=== PATIENT | female | born 1935 | race Caucasian/White ===

== ENCOUNTER → 2019-12-14 14:41 | Outpatient (BNVA) | payer MEDICARE, SELFPAY | PROVIDERS: PCP Internal Medicine; Visit Provider Internal Medicine | DX: I26.99 Other pulmonary embolism without acute cor pulmonale (principal); Z51.81 Encounter for therapeutic drug level monitoring; Z79.01 Long term (current) use of anticoagulants | CPT/HCPCS: 85610; 99211 ==

== ENCOUNTER → 2020-01-11 14:40 | Outpatient (BNVA) | payer MEDICARE, SELFPAY | PROVIDERS: PCP Internal Medicine; Visit Provider Internal Medicine | DX: I26.99 Other pulmonary embolism without acute cor pulmonale (principal); Z51.81 Encounter for therapeutic drug level monitoring; Z79.01 Long term (current) use of anticoagulants | CPT/HCPCS: 85610; 99211 ==

== ENCOUNTER → 2020-01-25 11:49 | Outpatient (BNVA) | payer MEDICARE, SELFPAY | PROVIDERS: PCP Internal Medicine; Visit Provider Internal Medicine | DX: I26.99 Other pulmonary embolism without acute cor pulmonale (principal); Z51.81 Encounter for therapeutic drug level monitoring; Z79.01 Long term (current) use of anticoagulants | CPT/HCPCS: 85610; 99211 ==

== ENCOUNTER → 2020-02-19 11:38 | Outpatient (BNVA) | payer MEDICARE, SELFPAY | PROVIDERS: PCP Internal Medicine; Visit Provider Internal Medicine | DX: I26.99 Other pulmonary embolism without acute cor pulmonale (principal); Z51.81 Encounter for therapeutic drug level monitoring; Z79.01 Long term (current) use of anticoagulants | CPT/HCPCS: 85610; 99211 ==

== ENCOUNTER → 2020-03-04 14:01 | Outpatient (BNVA) | payer MEDICARE, SELFPAY | PROVIDERS: PCP Internal Medicine; Visit Provider Internal Medicine | DX: I26.99 Other pulmonary embolism without acute cor pulmonale (principal); Z51.81 Encounter for therapeutic drug level monitoring; Z79.01 Long term (current) use of anticoagulants | CPT/HCPCS: 85610; 99211 ==

== ENCOUNTER 2020-03-18 12:56 | Outpatient (REF) | payer MEDICARE, SELFPAY ==
[2020-03-18 13:58] LABS: MANUAL DIFF FLAG NO
[2020-03-18 14:02] LABS: Basophils Percent Auto 0.6 % (0-2); Eosinophils Absolute Auto 0.2 X10*3/uL (0.0-0.4); Eosinophils Percent Auto 3.6 % (0-4); Hematocrit 45.1 % (37-47); Hemoglobin 14.3 g/dl (12.0-16.0); Imm Gran Abs Auto 0.02 X10*3/uL (0.00-0.03); Imm Gran Pct Auto 0.3 % (0.0-0.4); Lymphocytes Absolute Auto 2.1 X10*3/uL (1.2-4.9); Lymphocytes Percent Auto 30.9 % (20-40); Mean Corpuscular HGB Conc 31.7 g/dl (31.0-35.0); Mean Corpuscular Hemoglobin 30.4 pg (27.0-33.0); Mean Corpuscular Volume 95.8 fL (80-98); Mean Platelet Volume 11.3 fL (9.4-12.3); Monocytes Absolute Auto 0.7 X10*3/uL (0.1-1.2); Monocytes Percent Auto 9.6 % (2-11); Neutrophils Absolute Auto 3.7 X10*3/uL (2.0-8.3); Platelet Count 232 X10*3/uL (160-400); Red Blood Count 4.71 X10*6/uL (4.20-5.50); Red Cell Distribution Width 12.6 % (11.0-16.0); White Blood Count 6.8 X10*3/uL (4.8-10.8)
[2020-03-18 14:12] LABS: INTERNATIONAL NORM RATIO 3.6 (0.9-1.1); Prothrombin Time 43.4 SEC (10.8-13.0)
[2020-03-18 14:49] LABS: Anion Gap 17 (12-20); Blood Urea Nitrogen 20 mg/dL (9-16); Calcium 9.4 mg/dL (8.4-10.2); Carbon Dioxide 26 mmol/L (22-29); Chloride 104 mmol/L (96-108); Cholesterol 171 mg/dL; Estimated Glomerular Filt Rate 58; Glucose Random 103 mg/dL (60-115); HDL Cholesterol 59 mg/dL; LDL Cholesterol Calculated 89 mg/dl; Sodium 142 mmol/L (135-145); Triglycerides 115 mg/dL
== END 2020-03-18 12:57 | disposition home or self-care (01) ==
LOC: HO.HMGCLDS 12:56
PROVIDERS: PCP Internal Medicine; Visit Provider Internal Medicine
DX: I10 Essential (primary) hypertension (principal); E78.9 Disorder of lipoprotein metabolism, unspecified; Z79.01 Long term (current) use of anticoagulants
CPT/HCPCS: 36415; 80048; 80061; 85025; 85610

== ENCOUNTER → 2020-03-19 12:30 | Outpatient (BNVA) | payer MEDICARE, SELFPAY | PROVIDERS: PCP Internal Medicine; Visit Provider Internal Medicine | DX: I26.99 Other pulmonary embolism without acute cor pulmonale (principal); Z51.81 Encounter for therapeutic drug level monitoring; Z79.01 Long term (current) use of anticoagulants | CPT/HCPCS: Q3014 ==

== ENCOUNTER → 2020-03-27 11:06 | Outpatient (BNVA) | payer MEDICARE, SELFPAY | PROVIDERS: PCP Internal Medicine; Visit Provider Internal Medicine | DX: I26.99 Other pulmonary embolism without acute cor pulmonale (principal); Z51.81 Encounter for therapeutic drug level monitoring; Z79.01 Long term (current) use of anticoagulants | CPT/HCPCS: 85610; 99211 ==

== ENCOUNTER → 2020-04-10 11:22 | Outpatient (BNVA) | payer MEDICARE, SELFPAY | PROVIDERS: PCP Internal Medicine; Visit Provider Internal Medicine | DX: I26.99 Other pulmonary embolism without acute cor pulmonale (principal); Z51.81 Encounter for therapeutic drug level monitoring; Z79.01 Long term (current) use of anticoagulants | CPT/HCPCS: 85610; 99211 ==

== ENCOUNTER → 2020-05-01 11:28 | Outpatient (BNVA) | payer MEDICARE, SELFPAY | PROVIDERS: PCP Internal Medicine; Visit Provider Internal Medicine | DX: I26.99 Other pulmonary embolism without acute cor pulmonale (principal); Z51.81 Encounter for therapeutic drug level monitoring; Z79.01 Long term (current) use of anticoagulants | CPT/HCPCS: 85610; 99211 ==

== ENCOUNTER → 2020-05-29 11:40 | Outpatient (BNVA) | payer MEDICARE, SELFPAY | PROVIDERS: PCP Internal Medicine; Visit Provider Internal Medicine | DX: I26.99 Other pulmonary embolism without acute cor pulmonale (principal); Z51.81 Encounter for therapeutic drug level monitoring; Z79.01 Long term (current) use of anticoagulants | CPT/HCPCS: 85610; 99211 ==

== ENCOUNTER → 2020-07-01 11:42 | Outpatient (BNVA) | payer MEDICARE, SELFPAY | PROVIDERS: PCP Internal Medicine; Visit Provider Internal Medicine | DX: I26.99 Other pulmonary embolism without acute cor pulmonale (principal); Z51.81 Encounter for therapeutic drug level monitoring; Z79.01 Long term (current) use of anticoagulants | CPT/HCPCS: 85610; 99211 ==

== ENCOUNTER → 2020-07-15 11:04 | Outpatient (BNVA) | payer MEDICARE, SELFPAY | PROVIDERS: PCP Internal Medicine; Visit Provider Internal Medicine | DX: I26.99 Other pulmonary embolism without acute cor pulmonale (principal); Z51.81 Encounter for therapeutic drug level monitoring; Z79.01 Long term (current) use of anticoagulants | CPT/HCPCS: 85610; 99211 ==

== ENCOUNTER → 2020-07-31 11:30 | Outpatient (BNVA) | payer MEDICARE, SELFPAY | PROVIDERS: PCP Internal Medicine; Visit Provider Internal Medicine | DX: I26.99 Other pulmonary embolism without acute cor pulmonale (principal); Z51.81 Encounter for therapeutic drug level monitoring; Z79.01 Long term (current) use of anticoagulants | CPT/HCPCS: 85610; 99211 ==

== ENCOUNTER → 2020-08-28 11:43 | Outpatient (BNVA) | payer MEDICARE, SELFPAY | PROVIDERS: PCP Internal Medicine; Visit Provider Internal Medicine | DX: I26.99 Other pulmonary embolism without acute cor pulmonale (principal); Z51.81 Encounter for therapeutic drug level monitoring; Z79.01 Long term (current) use of anticoagulants | CPT/HCPCS: 85610; 99211 ==

== ENCOUNTER 2020-09-03 10:49 | Outpatient (REF) | payer MEDICARE, SELFPAY ==
[2020-09-03 14:18] LABS: Anion Gap 16 (12-20); Blood Urea Nitrogen 14 mg/dL (9-16); Calcium 9.6 mg/dL (8.4-10.2); Carbon Dioxide 28 mmol/L (22-29); Chloride 105 mmol/L (96-108); Cholesterol 157 mg/dL; Estimated Glomerular Filt Rate 52; Glucose Fasting 100 mg/dL (60-99); HDL Cholesterol 67 mg/dL; LDL Cholesterol Calculated 71 mg/dl; Potassium 4.8 mmol/L (3.3-5.1); Sodium 144 mmol/L (135-145); Triglycerides 95 mg/dL
== END 2020-09-03 10:50 | disposition home or self-care (01) ==
LOC: HO.HMGCLDS 10:49
PROVIDERS: PCP Internal Medicine; Visit Provider Internal Medicine
DX: R03.0 Elevated blood-pressure reading, without diagnosis of hypertension (principal); E78.9 Disorder of lipoprotein metabolism, unspecified; I10 Essential (primary) hypertension; K21.9 Gastro-esophageal reflux disease without esophagitis; Z91.09 Other allergy status, other than to drugs and biological substances
CPT/HCPCS: 36415; 80048; 80061

== ENCOUNTER → 2020-09-11 11:34 | Outpatient (BNVA) | payer MEDICARE, SELFPAY | PROVIDERS: PCP Internal Medicine; Visit Provider Internal Medicine | DX: I26.99 Other pulmonary embolism without acute cor pulmonale (principal); Z51.81 Encounter for therapeutic drug level monitoring; Z79.01 Long term (current) use of anticoagulants | CPT/HCPCS: 85610; 99211 ==

== ENCOUNTER → 2020-09-25 11:19 | Outpatient (BNVA) | payer MEDICARE, SELFPAY | PROVIDERS: PCP Internal Medicine; Visit Provider Internal Medicine | DX: I26.99 Other pulmonary embolism without acute cor pulmonale (principal); Z51.81 Encounter for therapeutic drug level monitoring; Z79.01 Long term (current) use of anticoagulants | CPT/HCPCS: 85610; 99211 ==

== ENCOUNTER → 2020-10-23 11:42 | Outpatient (BNV) | payer MEDICARE, SELFPAY | PROVIDERS: PCP Internal Medicine; Visit Provider Internal Medicine | DX: Z86.711 Personal history of pulmonary embolism (principal); D50.9 Iron deficiency anemia, unspecified | CPT/HCPCS: 99212; 99213; 99214 ==

== ENCOUNTER → 2020-10-23 12:39 | Outpatient (BNVA) | payer MEDICARE, SELFPAY | PROVIDERS: PCP Internal Medicine; Visit Provider Internal Medicine | DX: I26.99 Other pulmonary embolism without acute cor pulmonale (principal); Z51.81 Encounter for therapeutic drug level monitoring; Z79.01 Long term (current) use of anticoagulants | CPT/HCPCS: 85610; 99211 ==

== ENCOUNTER → 2020-11-27 11:24 | Outpatient (BNVA) | payer MEDICARE, SELFPAY | PROVIDERS: PCP Internal Medicine; Visit Provider Internal Medicine | DX: I26.99 Other pulmonary embolism without acute cor pulmonale (principal); Z51.81 Encounter for therapeutic drug level monitoring; Z79.01 Long term (current) use of anticoagulants | CPT/HCPCS: 85610; 99211 ==

== ENCOUNTER 2020-12-05 14:56 | Outpatient (REF) | payer MEDICARE, SELFPAY ==
[2020-12-05 16:51] LABS: Alanine Aminotransferase 20 U/L (0-31); Albumin Level 4.2 g/dL (3.5-5.0); Alkaline Phosphatase 92 U/L (39-117); Anion Gap 16 (12-20); Aspartate Amino Transferase 21 U/L (5-31); Bilirubin Total 0.6 mg/dL (0.0-1.0); Blood Urea Nitrogen 18 mg/dL (9-16); Calcium 9.8 mg/dL (8.4-10.2); Carbon Dioxide 26 mmol/L (22-29); Chloride 102 mmol/L (96-108); Estimated Glomerular Filt Rate 56; Glucose Random 104 mg/dL (60-115); Magnesium 2.1 mg/dL (1.6-2.6); Potassium 4.8 mmol/L (3.3-5.1); Sodium 139 mmol/L (135-145); Total Protein 7.4 g/dL (6.5-8.0)
[2020-12-05 17:17] LABS: Vitamin B12 > 2000 pg/mL (200-900)
== END 2020-12-05 14:57 | disposition home or self-care (01) ==
LOC: HO.HMGCLDS 14:56
PROVIDERS: PCP Internal Medicine; Visit Provider Internal Medicine
DX: I73.9 Peripheral vascular disease, unspecified (principal); R03.0 Elevated blood-pressure reading, without diagnosis of hypertension; E78.9 Disorder of lipoprotein metabolism, unspecified; L98.9 Disorder of the skin and subcutaneous tissue, unspecified; I49.9 Cardiac arrhythmia, unspecified; E66.09 Other obesity due to excess calories
CPT/HCPCS: 36415; 80053; 82607; 83735

== ENCOUNTER → 2020-12-11 11:52 | Outpatient (BNVA) | payer MEDICARE, SELFPAY | PROVIDERS: PCP Internal Medicine; Visit Provider Internal Medicine | DX: I26.99 Other pulmonary embolism without acute cor pulmonale (principal); Z51.81 Encounter for therapeutic drug level monitoring; Z79.01 Long term (current) use of anticoagulants | CPT/HCPCS: 85610; 99211 ==

== ENCOUNTER → 2021-01-14 11:22 | Outpatient (BNVA) | payer MEDICARE, SELFPAY | PROVIDERS: PCP Internal Medicine; Visit Provider Internal Medicine | DX: I83.12 Varicose veins of left lower extremity with inflammation (principal); I73.9 Peripheral vascular disease, unspecified; I26.99 Other pulmonary embolism without acute cor pulmonale; Z86.718 Personal history of other venous thrombosis and embolism; Z51.81 Encounter for therapeutic drug level monitoring; Z79.01 Long term (current) use of anticoagulants | CPT/HCPCS: 85610; 99202; 99211 ==

== ENCOUNTER → 2021-02-11 11:17 | Outpatient (BNVA) | payer MEDICARE, SELFPAY | PROVIDERS: PCP Internal Medicine; Visit Provider Internal Medicine | DX: I26.99 Other pulmonary embolism without acute cor pulmonale (principal); Z51.81 Encounter for therapeutic drug level monitoring; Z79.01 Long term (current) use of anticoagulants | CPT/HCPCS: 85610; 99211 ==

== ENCOUNTER → 2021-03-12 11:17 | Outpatient (BNVA) | payer MEDICARE, SELFPAY | PROVIDERS: PCP Internal Medicine; Visit Provider Internal Medicine | DX: I26.99 Other pulmonary embolism without acute cor pulmonale (principal); Z51.81 Encounter for therapeutic drug level monitoring; Z79.01 Long term (current) use of anticoagulants | CPT/HCPCS: 85610; 99211 ==

== ENCOUNTER 2021-03-17 13:01 | Outpatient (REF) | payer MEDICARE, SELFPAY ==
--- NOTE | ~2021-03-17 | US_ITS ---
EXAMINATION: US LOWER EXTREMITY VENOUS (REFLUX EXAM), BILATERAL CLINICAL INDICATION: This is an 85-year-old female with venous insufficiency and varicose veins. COMPARISON: None. TECHNIQUE: Color flow triplex imaging and compression Doppler was performed to evaluate both the deep and the superficial systems bilaterally. To evaluate the superficial system, the examination was performed in the upright position. Color-flow Doppler ultrasound and compression ultrasound were utilized. In addition, maneuvers were utilized to demonstrate reflux. FINDINGS: 1. DEEP VENOUS ULTRASOUND OF THE RIGHT LOWER EXTREMITY: Common Femoral Vein: Compressible, normal respiratory variation and augmented flow. Femoral vein: Compressible, but with reflux measuring 3316 ms. Popliteal Vein: Compressible, but with reflux measuring 2588 ms. Deep Reflux: There is evidence of reflux in the deep system below the level of the common femoral vein. There is no evidence of a James's cyst. 2. SUPERFICIAL ULTRASOUND WITH DOPPLER OF RIGHT LOWER EXTREMITY: GREAT SAPHENOUS VEIN: Saphenofemoral Junction: 0.6 cm. There is no reflux at the saphenofemoral junction. Mid Thigh: 0.3 cm. The reflux time is 1688 ms. Above Knee: 0.4 cm. There is no reflux. Below Knee: 0.3 cm. The reflux time is 1007 are 44 ms. Mid Calf: 0.3 cm. The reflux time is 992 ms. GSV REFLUX: There is no reflux at the saphenofemoral junction. The reflux begins in the proximal thigh. DUPLICATED GREAT SAPHENOUS VEIN: None SMALL SAPHENOUS VEIN: Proximal: 0.6 cm. The reflux time is 1396 ms. Distal: 0.4 cm. The reflux time is 1104 ms. SSV REFLUX: There is reflux at the saphenopopliteal junction and throughout the small saphenous vein. VEIN OF GIACOMINI: None Imaged. PERFORATORS: There is a 0.3 cm calf heater operator helper without reflux. VARICOSITIES: There is a 0.3 cm proximal thigh varicose vein without reflux. 3. DEEP VENOUS ULTRASOUND OF THE LEFT LOWER EXTREMITY: Common Femoral Vein: Compressible, normal respiratory variation and augmented flow. Femoral Vein: Compressible, but with reflux measuring 1824 ms. Popliteal Vein: Compressible, but with reflux measuring 1380 ms. Deep Reflux: There is evidence of reflux in the deep system below the level of the common femoral vein. There is no evidence of a James's cyst. 4. SUPERFICIAL ULTRASOUND WITH DOPPLER OF LEFT LOWER EXTREMITY: GREAT SAPHENOUS VEIN: Saphenofemoral Junction: 0.8 cm. There is no reflux. Mid Thigh: 0.6 cm. There is no reflux. Above Knee: 0.5 cm. The reflux time is 820 ms. Below Knee: 0.3 cm. The reflux time is 816 ms. Mid Calf: 0.3 cm. There is no reflux. Ankle: 0.3 cm. The reflux time is 936 ms. GSV REFLUX: There is no reflux the saphenofemoral junction. There is isolated reflux above the knee. DUPLICATED GREAT SAPHENOUS VEIN: None SMALL SAPHENOUS VEIN: Proximal: 0.5 cm. The reflux time is 1092 ms. Distal: 0.2 cm. There is no reflux SSV REFLUX: There is reflux at the sapheno popliteal junction. VEIN OF GIACOMINI: None Imaged. PERFORATORS: There is a 0.5 cm proximal calf heater operator helper without reflux. VARICOSITIES: There is a 0.4 cm varicosity at the knee without reflux. US/US venous duplex LE BI IMPRESSION: 1. There is a patent right great saphenous vein without reflux at the saphenofemoral junction. However, reflux is seen below that area. 2. There is a patent right small saphenous vein with reflux throughout including the sapheno popliteal junction. 3. There is a patent left great saphenous vein without reflux at the saphenofemoral junction. Distal isolated reflux is seen. 4. There is a patent left small saphenous vein with reflux at the sapheno popliteal junction. 5. Varicose veins are seen bilaterally without reflux. 6. Bilateral deep vein reflux is seen below the level of the common femoral veins respectively.
== END 2021-03-17 13:02 | disposition home or self-care (01) ==
LOC: HO.US 13:01
PROVIDERS: Visit Provider Surgery Vascular Surgery
DX: I83.12 Varicose veins of left lower extremity with inflammation (principal)
CPT/HCPCS: 93970

== ENCOUNTER → 2021-03-27 14:43 | Outpatient (BNVA) | payer MEDICARE, SELFPAY | PROVIDERS: PCP Internal Medicine; Visit Provider Surgery Vascular Surgery | DX: I83.12 Varicose veins of left lower extremity with inflammation (principal) | CPT/HCPCS: 99212 ==

== ENCOUNTER → 2021-04-09 11:07 | Outpatient (BNVA) | payer MEDICARE, SELFPAY | PROVIDERS: PCP Internal Medicine; Visit Provider Internal Medicine | DX: I26.99 Other pulmonary embolism without acute cor pulmonale (principal); Z51.81 Encounter for therapeutic drug level monitoring; Z79.01 Long term (current) use of anticoagulants | CPT/HCPCS: 85610; 99211 ==

== ENCOUNTER 2021-04-17 12:12 | Outpatient (REF) | payer MEDICARE, SELFPAY ==
[2021-04-17 14:06] LABS: Alanine Aminotransferase 19 U/L (0-31); Albumin Level 3.9 g/dL (3.5-5.0); Alkaline Phosphatase 70 U/L (39-117); Anion Gap 16 (12-20); Aspartate Amino Transferase 23 U/L (5-31); Bilirubin Total 0.6 mg/dL (0.0-1.0); Blood Urea Nitrogen 22 mg/dL (9-16); Calcium 9.7 mg/dL (8.4-10.2); Carbon Dioxide 28 mmol/L (22-29); Chloride 103 mmol/L (96-108); Estimated Glomerular Filt Rate 50; Glucose Random 109 mg/dL (60-115); Potassium 5.5 mmol/L (3.3-5.1); Sodium 141 mmol/L (135-145); Total Protein 7.4 g/dL (6.5-8.0)
== END 2021-04-17 12:13 | disposition home or self-care (01) ==
LOC: HO.HMGCLDS 12:12
PROVIDERS: PCP Internal Medicine; Visit Provider Internal Medicine
DX: E78.9 Disorder of lipoprotein metabolism, unspecified (principal); I10 Essential (primary) hypertension
CPT/HCPCS: 36415; 80053

== ENCOUNTER 2021-04-21 10:11 | Outpatient (REF) | payer MEDICARE, SELFPAY ==
[2021-04-21 12:27] LABS: Anion Gap 13 (12-20); Carbon Dioxide 30 mmol/L (22-29); Chloride 102 mmol/L (96-108); Sodium 140 mmol/L (135-145)
== END 2021-04-21 10:12 | disposition home or self-care (01) ==
LOC: HO.HMGCLDS 10:11
PROVIDERS: Visit Provider Internal Medicine
DX: E87.5 Hyperkalemia (principal)
CPT/HCPCS: 36415; 80051

== ENCOUNTER → 2021-04-25 08:27 | Outpatient (BNVA) | payer MEDICARE, SELFPAY | PROVIDERS: PCP Internal Medicine; Visit Provider Surgery Vascular Surgery | DX: I83.12 Varicose veins of left lower extremity with inflammation (principal) | CPT/HCPCS: 36482 ==

== ENCOUNTER 2021-04-28 14:48 | Outpatient (REF) | payer MEDICARE, SELFPAY ==
--- NOTE | ~2021-04-28 | US_ITS ---
EXAMINATION: US VENOUS ULTRASOUND WITH DOPPLER LOWER EXTREMITY, LEFT CLINICAL INFORMATION: This is an 85-year-old female who status post closure of the left great saphenous vein. COMPARISON: None TECHNIQUE: Ultrasound of the deep and superficial veins is performed from the hip to the calf with compression sonography and color and pulse Doppler assessment. Spectral analysis with color-flow imaging is performed. FINDINGS: There is normal venous compression and respiratory variation and augmented flow. The visualized common femoral vein, superficial femoral vein, profunda femoral vein, popliteal vein, and the trifurcation region shows no evidence of deep venous thrombosis. There is no significant popliteal fossa cyst. The peroneal veins are not well identified. There is occlusion of the great saphenous vein beginning 1.2 cm from the junction. No extension of thrombus is seen into the common femoral vein. US/US venous duplex LE LT IMPRESSION: 1. No DVT demonstrated in the left lower extremity. 2. The proximal great saphenous vein is occluded. There is no extension of thrombus into the deep venous system.
== END 2021-04-28 14:49 | disposition home or self-care (01) ==
LOC: HO.US 14:48
PROVIDERS: Visit Provider Surgery Vascular Surgery
DX: M79.605 Pain in left leg (principal); Z98.890 Other specified postprocedural states
CPT/HCPCS: 93971

== ENCOUNTER → 2021-05-07 11:29 | Outpatient (BNVA) | payer MEDICARE, SELFPAY | PROVIDERS: PCP Internal Medicine; Visit Provider Internal Medicine | DX: I26.99 Other pulmonary embolism without acute cor pulmonale (principal); Z51.81 Encounter for therapeutic drug level monitoring; Z79.01 Long term (current) use of anticoagulants | CPT/HCPCS: 85610; 99211 ==

== ENCOUNTER 2021-05-20 14:15 | Outpatient (REF) | payer MEDICARE, SELFPAY ==
--- NOTE | ~2021-05-20 | MM_ITS ---
EXAMINATION: MM SCREENING DIGITAL BREAST TOMOSYNTHESIS, BILATERAL CLINICAL INFORMATION: Screening. Asymptomatic. Family history breast cancer, mother. COMPARISON: Mammography: 10/07/2017, 08/21/2016, 08/08/2015 TECHNIQUE: Digital breast tomosynthesis is performed in both the craniocaudal and mediolateral oblique views along with computer-aided detection (CAD). Synthesized 2D images are generated from the tomosynthesis. FINDINGS: There are scattered areas of fibroglandular density (ACR BI-RADS breast composition Category b). There are no significant masses, abnormal calcifications, or other abnormalities. MM/MM tomosynthesis screening BI IMPRESSION: No mammographic evidence of malignancy. ASSESSMENT: BI-RADS 1: Negative RECOMMENDATION: Routine annual mammography screening. This patient's information was entered into a reminder system with a target due date for their next mammogram.
== END 2021-05-20 14:16 | disposition home or self-care (01) ==
LOC: HO.MAMMO 14:15
PROVIDERS: Visit Provider Internal Medicine
DX: Z12.31 Encounter for screening mammogram for malignant neoplasm of breast (principal); I83.11 Varicose veins of right lower extremity with inflammation
CPT/HCPCS: 77063; 77067; 99212

== ENCOUNTER → 2021-06-04 11:33 | Outpatient (BNVA) | payer MEDICARE, SELFPAY | PROVIDERS: PCP Internal Medicine; Visit Provider Internal Medicine | DX: I26.99 Other pulmonary embolism without acute cor pulmonale (principal); Z79.01 Long term (current) use of anticoagulants; Z51.81 Encounter for therapeutic drug level monitoring | CPT/HCPCS: 85610; 99211 ==

== ENCOUNTER → 2021-06-06 12:26 | Outpatient (BNVA) | payer MEDICARE, SELFPAY | PROVIDERS: PCP Internal Medicine; Visit Provider Surgery Vascular Surgery | DX: I83.11 Varicose veins of right lower extremity with inflammation (principal) | CPT/HCPCS: 36482 ==

== ENCOUNTER 2021-06-10 13:29 | Outpatient (REF) | payer MEDICARE, SELFPAY ==
--- NOTE | ~2021-06-10 | US_ITS ---
EXAMINATION: US VENOUS ULTRASOUND WITH DOPPLER LOWER EXTREMITY, RIGHT CLINICAL INFORMATION: Pain. Post right leg venous seal procedure 06/06/2021 COMPARISON: Previous exam February 2021 TECHNIQUE: Ultrasound of the deep veins is performed from the hip to the calf with compression sonography and color and pulse Doppler assessment. Spectral analysis with color-flow imaging is performed. FINDINGS: There is normal venous compression and respiratory variation and augmented flow. The visualized common femoral vein, superficial femoral vein, profunda femoral vein, popliteal vein, and the trifurcation region shows no evidence of deep venous thrombosis. The right greater saphenous vein is closed. There is echogenic material seen in the right greater saphenous vein that extends to 3.6 cm from the saphenofemoral junction. There is no significant popliteal fossa cyst. The contralateral left common femoral vein is patent. US/US venous duplex LE RT IMPRESSION: No DVT demonstrated in the right lower extremity.
== END 2021-06-10 13:30 | disposition home or self-care (01) ==
LOC: HO.HMGCX 13:29
PROVIDERS: PCP Internal Medicine; Visit Provider Surgery Vascular Surgery
DX: M79.604 Pain in right leg (principal)
CPT/HCPCS: 93971

== ENCOUNTER → 2021-06-19 11:08 | Outpatient (BNVA) | payer MEDICARE, SELFPAY | PROVIDERS: PCP Internal Medicine; Visit Provider Surgery Vascular Surgery | DX: I83.12 Varicose veins of left lower extremity with inflammation (principal) | CPT/HCPCS: 99212 ==

== ENCOUNTER → 2021-06-27 09:32 | Outpatient (BNVA) | payer MEDICARE, SELFPAY | PROVIDERS: PCP Internal Medicine; Visit Provider Surgery Vascular Surgery | DX: I83.12 Varicose veins of left lower extremity with inflammation (principal) | CPT/HCPCS: 36475 ==

== ENCOUNTER 2021-06-30 14:58 | Outpatient (REF) | payer MEDICARE, SELFPAY ==
--- NOTE | ~2021-06-30 | US_ITS ---
EXAMINATION: US VENOUS ULTRASOUND WITH DOPPLER LOWER EXTREMITY, LEFT CLINICAL INFORMATION: Post left RFA ablation 06/27/2021 COMPARISON: Previous exams most recent April 2021 TECHNIQUE: Ultrasound of the deep veins is performed from the hip to the calf with compression sonography and color and pulse Doppler assessment. Spectral analysis with color-flow imaging is performed. FINDINGS: There is echogenic material seen against the wall of the left superficial femoral vein in the proximal thigh suggestive of thrombus. This is new in the interval from April 2021 exam but does not appear acute. The left common femoral, superficial femoral vein in the mid and distal thigh, profunda, popliteal and posterior tibial veins are patent. There is limited visualization of the peroneal veins in the calf vein due to swelling. The left greater saphenous vein is difficult to visualize. There appears to be narrowing and echogenic material 4.5 cm from the saphenofemoral junction. The contralateral right common femoral vein is patent. There is no James's cyst. US/US venous duplex LE IMPRESSION: Echogenic material in the left superficial femoral vein in the upper thigh. This is new in the interval from April 2021 exam however is more suggestive of chronic than acute DVT. Short-term follow-up exam in several days may be helpful. Nonvisualization of the peroneal veins. Findings will be communicated by the [facility] work flow hatch supervisor Peng Chrisitan.
== END 2021-06-30 14:59 | disposition home or self-care (01) ==
LOC: HO.US 14:58
PROVIDERS: Visit Provider Surgery Vascular Surgery
DX: M79.605 Pain in left leg (principal)
CPT/HCPCS: 93971

== ENCOUNTER → 2021-07-03 11:41 | Outpatient (BNVA) | payer MEDICARE, SELFPAY | PROVIDERS: PCP Internal Medicine; Visit Provider Internal Medicine | DX: I26.99 Other pulmonary embolism without acute cor pulmonale (principal); Z79.01 Long term (current) use of anticoagulants; Z51.81 Encounter for therapeutic drug level monitoring | CPT/HCPCS: 85610; 99211 ==

== ENCOUNTER → 2021-07-10 11:08 | Outpatient (BNVA) | payer MEDICARE, SELFPAY | PROVIDERS: PCP Internal Medicine; Visit Provider Surgery Vascular Surgery | DX: I83.11 Varicose veins of right lower extremity with inflammation (principal) | CPT/HCPCS: 99212 ==

== ENCOUNTER → 2021-07-17 11:46 | Outpatient (BNVA) | payer MEDICARE, SELFPAY | PROVIDERS: PCP Internal Medicine; Visit Provider Internal Medicine | DX: I26.99 Other pulmonary embolism without acute cor pulmonale (principal); Z79.01 Long term (current) use of anticoagulants; Z51.81 Encounter for therapeutic drug level monitoring | CPT/HCPCS: 85610; 99211 ==

== ENCOUNTER → 2021-07-18 09:36 | Outpatient (BNVA) | payer MEDICARE, SELFPAY | PROVIDERS: PCP Internal Medicine; Visit Provider Surgery Vascular Surgery | DX: I83.11 Varicose veins of right lower extremity with inflammation (principal) | CPT/HCPCS: 36475 ==

== ENCOUNTER 2021-07-22 15:30 | Outpatient (REF) | payer MEDICARE, SELFPAY ==
--- NOTE | ~2021-07-22 | US_ITS ---
EXAMINATION: US VENOUS ULTRASOUND WITH DOPPLER LOWER EXTREMITY, RIGHT CLINICAL INFORMATION: Pain right leg. COMPARISON: Ultrasound right lower venous study 06/10/2021. Status post venous ablation. TECHNIQUE: Ultrasound of the deep veins is performed from the hip to the calf with compression sonography and color and pulse Doppler assessment. Spectral analysis with color-flow imaging is performed. FINDINGS: There is normal venous compression and respiratory variation and augmented flow. The visualized common femoral vein, superficial femoral vein, profunda femoral vein, popliteal vein, and the trifurcation region shows no evidence of deep venous thrombosis. There is no significant popliteal fossa cyst. There is thrombus visualized in superficial saphenous vein approximately 2.6 cm from the confluence. No flow visualized in this segment. If the patient's symptoms persist, followup ultrasound in 5 days 7 days might be of value to exclude proximal propagation from a nonvisualized calf vein. US/US venous duplex LE RT IMPRESSION: No DVT demonstrated in the right lower extremity. Thrombus visualized in the superficial saphenous vein status post venous ablation.
== END 2021-07-22 15:31 | disposition home or self-care (01) ==
LOC: HO.US 15:30
PROVIDERS: Visit Provider Surgery Vascular Surgery
DX: M79.604 Pain in right leg (principal)
CPT/HCPCS: 93971

== ENCOUNTER → 2021-07-24 11:37 | Outpatient (BNVA) | payer MEDICARE, SELFPAY | PROVIDERS: PCP Internal Medicine; Visit Provider Internal Medicine | DX: I26.99 Other pulmonary embolism without acute cor pulmonale (principal); Z79.01 Long term (current) use of anticoagulants; Z51.81 Encounter for therapeutic drug level monitoring | CPT/HCPCS: 85610; 99211 ==

== ENCOUNTER 2021-07-30 13:19 | Outpatient (REF) | payer MEDICARE, SELFPAY ==
[2021-07-30 16:54] LABS: Anion Gap 15 (12-20); Carbon Dioxide 27 mmol/L (22-29); Chloride 102 mmol/L (96-108); Potassium 5.1 mmol/L (3.3-5.1); Sodium 139 mmol/L (135-145)
== END 2021-07-30 13:20 | disposition home or self-care (01) ==
LOC: HO.HMGCLDS 13:19
PROVIDERS: PCP Internal Medicine; Visit Provider Internal Medicine
DX: E87.5 Hyperkalemia (principal)
CPT/HCPCS: 36415; 80051

== ENCOUNTER → 2021-07-31 13:57 | Outpatient (BNVA) | payer MEDICARE, SELFPAY | PROVIDERS: PCP Internal Medicine; Visit Provider Surgery Vascular Surgery | DX: I83.11 Varicose veins of right lower extremity with inflammation (principal) | CPT/HCPCS: 99212 ==

== ENCOUNTER 2021-08-04 10:01 | Outpatient (RCR) | payer MEDICARE, SELFPAY | END 2021-10-17 08:45 | disposition home or self-care (01) | LOC: HO.WCC 10:01 | PROVIDERS: Visit Provider Physician Assistant | DX: I87.033 Postthrombotic syndrome with ulcer and inflammation of bilateral lower extremity (principal); L97.822 Non-pressure chronic ulcer of other part of left lower leg with fat layer exposed; L97.812 Non-pressure chronic ulcer of other part of right lower leg with fat layer exposed; Z86.718 Personal history of other venous thrombosis and embolism; Z79.01 Long term (current) use of anticoagulants; Z79.899 Other long term (current) drug therapy | CPT/HCPCS: 11042; 29581; 97597; 99212 ==

== ENCOUNTER → 2021-08-07 11:35 | Outpatient (BNVA) | payer MEDICARE, SELFPAY | PROVIDERS: PCP Internal Medicine; Visit Provider Internal Medicine | DX: I26.99 Other pulmonary embolism without acute cor pulmonale (principal); Z79.01 Long term (current) use of anticoagulants; Z51.81 Encounter for therapeutic drug level monitoring | CPT/HCPCS: 85610; 99211 ==

== ENCOUNTER → 2021-08-21 11:34 | Outpatient (BNVA) | payer MEDICARE, SELFPAY | PROVIDERS: PCP Internal Medicine; Visit Provider Internal Medicine | DX: I26.99 Other pulmonary embolism without acute cor pulmonale (principal); Z51.81 Encounter for therapeutic drug level monitoring; Z79.01 Long term (current) use of anticoagulants | CPT/HCPCS: 85610; 99211 ==

== ENCOUNTER → 2021-08-28 13:35 | Outpatient (BNVA) | payer MEDICARE, SELFPAY | PROVIDERS: PCP Internal Medicine; Visit Provider Surgery Vascular Surgery | DX: I83.12 Varicose veins of left lower extremity with inflammation (principal); S81.802A Unspecified open wound, left lower leg, initial encounter | CPT/HCPCS: 99212 ==

== ENCOUNTER → 2021-09-15 10:59 | Outpatient (BNVA) | payer MEDICARE, SELFPAY | PROVIDERS: PCP Internal Medicine; Visit Provider Internal Medicine | DX: I26.99 Other pulmonary embolism without acute cor pulmonale (principal); Z51.81 Encounter for therapeutic drug level monitoring; Z79.01 Long term (current) use of anticoagulants | CPT/HCPCS: 85610; 99211 ==

== ENCOUNTER → 2021-09-22 13:35 | Outpatient (BNVA) | payer MEDICARE, SELFPAY | PROVIDERS: PCP Internal Medicine; Visit Provider Internal Medicine | DX: I26.99 Other pulmonary embolism without acute cor pulmonale (principal); Z79.01 Long term (current) use of anticoagulants; Z51.81 Encounter for therapeutic drug level monitoring | CPT/HCPCS: 85610; 99211 ==

== ENCOUNTER → 2021-09-29 11:45 | Outpatient (BNVA) | payer MEDICARE, SELFPAY | PROVIDERS: PCP Internal Medicine; Visit Provider Internal Medicine | DX: I26.99 Other pulmonary embolism without acute cor pulmonale (principal); Z79.01 Long term (current) use of anticoagulants; Z51.81 Encounter for therapeutic drug level monitoring | CPT/HCPCS: 85610; 99211 ==

== ENCOUNTER → 2021-10-08 11:45 | Outpatient (BNVA) | payer MEDICARE, SELFPAY | PROVIDERS: PCP Internal Medicine; Visit Provider Internal Medicine | DX: I26.99 Other pulmonary embolism without acute cor pulmonale (principal); Z79.01 Long term (current) use of anticoagulants; Z51.81 Encounter for therapeutic drug level monitoring | CPT/HCPCS: 85610; 99211 ==

== ENCOUNTER 2021-10-20 06:50 | Day surgery (SDC) | payer MEDICARE, SELFPAY ==
[2021-10-15 09:01] VITALS: BMI 33.0
--- NOTE | 2021-10-16 12:37 | MHC.SHP ---
Pre-Procedural Eval Section A Date of Service: 10/16/21 The patient is an INPATIENT: No Changes since office visit: No Cold of Flu in the past 2 weeks, No New Medical Problems, No Changes in Medication and No Patient answered all questions The History & Physical has been completed within 30 days and I have reviewed it.: Yes Section B Chief Complaint: cataract Allergies: Allergies Allergy/AdvReac Type Severity Reaction Status Date / Time enviromental Allergy Mild RHINITIS Uncoded 10/08/21 11:52 SEASONAL ALLERGIES Allergy Mild RUNNY NOSE Uncoded 10/08/21 11:52 Plan Diagnosis/Plan: Unchanged I have reviewed the history and physical and performed a pertinent physical examination on my patient. No changes have occurred unless specified.
[2021-10-20 07:15] VITALS: BP 139/77; PULSE 81; RESP 18; TEMP 36.6; O2SAT 96
[2021-10-20] MEDS: Tetracaine HCl/PF 0.5% Oph Sol 4 ML DROPS 1 DROP EYE-LEFT (07:22)
[2021-10-20] MEDS: Cyclopentolate 1 % Ophth Sol 2 ML DRPBTL 1 DROP EYE-LEFT ×3 (07:24→07:33)
[2021-10-20] MEDS: Tropicamide 1 % Ophth Sol 3 ML BTL 1 DROP EYE-LEFT ×3 (07:24→07:33)
[2021-10-20] MEDS: Phenylephrine HCL 2.5% Oph SoL 2 ML BOTTLE 1 DROP EYE-LEFT ×3 (07:24→07:34)
[2021-10-20 07:26] LABS: Prothrombin Time 24.1 SEC (10.0-13.1)
--- NOTE | 2021-10-20 07:39 | HO.ANESPROP2 ---
HPI - Anesthesia Eval Consult details Narrative: left cataract IOL PMFSH Active Problems Active Problems: All Active Problems (Updated 10/14/21 @ 13:42 by Marvin Alexis MD) Current use of anticoagulant therapy (Acute) Personal history of pulmonary embolism (Chronic) Chronic GERD (Acute) Elevated blood pressure reading (Acute) Skin sore (Acute) Irregular heart rate (Acute) Obesity due to excess calories (Acute) Varicose veins of left lower extremity with inflammation (Acute) Encounter for general adult medical examination with abnormal findings (Acute) Serum potassium elevated (Acute) Varicose veins of right lower extremity with inflammation (Acute) Pre-op evaluation (Acute) Cataract (Acute) Nephropathy (Acute) History of deep venous thrombosis (DVT) of distal vein of left lower extremity (Acute) Environmental allergies (Acute) COPD mixed type (Acute) Warfarin anticoagulation (Acute) Peripheral vascular disease (Acute) Lipid disorder (Acute) Hypertension, essential (Acute) Past Medical History Medical History COPD mixed type Environmental allergies History of deep venous thrombosis (DVT) of distal vein of left lower extremity Hypertension, essential Lipid disorder Osteoporosis Peripheral vascular disease Warfarin anticoagulation Family History Family History Father HTN (hypertension) History of heart attack Mother HTN (hypertension) Breast cancer Maternal Grandfather No problems noted. Maternal Grandmother No problems noted. Paternal Grandfather No problems noted. Paternal Grandmother No problems noted. Sister No problems noted. Son No problems noted. Son No problems noted. Daughter No problems noted. Daughter No problems noted. Daughter No problems noted. Family history of problems with anesthesia: No Surgical History Surgical History History of breast biopsy History of colonoscopy Hx of vascular surgery History of Problems with Anesthesia: No Social History Social History Housing: House Are you a primary women's health care nurse practitioner to a significant other at home: No Do you presently have visiting nurse or other home services: No Alcohol intake: current Alcohol intake frequency: holidays/special occasions only Patient Tobacco Use Status: Never used Tobacco e-Cigarette/Vaping Use: Never Used Second Hand Smoke Exposure: No Use of substances other than those prescribed or required for medical reasons: No Have you been hit, kicked, punched, or otherwise hurt by someone within the past year? If so, by whom?: No Are you DNR?: No Advance Directives: No (will bring dos) Advance Directives Information Provided: Yes Advance Directives on File: No Recently lost weight without trying: No Nutrition Risks: Surgical patient >75years Current occupational status: retired Cognitive needs: No Hearing needs: No Vision needs: Yes Meds Allergies Allergy/AdvReac Type Severity Reaction Status Date / Time enviromental Allergy Mild RHINITIS Uncoded 10/08/21 11:52 SEASONAL ALLERGIES Allergy Mild RUNNY NOSE Uncoded 10/08/21 11:52 Active Medications: Current Medications Lactated Ringer's (Lr) 500 mls @ 50 mls/hr IVCONT .Q10H ROMAINE Povidone Iodine (Povidone Iodine 5 % Ophth Soln 30 Ml Bottle) 1 appl EYE-LEFT PREOP PRN PRN Reason: Pre-Op Surgical Implant Prophy Home Medications Medication Instructions Recorded Confirmed Last Taken Type fexofenadine 180 mg tablet 180 mg PO DAILY 10/15/21 10/15/21 Unknown History (Rosemary Allergy) Exam Exam Date and Time: October 20, 2021 0739 Height,Weight and Vital Signs: Height 5 ft 6 in Weight 92.986 kg Last Vital Signs Temp 97.8 F 10/20/21 07:15 Pulse 81 10/20/21 07:15 Resp 18 10/20/21 07:15 BP 139/77 10/20/21 07:15 Pulse Ox 96 10/20/21 07:15 O2 Del Method 10/20/21 07:15 Pertinent Lab Results Pertinent Lab Results: Laboratory Tests 10/20/21 07:09 PT 24.1 H INR 2.0 H Airway Mallampati Class: II TM Dist: >3cm Neck ROM: Full Partial: Upper (upper partial, lower no teeth) Loose/Missing/Broken Teeth: Yes (see above) Heart: rrr+s1s2, some skipped beats. being seen by Dr. Ennis and optimized Lungs: cta b/l Assessment and Plan Assessment Anesthesia Assessment: Anesthesia Plan Discussed and Chart Reviewed Final Anesthetic Review Family History of Problems with Anesthesia: No History of Problems with Anesthesia: No NPO: Yes ASA Class: III Final Preanesthetic Review: No Changes in Pt Med Stat, Meds/Allgs Chart Reviewed, Consent Obtained/Reviewed and Anes Risks/Benef Reviewed Patient Risk: Intermediate Procedure Risk: Low Assessment/Block/Sedation in SS: Assess/Block/Sedation-SS Anesthetic Plan Anesthetic Plan: MAC: and Agree w/ Assess. and Plan Disposition: Standard PACU
--- NOTE | 2021-10-20 08:11 | HO.PNOPHT ---
Ophthalmology Procedure Procedure Date of Service: 10/20/21 Ophthalmology Viscoelastic: Healana Davet Dual Pack Pro Ophthalmology Lenses: TECNIS [id number] (14.5) Procedure Notes: PREOPERATIVE DIAGNOSIS: Decreased visual acuity left eye secondary to cataract POSTOPERATIVE DIAGNOSIS: Same PROCEDURE: Left cataract extraction with intraocular lens insertion SURGEON: Trung Puckett M.D. ANESTHESIA: Topical/MAC ESTIMATED BLOOD LOSS: None COMPLICATIONS: None After obtaining informed consent, the patient was brought to the operation room suite and placed in the supine position. After adequate sedation per anesthesia, topical drops of Tetracaine were given to the left eye. The eye was then prepped and draped in the usual sterile fashion. The operating room microscope was then positioned over the operative eye and a lid speculum placed. A paracentesis was created. Viscoelastic was then instilled into the anterior chamber. A three plane incision was then created temporally, utilizing a 2.85 mm keratome. Capsulotomy forceps were then utilized to create a circular tear capsulotomy. Hydrodissection and hydrodelineation were carried out until adequate mobilization of the nucleus occurred. Phacoemulsification was then utilized to remove the dense central nucleus followed by removal of the cortical material utilizing the automated aspiration irrigation unit. Viscoat elastic was instilled into the posterior capsular bag followed by placement of a posterior chamber intraocular lens without difficulty. The residual Viscoat elastic was then removed utilizing the automated IA machine. The wound was check and found to be watertight. The patient tolerated the procedure well and the lid speculum was removed. Intracameral injection of Vigamox 0.1 mL followed by a subtenon injection of Kenalog-40 0.2 mL were administered. The patient will be seen in the a.m.
[2021-10-20 08:12] VITALS: BP 132/57; PULSE 63; RESP 17; TEMP 36.1; O2SAT 98
[2021-10-20 08:18] VITALS: BP 154/86; PULSE 74; RESP 16; TEMP 36.2; O2SAT 97
== END 2021-10-20 08:40 | disposition home or self-care (01) ==
PROVIDERS: Anesthesiology; PCP Internal Medicine; Visit Provider Ophthalmology
PROC: (CPT 66985; principal; 2021-10-20 09:10)
DX: H25.12 Age-related nuclear cataract, left eye (principal); H52.4 Presbyopia; H35.033 Hypertensive retinopathy, bilateral; I10 Essential (primary) hypertension; J44.9 Chronic obstructive pulmonary disease, unspecified; J30.9 Allergic rhinitis, unspecified; Z86.718 Personal history of other venous thrombosis and embolism; Z79.01 Long term (current) use of anticoagulants; Z79.899 Other long term (current) drug therapy
CPT/HCPCS: 66984; 36415; 85610; J2250; J3300; V2632

== ENCOUNTER 2021-11-03 07:07 | Day surgery (SDC) | payer MEDICARE, SELFPAY ==
[2021-10-15 09:05] VITALS: BMI 33.0
--- NOTE | 2021-10-31 12:54 | MHC.SHP ---
Pre-Procedural Eval Section A Date of Service: 10/31/21 The patient is an INPATIENT: No Changes since office visit: No Cold of Flu in the past 2 weeks, No New Medical Problems, No Changes in Medication and No Patient answered all questions The History & Physical has been completed within 30 days and I have reviewed it.: Yes Section B Chief Complaint: cataract Allergies: Allergies Allergy/AdvReac Type Severity Reaction Status Date / Time enviromental Allergy Mild RHINITIS Uncoded 10/08/21 11:52 SEASONAL ALLERGIES Allergy Mild RUNNY NOSE Uncoded 10/08/21 11:52 Plan Diagnosis/Plan: Unchanged I have reviewed the history and physical and performed a pertinent physical examination on my patient. No changes have occurred unless specified.
--- NOTE | 2021-11-03 07:50 | HO.ANESPROP2 ---
HPI - Anesthesia Eval Consult details Narrative: Right eye cataract PMFSH Active Problems Active Problems: All Active Problems (Updated 10/14/21 @ 13:42 by Marvin Alexis MD) Current use of anticoagulant therapy (Acute) Personal history of pulmonary embolism (Chronic) Chronic GERD (Acute) Elevated blood pressure reading (Acute) Skin sore (Acute) Irregular heart rate (Acute) Obesity due to excess calories (Acute) Varicose veins of left lower extremity with inflammation (Acute) Encounter for general adult medical examination with abnormal findings (Acute) Serum potassium elevated (Acute) Varicose veins of right lower extremity with inflammation (Acute) Pre-op evaluation (Acute) Cataract (Acute) Nephropathy (Acute) History of deep venous thrombosis (DVT) of distal vein of left lower extremity (Acute) Environmental allergies (Acute) COPD mixed type (Acute) Warfarin anticoagulation (Acute) Peripheral vascular disease (Acute) Lipid disorder (Acute) Hypertension, essential (Acute) Past Medical History Medical History COPD mixed type Environmental allergies History of deep venous thrombosis (DVT) of distal vein of left lower extremity Hypertension, essential Lipid disorder Osteoporosis Peripheral vascular disease Warfarin anticoagulation Family History Family History Father HTN (hypertension) History of heart attack Mother HTN (hypertension) Breast cancer Maternal Grandfather No problems noted. Maternal Grandmother No problems noted. Paternal Grandfather No problems noted. Paternal Grandmother No problems noted. Sister No problems noted. Son No problems noted. Son No problems noted. Daughter No problems noted. Daughter No problems noted. Daughter No problems noted. Family history of problems with anesthesia: No Surgical History Surgical History History of breast biopsy History of colonoscopy Hx of vascular surgery History of Problems with Anesthesia: No Social History Social History Housing: House Are you a primary care director rn to a significant other at home: No Do you presently have visiting nurse or other home services: No Alcohol intake: current Alcohol intake frequency: holidays/special occasions only Patient Tobacco Use Status: Never used Tobacco e-Cigarette/Vaping Use: Never Used Second Hand Smoke Exposure: No Have you been hit, kicked, punched, or otherwise hurt by someone within the past year? If so, by whom?: No Are you DNR?: No Advance Directives: No (will bring dos) Advance Directives Information Provided: Yes Advance Directives on File: No Recently lost weight without trying: No Nutrition Risks: Surgical patient >75years Current occupational status: retired Cognitive needs: No Hearing needs: No Vision needs: Yes Meds Allergies Allergy/AdvReac Type Severity Reaction Status Date / Time enviromental Allergy Mild RHINITIS Uncoded 10/08/21 11:52 SEASONAL ALLERGIES Allergy Mild RUNNY NOSE Uncoded 10/08/21 11:52 Active Medications: Current Medications Lactated Ringer's (Lr) 500 mls @ 50 mls/hr IVCONT .Q10H ROMAINE Povidone Iodine (Povidone Iodine 5 % Ophth Soln 30 Ml Bottle) 1 appl EYE-RIGHT PREOP PRN PRN Reason: Pre-Op Surgical Implant Prophy Home Medications Medication Instructions Recorded Confirmed Last Taken Type fexofenadine 180 mg tablet 180 mg PO DAILY 10/15/21 10/15/21 Unknown History (Rosemary Allergy) Exam Exam Date and Time: November 03, 2021 0750 Height,Weight and Vital Signs: Height 5 ft 6 in Weight 92.986 kg Airway Mallampati Class: II TM Dist: >3cm Neck ROM: Full Partial: Upper ((upper partial, lower no teeth)) Loose/Missing/Broken Teeth: Yes Heart: rrr+s1s2 Lungs: cta b/l Assessment and Plan Assessment Anesthesia Assessment: Anesthesia Plan Discussed and Chart Reviewed Final Anesthetic Review Family History of Problems with Anesthesia: No History of Problems with Anesthesia: No NPO: Yes ASA Class: III Final Preanesthetic Review: No Changes in Pt Med Stat, Meds/Allgs Chart Reviewed, Consent Obtained/Reviewed and Anes Risks/Benef Reviewed Patient Risk: Intermediate Procedure Risk: Low Assessment/Block/Sedation in SS: Assess/Block/Sedation-SS Anesthetic Plan Anesthetic Plan: MAC: and Agree w/ Assess. and Plan Disposition: Standard PACU
[2021-11-03] MEDS: Cyclopentolate 1 % Ophth Sol 2 ML DRPBTL 1 DROP EYE-RIGHT ×3 (08:00→08:09)
[2021-11-03] MEDS: Tropicamide 1 % Ophth Sol 3 ML BTL 1 DROP EYE-RIGHT ×3 (08:00→08:09)
[2021-11-03] MEDS: Tetracaine HCl/PF 0.5% Oph Sol 4 ML DROPS 1 DROP EYE-RIGHT (08:00)
[2021-11-03] MEDS: Lactated Ringers 500 ML 50 ML IVCONT (08:00)
[2021-11-03] MEDS: Phenylephrine HCL 2.5% Oph SoL 2 ML BOTTLE 1 DROP EYE-RIGHT ×3 (08:01→08:09)
[2021-11-03 08:02] VITALS: BP 167/77; PULSE 69; RESP 18; TEMP 36.2; O2SAT 96
--- NOTE | 2021-11-03 09:55 | HO.PNOPHT ---
Ophthalmology Procedure Procedure Date of Service: 11/03/21 Ophthalmology Viscoelastic: Jes Davet Dual Pack Pro Ophthalmology Lenses: TECCHRISTINE [id number] (15) Procedure Notes: PREOPERATIVE DIAGNOSIS: Decreased visual acuity right eye secondary to cataract POSTOPERATIVE DIAGNOSIS: Same PROCEDURE: Right cataract extraction with intraocular lens insertion SURGEON: Trung Puckett M.D. ANESTHESIA: Topical/MAC ESTIMATED BLOOD LOSS: None COMPLICATIONS: None After obtaining informed consent, the patient was brought to the operating room suite and placed in the supine position. After adequate sedation per anesthesia, topical drops of Tetracaine were given to the right eye. The eye was then prepped and draped in the usual sterile fashion. The operating room microscope was then positioned over the operative eye and a lid speculum placed. A paracentesis was created. Viscoelastic was then instilled into the anterior chamber. A three plane incision was then created temporally, utilizing a 2.85 mm keratome. Capsulotomy forceps were then utilized to create a circular tear capsulotomy. Hydrodissection and hydrodelineation were carried out until adequate mobilization of the nucleus occurred. Phacoemulsification was then utilized to remove the dense central nucleus followed by removal of the cortical material utilizing the automated aspiration irrigation unit. Viscoelastic was instilled into the posterior capsular bag followed by placement of a posterior chamber intraocular lens without difficulty. The residual Viscoelastic was then removed utilizing the automated IA machine. The wound was checked and found to be watertight. The patient tolerated the procedure well and the lid speculum was removed. Intracameral injection of Vigamox 0.1 mL followed by a subtenon injection of Kenalog-40 0.2 mL were administered. The patient will be seen in the a.m.
[2021-11-03 10:12] VITALS: BP 167/88; PULSE 60; RESP 16; TEMP 36.4; O2SAT 96
== END 2021-11-03 10:26 | disposition home or self-care (01) ==
PROVIDERS: PCP Internal Medicine; Visit Provider Ophthalmology
PROC: (CPT 66985; principal; 2021-11-03 09:10)
DX: H25.11 Age-related nuclear cataract, right eye (principal); H35.033 Hypertensive retinopathy, bilateral; I10 Essential (primary) hypertension; Z86.718 Personal history of other venous thrombosis and embolism; Z79.01 Long term (current) use of anticoagulants; Z79.899 Other long term (current) drug therapy
CPT/HCPCS: 66984; J3010; J3300; V2632

== ENCOUNTER → 2021-11-06 11:37 | Outpatient (BNVA) | payer MEDICARE, SELFPAY | PROVIDERS: PCP Internal Medicine; Visit Provider Internal Medicine | DX: I26.99 Other pulmonary embolism without acute cor pulmonale (principal); Z51.81 Encounter for therapeutic drug level monitoring; Z79.01 Long term (current) use of anticoagulants | CPT/HCPCS: 85610; 99211 ==

== ENCOUNTER 2021-12-02 11:00 | Outpatient (REF) | payer MEDICARE, SELFPAY ==
[2021-12-02 14:20] LABS: Alanine Aminotransferase 23 U/L (0-31); Albumin Level 4.1 g/dL (3.5-5.0); Alkaline Phosphatase 73 U/L (39-117); Anion Gap 16 (12-20); Aspartate Amino Transferase 25 U/L (5-31); Bilirubin Total 0.5 mg/dL (0.0-1.0); Blood Urea Nitrogen 25 mg/dL (9-16); Calcium 9.6 mg/dL (8.4-10.2); Carbon Dioxide 29 mmol/L (22-29); Chloride 103 mmol/L (96-108); Estimated Glomerular Filt Rate 51; Glucose Random 92 mg/dL (60-115); Potassium 5.1 mmol/L (3.3-5.1); Sodium 143 mmol/L (135-145); Total Protein 7.3 g/dL (6.5-8.0)
== END 2021-12-02 11:01 | disposition home or self-care (01) ==
LOC: HO.HMGCLDS 11:00
PROVIDERS: PCP Internal Medicine; Visit Provider Internal Medicine
DX: I10 Essential (primary) hypertension (principal); I49.9 Cardiac arrhythmia, unspecified
CPT/HCPCS: 36415; 80053

== ENCOUNTER → 2021-12-03 14:03 | Outpatient (BNVA) | payer MEDICARE, SELFPAY | PROVIDERS: PCP Internal Medicine; Visit Provider Internal Medicine | DX: I26.99 Other pulmonary embolism without acute cor pulmonale (principal); Z79.01 Long term (current) use of anticoagulants; Z51.81 Encounter for therapeutic drug level monitoring | CPT/HCPCS: 85610; 99211 ==

== ENCOUNTER → 2021-12-17 11:09 | Outpatient (BNVA) | payer MEDICARE, SELFPAY | PROVIDERS: PCP Internal Medicine; Visit Provider Internal Medicine | DX: I26.99 Other pulmonary embolism without acute cor pulmonale (principal); Z79.01 Long term (current) use of anticoagulants; Z51.81 Encounter for therapeutic drug level monitoring | CPT/HCPCS: 85610; 99211 ==

== ENCOUNTER → 2021-12-31 13:32 | Outpatient (BNVA) | payer MEDICARE, SELFPAY | PROVIDERS: PCP Internal Medicine; Visit Provider Internal Medicine | DX: I26.99 Other pulmonary embolism without acute cor pulmonale (principal); Z79.01 Long term (current) use of anticoagulants; Z51.81 Encounter for therapeutic drug level monitoring | CPT/HCPCS: 85610; 99211 ==

== ENCOUNTER → 2022-01-14 11:27 | Outpatient (BNVA) | payer MEDICARE, SELFPAY | PROVIDERS: PCP Internal Medicine; Visit Provider Internal Medicine | DX: I26.99 Other pulmonary embolism without acute cor pulmonale (principal); Z79.01 Long term (current) use of anticoagulants; Z51.81 Encounter for therapeutic drug level monitoring | CPT/HCPCS: 85610; 99211 ==

== ENCOUNTER → 2022-02-04 11:50 | Outpatient (BNVA) | payer MEDICARE, SELFPAY | PROVIDERS: PCP Internal Medicine; Visit Provider Internal Medicine | DX: I26.99 Other pulmonary embolism without acute cor pulmonale (principal); Z79.01 Long term (current) use of anticoagulants; Z51.81 Encounter for therapeutic drug level monitoring | CPT/HCPCS: 85610; 99211 ==

== ENCOUNTER → 2022-02-18 11:25 | Outpatient (BNVA) | payer MEDICARE, SELFPAY | PROVIDERS: PCP Internal Medicine; Visit Provider Internal Medicine | DX: I26.99 Other pulmonary embolism without acute cor pulmonale (principal); Z79.01 Long term (current) use of anticoagulants; Z51.81 Encounter for therapeutic drug level monitoring | CPT/HCPCS: 85610; 99211 ==

== ENCOUNTER → 2022-02-26 13:31 | Outpatient (BNVA) | payer MEDICARE, SELFPAY | PROVIDERS: PCP Internal Medicine; Visit Provider Surgery Vascular Surgery | DX: I83.11 Varicose veins of right lower extremity with inflammation (principal); I83.12 Varicose veins of left lower extremity with inflammation; Z98.890 Other specified postprocedural states | CPT/HCPCS: 99212 ==

== ENCOUNTER → 2022-03-04 11:26 | Outpatient (BNVA) | payer MEDICARE, SELFPAY | PROVIDERS: PCP Internal Medicine; Visit Provider Internal Medicine | DX: I26.99 Other pulmonary embolism without acute cor pulmonale (principal); Z79.01 Long term (current) use of anticoagulants; Z51.81 Encounter for therapeutic drug level monitoring | CPT/HCPCS: 85610; 99211 ==

== ENCOUNTER → 2022-03-18 11:31 | Outpatient (BNVA) | payer MEDICARE, SELFPAY | PROVIDERS: PCP Internal Medicine; Visit Provider Internal Medicine | DX: I26.99 Other pulmonary embolism without acute cor pulmonale (principal); Z79.01 Long term (current) use of anticoagulants; Z51.81 Encounter for therapeutic drug level monitoring | CPT/HCPCS: 85610; 99211 ==

== ENCOUNTER 2022-04-01 10:18 | Outpatient (REF) | payer MEDICARE, SELFPAY ==
[2022-04-01 11:32] LABS: INTERNATIONAL NORM RATIO 2.6 (0.9-1.1); Prothrombin Time 31.1 SEC (10.0-13.1)
[2022-04-01 12:00] LABS: Alanine Aminotransferase 18 U/L (0-31); Albumin Level 3.9 g/dL (3.5-5.0); Alkaline Phosphatase 67 U/L (39-117); Anion Gap 19 (12-20); Aspartate Amino Transferase 22 U/L (5-31); Bilirubin Total 0.7 mg/dL (0.0-1.0); Blood Urea Nitrogen 24 mg/dL (9-16); Calcium 9.3 mg/dL (8.4-10.2); Carbon Dioxide 24 mmol/L (22-29); Chloride 104 mmol/L (96-108); Cholesterol 152 mg/dL; Estimated Glomerular Filt Rate 50; Glucose Fasting 99 mg/dL (60-99); HDL Cholesterol 64 mg/dL; LDL Cholesterol Calculated 74 mg/dl; Potassium 4.9 mmol/L (3.3-5.1); Sodium 142 mmol/L (135-145); Total Protein 6.9 g/dL (6.5-8.0); Triglycerides 73 mg/dL
== END 2022-04-01 10:19 | disposition home or self-care (01) ==
LOC: HO.HMGCLDS 10:18
PROVIDERS: Visit Provider Internal Medicine
DX: I10 Essential (primary) hypertension (principal); E78.9 Disorder of lipoprotein metabolism, unspecified; I73.9 Peripheral vascular disease, unspecified; J44.9 Chronic obstructive pulmonary disease, unspecified; N28.9 Disorder of kidney and ureter, unspecified; Z79.01 Long term (current) use of anticoagulants; Z91.09 Other allergy status, other than to drugs and biological substances
CPT/HCPCS: 36415; 80053; 80061; 85610

== ENCOUNTER → 2022-04-08 11:06 | Outpatient (BNVA) | payer MEDICARE, SELFPAY | PROVIDERS: PCP Internal Medicine; Visit Provider Internal Medicine | DX: I26.99 Other pulmonary embolism without acute cor pulmonale (principal); Z51.81 Encounter for therapeutic drug level monitoring; Z79.01 Long term (current) use of anticoagulants | CPT/HCPCS: 85610; 99211 ==

== ENCOUNTER → 2022-05-12 11:20 | Outpatient (BNVA) | payer MEDICARE, SELFPAY | PROVIDERS: PCP Internal Medicine; Visit Provider Internal Medicine | DX: I26.99 Other pulmonary embolism without acute cor pulmonale (principal); Z79.01 Long term (current) use of anticoagulants; Z51.81 Encounter for therapeutic drug level monitoring | CPT/HCPCS: 85610; 99211 ==

== ENCOUNTER → 2022-06-01 14:03 | Outpatient (BNVA) | payer MEDICARE, SELFPAY | PROVIDERS: PCP Internal Medicine; Referring Provider Internal Medicine; Visit Provider Internal Medicine Cardiovascular Disease | DX: I49.9 Cardiac arrhythmia, unspecified (principal) | CPT/HCPCS: 99202 ==

== ENCOUNTER → 2022-06-09 11:22 | Outpatient (BNVA) | payer MEDICARE, SELFPAY | PROVIDERS: PCP Internal Medicine; Visit Provider Internal Medicine | DX: I26.99 Other pulmonary embolism without acute cor pulmonale (principal); Z79.01 Long term (current) use of anticoagulants; Z51.81 Encounter for therapeutic drug level monitoring | CPT/HCPCS: 85610; 99211 ==

== ENCOUNTER → 2022-06-15 12:45 | Outpatient (REF) | payer MEDICARE, SELFPAY ==
--- NOTE | 2022-06-15 12:48 | CA_ITS ---
Transthoracic Echocardiogram Patient (Last, First, Middle): Diane Lind M Gender: Female Date of : 1935 Age: 87 Procedure Date: 06/15/2022 Procedure Type: Transthoracic Echocardiogram Location: OP Height: 165.1 cm Weight: 93.9 kg BSA: 2.01 m2 Heart Rate: bpm BP: 148 / 88 mmHg Cheesemaker Helper: JULIANNA Referring MD: Jacky Ennis MD Symptoms: I49.9 - Cardiac arrhythmia, unspecified Study Quality: Fair ECG Rhythm: Sinus Conclusions: - The left ventricular systolic function is normal. The calculated ejection fraction is 64% by biplane method. - Evidence suggests grade II (moderate) diastolic dysfunction. - The left atrium is severely dilated. - There is moderate mitral annular calcification. - Mild pulmonary hypertension is present. Findings Left Ventricle Normal left ventricular cavity size. There is mildly increased left ventricular wall thickness. The left ventricular systolic function is normal. The calculated ejection fraction is 64% by biplane method. There is no evidence of regional wall motion abnormalities. E/E prime ratio is >15, consistent with elevated filling pressures. Evidence suggests grade II (moderate) diastolic dysfunction. LV peak GLS -16.7%. Right Ventricle Normal right ventricular cavity size and systolic function. Atria The left atrium is severely dilated. The right atrium is mildly dilated. Aortic Valve There is a normal trileaflet aortic valve. There is no aortic valve stenosis. There is mild aortic valve regurgitation. Mitral Valve There is moderate mitral annular calcification. There is mild mitral valve regurgitation. There is no mitral valve stenosis. Pulmonic Valve The pulmonic valve is likely normal. Tricuspid Valve Normal tricuspid valve structure. There is mild tricuspid valve regurgitation. Mild pulmonary hypertension is present. Great Vessels The asc aorta is normal in size. Venous The inferior vena cava is mildly dilated and collapses greater than 50% with inspiration. Pericardium/Pleural There is no evidence of pericardial effusion. Prior Study Comparison Changes noted compared to prior study dated: 11/08/2012. Progression of diastolic dysfunction. Pulmonary hypertension noted. Measurements 2D Linear Measurements IVSd: 1.11 0.6-0.9/0.6-1.0 cm LVIDd: 4.56 3.9-5.3/4.2-5.9 cm LVIDd Index: 2.27 2.4-3.2/2.2-3.1 cm/m2 LVIDs: 2.37 2.0-3.6 cm LVPWd: 1.05 0.7-1.1 cm LA Diam: 3.80 2.7-3.8/3.0-4.0 cm LAIDs Index: 1.89 1.5-2.3 cm/m2 LV Mass: 216.99 67-162/88-224 g LV Mass Index: 107.96 43-95/49-115 g/m2 LVOT Diam: 1.90 3.0+(-)1.3 cm 2D Systolic Function EF 4C: 67.80 >55% EF 2C: 61.10 >55% EF BiP: 64.30 >55% Mitral Valve MV Pk E: 1.44 MV PK A: 0.75 MV Decel Time: 177.00 E/A: 1.90 E'Lateral: 7.18 E'Medial: 4.68 E/E' Med: 30.80 E/E' Lat: 20.10 PHT: 52.00 MVA PHT: 4.23 Decel Traill: 8.14 Aortic Valve AoV Pk Ciro: 1.23 AoV Mn Ciro: 0.76 AoV VTI: 0.27 AoV Pk Grad: 6.00 Aov Mn Grad: 3.00 JOVITA Cont.VTI: 2.53 AI Pk Ciro: 3.11 AI Traill: 1.68 LVOT LVOT Pk Ciro: 1.07 LVOT Mn Ciro: 0.64 LVOT VTI: 0.24 LVOT Pk Grad: 5.00 LVOT Mn Grad: 2.00 LVOT Diam: 1.90 LVOT Area: 2.84 Diastolic Function MV Pk E: 1.44 MV Pk A: 0.75 E/A: 1.90 E'Medial: 4.68 E/E' Med: 30.80 E' Laterial: 7.18 E/E' Lat: 20.10 Right Ventricle TAPSE (mm): 20.90 TVS' Ciro: 14.60 Tricuspid Valve TR Pk Ciro: 3.11 TR Pk Grad: 39.00 RA Press: 8.00 RVSP: 47.00 Great Vessels Aorta Sinus of Valsalva: 3.16 2.0-3.[address] Ridge: 2.76 1.7-3.4 cm Ao Asc: 3.30 2.1-3.4 cm Updated in Other Vendor System with Status of Final Dionte Colin MD electronically signed on 06/16/2022 3:23:57 PM with status of Final
== END ==
LOC: HO.CARD 12:45
PROVIDERS: PCP Internal Medicine; Visit Provider Internal Medicine Cardiovascular Disease
DX: I49.9 Cardiac arrhythmia, unspecified (principal)
CPT/HCPCS: 93306; 93356

== ENCOUNTER → 2022-07-07 10:26 | Outpatient (REF) | payer MEDICARE, SELFPAY ==
--- NOTE | 2022-07-07 10:29 | HM_ITS ---
Conclusion: 1. Patient was monitored for total period of 3 days and 2 hours 2. Baseline was normal sinus with average heart of 70 beats per minute 3. No significant pauses noted 4. Total of 6370 PACs accounting for 2% total beats account for frequent PACs 5. Frequent episodes of SVT with longest lasting 11 beats and the fastest at 185 beats per minute 6. No patient reported events MTDD
== END ==
LOC: HO.CARD 10:26
PROVIDERS: PCP Internal Medicine; Visit Provider Internal Medicine Cardiovascular Disease
DX: I49.9 Cardiac arrhythmia, unspecified (principal); I26.99 Other pulmonary embolism without acute cor pulmonale; Z51.81 Encounter for therapeutic drug level monitoring; Z79.01 Long term (current) use of anticoagulants; I47.1 Supraventricular tachycardia
CPT/HCPCS: 85610; 93242; 99211

== ENCOUNTER → 2022-07-21 11:26 | Outpatient (BNVA) | payer MEDICARE, SELFPAY | PROVIDERS: PCP Internal Medicine; Visit Provider Internal Medicine | DX: I26.99 Other pulmonary embolism without acute cor pulmonale (principal); Z79.01 Long term (current) use of anticoagulants; Z51.81 Encounter for therapeutic drug level monitoring | CPT/HCPCS: 85610; 99211 ==

== ENCOUNTER → 2022-07-24 13:50 | Outpatient (BNVA) | payer MEDICARE, SELFPAY | PROVIDERS: PCP Internal Medicine; Referring Provider Internal Medicine; Visit Provider Nurse Practitioner Family | DX: I49.1 Atrial premature depolarization (principal); I49.9 Cardiac arrhythmia, unspecified; I10 Essential (primary) hypertension; Z86.718 Personal history of other venous thrombosis and embolism | CPT/HCPCS: 99212 ==

== ENCOUNTER → 2022-08-18 11:20 | Outpatient (BNVA) | payer MEDICARE, SELFPAY | PROVIDERS: PCP Internal Medicine; Visit Provider Internal Medicine | DX: I26.99 Other pulmonary embolism without acute cor pulmonale (principal); Z51.81 Encounter for therapeutic drug level monitoring; Z79.01 Long term (current) use of anticoagulants | CPT/HCPCS: 85610; 99211 ==

== ENCOUNTER 2022-09-15 11:23 | Outpatient (AMB) | payer MEDICARE, SELFPAY ==
[2022-09-15 11:28] LABS: Prothrombin Time Whole Bld POC 36.4 sec (11.1-13.5)
--- NOTE | 2022-09-15 11:32 | MHC.OFFVISCO ---
Intake Intake Visit Reasons: Anticoagulation Allergies enviromental Allergy (Mild, Uncoded 09/15/22 11:24) RHINITIS SEASONAL ALLERGIES Allergy (Mild, Uncoded 09/15/22 11:24) RUNNY NOSE Medication List - Last Reconciled 09/15/22 by Florence Moran RN fexofenadine (Rosemary Allergy) 60 mg PO BID hydrochlorothiazide 25 mg PO DAILY 90 days lisinopril 40 mg PO DAILY metoprolol succinate ER 100 mg PO DAILY simvastatin 20 mg PO BEDTIME 90 days warfarin 7.5 mg See Protocol PO DAILY 90 days Nursing Note Amb to ACS using cane feeling well, just a bit tired Medications and supplements reviewed No changes in health, diet, medications, or supplements Denies any unusual signs and symptoms of bruising, bleeding Denies any new Chest pain, SOB, or clotting INR: 3.0 top of therapeutic range, sts less tylenol than previous Nutritional guidance given:add extra greens, likes iceberg lettuce salads encouraged to add raw spinach leaves to salads, then balance greens and reds in diet Dose: continue usual dosing; 5mg x 1 day and 7.5mg x 6 days F/U INR: 4 weeks Patient verbalizes understanding of instructions given with accurate read back/ teach back of dosing Anti-Coag Initial Assessment Social Hx Patient Tobacco Use Status: Never used Tobacco alcohol intake: current Alcohol intake frequency: holidays/special occasions only Coding Level of Care Code Est Patient Level 1 Diagnoses Current use of anticoagulant therapy Z79.01 Time Spent (min) 15 Assessment & Plan Assessment & Plan (1) Current use of anticoagulant therapy: Code(s): 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
== END 2022-09-15 12:04 | disposition home or self-care (01) ==
LOC: HO.ACS 11:23
PROVIDERS: PCP Internal Medicine; Visit Provider Internal Medicine
DX: Z79.01 Long term (current) use of anticoagulants (principal)

== ENCOUNTER → 2022-09-15 11:23 | Outpatient (BNVA) | payer MEDICARE, SELFPAY | PROVIDERS: PCP Internal Medicine; Visit Provider Internal Medicine | DX: I26.99 Other pulmonary embolism without acute cor pulmonale (principal); Z51.81 Encounter for therapeutic drug level monitoring; Z79.01 Long term (current) use of anticoagulants | CPT/HCPCS: 85610; 99211 ==

== ENCOUNTER 2022-10-13 11:20 | Outpatient (AMB) | payer MEDICARE, SELFPAY ==
[2022-10-13 11:35] LABS: Prothrombin Time Whole Bld POC 36.5 sec (11.1-13.5)
--- NOTE | 2022-10-13 11:39 | MHC.OFFVISCO ---
Intake Intake Visit Reasons: Anticoagulation Allergies enviromental Allergy (Mild, Uncoded 10/13/22 11:28) RHINITIS SEASONAL ALLERGIES Allergy (Mild, Uncoded 10/13/22 11:28) RUNNY NOSE Medication List - Last Reconciled 10/13/22 by Josefa Hogan RN fexofenadine (Rosemary Allergy) 60 mg PO BID hydrochlorothiazide 25 mg PO DAILY 90 days lisinopril 40 mg PO DAILY metoprolol succinate ER 100 mg PO DAILY simvastatin 20 mg PO BEDTIME 90 days warfarin 7.5 mg See Protocol PO DAILY 90 days Nursing Note NO CP,SOB,DIET/MED CHANGES,FALLS OR SX OF BLEEDING. CONTINUE PRESENT DOSE AND FOLLOW-UP IN 4 WEEKS. GOOD UNDERSTANDING OF DOSING INSTR. Anti-Coag Initial Assessment Social Hx Patient Tobacco Use Status: Never used Tobacco alcohol intake: current Alcohol intake frequency: holidays/special occasions only Coding Level of Care Code Est Patient Level 1 Diagnoses Current use of anticoagulant therapy Z79.01 Assessment & Plan Assessment & Plan (1) Current use of anticoagulant therapy: Code(s): Z79.01 - [facility] (current) use of anticoagulants Category: Medical
== END 2022-10-13 11:41 | disposition home or self-care (01) ==
LOC: HO.ACS 11:20
PROVIDERS: PCP Internal Medicine; Visit Provider Internal Medicine
DX: Z79.01 Long term (current) use of anticoagulants (principal)

== ENCOUNTER → 2022-10-13 11:20 | Outpatient (BNVA) | payer MEDICARE, SELFPAY | PROVIDERS: PCP Internal Medicine; Visit Provider Internal Medicine | DX: I26.99 Other pulmonary embolism without acute cor pulmonale (principal); Z79.01 Long term (current) use of anticoagulants; Z51.81 Encounter for therapeutic drug level monitoring | CPT/HCPCS: 85610; 99211 ==

== ENCOUNTER 2022-10-21 10:19 | Outpatient (AMB) | payer MEDICARE, SELFPAY ==
--- NOTE | 2022-10-21 10:20 | MHC.PC.OV ---
Vital Signs 10/21/22 10:23 Height 5 ft 6 in Weight 211 lb BMI 34.1 BP 118/70 Blood Pressure Location Rt brachial Position Sitting Pulse 80 Pulse Source Pulse Oximeter Pulse Oximetry (%) 97 Oxygen Delivery Method Room Air Intake Visit Reasons: 3 month follow up Allergies enviromental Allergy (Mild, Uncoded 10/21/22 10:23) RHINITIS SEASONAL ALLERGIES Allergy (Mild, Uncoded 10/21/22 10:23) RUNNY NOSE Medication List - Last Reconciled 10/21/22 by Marvin Alexis MD fexofenadine (Rosemary Allergy) 60 mg PO BID hydrochlorothiazide 25 mg PO DAILY 90 days lisinopril 40 mg PO DAILY metoprolol succinate ER 100 mg PO DAILY simvastatin 20 mg PO BEDTIME 90 days warfarin 7.5 mg See Protocol PO DAILY 90 days Tobacco use date assessed: 04/01/22 Fall risk assessment: No Falls in past year Last assessed Fall Risk: 10/21/22 Dental Screening Dental Screen Date: 10/21/22 Did you have a dental visit in the last 12 months?: No Did you have a dental problem in the last 6 months where you did not have access to dental care?: No Was dental information given to patient?: Patient has dentist HPI 3 month follow up HPI Details Patient is 87-year-old female came in today for her regular follow-up visit.? I see that she is due for labs last set of lab was March of this year Patient have supraventricular cardiac arrhythmia which is stable with the help of metoprolol She sees Dr. Ennis once a year Peripheral vascular disease treatment through Dr. Lambert [facility] she has developed a sore left leg, which seems to be healing , no sign of infection, but there is erythema lower left leg which is chronic for the patient She is on a chronic warfarin treatment for recurrent DVTs.? Coumadin clinic is monitoring her INR.? Patient is on simvastatin 20 mg for lipid control.? 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 Follow-up 3 months [facility] Medical History COPD mixed type Environmental allergies History of deep venous thrombosis (DVT) of distal vein of left lower extremity Hypertension, essential Lipid disorder Osteoporosis Peripheral vascular disease Warfarin anticoagulation Surgical History History of breast biopsy History of cataract surgery History of colonoscopy Hx of vascular surgery Family History Father HTN (hypertension) History of heart attack Mother HTN (hypertension) Breast cancer Maternal Grandfather No problems noted. Maternal Grandmother No problems noted. Paternal Grandfather No problems noted. Paternal Grandmother No problems noted. Sister No problems noted. Son No problems noted. Son No problems noted. Daughter No problems noted. Daughter No problems noted. Daughter No problems noted. Social History Household Members: Children Housing: House Are you a primary caregiver assisted living to a significant other at home: No Do you presently have visiting nurse or other home services: No Alcohol intake: current Alcohol intake frequency: holidays/special occasions only Patient Tobacco Use Status: Never used Tobacco e-Cigarette/Vaping Use: Never Used Second Hand Smoke Exposure: No service: No Current occupational status: retired Cognitive needs: No Hearing needs: No Vision needs: Yes Questionnaire PHQ-9 Over the last 2 weeks, how often have you been bothered by any of the following problems? 1. Little interest or pleasure in doing things: not at all 2. Feeling down, depressed, or hopeless: not at all 3. Trouble falling or staying asleep, or sleeping too much: not at all 4. Feeling tired or having little energy: not at all 5. Poor appetite or overeating: not at all 6. Feeling bad about yourself - or that you are a failure or have let yourself or your family down: not at all 7. Trouble concentrating on things, such as reading the newspaper or watching television: not at all 8. Moving or speaking so slowly that other people could have noticed. Or the opposite - being so fidgety or restless that you have been moving around a lot more than usual: not at all 9. Thoughts that you would be better off or of hurting yourself in some way: not at all Total score: 0 Depression Screening Interpretation: Negative [id number] - PHQ-9 Billing: Yes Source: Developed by Drs. Kameron Gilliam, Justin Harrell and colleagues, with an educational rambo from [employer]. Thrive Questionnaire Date Thrive assessed: 03/25/21 AUDIT C Alcohol Use Questionnaire (AUDIT-C) 1. How often do you have a drink containing alcohol?: Monthly or less 2. How many drinks containing alcohol do you have on a typical day when you are drinking?: 1 or 2 Total Score: 1 Score Reviewed/Action Taken: Yes MAREN-7 AMB Questionnaire MAREN-7 Date MAREN - 7 assessed: 03/25/21 Feeling nervous, anxious, or on edge: 0 = Not at all Not being able to stop or control worryin = Not at all Worrying too much about different things: 0 = Not at all Trouble relaxin = Not at all Being so restless that it is hard to sit still: 0 = Not at all Becoming easily annoyed or irritable: 0 = Not at all Feeling afraid as if something awful might happen: 0 = Not at all Total MAREN-7 score (0-4 normal; 5-9 mild; 10-14 moderate; 15-21 severe): 0 Source: Developed by Drs. Kameron Gilliam, Marcelina Nash, Justin Dallas and colleagues, with an educational rambo from [employer]. MAREN-7 Assessment Billing MAREN-7 Assessment Tool: MAREN-7 Assessment [id number] Review of Systems Const Denies chills and Denies fever(s) ENT Denies epistaxis and Denies nasal discharge Card Denies chest pain Resp Denies chest congestion, Denies cough and Denies hemoptysis GI Denies diarrhea and Denies nausea Skin/Breast Denies rash Neuro Reports no additional complaints Psych Reports no additional complaints Endo Reports no additional complaints Physical exam (Primary Care) Vital Signs: Last Vital Signs Pulse 80 10/21/22 10:23 BP 118/70 10/21/22 10:23 Pulse Ox 97 10/21/22 10:23 Oxygen Delivery Method Room Air 10/21/22 10:23 BMI result Body Mass Index 34.1 Tobacco/Smoking Status: Tobacco use Status Tobacco use date assessed 04/01/22 10/21/22 10:21 Patient Tobacco Use Status Never used Tobacco 10/21/22 10:21 e-Cigarette/Vaping Use Never Used 10/21/22 10:21 PHQ-9: PHQ-9 Score PHQ-9: Total score 0 10/21/22 10:38 Depression Screening Interpretation: Negative Thrive Assessment: Date of Thrive Assessment Date Thrive assessed 03/25/21 10/21/22 10:21 Const General: cooperative, comfortable and no acute distress Orientation/consciousness: patient oriented x3 HENMT Head: Yes normocephalic Eyes General: appearance normal, both eyes and all related structures Neck Neck: Yes supple Resp Effort & Inspection: normal respiratory effort, no cough and no stridor Cardio Heart sounds: S1 normal heart sound present and S2 normal heart sound present Skin General skin exam: turgor normal Neuro General: patient oriented x3, tone normal and moves all extremities Extrem Right lower extremity: no edema Left lower extremity: no edema Upper/lower leg/hip images: 1. 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 (5) COPD mixed type: Code(s): J44.9 - Chronic obstructive pulmonary disease, unspecified (6) Environmental allergies: Code(s): Z91.09 - Other allergy status, other than to drugs and biological substances (7) Nephropathy: Code(s): N28.9 - Disorder of kidney and ureter, unspecified (8) Obesity due to excess calories: Code(s): E66.09 - Other obesity due to excess calories Qualifiers: Body mass index: BMI 34.0-34.9 Obesity classification: adult class 1 (BMI 30 - 34.9) Serious obesity comorbidity presence: without serious comorbidity Qualified Code(s): E66.09 - Other obesity due to excess calories; Z68.34 - Body mass index [BMI] 34.0-34.9, adult (9) Cardiac arrhythmia: Code(s): I49.9 - Cardiac arrhythmia, unspecified Qualifiers: Arrhythmia type: premature depolarization Premature depolarization type: atrial Qualified Code(s): I49.1 - Atrial premature depolarization (10) PAC (premature atrial contraction): Code(s): I49.1 - Atrial premature depolarization (11) Sore on leg: Code(s): L98.9 - Disorder of the skin and subcutaneous tissue, unspecified Plan Patient is 87-year-old female came in today for her regular follow-up visit.? I see that she is due for labs last set of lab was March of this year Patient have supraventricular cardiac arrhythmia which is stable with the help of metoprolol She sees Dr. Ennis once a year Peripheral vascular disease treatment through Dr. Lambert [facility] she has developed a sore left leg, which seems to be healing , no sign of infection, but there is erythema lower left leg which is chronic for the patient She is on a chronic warfarin treatment for recurrent DVTs.? Coumadin clinic is monitoring her INR.? Patient is on simvastatin 20 mg for lipid control.? 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 Follow-up 3 months Orders: Orders Comprehensive Met. Panel Today E66.09 - Other obesity due to excess calories, E78.9 - Disorder of lipoprotein metabolism, unspecified, I10 - Essential (primary) hypertension, I49.1 - Atrial premature depolarization, I49.9 - Cardiac arrhythmia, unspecified, I73.9 - Peripheral vascular disease, unspecified, J44.9 - Chronic obstructive pulmonary disease, unspecified, N28.9 - Disorder of kidney and ureter, unspecified, Z79.01 - senior living (current) use of anticoagulants, Z91.09 - Other allergy status, other than to drugs and biological substances LDL Cholesterol Direct Today E66.09 - Other obesity due to excess calories, E78.9 - Disorder of lipoprotein metabolism, unspecified, I10 - Essential (primary) hypertension, I49.1 - Atrial premature depolarization, I49.9 - Cardiac arrhythmia, unspecified, I73.9 - Peripheral vascular disease, unspecified, J44.9 - Chronic obstructive pulmonary disease, unspecified, N28.9 - Disorder of kidney and ureter, unspecified, Z79.01 - senior living (current) use of anticoagulants, Z91.09 - Other allergy status, other than to drugs and biological substances Complete Blood Count Auto Diff Today E66.09 - Other obesity due to excess calories, E78.9 - Disorder of lipoprotein metabolism, unspecified, I10 - Essential (primary) hypertension, I49.1 - Atrial premature depolarization, I49.9 - Cardiac arrhythmia, unspecified, I73.9 - Peripheral vascular disease, unspecified, J44.9 - Chronic obstructive pulmonary disease, unspecified, N28.9 - Disorder of kidney and ureter, unspecified, Z79.01 - senior living (current) use of anticoagulants, Z91.09 - Other allergy status, other than to drugs and biological substances Coding Level of Care Code Est Pt Level 4 (39318) Diagnoses Hypertension, essential I10 Lipid disorder E78.9 Peripheral vascular disease I73.9 Warfarin anticoagulation Z79.01 COPD mixed type J44.9 Environmental allergies Z91.09 Nephropathy N28.9 Obesity due to excess calories E66.09; Z68.34 Body mass index: BMI 34.0-34.9 Obesity classification: adult class 1 (BMI 30 - 34.9) Serious obesity comorbidity presence: without serious comorbidity Cardiac arrhythmia I49.1 Arrhythmia type: premature depolarization Premature depolarization type: atrial PAC (premature atrial contraction) I49.1 Sore on leg L98.9 Additional Codes MAREN-7 Assessment Billing - MAREN-7 Assessment Tool: MAREN-7 Assessment [id number] ([id number])
[2022-10-21 10:23] VITALS: BP 118/70; PULSE 80; O2SAT 97; BMI 34.1
== END 2022-10-21 10:42 | disposition home or self-care (01) ==
PROVIDERS: Visit Provider Internal Medicine
DX: I10 Essential (primary) hypertension (principal); Z79.01 Long term (current) use of anticoagulants; Z68.34 Body mass index [BMI] 34.0-34.9, adult; E66.09 Other obesity due to excess calories; I73.9 Peripheral vascular disease, unspecified; J44.9 Chronic obstructive pulmonary disease, unspecified; Z91.09 Other allergy status, other than to drugs and biological substances; E78.9 Disorder of lipoprotein metabolism, unspecified; N28.9 Disorder of kidney and ureter, unspecified; I49.1 Atrial premature depolarization; L98.9 Disorder of the skin and subcutaneous tissue, unspecified
CPT/HCPCS: 99214

== ENCOUNTER 2022-10-21 10:46 | Outpatient (REF) | payer MEDICARE, SELFPAY ==
[2022-10-21 13:22] LABS: MANUAL DIFF FLAG NO
[2022-10-21 13:47] LABS: Basophils Percent Auto 0.6 % (0-2); Eosinophils Absolute Auto 0.3 X10*3/uL (0.0-0.4); Eosinophils Percent Auto 5.5 % (0-4); Hematocrit 42.6 % (37.0-47.0); Hemoglobin 13.6 g/dl (12.0-16.0); Imm Gran Abs Auto 0.01 X10*3/uL (0.00-0.03); Imm Gran Pct Auto 0.2 % (0.0-0.4); Lymphocytes Absolute Auto 1.3 X10*3/uL (1.2-4.9); Lymphocytes Percent Auto 25.3 % (20-40); Mean Corpuscular HGB Conc 31.9 g/dl (31.0-35.0); Mean Corpuscular Hemoglobin 30.3 pg (27.0-33.0); Mean Corpuscular Volume 94.9 fL (80.0-98.0); Mean Platelet Volume 11.1 fL (9.4-12.3); Monocytes Absolute Auto 0.5 X10*3/uL (0.1-1.2); Monocytes Percent Auto 10.6 % (2-11); Neutrophils Absolute Auto 2.9 x10*3/uL (2.0-8.3); Neutrophils Percent Auto 57.8 % (45-73); Platelet Count 250 X10*3/uL (160-400); Red Blood Count 4.49 X10*6/uL (4.20-5.50); Red Cell Distribution Width 12.9 % (11.0-16.0); White Blood Count 5.1 X10*3/uL (4.8-10.8)
[2022-10-21 14:26] LABS: Alanine Aminotransferase 18 U/L (0-31); Albumin Level 3.9 g/dL (3.5-5.0); Alkaline Phosphatase 71 U/L (39-117); Anion Gap 14 (12-20); Aspartate Amino Transferase 22 U/L (5-31); Bilirubin Total 0.4 mg/dL (0.0-1.0); Blood Urea Nitrogen 18 mg/dL (9-16); Carbon Dioxide 26 mmol/L (22-29); Chloride 107 mmol/L (96-108); Estimated Glomerular Filt Rate 52; Glucose Random 103 mg/dL (60-115); Potassium 4.5 mmol/L (3.3-5.1); Sodium 142 mmol/L (135-145); Total Protein 7.4 g/dL (6.5-8.0)
[2022-10-22 15:47] LABS: LDL Cholesterol Direct 67 mg/dL (<100)
== END 2022-10-21 10:47 | disposition home or self-care (01) ==
LOC: HO.HMGCLDS 10:46
PROVIDERS: PCP Internal Medicine; Visit Provider Internal Medicine
DX: E66.09 Other obesity due to excess calories (principal); E78.9 Disorder of lipoprotein metabolism, unspecified; I10 Essential (primary) hypertension; I49.1 Atrial premature depolarization; I49.9 Cardiac arrhythmia, unspecified; J44.9 Chronic obstructive pulmonary disease, unspecified; I73.9 Peripheral vascular disease, unspecified; N28.9 Disorder of kidney and ureter, unspecified; Z91.09 Other allergy status, other than to drugs and biological substances; Z79.01 Long term (current) use of anticoagulants
CPT/HCPCS: 36415; 80053; 83721; 85025

== ENCOUNTER 2022-11-10 11:03 | Outpatient (AMB) | payer MEDICARE, SELFPAY ==
[2022-11-10 11:10] LABS: Prothrombin Time Whole Bld POC 42.6 sec (11.1-13.5); ~PT, ~INR - Anti Coag Clinic 3.5 (0.9-1.1)
--- NOTE | 2022-11-10 11:14 | MHC.OFFVISCO ---
Intake Intake Visit Reasons: Anticoagulation Allergies enviromental Allergy (Mild, Uncoded 11/10/22 11:05) RHINITIS SEASONAL ALLERGIES Allergy (Mild, Uncoded 11/10/22 11:05) RUNNY NOSE Medication List - Last Reconciled 11/10/22 by Florence Moran RN fexofenadine (Rosemary Allergy) 60 mg PO BID hydrochlorothiazide 25 mg PO DAILY 90 days lisinopril 40 mg PO DAILY metoprolol succinate ER 100 mg PO DAILY simvastatin 20 mg PO BEDTIME 90 days warfarin 7.5 mg See Protocol PO DAILY 90 days Nursing Note Amb to ACS using cane, feeling well Medications and supplements reviewed No changes in health, diet, medications, or supplements Denies any unusual signs and symptoms of bruising, bleeding Denies any new Chest pain, SOB, or clotting INR: 3.5 above therapeutic range, sts hasn't had usual greens due to the heat, more [place] tomatoes Nutritional guidance given: greens today and ok to add raw baby spinach to iceberg lettuce salads, decrease amount of [place] tomatoes then balance greens and reds in diet Dose: decrease warfarin today to 5mg then resume usual dosing, 5mg x 1 day and 7.5 mg x 6 days F/U INR: 4 weeks Patient verbalizes understanding of instructions given with accurate read back/ teach back of dosing Anti-Coag Initial Assessment Social Hx Patient Tobacco Use Status: Never used Tobacco alcohol intake: current Alcohol intake frequency: holidays/special occasions only Coding Level of Care Code Est Patient Level 1 Diagnoses Current use of anticoagulant therapy Z79.01 Time Spent (min) 15 Assessment & Plan Assessment & Plan (1) Current use of anticoagulant therapy: 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
== END 2022-11-10 11:25 | disposition home or self-care (01) ==
LOC: HO.ACS 11:03
PROVIDERS: PCP Internal Medicine; Visit Provider Internal Medicine
DX: Z79.01 Long term (current) use of anticoagulants (principal)

== ENCOUNTER → 2022-11-10 11:03 | Outpatient (BNVA) | payer MEDICARE, SELFPAY | PROVIDERS: PCP Internal Medicine; Visit Provider Internal Medicine | DX: I26.99 Other pulmonary embolism without acute cor pulmonale (principal); Z79.01 Long term (current) use of anticoagulants; Z51.81 Encounter for therapeutic drug level monitoring | CPT/HCPCS: 85610; 99211 ==

== ENCOUNTER 2022-12-08 11:23 | Outpatient (AMB) | payer MEDICARE, SELFPAY ==
--- NOTE | 2022-12-08 11:28 | MHC.OFFVISCO ---
Intake Intake Visit Reasons: Anticoagulation Allergies enviromental Allergy (Mild, Uncoded 12/08/22 11:24) RHINITIS SEASONAL ALLERGIES Allergy (Mild, Uncoded 12/08/22 11:24) RUNNY NOSE Medication List - Last Reconciled 12/08/22 by Kait Mina RN fexofenadine (Rosemary Allergy) 60 mg PO BID hydrochlorothiazide 25 mg PO DAILY 90 days lisinopril 40 mg PO DAILY metoprolol succinate ER 100 mg PO DAILY simvastatin 20 mg PO BEDTIME 90 days warfarin 7.5 mg See Protocol PO DAILY 90 days Nursing Note INR 3.6-? out of therapeutic range Medications and supplements reviewed Patient status: no c.o Medications or supplements: no changes, has not had vaccines Diet: same Denies any signs and symptoms of bleeding or clotting or unusual bruising Bleeding, bruising, clotting discussed Nutritional guidance given: eat greens to lower inr, no reds for 2 days Dose: 5 mg today then decrease weekly dosing to 5mg x 2, 7.5mg x 5 F/U INR Date : 2 weeks? Patient verbalizing understanding of instructions given. 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
[2022-12-08 11:29] LABS: ~PT, ~INR - Anti Coag Clinic 3.6 (0.9-1.1)
== END 2022-12-08 11:37 | disposition home or self-care (01) ==
LOC: HO.ACS 11:23
PROVIDERS: PCP Internal Medicine; Visit Provider Internal Medicine
DX: Z79.01 Long term (current) use of anticoagulants (principal)

== ENCOUNTER → 2022-12-08 11:23 | Outpatient (BNVA) | payer MEDICARE, SELFPAY | PROVIDERS: PCP Internal Medicine; Visit Provider Internal Medicine | DX: I26.99 Other pulmonary embolism without acute cor pulmonale (principal); Z79.01 Long term (current) use of anticoagulants; Z51.81 Encounter for therapeutic drug level monitoring | CPT/HCPCS: 85610; 99211 ==

== ENCOUNTER 2022-12-22 11:17 | Outpatient (AMB) | payer MEDICARE, SELFPAY ==
[2022-12-22 11:25] LABS: Prothrombin Time Whole Bld POC 40.6 sec (11.1-13.5); ~PT, ~INR - Anti Coag Clinic 3.4 (0.9-1.1)
--- NOTE | 2022-12-22 11:36 | MHC.OFFVISCO ---
Intake Intake Visit Reasons: Anticoagulation Allergies enviromental Allergy (Mild, Uncoded 12/22/22 11:19) RHINITIS SEASONAL ALLERGIES Allergy (Mild, Uncoded 12/22/22 11:19) RUNNY NOSE Medication List - Last Reconciled 12/22/22 by Florence Moran RN fexofenadine (Rosemary Allergy) 60 mg PO BID hydrochlorothiazide 25 mg PO DAILY 90 days lisinopril 40 mg PO DAILY metoprolol succinate ER 100 mg PO DAILY simvastatin 20 mg PO BEDTIME 90 days warfarin 7.5 mg See Protocol PO DAILY 90 days Nursing Note Amb to ACS using cane, feeling well Medications and supplements reviewed, decrease in weekly warfarin dosing last visit as INRs above range No other changes in health, diet, medications, or supplements Denies any unusual signs and symptoms of bruising, bleeding Denies any new Chest pain, SOB, or clotting INR: 3.4 above therapeutic range Nutritional guidance given: have a good dark leafy green today then balance greens and reds in diet Dose: take usual 5mg today, decrease tomorrow to 5mg (vs 7.5mg) then resume usual new dosing;5mg x 2 days and 7.5mg x 5 days, discussed may need further decrease if next INR at top or above range F/U INR: 2 weeks Patient verbalizes understanding of instructions given with accurate read back/ teach back of dosing Anti-Coag Initial Assessment Social Hx Patient Tobacco Use Status: Never used Tobacco alcohol intake: current Alcohol intake frequency: holidays/special occasions only Coding Level of Care Code Est Patient Level 1 Diagnoses Current use of anticoagulant therapy Z79.01 Time Spent (min) 15 Assessment & Plan Assessment & Plan (1) Current use of anticoagulant therapy: Code(s): 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
== END 2022-12-22 11:52 | disposition home or self-care (01) ==
LOC: HO.ACS 11:17
PROVIDERS: PCP Internal Medicine; Visit Provider Internal Medicine
DX: Z79.01 Long term (current) use of anticoagulants (principal)

== ENCOUNTER → 2022-12-22 11:17 | Outpatient (BNVA) | payer MEDICARE, SELFPAY | PROVIDERS: PCP Internal Medicine; Visit Provider Internal Medicine | DX: I26.99 Other pulmonary embolism without acute cor pulmonale (principal); Z79.01 Long term (current) use of anticoagulants; Z51.81 Encounter for therapeutic drug level monitoring | CPT/HCPCS: 85610; 99211 ==

== ENCOUNTER 2023-01-05 11:14 | Outpatient (AMB) | payer MEDICARE, SELFPAY ==
[2023-01-05 11:31] LABS: Prothrombin Time Whole Bld POC 28.9 sec (11.1-13.5); ~PT, ~INR - Anti Coag Clinic 2.4 (0.9-1.1)
--- NOTE | 2023-01-05 11:35 | MHC.OFFVISCO ---
Intake Intake Visit Reasons: Anticoagulation Allergies enviromental Allergy (Mild, Uncoded 01/05/23 11:25) RHINITIS SEASONAL ALLERGIES Allergy (Mild, Uncoded 01/05/23 11:25) RUNNY NOSE Medication List - Last Reconciled 01/05/23 by Florence Moran RN fexofenadine (Rosemary Allergy) 60 mg PO BID hydrochlorothiazide 25 mg PO DAILY 90 days lisinopril 40 mg PO DAILY metoprolol succinate ER 100 mg PO DAILY simvastatin 20 mg PO BEDTIME 90 days warfarin 7.5 mg See Protocol PO DAILY 90 days Nursing Note Amb to ACS using cane feeling well Medications and supplements reviewed No changes in health, diet, medications, or supplements Denies any unusual signs and symptoms of bruising, bleeding Denies any new Chest pain, SOB, or clotting INR: 2.4 now in therapeutic range Nutritional guidance given: balance greens and reds in diet, sts she has continued eating her iceberg lettuce salads but is adding some raw baby spinach to it as suggested last visit Dose: continue usual dosing; 5mg x 2 days and 7.5mg x 5 days F/U INR: 3 weeks Patient verbalizes understanding of instructions given with accurate read back/ teach back of dosing Anti-Coag Initial Assessment Social Hx Patient Tobacco Use Status: Never used Tobacco alcohol intake: current Alcohol intake frequency: holidays/special occasions only Questionnaires HAS-BLED Does the patient had uncontrolled Hypertension?: No Does the patient have renal disease?: No Does the patient have liver disease?: No Does the patient have a history of stroke?: No Has the patient had major bleeding or predisposition to bleeding?: No Does the patient have labile INRs?: No Is the patient over 65 years of age?: Yes Is the patient on medications that gives them a predisposition to bleeding?: Yes Does the patient use alcohol?: No HAS-BLED Score: 2 CHADSVASC Age: 75 or over Gender: Female Does the patient have a history of CHF?: No Does the patient have a history of Hypertension?: Yes Does the patient have a history of Stroke/TIA/Thromboembolism?: Yes Does the patient have a history of Vascular Disease (prior NV, PAD or aortic plaque)?: No Does the patient have a history of Diabetes?: No CHADS VACS Score: 6 Rubi Prediction Score Rsk VTE Active Cancer: No Previous VTE, excluding superficial vein thrombosis: Yes Reduced mobility: No Already known Thrombophilic Condition: Yes With-in last month Trauma and/or Surgery: No Elderly 70 year or older: Yes Heart and/or Respiratory Failure: No Acute Myocardial infarction and/or Ischemic Stroke: No Acute Infection and/or Rheumatologic Disorder: No Obesity (BMI 30 or greater): Yes Ongoing Hormonal Treatment: No Score: 8 Rubi Score less than 4; Low Risk of VTE Rubi Score 4 or greater; High Risk of VTE Coding Level of Care Code Est Patient Level 1 Diagnoses Current use of anticoagulant therapy Z79.01 Time Spent (min) 15 Assessment & Plan Assessment & Plan (1) Current use of anticoagulant therapy: Code(s): 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
== END 2023-01-05 11:42 | disposition home or self-care (01) ==
LOC: HO.ACS 11:14
PROVIDERS: PCP Internal Medicine; Visit Provider Internal Medicine
DX: Z79.01 Long term (current) use of anticoagulants (principal)

== ENCOUNTER → 2023-01-05 11:14 | Outpatient (BNVA) | payer MEDICARE, SELFPAY | PROVIDERS: PCP Internal Medicine; Visit Provider Internal Medicine | DX: I26.99 Other pulmonary embolism without acute cor pulmonale (principal); Z79.01 Long term (current) use of anticoagulants; Z51.81 Encounter for therapeutic drug level monitoring | CPT/HCPCS: 85610; 99211 ==

== ENCOUNTER 2023-01-19 10:20 | Outpatient (AMB) | payer MEDICARE, SELFPAY ==
--- NOTE | 2023-01-19 10:22 | MHC.PC.OV ---
Vital Signs 01/19/23 10:23 Height 5 ft 6 in Weight 209 lb 8 oz BMI 33.8 BP 140/78 H Blood Pressure Location Rt brachial Position Sitting Pulse 139 H Pulse Source Pulse Oximeter Pulse Oximetry (%) 98 Oxygen Delivery Method Room Air Intake Visit Reasons: 3 month follow up Allergies enviromental Allergy (Mild, Uncoded 01/05/23 11:25) RHINITIS SEASONAL ALLERGIES Allergy (Mild, Uncoded 01/05/23 11:25) RUNNY NOSE Medication List - Last Reconciled 01/19/23 by Marvin Alexis MD fexofenadine (Rosemary Allergy) 60 mg PO BID hydrochlorothiazide 25 mg PO DAILY 90 days lisinopril 40 mg PO DAILY metoprolol succinate ER 100 mg PO DAILY simvastatin 20 mg PO BEDTIME 90 days warfarin 7.5 mg See Protocol PO DAILY 90 days Tobacco use date assessed: 01/19/23 Fall risk assessment: No Falls in past year Last assessed Fall Risk: 01/19/23 Dental Screening Dental Screen Date: 01/19/23 Did you have a dental visit in the last 12 months?: No Did you have a dental problem in the last 6 months where you did not have access to dental care?: No Was dental information given to patient?: No HPI 3 month follow up HPI Details Patient is 87-year-old female came in today for her regular follow-up visit.? Patient have supraventricular cardiac arrhythmia which is stable with the help of metoprolol She sees Dr. Ennis once a year, today heart rate was 139. EKG done today showed sinus tachycardia with PVCs Patient is asymptomatic Peripheral vascular disease treatment through Dr. Lambret [facility] she has developed a sore left leg, which is not healing anymore. Patient need to see a wound clinic [facility] Referral placed She is on a chronic warfarin treatment for recurrent DVTs.? Coumadin clinic is monitoring her INR.? Patient is on simvastatin 20 mg for lipid control.? 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 Patient has chronic stress incontinence currently using pads, she is requesting script for diapers Which I have sent large diapers to be changed 3 times a day. Patient has been evaluated with urinalysis And have ability to pull her diapers up Follow-up 3 months PFS Medical History Stress bladder incontinence, female Environmental allergies COPD mixed type Warfarin anticoagulation History of deep venous thrombosis (DVT) of distal vein of left lower extremity Peripheral vascular disease Lipid disorder Osteoporosis Hypertension, essential Surgical History History of cataract surgery Hx of vascular surgery History of colonoscopy History of breast biopsy Family History Father HTN (hypertension) History of heart attack Mother HTN (hypertension) Breast cancer Maternal Grandfather No problems noted. Maternal Grandmother No problems noted. Paternal Grandfather No problems noted. Paternal Grandmother No problems noted. Sister No problems noted. Son No problems noted. Son No problems noted. Daughter No problems noted. Daughter No problems noted. Daughter No problems noted. Other Stress bladder incontinence, female Social History Household Members: Children Housing: House Are you a primary lawn care worker to a significant other at home: No Do you presently have visiting nurse or other home services: No Alcohol intake: current Alcohol intake frequency: holidays/special occasions only Patient Tobacco Use Status: Never used Tobacco e-Cigarette/Vaping Use: Never Used Second Hand Smoke Exposure: No service: No Current occupational status: retired Cognitive needs: No Hearing needs: No Vision needs: Yes Questionnaire Thrive Questionnaire Date Thrive assessed: 03/25/21 AUDIT C Alcohol Use Questionnaire (AUDIT-C) 1. How often do you have a drink containing alcohol?: Never 3. How often do you have six or more drinks on one occasion?: Never Total Score: 0 Score Reviewed/Action Taken: Yes MAREN-7 AMB Questionnaire MAREN-7 Date MAREN - 7 assessed: 03/25/21 Feeling nervous, anxious, or on edge: 1 = Several days Not being able to stop or control worryin = Several days Worrying too much about different things: 1 = Several days Being so restless that it is hard to sit still: 0 = Not at all Becoming easily annoyed or irritable: 0 = Not at all Feeling afraid as if something awful might happen: 0 = Not at all Source: Developed by Drs. Kameron Gilliam, Marcelina Nash, Justin Dallas and colleagues, with an educational rambo from [employer]. MAREN-7 Assessment Billing MAREN-7 Assessment Tool: MAREN-7 Assessment 74000 Review of Systems Const Denies chills and Denies fever(s) ENT Denies epistaxis and Denies nasal discharge Card Denies chest pain Resp Denies hemoptysis GI Denies diarrhea and Denies nausea Skin/Breast Denies rash Neuro Reports no additional complaints Psych Reports no additional complaints Endo Reports no additional complaints Physical exam (Primary Care) Vital Signs: Last Vital Signs Pulse 139 H 01/19/23 10:23 BP 140/78 H 01/19/23 10:23 Pulse Ox 98 01/19/23 10:23 Oxygen Delivery Method Room Air 01/19/23 10:23 BMI result Body Mass Index 33.8 Tobacco/Smoking Status: Tobacco use Status Tobacco use date assessed 01/19/23 01/19/23 10:25 Patient Tobacco Use Status Never used Tobacco 01/19/23 10:25 e-Cigarette/Vaping Use Never Used 01/19/23 10:25 Thrive Assessment: Date of Thrive Assessment Date Thrive assessed 03/25/21 01/19/23 10:25 Const General: cooperative, comfortable and no acute distress Orientation/consciousness: patient oriented x3 HENMT Head: Yes normocephalic Eyes General: appearance normal, both eyes and all related structures Neck Neck: Yes supple Resp Effort & Inspection: normal respiratory effort, no cough and no stridor Cardio Other: Regularly irregular Heart sounds: S1 normal heart sound present and S2 normal heart sound present Skin General skin exam: turgor normal Neuro General: patient oriented x3, tone normal and moves all extremities Extrem Right lower extremity: no edema Left lower extremity: no edema Ankle/foot/toe images: 1. Size of dime round open sore left lower leg with raised edges Office Procedures EKG [id number], Complete Assessment and Plan Assessment & Plan (1) Cardiac arrhythmia: Code(s): I49.9 - Cardiac arrhythmia, unspecified Qualifiers: Arrhythmia type: premature depolarization Premature depolarization type: atrial Qualified Code(s): I49.1 - Atrial premature depolarization (2) COPD mixed type: Code(s): J44.9 - Chronic obstructive pulmonary disease, unspecified (3) Peripheral vascular disease: Code(s): I73.9 - Peripheral vascular disease, unspecified (4) Wound of left lower extremity: Code(s): S81.802A - Unspecified open wound, left lower leg, initial encounter Qualifiers: Encounter type: subsequent encounter Qualified Code(s): S81.802D - Unspecified open wound, left lower leg, subsequent encounter (5) Supraventricular tachycardia: Code(s): I47.10 - Supraventricular tachycardia, unspecified (6) Hypertension, essential: Code(s): I10 - Essential (primary) hypertension (7) Lipid disorder: Code(s): E78.9 - Disorder of lipoprotein metabolism, unspecified (8) Warfarin anticoagulation: 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(s): 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 (9) Environmental allergies: Code(s): Z91.09 - Other allergy status, other than to drugs and biological substances (10) Nephropathy: Code(s): N28.9 - Disorder of kidney and ureter, unspecified (11) Varicose veins of right lower extremity with inflammation: Comment: 06/06/2021 - right great saphenous vein Cyanoacralate ablation 07/18/2021 right small saphenous vein radiofrequency ablation Code(s): I83.11 - Varicose veins of right lower extremity with inflammation (12) Obesity due to excess calories: Code(s): E66.09 - Other obesity due to excess calories Qualifiers: Body mass index: BMI 34.0-34.9 Obesity classification: adult class 1 (BMI 30 - 34.9) Serious obesity comorbidity presence: without serious comorbidity Qualified Code(s): E66.09 - Other obesity due to excess calories; Z68.34 - Body mass index [BMI] 34.0-34.9, adult (13) Chronic GERD: Code(s): K21.9 - Gastro-esophageal reflux disease without esophagitis (14) PAC (premature atrial contraction): Code(s): I49.1 - Atrial premature depolarization (15) PVCs (premature ventricular contractions): Code(s): I49.3 - Ventricular premature depolarization Plan Patient is 87-year-old female came in today for her regular follow-up visit.? Patient have supraventricular cardiac arrhythmia which is stable with the help of metoprolol She sees Dr. Ennis once a year, today heart rate was 139. EKG done today showed sinus tachycardia with PVCs Patient is asymptomatic Peripheral vascular disease treatment through Dr. Lambert [facility] she has developed a sore left leg, which is not healing anymore. Patient need to see a wound clinic [facility] Referral placed She is on a chronic warfarin treatment for recurrent DVTs.? Coumadin clinic is monitoring her INR.? Patient is on simvastatin 20 mg for lipid control.? 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 Patient has chronic stress incontinence currently using pads, she is requesting script for diapers Which I have sent large diapers to be changed 3 times a day. Patient has been evaluated with urinalysis And have ability to pull her diapers up Follow-up 3 months Orders: Orders Complete Blood Count Auto Diff Today E66.09 - Other obesity due to excess calories, E78.9 - Disorder of lipoprotein metabolism, unspecified, I10 - Essential (primary) hypertension, I47.10 - Supraventricular tachycardia, unspecified, I49.1 - Atrial premature depolarization, I49.3 - Ventricular premature depolarization, I73.9 - Peripheral vascular disease, unspecified, I83.11 - Varicose veins of right lower extremity with inflammation, J44.9 - Chronic obstructive pulmonary disease, unspecified, K21.9 - Gastro-esophageal reflux disease without esophagitis, N28.9 - Disorder of kidney and ureter, unspecified, Z79.01 - [facility] (current) use of anticoagulants, Z91.09 - Other allergy status, other than to drugs and biological substances Comprehensive [place]. 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, Z91.09 - Other allergy status, other than to drugs and biological substances Lipid Panel Today E66.09 - Other obesity due to excess calories, E78.9 - Disorder of lipoprotein metabolism, unspecified, I10 - Essential (primary) hypertension, I47.10 - Supraventricular tachycardia, unspecified, I49.1 - Atrial premature depolarization, I49.3 - Ventricular premature depolarization, I73.9 - Peripheral vascular disease, unspecified, I83.11 - Varicose veins of right lower extremity with inflammation, J44.9 - Chronic obstructive pulmonary disease, unspecified, K21.9 - Gastro-esophageal reflux disease without esophagitis, N28.9 - Disorder of kidney and ureter, unspecified, 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, Z91.09 - Other allergy status, other than to drugs and biological substances TSH reflex Free T4 Today E66.09 - Other obesity due to excess calories, E78.9 - Disorder of lipoprotein metabolism, unspecified, I10 - Essential (primary) hypertension, I47.10 - Supraventricular tachycardia, unspecified, I49.1 - Atrial premature depolarization, I49.3 - Ventricular premature depolarization, I73.9 - Peripheral vascular disease, unspecified, I83.11 - Varicose veins of right lower extremity with inflammation, J44.9 - Chronic obstructive pulmonary disease, unspecified, K21.9 - Gastro-esophageal reflux disease without esophagitis, N28.9 - Disorder of kidney and ureter, unspecified, Z79.01 - [facility] (current) use of anticoagulants, Z91.09 - Other allergy status, other than to drugs and biological substances AMB EKG-In Office Today I49.9 - Cardiac arrhythmia, unspecified Referrals Wound Care Referral S81.442A - Unspecified open wound, left lower leg, initial encounter Coding Level of Care Code Est Pt Level 4 (68675) Diagnoses Atrial premature depolarization I49.1 Arrhythmia type: premature depolarization Premature depolarization type: atrial COPD mixed type J44.9 Peripheral vascular disease I73.9 Wound of left lower extremity, subsequent encounter S81.802D Encounter type: subsequent encounter Supraventricular tachycardia I47.10 Hypertension, essential I10 Lipid disorder E78.9 Warfarin anticoagulation Z79.01 Environmental allergies Z91.09 Nephropathy N28.9 Varicose veins of right lower extremity with inflammation I83.11 Class 1 obesity due to excess calories without serious comorbidity with body mass index (BMI) of 34.0 to 34.9 in adult E66.09; Z68.34 Body mass index: BMI 34.0-34.9 Obesity classification: adult class 1 (BMI 30 - 34.9) Serious obesity comorbidity presence: without serious comorbidity Chronic GERD K21.9 PAC (premature atrial contraction) I49.1 PVCs (premature ventricular contractions) I49.3 CPT Codes EKG - CPT: 21541-[id number], Complete ([id number]) Additional Codes MAREN-7 Assessment Billing - MAREN-7 Assessment Tool: MAREN-7 Assessment [id number] ([id number]) Comment
[2023-01-19 10:23] VITALS: BP 140/78; PULSE 139; O2SAT 98; BMI 33.8
== END 2023-01-19 12:06 | disposition home or self-care (01) ==
PROVIDERS: PCP Internal Medicine; Visit Provider Internal Medicine
DX: I49.9 Cardiac arrhythmia, unspecified (principal)
CPT/HCPCS: 93000; 99214

== ENCOUNTER 2023-01-26 11:27 | Outpatient (AMB) | payer MEDICARE, SELFPAY ==
[2023-01-26 11:31] LABS: Prothrombin Time Whole Bld POC 25.3 sec (11.1-13.5); ~PT, ~INR - Anti Coag Clinic 2.1 (0.9-1.1)
--- NOTE | 2023-01-26 11:31 | MHC.OFFVISCO ---
Intake Intake Visit Reasons: Anticoagulation Allergies enviromental Allergy (Mild, Uncoded 01/26/23 11:27) RHINITIS SEASONAL ALLERGIES Allergy (Mild, Uncoded 01/26/23 11:27) RUNNY NOSE Medication List - Last Reconciled 01/26/23 by Kait Mina RN diaper,brief,infant-noe,disp As directed change 3 times a day Size Large fexofenadine (Rosemary Allergy) 60 mg PO BID hydrochlorothiazide 25 mg PO DAILY 90 days lisinopril 40 mg PO DAILY metoprolol succinate ER 100 mg PO DAILY simvastatin 20 mg PO BEDTIME 90 days warfarin 7.5 mg See Protocol PO DAILY 90 days Nursing Note INR: 2.1- in therapeutic range of 2-3 Medications and supplements reviewed No changes in health, diet, medications, or supplements, Denies any signs and symptoms of bleeding or bruising or clotting. 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
== END 2023-01-26 11:56 | disposition home or self-care (01) ==
LOC: HO.ACS 11:27
PROVIDERS: PCP Internal Medicine; Visit Provider Internal Medicine
DX: Z79.01 Long term (current) use of anticoagulants (principal)

== ENCOUNTER → 2023-01-26 11:27 | Outpatient (BNVA) | payer MEDICARE, SELFPAY | PROVIDERS: PCP Internal Medicine; Visit Provider Internal Medicine | DX: I26.99 Other pulmonary embolism without acute cor pulmonale (principal); Z79.01 Long term (current) use of anticoagulants; Z51.81 Encounter for therapeutic drug level monitoring | CPT/HCPCS: 85610; 99211 ==

== ENCOUNTER 2023-02-23 11:12 | Outpatient (AMB) | payer MEDICARE, SELFPAY ==
[2023-02-23 11:20] LABS: Prothrombin Time Whole Bld POC 31.6 sec (11.1-13.5); ~PT, ~INR - Anti Coag Clinic 2.6 (0.9-1.1)
--- NOTE | 2023-02-23 11:21 | MHC.OFFVISCO ---
Intake Intake Visit Reasons: Anticoagulation Allergies enviromental Allergy (Mild, Uncoded 02/23/23 11:15) RHINITIS SEASONAL ALLERGIES Allergy (Mild, Uncoded 02/23/23 11:15) RUNNY NOSE Medication List - Last Reconciled 02/23/23 by Florence Moran RN diaper,brief,-noe,disp As directed change 3 times a day Size Large fexofenadine (Rosemary Allergy) 60 mg PO BID hydrochlorothiazide 25 mg PO DAILY 90 days lisinopril 40 mg PO DAILY metoprolol succinate ER 100 mg PO DAILY simvastatin 20 mg PO BEDTIME 90 days warfarin 7.5 mg See Protocol PO DAILY 90 days Nursing Note Amb to ACS using cane, feeling well Medications and supplements reviewed No changes in health, diet, medications, or supplements Denies any unusual signs and symptoms of bruising, bleeding Denies any new Chest pain, SOB, or clotting INR: 2.6 in therapeutic range Nutritional guidance given: balance greens and reds in diet Dose: continue usual dosing;5mg x 2 days and 7.5mg x 5 days F/U INR: 4 weeks Patient verbalizes understanding of instructions given with accurate read back/ teach back of dosing Anti-Coag Initial Assessment Social Hx Patient Tobacco Use Status: Never used Tobacco alcohol intake: current Alcohol intake frequency: holidays/special occasions only Coding Level of Care Code Est Patient Level 1 Diagnoses Current use of anticoagulant therapy Z79.01 Time Spent (min) 15 Assessment & Plan Assessment & Plan (1) Current use of anticoagulant therapy: Code(s): Z79.01 - shelter (current) use of anticoagulants Category: Medical
== END 2023-02-23 11:25 | disposition home or self-care (01) ==
LOC: HO.ACS 11:12
PROVIDERS: PCP Internal Medicine; Visit Provider Internal Medicine
DX: Z79.01 Long term (current) use of anticoagulants (principal)

== ENCOUNTER → 2023-02-23 11:12 | Outpatient (BNVA) | payer MEDICARE, SELFPAY | PROVIDERS: PCP Internal Medicine; Visit Provider Internal Medicine | DX: I26.99 Other pulmonary embolism without acute cor pulmonale (principal); Z79.01 Long term (current) use of anticoagulants; Z51.81 Encounter for therapeutic drug level monitoring | CPT/HCPCS: 85610; 99211 ==

== ENCOUNTER 2023-03-23 11:16 | Outpatient (AMB) | payer MEDICARE, SELFPAY ==
[2023-03-23 11:24] LABS: Prothrombin Time Whole Bld POC 25.9 sec (11.1-13.5); ~PT, ~INR - Anti Coag Clinic 2.2 (0.9-1.1)
--- NOTE | 2023-03-23 11:33 | MHC.OFFVISCO ---
Intake Intake Visit Reasons: Anticoagulation Allergies enviromental Allergy (Mild, Uncoded 03/23/23 11:18) RHINITIS SEASONAL ALLERGIES Allergy (Mild, Uncoded 03/23/23 11:18) RUNNY NOSE Medication List - Last Reconciled 03/23/23 by Florence Rao RN diaper,brief,infant-noe,disp As directed change 3 times a day Size Large fexofenadine (Rosemary Allergy) 60 mg PO BID hydrochlorothiazide 25 mg PO DAILY 90 days lisinopril 40 mg PO DAILY metoprolol succinate ER 100 mg PO DAILY simvastatin 20 mg PO BEDTIME 90 days warfarin 7.5 mg See Protocol PO DAILY 90 days Nursing Note INR: 2.2 in therapeutic range Medications and supplements reviewed No changes in health, diet, medications, or supplements, Denies any signs and symptoms of bleeding or bruising or clotting. Bleeding, bruising, clotting discussed Nutritional guidance given. pt verbalizes good understanding of food list Dose: continue same dos, 5mg x 2d and 7.5mg all other days F/U INR: Patient verbalizes understanding of instructions given Anti-Coag Initial Assessment Social Hx Patient Tobacco Use Status: Never used Tobacco alcohol intake: current Alcohol intake frequency: holidays/special occasions only Coding Level of Care Code Est Patient Level 1 Diagnoses Current use of anticoagulant therapy Z79.01 Assessment & Plan Assessment & Plan (1) Current use of anticoagulant therapy: Code(s): Z79.01 - longterm (current) use of anticoagulants Category: Medical
== END 2023-03-23 11:44 | disposition home or self-care (01) ==
LOC: HO.ACS 11:16
PROVIDERS: PCP Internal Medicine; Visit Provider Internal Medicine
DX: Z79.01 Long term (current) use of anticoagulants (principal)

== ENCOUNTER → 2023-03-23 11:16 | Outpatient (BNVA) | payer MEDICARE, SELFPAY | PROVIDERS: PCP Internal Medicine; Visit Provider Internal Medicine | DX: I26.99 Other pulmonary embolism without acute cor pulmonale (principal); Z79.01 Long term (current) use of anticoagulants; Z51.81 Encounter for therapeutic drug level monitoring | CPT/HCPCS: 85610; 99211 ==

== ENCOUNTER 2023-04-16 11:41 | Outpatient (REF) | payer MEDICARE, SELFPAY ==
[2023-04-16 13:27] LABS: MANUAL DIFF FLAG NO
[2023-04-16 13:40] LABS: Basophils Absolute Auto 0.1 X10*3/uL (0.0-0.2); Basophils Percent Auto 0.9 % (0-2); Eosinophils Absolute Auto 0.4 X10*3/uL (0.0-0.4); Eosinophils Percent Auto 6.2 % (0-4); Hematocrit 40.6 % (37.0-47.0); Hemoglobin 12.9 g/dl (12.0-16.0); Imm Gran Abs Auto 0.01 X10*3/uL (0.00-0.03); Imm Gran Pct Auto 0.2 % (0.0-0.4); Lymphocytes Absolute Auto 1.7 X10*3/uL (1.2-4.9); Lymphocytes Percent Auto 29.5 % (20-40); Mean Corpuscular HGB Conc 31.8 g/dl (31.0-35.0); Mean Corpuscular Hemoglobin 30.4 pg (27.0-33.0); Mean Corpuscular Volume 95.5 fL (80.0-98.0); Mean Platelet Volume 10.5 fL (9.4-12.3); Monocytes Absolute Auto 0.6 X10*3/uL (0.1-1.2); Monocytes Percent Auto 10.7 % (2-11); Neutrophils Percent Auto 52.5 % (45-73); Platelet Count 249 X10*3/uL (160-400); Red Blood Count 4.25 X10*6/uL (4.20-5.50); Red Cell Distribution Width 13.4 % (11.0-16.0); White Blood Count 5.8 X10*3/uL (4.8-10.8)
[2023-04-16 14:07] LABS: Alanine Aminotransferase 17 U/L (0-31); Albumin Level 3.9 g/dL (3.5-5.0); Alkaline Phosphatase 83 U/L (39-117); Anion Gap 15 (12-20); Aspartate Amino Transferase 20 U/L (5-31); Bilirubin Total 0.6 mg/dL (0.0-1.0); Blood Urea Nitrogen 33 mg/dL (9-16); Calcium 9.4 mg/dL (8.4-10.2); Carbon Dioxide 27 mmol/L (22-29); Chloride 103 mmol/L (96-108); Cholesterol 149 mg/dL (<200); Estimated Glomerular Filt Rate 41; Glucose Fasting 95 mg/dL (60-99); HDL Cholesterol 65 mg/dL (>40); LDL Cholesterol Calculated 68 mg/dL (<100); Potassium 4.5 mmol/L (3.3-5.1); Sodium 140 mmol/L (135-145); Total Protein 7.3 g/dL (6.5-8.0); Triglycerides 80 mg/dL (<150)
[2023-04-16 14:11] LABS: TSH reflex Free T4 2.31 uIU/mL (0.32-4.0)
== END 2023-04-16 11:42 | disposition home or self-care (01) ==
LOC: HO.HMGCLDS 11:41
PROVIDERS: PCP Internal Medicine; Visit Provider Internal Medicine
DX: I10 Essential (primary) hypertension (principal); I73.9 Peripheral vascular disease, unspecified; E78.9 Disorder of lipoprotein metabolism, unspecified; Z79.01 Long term (current) use of anticoagulants; J44.9 Chronic obstructive pulmonary disease, unspecified; Z91.09 Other allergy status, other than to drugs and biological substances; N28.9 Disorder of kidney and ureter, unspecified; I83.11 Varicose veins of right lower extremity with inflammation; E66.09 Other obesity due to excess calories; K21.9 Gastro-esophageal reflux disease without esophagitis; I49.1 Atrial premature depolarization; I49.3 Ventricular premature depolarization; I47.10 Supraventricular tachycardia, unspecified
CPT/HCPCS: 36415; 80053; 80061; 84443; 85025

== ENCOUNTER 2023-04-20 11:18 | Outpatient (AMB) | payer MEDICARE, SELFPAY ==
--- NOTE | 2023-04-20 11:30 | MHC.OFFVISCO ---
Intake Intake Visit Reasons: Anticoagulation Allergies enviromental Allergy (Mild, Uncoded 04/20/23 11:23) RHINITIS SEASONAL ALLERGIES Allergy (Mild, Uncoded 04/20/23 11:23) RUNNY NOSE Medication List - Last Reconciled 04/20/23 by Kait Mina RN diaper,brief,infant-noe,disp As directed change 3 times a day Size Large fexofenadine (Rosemary Allergy) 60 mg PO BID hydrochlorothiazide 25 mg PO DAILY 90 days lisinopril 40 mg PO DAILY metoprolol succinate ER 100 mg PO DAILY simvastatin 20 mg PO BEDTIME 90 days warfarin 7.5 mg See Protocol PO DAILY 90 days Nursing Note INR: 2.0- in therapeutic range of 2-3 Medications and supplements reviewed- no changes No changes in health, diet, medications, or supplements, Denies any signs and symptoms of bleeding or bruising or clotting. Bleeding, bruising, clotting discussed Nutritional guidance given - no greens for 2 days Dose: 5mg x 2, 7.5mg x 5 F/U INR: pt req 4 weeks Patient verbalizes understanding of instructions given pt states hx rhinitis- taking rosemary. has upcoming pcp appt Anti-Coag Initial Assessment Social Hx Patient Tobacco Use Status: Never used Tobacco alcohol intake: current Alcohol intake frequency: holidays/special occasions only Coding Level of Care Code Est Patient Level 1 Diagnoses Current use of anticoagulant therapy Z79.01 Assessment & Plan Assessment & Plan (1) Current use of anticoagulant therapy: Code(s): Z79.01 - USP (current) use of anticoagulants Category: Medical
[2023-04-20 11:31] LABS: Prothrombin Time Whole Bld POC 24.5 sec (11.1-13.5)
== END 2023-04-20 11:37 | disposition home or self-care (01) ==
LOC: HO.ACS 11:18
PROVIDERS: PCP Internal Medicine; Visit Provider Internal Medicine
DX: Z79.01 Long term (current) use of anticoagulants (principal)

== ENCOUNTER → 2023-04-20 11:18 | Outpatient (BNVA) | payer MEDICARE, SELFPAY | PROVIDERS: PCP Internal Medicine; Visit Provider Internal Medicine | DX: I26.99 Other pulmonary embolism without acute cor pulmonale (principal); Z79.01 Long term (current) use of anticoagulants; Z51.81 Encounter for therapeutic drug level monitoring | CPT/HCPCS: 85610; 99211 ==

== ENCOUNTER 2023-04-21 12:49 | Outpatient (AMB) | payer MEDICARE, SELFPAY ==
[2023-04-21 12:50] VITALS: BP 152/76; PULSE 99; O2SAT 94; BMI 33.8
--- NOTE | 2023-04-21 12:50 | MHC.PC.OV ---
Vital Signs 04/21/23 12:50 04/21/23 13:24 Height 5 ft 6 in Weight 209 lb 8 oz BMI 33.8 BP 152/76 H 148/88 H Blood Pressure Location Rt brachial Position Sitting Pulse 99 Pulse Source Pulse Oximeter Pulse Oximetry (%) 94 Oxygen Delivery Method Room Air Intake Visit Reasons: 6 month follow up Allergies enviromental Allergy (Mild, Uncoded 04/20/23 11:23) RHINITIS SEASONAL ALLERGIES Allergy (Mild, Uncoded 04/20/23 11:23) RUNNY NOSE Medication List - Last Reconciled 04/21/23 by Marvin Alexis MD diaper,brief,infant-noe,disp As directed change 3 times a day Size Large fexofenadine (Rosemary Allergy) 60 mg PO BID hydrochlorothiazide 25 mg PO DAILY 90 days lisinopril 40 mg PO DAILY metoprolol succinate ER 100 mg PO DAILY simvastatin 20 mg PO BEDTIME 90 days warfarin 7.5 mg See Protocol PO DAILY 90 days Tobacco use date assessed: 04/21/23 Fall risk assessment: No Falls in past year Last assessed Fall Risk: 04/21/23 Dental Screening Dental Screen Date: 04/21/23 Did you have a dental visit in the last 12 months?: No Did you have a dental problem in the last 6 months where you did not have access to dental care?: No Was dental information given to patient?: Patient has dentist HPI 6 month follow up HPI Details Patient is 87-year-old female came in today for her regular follow-up visit.? Labs done recently reviewed with the patient Continued to have nasal dripping clear discharge, she has used Flonase which did not help I have sent ipratropium nasal spray Patient have supraventricular cardiac arrhythmia which is stable with the help of metoprolol She sees Dr. Ennis once a year Peripheral vascular disease treatment through Dr. Lambert [facility] she has developed a sore left leg, which is not healing anymore. Patient need to see a wound clinic [facility] was placed but patient never went Her wound is gradually healing lower leg medial aspect, now it is of nickel size round She is on a chronic warfarin treatment for recurrent DVTs.? Coumadin clinic is monitoring her INR.? Patient is on simvastatin 20 mg for lipid control.? I would recommend diet control as well Allergies : taking Rosemary OTC Hypertension: Blood pressure is elevated slightly, we rechecked after 15 minutes it has gone down to 148 systolic, patient is on lisinopril 40 mg and metoprolol 100 mg along with hydrochlorothiazide 25 mg, stable patient tolerating medications I have encouraged patient to start monitoring her blood pressure at home she does have a monitor COPD: Breathing is stable GERD: Stable Hypertensive nephropathy: GFR is in 50s BMI continued to be elevated patient is trying to lose weight. Patient has chronic stress incontinence currently using diapers changing 3 times a day She still has not gotten the script, her insurance company continue to decline Follow-up 3 months [facility] Medical History Stress bladder incontinence, female Environmental allergies COPD mixed type Warfarin anticoagulation History of deep venous thrombosis (DVT) of distal vein of left lower extremity Peripheral vascular disease Lipid disorder Osteoporosis Hypertension, essential Surgical History History of cataract surgery Hx of vascular surgery History of colonoscopy History of breast biopsy Family History Father HTN (hypertension) History of heart attack Mother HTN (hypertension) Breast cancer Maternal Grandfather No problems noted. Maternal Grandmother No problems noted. Paternal Grandfather No problems noted. Paternal Grandmother No problems noted. Sister No problems noted. Son No problems noted. Son No problems noted. Daughter No problems noted. Daughter No problems noted. Daughter No problems noted. Other Stress bladder incontinence, female Social History Household Members: Children Housing: House Are you a primary veterinarian laboratory animal care to a significant other at home: No Do you presently have visiting nurse or other home services: No Alcohol intake: current Alcohol intake frequency: holidays/special occasions only Patient Tobacco Use Status: Never used Tobacco e-Cigarette/Vaping Use: Never Used Second Hand Smoke Exposure: No service: No Current occupational status: retired Cognitive needs: No Hearing needs: No Vision needs: Yes Questionnaire PHQ-9 Over the last 2 weeks, how often have you been bothered by any of the following problems? 1. Little interest or pleasure in doing things: not at all 2. Feeling down, depressed, or hopeless: not at all 3. Trouble falling or staying asleep, or sleeping too much: not at all 4. Feeling tired or having little energy: not at all 5. Poor appetite or overeating: not at all 6. Feeling bad about yourself - or that you are a failure or have let yourself or your family down: not at all 7. Trouble concentrating on things, such as reading the newspaper or watching television: not at all 8. Moving or speaking so slowly that other people could have noticed. Or the opposite - being so fidgety or restless that you have been moving around a lot more than usual: not at all 9. Thoughts that you would be better off or of hurting yourself in some way: not at all Total score: 0 Depression Screening Interpretation: Negative Depression Screening Done: Yes 92935 - PHQ-9 Billing: Yes Source: Developed by Drs. Kameron Gilliam, Marcelina Nash, Justin Dallas and colleagues, with an educational rambo from [employer]. Thrive Questionnaire Date Thrive assessed: 04/21/23 I am a: Patient What is your living situation today?: I have a steady place to live Within the past 12 months, did the food you bought not last and you didn't have the money to get more?: Never true Within the past 12 months, did you worry whether your food would run out before you got money to buy more?: Never true Do you have trouble paying for medicines?: No Do you have trouble getting transportation to medical appointments?: No Do you have trouble paying your heating and electricity bill?: No Do you have trouble taking care of your child, family member or friend?: No Do you have trouble with day-to-day activities such as bathing, preparing meals, shopping, managing finances, etc.?: No Are you currently unemployed and looking for a job?: No Are you interested in more education?: No Please select the resources that you would like help with: None Currently or been in a relationship where the following occur: no concerns reported THRIVE Score: 0 AUDIT C Alcohol Use Questionnaire (AUDIT-C) 1. How often do you have a drink containing alcohol?: Never 3. How often do you have six or more drinks on one occasion?: Never Total Score: 0 Score Reviewed/Action Taken: Yes MAREN-7 AMB Questionnaire MAREN-7 Date MAREN - 7 assessed: 04/21/23 Feeling nervous, anxious, or on edge: 1 = Several days Not being able to stop or control worryin = Not at all Worrying too much about different things: 1 = Several days Trouble relaxin = Not at all Being so restless that it is hard to sit still: 0 = Not at all Becoming easily annoyed or irritable: 1 = Several days Feeling afraid as if something awful might happen: 0 = Not at all Total MAREN-7 score (0-4 normal; 5-9 mild; 10-14 moderate; 15-21 severe): 3 Source: Developed by Drs. Kameron Gilliam, Marcelina Nash, Justin Dallas and colleagues, with an educational rambo from [employer]. MAREN-7 Assessment Billing MAREN-7 Assessment Tool: MAREN-7 Assessment 67821 Review of Systems Const Denies chills and Denies fever(s) ENT Denies epistaxis and Denies nasal discharge Card Denies chest pain Resp Denies chest congestion, Denies cough and Denies hemoptysis GI Denies diarrhea and Denies nausea Skin/Breast Denies rash Neuro Reports no additional complaints Psych Reports no additional complaints Endo Reports no additional complaints Physical exam (Primary Care) Vital Signs: Last Vital Signs Pulse 99 04/21/23 12:50 BP 148/88 H 04/21/23 13:24 Pulse Ox 94 04/21/23 12:50 Oxygen Delivery Method Room Air 04/21/23 12:50 BMI result Body Mass Index 33.8 Tobacco/Smoking Status: Tobacco use Status Tobacco use date assessed 04/21/23 04/21/23 13:01 Patient Tobacco Use Status Never used Tobacco 04/21/23 13:01 e-Cigarette/Vaping Use Never Used 04/21/23 13:01 PHQ-9: PHQ-9 Score PHQ-9: Total score 0 04/21/23 13:25 Depression Screening Interpretation: Negative Thrive Assessment: Date of Thrive Assessment Date Thrive assessed 04/21/23 04/21/23 13:11 Currently or been in a relationship where the following occur: no concerns reported Const General: cooperative, comfortable and no acute distress Orientation/consciousness: patient oriented x3 HENMT Head: Yes normocephalic Eyes General: appearance normal, both eyes and all related structures Neck Neck: Yes supple Resp Effort & Inspection: normal respiratory effort, no cough and no stridor Cardio Rhythm: regular rhythm Heart sounds: S1 normal heart sound present and S2 normal heart sound present Skin General skin exam: turgor normal Neuro General: patient oriented x3, tone normal and moves all extremities Extrem Right lower extremity: no edema Left lower extremity: no edema Upper/lower leg/hip images: 1. Nickel size round open wound without any signs of infection healing from margins superficial Assessment and Plan Assessment & Plan (1) Cardiac arrhythmia: Code(s): I49.9 - Cardiac arrhythmia, unspecified Qualifiers: Arrhythmia type: premature depolarization Premature depolarization type: atrial Qualified Code(s): I49.1 - Atrial premature depolarization (2) COPD mixed type: Code(s): J44.9 - Chronic obstructive pulmonary disease, unspecified (3) Peripheral vascular disease: Code(s): I73.9 - Peripheral vascular disease, unspecified (4) Hypertension, essential: Code(s): I10 - Essential (primary) hypertension (5) Lipid disorder: Code(s): E78.9 - Disorder of lipoprotein metabolism, unspecified (6) Warfarin anticoagulation: Code(s): Z79.01 - [facility] (current) use of anticoagulants (7) Environmental allergies: Code(s): Z91.09 - Other allergy status, other than to drugs and biological substances (8) Nephropathy: Code(s): N28.9 - Disorder of kidney and ureter, unspecified (9) Obesity due to excess calories: Code(s): E66.09 - Other obesity due to excess calories Qualifiers: Body mass index: BMI 34.0-34.9 Obesity classification: adult class 1 (BMI 30 - 34.9) Serious obesity comorbidity presence: without serious comorbidity Qualified Code(s): E66.09 - Other obesity due to excess calories; Z68.34 - Body mass index [BMI] 34.0-34.9, adult (10) Chronic GERD: Code(s): K21.9 - Gastro-esophageal reflux disease without esophagitis Plan Patient is 87-year-old female came in today for her regular follow-up visit.? Labs done recently reviewed with the patient Continued to have nasal dripping clear discharge, she has used Flonase which did not help I have sent ipratropium nasal spray Patient have supraventricular cardiac arrhythmia which is stable with the help of metoprolol She sees Dr. Ennis once a year Peripheral vascular disease treatment through Dr. Lambert [facility] she has developed a sore left leg, which is not healing anymore. Patient need to see a wound clinic [facility] was placed but patient never went Her wound is gradually healing lower leg medial aspect, now it is of nickel size round She is on a chronic warfarin treatment for recurrent DVTs.? Coumadin clinic is monitoring her INR.? Patient is on simvastatin 20 mg for lipid control.? I would recommend diet control as well Allergies : taking Rosemary OTC Hypertension: Blood pressure is elevated slightly, we rechecked after 15 minutes it has gone down to 148 systolic, patient is on lisinopril 40 mg and metoprolol 100 mg along with hydrochlorothiazide 25 mg, stable patient tolerating medications I have encouraged patient to start monitoring her blood pressure at home she does have a monitor COPD: Breathing is stable GERD: Stable Hypertensive nephropathy: GFR is in 50s BMI continued to be elevated patient is trying to lose weight. Patient has chronic stress incontinence currently using diapers changing 3 times a day She still has not gotten the script, her insurance company continue to decline Follow-up 3 months Medications: New ipratropium bromide administer into each nostril 2 sprays intranasal ONCE 30 mL 0RF 30 days Coding Level of Care Code Est Pt Level 4 (91184) Diagnoses Atrial premature depolarization I49.1 Arrhythmia type: premature depolarization Premature depolarization type: atrial COPD mixed type J44.9 Peripheral vascular disease I73.9 Hypertension, essential I10 Lipid disorder E78.9 Warfarin anticoagulation Z79.01 Environmental allergies Z91.09 Nephropathy N28.9 Class 1 obesity due to excess calories without serious comorbidity with body mass index (BMI) of 34.0 to 34.9 in adult E66.09; Z68.34 Body mass index: BMI 34.0-34.9 Obesity classification: adult class 1 (BMI 30 - 34.9) Serious obesity comorbidity presence: without serious comorbidity Chronic GERD K21.9 Additional Codes MAREN-7 Assessment Billing - MAREN-7 Assessment Tool: MAREN-7 Assessment [id number] ([id number])
[2023-04-21 13:24] VITALS: BP 148/88
== END 2023-04-21 13:22 | disposition home or self-care (01) ==
PROVIDERS: PCP Internal Medicine; Visit Provider Internal Medicine
DX: I49.1 Atrial premature depolarization (principal); J44.9 Chronic obstructive pulmonary disease, unspecified; I73.9 Peripheral vascular disease, unspecified; I10 Essential (primary) hypertension; E78.9 Disorder of lipoprotein metabolism, unspecified; Z79.01 Long term (current) use of anticoagulants; Z91.09 Other allergy status, other than to drugs and biological substances; N28.9 Disorder of kidney and ureter, unspecified; E66.09 Other obesity due to excess calories; Z68.34 Body mass index [BMI] 34.0-34.9, adult; K21.9 Gastro-esophageal reflux disease without esophagitis
CPT/HCPCS: 99214

== ENCOUNTER 2023-05-26 11:10 | Outpatient (AMB) | payer MEDICARE, SELFPAY ==
[2023-05-26 11:15] LABS: Prothrombin Time Whole Bld POC 21.8 sec (11.1-13.5); ~PT, ~INR - Anti Coag Clinic 1.8 (0.9-1.1)
--- NOTE | 2023-05-26 11:23 | MHC.OFFVISCO ---
Intake Intake Visit Reasons: Anticoagulation Allergies enviromental Allergy (Mild, Uncoded 04/20/23 11:23) RHINITIS SEASONAL ALLERGIES Allergy (Mild, Uncoded 04/20/23 11:23) RUNNY NOSE Medication List - Last Reconciled 05/26/23 by Josefa Hogan RN diaper,brief,-noe,disp As directed change 3 times a day Size Large fexofenadine (Rosemary Allergy) 60 mg PO BID hydrochlorothiazide 25 mg PO DAILY 90 days ipratropium bromide 2 sprays intranasal ONCE 30 days lisinopril 40 mg PO DAILY metoprolol succinate ER 100 mg PO DAILY simvastatin 20 mg PO BEDTIME 90 days warfarin 7.5 mg See Protocol PO DAILY 90 days Nursing Note PT.STATES THAT SHE HAS MISSED A DOSE RECENTLY. NO CP,SOB,DIET/MED CHANGES,FALLS OR SX OF BLEEDING. BOOST TO 10MGM TODAY THEN RESUME USUAL DOSE AND FOLLOW-UP IN 4 WEEKS. NO GREENS 2 DAYS GOOD UNDERSTANDING OF DOSING INSTR. Anti-Coag Initial Assessment Social Hx Patient Tobacco Use Status: Never used Tobacco alcohol intake: current Alcohol intake frequency: holidays/special occasions only Coding Level of Care Code Est Patient Level 1 Diagnoses Current use of anticoagulant therapy Z79.01 Assessment & Plan Assessment & Plan (1) Current use of anticoagulant therapy: Code(s): Z79.01 - halfway (current) use of anticoagulants Category: Medical
== END 2023-05-26 11:24 | disposition home or self-care (01) ==
LOC: HO.ACS 11:10
PROVIDERS: PCP Internal Medicine; Visit Provider Internal Medicine
DX: Z79.01 Long term (current) use of anticoagulants (principal)

== ENCOUNTER → 2023-05-26 11:10 | Outpatient (BNVA) | payer MEDICARE, SELFPAY | PROVIDERS: PCP Internal Medicine; Visit Provider Internal Medicine | DX: I26.99 Other pulmonary embolism without acute cor pulmonale (principal); Z51.81 Encounter for therapeutic drug level monitoring; Z79.01 Long term (current) use of anticoagulants | CPT/HCPCS: 85610; 99211 ==

== ENCOUNTER 2023-06-29 11:05 | Outpatient (AMB) | payer MEDICARE, SELFPAY ==
[2023-06-29 11:14] LABS: ~PT, ~INR - Anti Coag Clinic 2.5 (0.9-1.1)
--- NOTE | 2023-06-29 11:32 | MHC.OFFVISCO ---
Intake Intake Visit Reasons: Anticoagulation Allergies enviromental Allergy (Mild, Uncoded 06/29/23 11:08) RHINITIS SEASONAL ALLERGIES Allergy (Mild, Uncoded 06/29/23 11:08) RUNNY NOSE Medication List - Last Reconciled 06/29/23 by Florence Rao, RN diaper,brief,infant-noe,disp As directed change 3 times a day Size Large fexofenadine (Rosemary Allergy) 60 mg PO BID hydrochlorothiazide 25 mg PO DAILY 90 days ipratropium bromide 2 sprays intranasal ONCE 30 days lisinopril 40 mg PO DAILY metoprolol succinate ER 100 mg PO DAILY simvastatin 20 mg PO BEDTIME 90 days warfarin 7.5 mg See Protocol PO DAILY 90 days Nursing Note INR: 2.5 in therapeutic range of 2-3 Medications and supplements reviewed: no new meds Pt states she feels off and c/o being lightheaded BP 142/84, HR 140's. Further assessment shows left lower extremity red, hot and edematous with an open wound pt has covered with a bandage. Denies any signs and symptoms of bleeding or bruising or clotting. Bleeding, bruising, clotting discussed Dose: cont usual dose of 5mg X 2 days and 7.5mg X 5 days F/U INR: 1 month Patient verbalizes understanding of instructions given Pt to ER at this time for furhther assessment of wound and question of sepsis. She agreed to be seen. Offered to call her sonanna Trujillo and she said will wait until seen in ER with disposition plan and treatment. Anti-Coag Initial Assessment Social Hx Patient Tobacco Use Status: Never used Tobacco alcohol intake: current Alcohol intake frequency: holidays/special occasions only Coding Level of Care Code Est Patient Level 2 Diagnoses Current use of anticoagulant therapy Z79.01 Assessment & Plan Assessment & Plan (1) Current use of anticoagulant therapy: Code(s): Z79.01 - residential (current) use of anticoagulants Category: Medical
== END 2023-06-29 12:11 | disposition home or self-care (01) ==
LOC: HO.ACS 11:05
PROVIDERS: PCP Internal Medicine; Visit Provider Internal Medicine
DX: Z79.01 Long term (current) use of anticoagulants (principal)

== ENCOUNTER → 2023-06-29 11:05 | Outpatient (BNVA) | payer MEDICARE, SELFPAY | PROVIDERS: PCP Internal Medicine; Visit Provider Internal Medicine ==

== ENCOUNTER 2023-06-29 11:37 | Inpatient (IN) | payer MEDICARE, SELFPAY ==
[2023-06-29] VITALS (13 sets, daily range): BP systolic 139–159; BP diastolic 93–102; PULSE 113–138; RESP 15–23; TEMP 36.4–36.7; O2SAT 96–99; BMI 33.9
--- NOTE | ~2023-06-29 | US_ITS ---
EXAMINATION: US VENOUS ULTRASOUND WITH DOPPLER LOWER EXTREMITY, LEFT CLINICAL INFORMATION: Cellulitis and edema with history of DVT in 2015. COMPARISON: Left leg DVT study 06/30/2021. TECHNIQUE: Ultrasound of the deep veins is performed from the hip to the calf with compression sonography and color and pulse Doppler assessment. Spectral analysis with color-flow imaging is performed. FINDINGS: There is chronic mural thrombus in the proximal femoral vein which is not fully compressible consistent with chronic thrombus. Similar findings were noted on the 06/30/2021 study. Otherwise, the exam is unremarkable with normal venous compression and respiratory variation and augmented flow throughout the remainder of the extremities. The visualized common femoral vein, remainder of the femoral vein, profunda femoral vein, popliteal vein, and the trifurcation region shows no evidence of deep venous thrombosis. There is no significant popliteal fossa cyst. US/US venous duplex LE IMPRESSION: Chronic mural thickening in the left femoral vein proximally similarly to 2021 consistent with chronic DVT. No acute DVT demonstrated in the left lower extremity.
--- NOTE | ~2023-06-29 | XR_ITS ---
EXAMINATION: XR CHEST CLINICAL INFORMATION: Tachycardia. COMPARISON: Chest radiographs dated 09/07/2016. TECHNIQUE: A frontal view of the chest was obtained. FINDINGS: The heart, great vessels, pulmonary vasculature and mediastinum are stable. There is mild pulmonary vascular congestion, without overt pulmonary edema. No infiltrate, effusion or pneumothorax is seen. There is no acute osseous abnormality. XR/XR chest 1V IMPRESSION: 1. There is pulmonary vascular congestion, without overt pulmonary edema. 2. No focal infiltrate is seen.
--- NOTE | ~2023-06-29 | XR_ITS ---
EXAMINATION: XR TIBIA AND FIBULA, LEFT CLINICAL INFORMATION: Left lower leg cellulitis; question osteomyelitis. COMPARISON: None available. TECHNIQUE: AP and lateral views of the left tibia and fibula were obtained. FINDINGS: Bony alignment and mineralization are normal. There is narrowing of the patellofemoral compartment, with peripheral osteophyte formation. The lateral and medial joint space compartments of the knee are well-maintained, with mild peripheral osteophyte formation. The ankle mortise is intact. There are degenerative changes of the dorsal midfoot. No fracture or dislocation is seen. There is no bone erosion or periosteal thickening. There are soft tissue calcifications, which may relate to venous insufficiency. XR/XR tibia fibula LT 2V IMPRESSION: 1. No fracture or dislocation is seen. 2. There is no bone erosion, soft tissue gas or periosteal thickening to suggest acute osteomyelitis. 3. There is degenerative change of the right knee, most pronounced of the patellofemoral compartment. 4. Diffuse calf soft tissue calcifications are seen, possibly related to venous insufficiency.
--- NOTE | 2023-06-29 11:44 | ECG_ITS ---
Test Reason : ABN LABS Blood Pressure : / mmHG Vent. Rate : 137 BPM Atrial Rate : 137 BPM P-R Int : 096 ms QRS Dur : 062 ms QT Int : 300 ms P-R-T Axes : 000 089 035 degrees QTc Int : 453 ms Supraventricular tachycardia Low voltage QRS Septal infarct , age undetermined Abnormal ECG When compared with ECG of 20-SEP-2013 17:20, Vent. rate has increased BY 53 BPM Septal infarct is now Present SVT present Referred By: Generic ED Physician Electronically Signed By:Jean Anthony
--- NOTE | 2023-06-29 15:28 | ECG_ITS ---
Test Reason : TAACHY Blood Pressure : / mmHG Vent. Rate : 135 BPM Atrial Rate : 000 BPM P-R Int : 000 ms QRS Dur : 072 ms QT Int : 310 ms P-R-T Axes : 000 087 -20 degrees QTc Int : 465 ms Supraventricular tachycardia with Premature ventricular complexes or Fusion complexes Low voltage QRS Septal infarct (cited on or before 29-JUN-2023) Abnormal ECG When compared with ECG of 29-JUN-2023 11:48, Fusion complexes are now Present Premature ventricular complexes are now Present Referred By: Edu Jain Electronically Signed By:Jean Anthony
[2023-06-29] MEDS: 0.9 % Sodium Chloride 1,000 ML 999 ML IV ×2 (16:03→17:45)
[2023-06-29 16:08] LABS: MANUAL DIFF FLAG NO
--- NOTE | 2023-06-29 16:11 | ED_ITS ---
HPI - General Adult General Chief complaint: General Medical Stated complaint: Lightheaded, tachycardia, sepsis? Time Seen by Provider: 06/29/23 15:27 Source: patient Mode of arrival: ambulatory Limitations: no limitations History of Present Illness HPI narrative: 88-year-old female came in for evaluation of lightheadedness and possible left lower extremity cellulitis. Patient with history of DVT and pulmonary embolism on Coumadin patient was sent from the Coumadin clinic for symptoms of feeling lightheadedness, generalized weakness, chills. Patient notice wound started on the left lower extremity 4-5 days ago started as an itchy small blister on the inner aspect of the lower leg, declined any trauma or insect bite. Patient started to notice that redness and hotness and tenderness started to spread on her left lower extremity. Patient presented to the ED with vital sign suggest sepsis. Related Data Home Medications ?Medication ?Instructions ?Recorded ?Confirmed fexofenadine 60 mg tablet (Rosemary 60 mg PO BID 08/18/22 06/29/23 Allergy) Previous Rx's ?Medication ?Instructions ?Recorded diaper,brief,-noe,disp #100 ea 01/19/23 metoprolol succinate 100 mg 100 mg PO DAILY #90 tabs 04/01/23 tablet,extended release 24 hr ipratropium bromide 21 mcg (0.03 2 spray intranasal ONCE 30 days 04/21/23 %) nasal spray #30 mL hydrochlorothiazide 25 mg tablet 25 mg PO DAILY 90 days #90 tabs 05/25/23 lisinopril 40 mg tablet 40 mg PO DAILY #90 tabs 05/25/23 simvastatin 20 mg tablet 20 mg PO BEDTIME 90 days #90 tabs 06/29/23 warfarin 5 mg tablet 7.5 mg PO DAILY 90 days #135 tabs 06/29/23 Allergies Allergy/AdvReac Type Severity Reaction Status Date / Time enviromental Allergy Mild RHINITIS Uncoded 06/29/23 12:24 SEASONAL ALLERGIES Allergy Mild RUNNY NOSE Uncoded 06/29/23 12:24 Review of Systems 2 Review of Systems: All other systems are reviewed and are negative Constitutional: Reports as per HPI and Reports no additional constitutional complaints Eyes: Reports as per HPI and Reports no additional eye complaints Reports system reviewed and no additional complaints, except as documented Cardiovascular: Reports as per HPI and Reports no additional cardiovascular complaints Respiratory: Reports as per HPI and Reports no additional respiratory complaints Gastrointestinal: Reports as per HPI and Reports no additional gastrointestinal complaints Genitourinary: Reports no additional female genitourinary complaints Musculoskeletal: Reports no additional musculoskeletal complaints Skin/Breast: Reports system reviewed and no additional complaints, except as docu Psychiatric: Reports no additional psychiatric complaints Endocrine: Reports no additional endocrine complaints Hematologic/Lymphatic: Reports no additional hematologic/lymphatic complaints Allergic/Immunologic: Reports no additional allergic/immunologic complaints Reports system reviewed and no additional complaints, except as documented and Reports Abnormal speech present [facility] Past Medical History Medical History Stress bladder incontinence, female Environmental allergies COPD mixed type Warfarin anticoagulation History of deep venous thrombosis (DVT) of distal vein of left lower extremity Peripheral vascular disease Lipid disorder Osteoporosis Hypertension, essential Surgical History History of cataract surgery Hx of vascular surgery History of colonoscopy History of breast biopsy Family History Family History Father HTN (hypertension) History of heart attack Mother HTN (hypertension) Breast cancer Maternal Grandfather No problems noted. Maternal Grandmother No problems noted. Paternal Grandfather No problems noted. Paternal Grandmother No problems noted. Sister No problems noted. Son No problems noted. Son No problems noted. Daughter No problems noted. Daughter No problems noted. Daughter No problems noted. Other Stress bladder incontinence, female Social History Social History Household Members: Children Housing: House Are you a primary dog daycare provider to a significant other at home: No Do you presently have visiting nurse or other home services: No Alcohol intake: current Alcohol intake frequency: holidays/special occasions only Patient Tobacco Use Status: Never used Tobacco Smoked in Last 30 Days: No e-Cigarette/Vaping Use: Never Used Second Hand Smoke Exposure: No Use of substances other than those prescribed or required for medical reasons: No Advance Directives: No Advance Directives Information Provided: No service: No Current occupational status: retired Cognitive needs: No Hearing needs: No Vision needs: Yes Physical Exam ED Vital Signs: Vital Signs - 24 hr 06/29/23 12:20 06/29/23 14:34 06/29/23 17:15 Temperature 97.7 F 97.5 F 97.7 F Pulse Rate 137 H 134 H 135 H Respiratory Rate 18 23 H 17 Blood Pressure 159/97 H 150/99 H 153/102 H Pulse Oximetry 97 96 97 Oxygen Delivery Method Room Air Room Air Room Air 06/29/23 17:35 06/29/23 18:15 06/29/23 19:20 Temperature Pulse Rate 138 H 136 H 136 H Respiratory Rate 15 Blood Pressure 156/102 H 155/99 H 143/98 H Pulse Oximetry 99 Oxygen Delivery Method Room Air 06/29/23 19:22 06/29/23 20:15 06/29/23 20:18 Temperature Pulse Rate 136 H 130 H 134 H Respiratory Rate 18 Blood Pressure 143/98 H 147/96 H 146/100 H Pulse Oximetry 97 Oxygen Delivery Method Room Air BMI result Body Mass Index 33.9 Vital signs have been reviewed and appear to be correct. Blood pressure elevated. Heart rate normal. Respiratory rate normal. Temperature normal. Oxygen saturation normal. Appearance: Alert. Oriented X3. No acute distress. Head: Normal external exam. Normocephalic. Atraumatic. No Patel signs noted. No raccoon eyes noted Eyes: PERRLA. EOMI. Conjunctiva and sclera normal. Eyelids normal. ENT: TM's Normal. Pharynx normal. Uvula midline. Moist mucous membranes. No trismus noted. No drooling noted. No muffled voice noted. Neck: Normal inspection. Neck supple. FROM. No adenopathy. Thyroid Normal. No meningeal signs. No neck mass noted. CVS: Normal heart rate and rhythm. Heart sound normal. No murmurs noted. Pulses normal throughout. Respiratory: No respiratory distress. Painless inspiration. Breath sounds normal. No wheezes/rales/rhonchi noted. Chest nontender. No accessory muscle usage noted or decreased air movement noted. Abdomen: Soft and nontender. Bowel sounds normal in all 4 quadrants. No distention noted. No organomegaly noted. No visible injury noted. Back: No CVA tenderness. Full range of motion noted. Skin: Skin warm and dry. Normal skin color. Normal skin turgor. No rashes/lesions/lacerations noted. Extremities: Small 1 x 1 area of ulcerative lesion on the inner aspect of the lower leg surrounded by area of redness, hotness, and tenderness. Neuro: Oriented X 3. Cranial nerve exam: II-XII are grossly intact No motor deficit. No sensory deficit. Reflexes normal. Course Reevaluation(s) Reevaluation #1: 88-year-old female came in left lower extremity cellulitis, UTI without symptoms and meet criteria for sepsis, no severe sepsis or septic shock, patient received Zosyn in the ED. narrow QRS complex tachycardia No chest pain, no shortness of breath, no ischemic change on EKG, normal high sensitivity troponin initially thought to be SVT did not response to Valsalva maneuver or 2 doses of adenosine, patient also received metoprolol 5 mg IV with slight improvement, EKG is showing sinus tachycardia which is likely secondary to infection continue with hydration, antibiotic, close monitoring the tachycardia, and admission. Time: 20:37 Medications Administered Discontinued Medications Generic Name Dose Route Start Last Admin Trade Name Freq PRN Reason Stop Dose Admin Adenosine 6 mg 06/29/23 17:26 06/29/23 17:38 Adenosine 6 Mg/2 Ml Vial IVPUSH 06/29/23 17:27 6 mg ONCE ONE Administration Adenosine 12 mg 06/29/23 17:50 06/29/23 18:12 Adenosine 6 Mg/2 Ml Vial IVPUSH 06/29/23 17:51 12 mg ONCE ONE Administration Sodium Chloride 1,000 mls @ 999 mls/hr 06/29/23 15:27 06/29/23 17:29 Ns IV 06/29/23 16:27 Infused .Q1H1M ONE Infusion Piperacillin Sod/Tazobactam 50 mls @ 100 mls/hr 06/29/23 15:38 06/29/23 17:29 Sod 3.375 gm/ Sodium Chloride IV 06/29/23 16:07 Infused ONCE ONE Infusion Sodium Chloride 1,000 mls @ 999 mls/hr 06/29/23 17:25 06/29/23 19:20 Ns IV 06/29/23 18:25 Infused .Q1H1M ONE Infusion Metoprolol Tartrate 25 mg 06/29/23 18:24 06/29/23 19:20 Metoprolol Tartrate 25 Mg Tablet PO 06/29/23 18:25 25 mg ONCE ONE Administration Protocol Metoprolol Tartrate 5 mg 06/29/23 19:56 06/29/23 20:16 Metoprolol Tartrate 5 Mg/5 Ml Vial IVPUSH 06/29/23 19:57 5 mg ONCE ONE Administration Protocol Medical Decision Making Differential Diagnosis Differential Diagnoses: The differential diagnosis associated with the presentation includes ( left lower extremity cellulitis, DVT, therapeutic INR, severe anemia, ACS, electrolyte derangement, pneumonia, AFib, SVT , ventricular dysrhythmia.) Admission/Observation Consideration of admission/observation: Escalation of care including admission/observation considered Consult Healthcare Provider Management of the patient was discussed with: Hospitalist (Dr. Kenyon) Lab Data [facility] Lab Attestation statement: I reviewed the patient's lab results. 06/29/23 16:00 06/29/23 16:00 Labs: Lab Results 06/29/23 Range/Units 16:00 WBC 6.3 (4.8-10.8) X10*3/uL RBC 4.38 (4.20-5.50) X10*6/uL Hgb 13.1 (12.0-16.0) g/dl Hct 40.9 (37.0-47.0) % MCV 93.4 (80.0-98.0) fL MCH 29.9 (27.0-33.0) pg MCHC 32.0 (31.0-35.0) g/dl RDW 13.4 (11.0-16.0) % Plt Count 253 (160-400) X10*3/uL MPV 9.9 (9.4-12.3) fL Immature Gran % (Auto) 0.3 (0.0-0.4) % Neut % (Auto) 63.1 (45-73) % Lymph % (Auto) 26.4 (20-40) % [place] % (Auto) 7.8 (2-11) % Eos % (Auto) 1.9 (0-4) % Baso % (Auto) 0.5 (0-2) % Lymph # (Auto) 1.7 (1.2-4.9) X10*3/uL [place] # (Auto) 0.5 (0.1-1.2) X10*3/uL Eos # (Auto) 0.1 (0.0-0.4) X10*3/uL Baso # (Auto) 0.0 (0.0-0.2) X10*3/uL Abs Immat Gran (auto) 0.02 (0.00-0.03) X10*3/uL Absolute Neuts (auto) 4.0 (2.0-8.3) x10*3/uL Absolute Nucleated RBC 0.000 (0.0-0.012) X10*3/uL Nucleated RBC % (auto) 0.0 (0.0-0.2) /100WBC PT 29.1 H (11.1-13.3) SEC INR 2.4 H (0.9-1.1) APTT 38.7 H (26.0-36.8) SEC Sodium 142 (135-145) mmol/L Potassium 4.2 (3.3-5.1) mmol/L Chloride 104 (96-108) mmol/L Carbon Dioxide 27 (22-29) mmol/L Anion Gap 15 (12-20) BUN 23 H (9-16) mg/dL Creatinine 1.00 (0.5-1.4) mg/dL Estim Creat Clear Calc 44.5 Estimated GFR 52 Random Glucose 95 (60-115) mg/dL Lactic Acid 1.0 (0.5-2.0) mmol/L Calcium 9.8 (8.4-10.2) mg/dL Total Bilirubin 0.5 (0.0-1.0) mg/dL Direct Bilirubin 0.3 (0.0-0.5) mg/dL AST 23 (5-31) U/L ALT 19 (0-31) U/L Alkaline Phosphatase 79 (39-117) U/L Troponin I High Sens 11.9 (<3.5-17.0) ng/L B-Natriuretic Peptide 219 H (<100) pg/mL Total Protein 7.5 (6.5-8.0) g/dL Albumin 3.9 (3.5-5.0) g/dL Lipase 15 (8-78) U/L Urine Color Yellow Urine Appearance Clear Urine pH 7.0 (5.0-9.0) Ur Specific [place] 1.010 (1.005-1.025) Urine Protein Negative (Neg-Trace) mg/dL Urine Glucose (UA) Negative (Negative) mg/dL Urine Ketones Negative (Negative) mg/dL Urine Blood Negative (Negative) Urine Nitrite Positive H (Negative) Ur Leukocyte Esterase Moderate (2+) H (Negative) Urine RBC 0-2 (0-2) /HPF Urine WBC 11-20 H (0-5) /HPF Ur Squamous Epith Cells 0-2 (0-2) /HPF Urine Bacteria 4+ (None Seen) Hyaline Casts 0-2 (0-2) /LPF Influenza Type A (PCR) NEGATIVE (Negative) Influenza Type B (PCR) NEGATIVE (Negative) RSV RNA Qual (PCR) NEGATIVE (Negative) SARS-CoV-2 RNA (RT-PCR) NEGATIVE (Negative) Independent Interpretation I performed an independent interpretation of an: Plain X-Ray ( left lower extremity x-ray:1. No fracture or dislocation is seen. 2. There is no bone erosion, soft tissue gas or periosteal thickening to suggest acute osteomyelitis. 3. There is degenerative change of the right knee, most pronounced of the patellofemoral compartment. 4. Diffuse calf soft ti) and Ultrasound (ft lower extremity:Chronic mural thickening in the left femoral vein proximally similarly to 2021 consistent with chronic DVT. No acute DVT demonstrated in the left lower extremity.) Radiology Impression Discussion of test interpretation with radiology: I have reviewed the radiologist's reading. Critical Care Time Critical Care Time Critical Care Time: Yes Total Critical Care Time: 40 Attestation: The patient was critically ill with a high probability of imminent or life- threatening deterioration. I spent greater than 30 minutes of discontinuous time evaluating the patient, delivering critical care at the bedside, discussing evaluating data with consultants. Critical care time does not include time spent performing separately billable procedures or teaching. Time spent performing critical care was 40 minutes. Discharge Plan Discharge Clinical Impression: Cellulitis of left leg, Sepsis, Sinus tachycardia, Acute UTI Patient Disposition: Admitted As Inpatient Print Language: Bengali
[2023-06-29 16:14] LABS: Appearance Urine Clear; Color Urine Yellow; Glucose Urine UA Negative (Negative); Leukocyte Esterase Urine Moderate (2+) (Negative); Nitrite Urine Positive (Negative); UMIC TRIGGER UACC YES; Urine Blood Negative (Negative); Urine Ketones Negative (Negative); Urine Protein Negative (Neg-Trace)
[2023-06-29 16:19] LABS: Basophils Percent Auto 0.5 % (0-2); Eosinophils Absolute Auto 0.1 X10*3/uL (0.0-0.4); Eosinophils Percent Auto 1.9 % (0-4); Hematocrit 40.9 % (37.0-47.0); Hemoglobin 13.1 g/dl (12.0-16.0); Imm Gran Abs Auto 0.02 X10*3/uL (0.00-0.03); Imm Gran Pct Auto 0.3 % (0.0-0.4); Lymphocytes Absolute Auto 1.7 X10*3/uL (1.2-4.9); Lymphocytes Percent Auto 26.4 % (20-40); Mean Corpuscular Hemoglobin 29.9 pg (27.0-33.0); Mean Corpuscular Volume 93.4 fL (80.0-98.0); Mean Platelet Volume 9.9 fL (9.4-12.3); Monocytes Absolute Auto 0.5 X10*3/uL (0.1-1.2); Monocytes Percent Auto 7.8 % (2-11); Neutrophils Percent Auto 63.1 % (45-73); Platelet Count 253 X10*3/uL (160-400); Red Blood Count 4.38 X10*6/uL (4.20-5.50); Red Cell Distribution Width 13.4 % (11.0-16.0); White Blood Count 6.3 X10*3/uL (4.8-10.8)
--- NOTE | 2023-06-29 16:22 | PC.NURSE ---
pt a&o x4, pleasant, calm, and cooperative. 20G IV placed to LAC, labs drawn and fluids hung. awaiting 2nd set of cultures before abx administration. pt resting quietly on stretcher in no apparent distress. rr even/unlabored. call [facility] within reach. plan of care ongoing.
[2023-06-29 16:34] LABS: Alanine Aminotransferase 19 U/L (0-31); Albumin Level 3.9 g/dL (3.5-5.0); Alkaline Phosphatase 79 U/L (39-117); Anion Gap 15 (12-20); Aspartate Amino Transferase 23 U/L (5-31); Bilirubin Direct 0.3 mg/dL (0.0-0.5); Bilirubin Total 0.5 mg/dL (0.0-1.0); Blood Urea Nitrogen 23 mg/dL (9-16); Calcium 9.8 mg/dL (8.4-10.2); Carbon Dioxide 27 mmol/L (22-29); Chloride 104 mmol/L (96-108); Creatinine Clr Calc Pharmacy 44.5; Estimated Glomerular Filt Rate 52; Glucose Random 95 mg/dL (60-115); Lipase 15 U/L (8-78); Potassium 4.2 mmol/L (3.3-5.1); Sodium 142 mmol/L (135-145); Total Protein 7.5 g/dL (6.5-8.0)
[2023-06-29 16:35] LABS: INTERNATIONAL NORM RATIO 2.4 (0.9-1.1); Prothrombin Time 29.1 SEC (11.1-13.3)
[2023-06-29 16:38] LABS: Partial Thromboplastin Time 38.7 SEC (26.0-36.8)
[2023-06-29 16:42] LABS: Troponin-I High Sensitivity 11.9 ng/L (<3.5-17.0)
[2023-06-29] MEDS: Piperacillin Sodium/Tazobactam 3.375 GM in 0.9 % Sodium Chloride 50 ML IV (16:42)
[2023-06-29 16:45] LABS: Bacteria Urine 4+ (None Seen); Hyaline Casts Urine 0-2 /LPF (0-2); RBC Urine 0-2 /HPF (0-2); Squamous Epithelial Cell Urine 0-2 /HPF (0-2); UACC Culture Trigger YES
[2023-06-29 16:51] LABS: Influenza A PCR NEGATIVE (Negative); Influenza B PCR NEGATIVE (Negative); Resp Syncy Virus RNA Qual PCR NEGATIVE (Negative); SARS COV2 PCR INHOUSE NEGATIVE (Negative)
[2023-06-29 17:07] LABS: B Type Natriuretic Peptide 219 pg/mL (<100)
[2023-06-29] MEDS: Adenosine 6 MG/2 ML VIAL IVPUSH (17:38)
[2023-06-29] MEDS: Adenosine 6 MG/2 ML VIAL 12 MG IVPUSH (18:12)
[2023-06-29] MEDS: Metoprolol Tartrate 25 MG TABLET PO (19:20)
--- NOTE | 2023-06-29 19:21 | PC.NURSE ---
PT HEART RATE REMAINS 136 BPM. PT DENIES CP/SOB/N/V; RESTING COMFORTABLY WATCHING TV. PT MEDICATED PER APR. DR. SNEED AWARE.
[2023-06-29] MEDS: Metoprolol Tartrate 5 MG/5 ML VIAL IVPUSH (20:16)
--- NOTE | 2023-06-29 20:30 | PC.NURSE ---
Dr. Jain and admitting CHARITY Glass aware of pt heart rate; d/t max dose of metoprolol given to monitor heart rate, no further interventions at this time. pt denies cp/sob.
--- NOTE | 2023-06-29 20:39 | PM.IMHP ---
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 She states she has had a chronic ulceration in the medial aspect of the left lower leg for about 6 months. She was advised to see wound clinic but she decided against this. For the last few days, there has been increasing erythema, warmth and discomfort. No purulent drainage. Denies any fevers, chills. She also states that she felt ?off? this morning but is unable to elaborate on symptoms. She is also reporting increased urinary frequency over the last few days but denies any dysuria, hematuria, urgency, abdominal pain, nausea, vomiting, flank pain, dyspnea, lightheadedness, palpitations, or chest pain. Since arrival, has been persistently tachycardic with intermittent tachypnea. Heart rate has been elevated in the 130s with EKG showing SVT initially and given adenosine x2 and IV Lopressor. On exam, patient is in sinus tachycardia but heart rate remains in the 130s. Vitals otherwise stable. No hypotension or fevers. There is no leukocytosis. Hematology studies unremarkable. Renal function baseline, electrolyte levels normal. Troponin 11.9, BNP 219. INR 2.4. Urinalysis significant for 2+ leukocytes, positive nitrites, positive urinary sediment, 4+ bacteria. Negative for COVID-19, RSV, influenza. CXR shows pulmonary vascular congestion without edema but no focal infiltrates. X-ray of the left tibia/fibula negative for fracture dislocation or any bony erosion, soft tissue gas, or periosteal thickening suggestive of osteomyelitis. Venous duplex of the left lower extremity shows chronic mural thickening in the left femoral vein proximally similar to prior studies no acute DVT demonstrated. In the ED, given 12 mg adenosine x2, 5 mg Lopressor followed by 25 mg p.o. metoprolol. Given 2 L IV NS and IV Zosyn. Patient will be admitted for further management of acute cellulitis of the left lower extremity and UTI with sepsis. [facility] Medical History Stress bladder incontinence, female Environmental allergies COPD mixed type Warfarin anticoagulation History of deep venous thrombosis (DVT) of distal vein of left lower extremity Peripheral vascular disease Lipid disorder Osteoporosis Hypertension, essential Family History Father HTN (hypertension) History of heart attack Mother HTN (hypertension) Breast cancer Maternal Grandfather No problems noted. Maternal Grandmother No problems noted. Paternal Grandfather No problems noted. Paternal Grandmother No problems noted. Sister No problems noted. Son No problems noted. Son No problems noted. Daughter No problems noted. Daughter No problems noted. Daughter No problems noted. Other Stress bladder incontinence, female Surgical History History of cataract surgery Hx of vascular surgery History of colonoscopy History of breast biopsy Social History Household Members: Children Housing: House Are you a primary care management associate to a significant other at home: No Do you presently have visiting nurse or other home services: No Alcohol intake: current Alcohol intake frequency: holidays/special occasions only Patient Tobacco Use Status: Never used Tobacco Smoked in Last 30 Days: No e-Cigarette/Vaping Use: Never Used Second Hand Smoke Exposure: No Use of substances other than those prescribed or required for medical reasons: No Advance Directives: No Advance Directives Information Provided: No Nutrition Risks: No Nutritional Risk service: No Current occupational status: retired Cognitive needs: No Hearing needs: No Vision needs: Yes Meds Allergies Allergy/AdvReac Type Severity Reaction Status Date / Time enviromental Allergy Mild RHINITIS Uncoded 06/29/23 12:24 SEASONAL ALLERGIES Allergy Mild RUNNY NOSE Uncoded 06/29/23 12:24 Home Medications ?Medication ?Instructions ?Recorded ?Confirmed ?Last Taken ?Type fexofenadine 60 mg tablet (Rosemary 60 mg PO DAILY 08/18/22 06/29/23 06/29/23 History Allergy) ipratropium bromide 21 mcg (0.03 2 spray intranasal DAILY 06/29/23 06/29/23 06/29/23 History %) nasal spray warfarin 5 mg tablet 5 mg PO TUFR 06/29/23 06/29/23 06/29/23 History warfarin 5 mg tablet 7.5 mg PO SUMOWETHSA 06/29/23 06/29/23 06/28/23 History Physical Exam Vital Signs and Narrative: Vital Signs: Last Vital Signs Temp 97.7 F 06/29/23 17:15 Pulse 134 H 06/29/23 20:18 Resp 18 06/29/23 19:22 BP 146/100 H 06/29/23 20:18 Pulse Ox 97 06/29/23 19:22 O2 Del Method Room Air 06/29/23 19:22 BMI result Body Mass Index 33.9 Constitutional - Awake and Alert, No apparent distress Eyes - PERRLA, EOMI Cardiovascular - S1S2, regular rhythm, tachycardic, 1+ left lower extremity edema Respiratory - Normal lung expansion, Normal respiratory effort, No respiratory distress, CTA bilaterally Gastrointestinal - NT / ND; +BS; No rebound or guarding Extremities - no calf tenderness bilaterally, no swelling Skin - Warm/Dry. There is a 1.5x1cm shallow ulceration medial with surrounding erythema and warmth Neurological - Alert & oriented x3, CN II-XII in tact, 5/5 strength BUE and BLE Psychological - Appropriate affect Results Labs 06/29/23 16:00 06/29/23 16:00 Labs: Laboratory Results - last 24 hr 06/29/23 16:00 MCV 93.4 MCH 29.9 MCHC 32.0 RDW 13.4 Plt Count 253 MPV 9.9 Immature Gran % (Auto) 0.3 Neut % (Auto) 63.1 Lymph % (Auto) 26.4 [place] % (Auto) 7.8 Eos % (Auto) 1.9 Baso % (Auto) 0.5 Lymph # (Auto) 1.7 [place] # (Auto) 0.5 Eos # (Auto) 0.1 Baso # (Auto) 0.0 Abs Immat Gran (auto) 0.02 Absolute Neuts (auto) 4.0 Absolute Nucleated RBC 0.000 Nucleated RBC % (auto) 0.0 PT 29.1 H INR 2.4 H APTT 38.7 H Anion Gap 15 Estim Creat Clear Calc 44.5 Estimated GFR 52 Random Glucose 95 Lactic Acid 1.0 Calcium 9.8 Total Bilirubin 0.5 Direct Bilirubin 0.3 AST 23 ALT 19 Alkaline Phosphatase 79 Troponin I High Sens 11.9 B-Natriuretic Peptide 219 H Total Protein 7.5 Albumin 3.9 Lipase 15 Urine Color Yellow Urine Appearance Clear Urine pH 7.0 Ur Specific [place] 1.010 Urine Protein Negative Urine Glucose (UA) Negative Urine Ketones Negative Urine Blood Negative Urine Nitrite Positive H Ur Leukocyte Esterase Moderate (2+) H Urine RBC 0-2 Urine WBC 11-20 H Ur Squamous Epith Cells 0-2 Urine Bacteria 4+ Hyaline Casts 0-2 Influenza Type A (PCR) NEGATIVE Influenza Type B (PCR) NEGATIVE RSV RNA Qual (PCR) NEGATIVE SARS-CoV-2 RNA (RT-PCR) NEGATIVE Imaging Radiologist's Impressions: Impressions Chest X-Ray 06/29/23 16:15 IMPRESSION: 1. There is pulmonary vascular congestion, without overt pulmonary edema. 2. No focal infiltrate is seen. Tibia/Fibula X-Ray 06/29/23 16:15 IMPRESSION: 1. No fracture or dislocation is seen. 2. There is no bone erosion, soft tissue gas or periosteal thickening to suggest acute osteomyelitis. 3. There is degenerative change of the right knee, most pronounced of the patellofemoral compartment. 4. Diffuse calf soft tissue calcifications are seen, possibly related to venous insufficiency. Venous Duplex 06/29/23 17:55 IMPRESSION: Chronic mural thickening in the left femoral vein proximally similarly to 2021 consistent with chronic DVT. No acute DVT demonstrated in the left lower extremity. 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, CKD stage 3, hyperlipidemia, PACs admitted for further management of acute cellulitis of the left lower extremity and UTI with sepsis # acute cellulitis of the left lower extremity with chronic stage II non pressure ulcer of the medial left lower leg -no leukocytosis or purulent drainage -imaging negative for acute osseous abnormality -IV vancomycin and ceftriaxone -follow CBC, cultures -wound are on consult # acute UTI -UA with 2+ leukocytes, positive nitrites, positive urinary sediment, 4+ bacteria -IV ceftriaxone (initiated 06/28) -follow CBC, cultures # sepsis -due to above -no leukocytosis but patient tachycardic and tachypneic. No lactic acidosis, end-organ damage. No severe sepsis/shock # SVT -converted to sinus tach following adenosine 12mg x 2 and IV lopressor -continue p.o. metoprolol -monitor on telemetry. If recurs, consider Cardiology consult # PACs -continue metoprolol # chronic DVT left lower extremity -continue Coumadin, INR therapeutic at 2.4 -follow INR daily # CKD stage 3 -renal function baseline # COPD -no exacerbation, albuterol p.r.n. # hypertension -continue HCTZ, metoprolol, lisinopril DVT prophylaxis-Coumadin Full code Patient requires inpatient stay at least 2 midnights for management of acute cellulitis and UTI with sepsis requiring IV antibiotics Quality Stroke Does the patient have a stroke diagnosis?: No VTE Prior VTE?: No VTE Risk Level:: Medical - moderate - high VTE Device Contraindication: Treatment Not Indicated VTE Drug Contraindication: N/A - Med Ordered
--- NOTE | 2023-06-29 21:01 | PHA.MEDREC ---
Pharmacy Consult ? Medication Reconciliation Pharmacy has completed the medication reconciliation. Patient reported all medicaitons. diane GuillermoD
[2023-06-29] MEDS: vancomycin/NS 2,000 MG/500 ML PLAST..BAG 250 MG IV (21:24)
--- NOTE | 2023-06-29 21:52 | PHA.PROG ---
Admission Date/Time: June 29, 2023 20:38 Indication: Cellulitis (Sepsis) Weight in k.5 kg Adjusted body weight in K.2 kg Karnack body weight in K kg Obesity Dosing Indication % IBW: 162% Serum Creatinine - Last 168 Hours 06/29/23 16:00 Creatinine 1.00 Estimated CrCl and GFR - Last 168 Hours 06/29/23 16:00 Estim Creat Clear Calc 44.5 Estimated GFR 52 Vancomycin Loading Dose: 1999 mh Current Vancomycin Dosing Regimen: 1500 mg Q24H Date and Time for next Vancomycin Level to be drawn: 07/01 @ 1999 Pharmacist Comments on Vancomycin Plan: Patient received an adeqaute load in the ER on 06/28 @ 2123 Maintenance dose vancomycin 1500 mg Q24H is scheduled to start 06/29 @ 0. Predicted AUC 583 with a trough of 18.1 Patient is obese with %IBW > 130% therefore careful monitoring is required due to vancomycin high volume of distribution Level will be drawn prior to 4th dose, if any change in renal function level will be drawn sooner Pharmacy will monitor renal function daily. Jocelyne Rader PharmD Vancomycin dosing will take advantage of [employer] as a clinical decision support tool that uses Bayesian modeling to calculate individual patient's pharmacokinetic parameters and forecast the patient's drug concentration time course with the target goal AUC 24 range of 400 - 600 mg/L/hr.
[2023-06-30] VITALS (7 sets, daily range): BP systolic 125–151; BP diastolic 67–98; PULSE 64–137; RESP 15–18; TEMP 36–36.8; O2SAT 94–98
[2023-06-30] MEDS: cefTRIAXone sodium 1 GM in 0.9 % Sodium Chloride 50 ML IV ×2 (02:23→21:24)
--- NOTE | 2023-06-30 04:19 | PC.NURSE ---
Dr. Kenyon aware of heart rate.
[2023-06-30 06:32] LABS: MANUAL DIFF FLAG NO
[2023-06-30 06:39] LABS: INTERNATIONAL NORM RATIO 2.8 (0.9-1.1); Prothrombin Time 33.7 SEC (11.1-13.3)
[2023-06-30 06:41] LABS: Basophils Percent Auto 0.4 % (0-2); Eosinophils Absolute Auto 0.3 X10*3/uL (0.0-0.4); Eosinophils Percent Auto 4.4 % (0-4); Hematocrit 40.2 % (37.0-47.0); Hemoglobin 12.5 g/dl (12.0-16.0); Imm Gran Abs Auto 0.02 X10*3/uL (0.00-0.03); Imm Gran Pct Auto 0.3 % (0.0-0.4); Lymphocytes Absolute Auto 1.6 X10*3/uL (1.2-4.9); Lymphocytes Percent Auto 23.2 % (20-40); Mean Corpuscular HGB Conc 31.1 g/dl (31.0-35.0); Mean Corpuscular Hemoglobin 29.8 pg (27.0-33.0); Mean Corpuscular Volume 95.9 fL (80.0-98.0); Mean Platelet Volume 10.1 fL (9.4-12.3); Monocytes Absolute Auto 0.7 X10*3/uL (0.1-1.2); Monocytes Percent Auto 10.4 % (2-11); Neutrophils Absolute Auto 4.2 x10*3/uL (2.0-8.3); Neutrophils Percent Auto 61.3 % (45-73); Platelet Count 227 X10*3/uL (160-400); Red Blood Count 4.19 X10*6/uL (4.20-5.50); Red Cell Distribution Width 13.6 % (11.0-16.0); White Blood Count 6.8 X10*3/uL (4.8-10.8)
[2023-06-30 06:48] LABS: Anion Gap 15 (12-20); Blood Urea Nitrogen 17 mg/dL (9-16); Carbon Dioxide 23 mmol/L (22-29); Chloride 110 mmol/L (96-108); Estimated Glomerular Filt Rate > 60; Glucose Random 86 mg/dL (60-115); Potassium 4.3 mmol/L (3.3-5.1); Sodium 144 mmol/L (135-145)
--- NOTE | 2023-06-30 07:26 | HO.PM.IMPN ---
Subjective Subjective Date of Service: 06/30/23 Interval History: Seen in follow up for sepsis, uti, cellulitis Interval history: Reports stinging sensation in left lower leg with serous drainage from wound. No other complaints. Remains tachcyardic, but sinus and has improved. Vitals otherwise wnl Review of Systems Review of Systems: Yes all other systems are reviewed and are negative Physical Exam Vital Signs: Vital Signs: Last Vital Signs Temp 98.1 F 06/29/23 21:24 Pulse 125 H 06/30/23 05:01 Resp 18 06/30/23 05:01 BP 145/93 H 06/30/23 05:01 Pulse Ox 98 06/30/23 05:01 O2 Del Method Room Air 06/30/23 05:01 BMI result Body Mass Index 33.9 Constitutional - Awake and Alert, No apparent distress Eyes - PERRLA, EOMI Cardiovascular - S1S2, RRR, No edema Respiratory - Normal lung expansion, Normal respiratory effort, No respiratory distress, CTA bilaterally Extremities - no calf tenderness bilaterally, no swelling Musculoskeletal - Normal inspection, normal ROM Skin - Warm/Dry. Shallow stage 2 non pressure ulcer medial left lower leg with surrounding warmth and erythema Neurological - Alert & oriented x3, CN II-XII in tact, 5/5 strength BUE and BLE Psychological - Appropriate affect Objective Data Active Medications Acetaminophen (Acetaminophen 325 Mg Tablet) 650 mg PO Q6H PRN PRN Reason: Pain, Mild (Pain Scale 1-3) Atorvastatin Calcium (Atorvastatin Calcium 10 Mg Tablet) 10 mg PO BEDTIME [facility] Hydrochlorothiazide (Hydrochlorothiazide 25 Mg Tablet) 25 mg PO DAILY [facility]; Protocol Ceftriaxone Sodium 1 gm/ (Sodium Chloride) 50 mls @ 100 mls/hr IV Q24H [facility] Last Infusion: 06/30/23 02:53 Dose: Infused Documented By: EDWIN Vancomycin HCl 1,500 mg/ (Sodium Chloride) 500 mls @ 333.333 mls/hr IV Q24H [facility] Ipratropium Cyril (Ipratropium Cyril Torrey 0.03 % 30 Ml [place]) 2 spray NOSTRIL-B DAILY [facility] Lisinopril (Lisinopril 40 Mg Tablet) 40 mg PO DAILY [facility]; Protocol Loratadine (Loratadine 10 Mg Tablet) 10 mg PO DAILY [facility] Metoprolol Succinate (Metoprolol Succinate Er 100 Mg Tab.Er.24h) 100 mg PO DAILY [facility]; Protocol Ondansetron HCl (Ondansetron Hcl 4 Mg/2 Ml Vial) 4 mg IVPUSH Q8H PRN PRN Reason: Nausea and Vomiting Pharmacy Consult (Consult Rx Vancomycin Dosing) 1 each MISCELLANE DAILY PRN PRN Reason: Consult order Senna (Sennosides 8.6 Mg Tablet) 17.2 mg PO BEDTIME PRN PRN Reason: Constipation Sodium Chloride (0.9 % Sodium Chloride Flush 3 Ml Syringe) 3 ml IVFLUSH QSHIFT [facility] Last Admin: 06/29/23 23:53 Dose: Not Given Documented By: EDWIN Non-Admin Reason: IV Running Warfarin Sodium (Warfarin Sodium 5 Mg Tablet) 5 mg PO TuFr@1800 [facility] Warfarin Sodium (Warfarin Sodium 7.5 Mg Tablet) 7.5 mg PO SuMoWeThSa@1800 [facility] Labs 06/30/23 05:52 06/30/23 05:52 Labs: Laboratory Results - last 24 hr 06/29/23 06/30/23 16:00 05:52 MCV 93.4 95.9 MCH 29.9 29.8 MCHC 32.0 31.1 RDW 13.4 13.6 Plt Count 253 227 MPV 9.9 10.1 Immature Gran % (Auto) 0.3 0.3 Neut % (Auto) 63.1 61.3 Lymph % (Auto) 26.4 23.2 [place] % (Auto) 7.8 10.4 Eos % (Auto) 1.9 4.4 H Baso % (Auto) 0.5 0.4 Lymph # (Auto) 1.7 1.6 [place] # (Auto) 0.5 0.7 Eos # (Auto) 0.1 0.3 Baso # (Auto) 0.0 0.0 Abs Immat Gran (auto) 0.02 0.02 Absolute Neuts (auto) 4.0 4.2 Absolute Nucleated RBC 0.000 0.000 Nucleated RBC % (auto) 0.0 0.0 PT 29.1 H 33.7 H INR 2.4 H 2.8 H APTT 38.7 H Anion Gap 15 15 Estim Creat Clear Calc 44.5 53.0 Estimated GFR 52 > 60 Random Glucose 95 86 Lactic Acid 1.0 Calcium 9.8 9.0 D Total Bilirubin 0.5 Direct Bilirubin 0.3 AST 23 ALT 19 Alkaline Phosphatase 79 Troponin I High Sens 11.9 B-Natriuretic Peptide 219 H Total Protein 7.5 Albumin 3.9 Lipase 15 Urine Color Yellow Urine Appearance Clear Urine pH 7.0 Ur Specific [place] 1.010 Urine Protein Negative Urine Glucose (UA) Negative Urine Ketones Negative Urine Blood Negative Urine Nitrite Positive H Ur Leukocyte Esterase Moderate (2+) H Urine RBC 0-2 Urine WBC 11-20 H Ur Squamous Epith Cells 0-2 Urine Bacteria 4+ Hyaline Casts 0-2 Influenza Type A (PCR) NEGATIVE Influenza Type B (PCR) NEGATIVE RSV RNA Qual (PCR) NEGATIVE SARS-CoV-2 RNA (RT-PCR) NEGATIVE Assessment and Plan (1) Acute UTI: Status: Acute (2) Sepsis: Status: Acute (3) Cellulitis of left leg: Status: Acute (4) Supraventricular tachycardia: Status: Acute Plan 88-year-old female with history of COPD, hypertension, peripheral vascular disease, 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, CKD stage 3, hyperlipidemia, PACs admitted for further management of acute cellulitis of the left lower extremity and UTI with sepsis # acute cellulitis of the left lower extremity with chronic stage II non pressure ulcer of the medial left lower leg -no leukocytosis or purulent drainage -imaging negative for acute osseous abnormality -IV vancomycin and ceftriaxone -follow CBC, cultures -wound rn consult # acute UTI -UA with 2+ leukocytes, positive nitrites, positive urinary sediment, 4+ bacteria -IV ceftriaxone (initiated 06/28) -urine culture with GNR # sepsis -due to above -On admission- no leukocytosis but patient tachycardic and tachypneic. No lactic acidosis, end-organ damage. No severe sepsis/shock -tachycardia improving, no logner tachypneic, sepsis resolved # SVT- resolved -converted to sinus tach following adenosine 12mg x 2 and IV lopressor -continue p.o. metoprolol -monitor on telemetry. If recurs, consider Cardiology consult # PACs -continue metoprolol # chronic DVT left lower extremity -continue Coumadin, INR therapeutic at 2.8 -follow INR daily # CKD stage 3 -renal function baseline # COPD -no exacerbation, albuterol p.r.n. # hypertension -continue HCTZ, metoprolol, lisinopril DVT prophylaxis-Coumadin Full code Patient requires ongoing inpt stay for management of acute uti and cellulitis lle with sepsis requiring iv abx and close monitoring of vs Quality Stroke Does the patient have a stroke diagnosis?: No VTE Prior VTE?: No VTE Risk Level:: Medical - moderate - high VTE Device Contraindication: Treatment Not Indicated VTE Drug Contraindication: N/A - Med Ordered
[2023-06-30] MEDS: 0.9 % Sodium Chloride Flush 3 ML SYRINGE IVFLUSH ×3 (08:26→22:00)
[2023-06-30] MEDS: Metoprolol Succinate ER 100 MG TAB.ER.24H PO (08:26)
[2023-06-30] MEDS: lisinopriL 40 MG TABLET PO (08:26)
[2023-06-30] MEDS: Loratadine 10 MG TABLET PO (08:26)
[2023-06-30] MEDS: hydroCHLOROthiazide 25 MG TABLET PO (08:26)
--- NOTE | 2023-06-30 09:37 | HE.PHANOTE ---
Re: Vanco Renal function improving. Continue current regimen of 1,500mg Q24H,with predicted AUC 514, predicted trough 15.3. Next trough 06/30 at 20:00
--- NOTE | 2023-06-30 11:12 | MHC.CM.PN ---
IMM 06/29. Pt self-care, lives at home with her daughter, uses a cane. Pt will transport self home (car in lot) vs her son to pick her up. New HCP completed with pt, now on file. PCP: Dr. Marvin Alexis
--- NOTE | 2023-06-30 12:01 | ECG_ITS ---
Test Reason : rhythm check Blood Pressure : / mmHG Vent. Rate : 138 BPM Atrial Rate : 000 BPM P-R Int : 000 ms QRS Dur : 064 ms QT Int : 358 ms P-R-T Axes : 000 098 100 degrees QTc Int : 542 ms Supraventricular tachycardia with occasional Premature ventricular complexes Rightward axis Low voltage QRS Septal infarct (cited on or before 29-JUN-2023) Abnormal ECG When compared with ECG of 29-JUN-2023 18:23, Fusion complexes are no longer Present Nonspecific T wave abnormality no longer evident in Anterior leads Inverted T waves have replaced nonspecific T wave abnormality in Lateral leads Referred By: Maria Luisa Gardner Electronically Signed By:Jean Anthony
--- NOTE | 2023-06-30 14:22 | PM.EVENT ---
Event Note Date of Service: 06/30/23 Event Note: Pt with new onset atrial fibrillation with rvr, confirmed on ekg. bp stable. given 5 mg lopressor iv. continue po metoprolol. Cardiology consult, echo ordered. continue tele. Check bmp,mag, tsh w/ free t4 Time Spent With Patient Time: Total time managing care of this patient today ____ minutes.
[2023-06-30] MEDS: Metoprolol Tartrate 5 MG/5 ML VIAL IVPUSH ×2 (14:26→16:19)
[2023-06-30 15:07] LABS: Anion Gap 13 (12-20); Blood Urea Nitrogen 20 mg/dL (9-16); Carbon Dioxide 24 mmol/L (22-29); Chloride 108 mmol/L (96-108); Creatinine Clr Calc Pharmacy 42.8; Estimated Glomerular Filt Rate 50; Glucose Random 147 mg/dL (60-115); Magnesium 1.8 mg/dL (1.6-2.6); Potassium 4.4 mmol/L (3.3-5.1); Sodium 141 mmol/L (135-145)
[2023-06-30 15:26] LABS: TSH reflex Free T4 1.79 uIU/mL (0.32-4.0)
--- NOTE | 2023-06-30 17:00 | CA_ITS ---
Transthoracic Echocardiogram Patient (Last, First, Middle): Diane Lind M Gender: Female Date of : 1935 Age: 88 Procedure Date: 06/30/2023 Procedure Type: Transthoracic Echocardiogram Location[place] [facility] [place] Height: 165.1 cm Weight: 92.08 kg BSA: 1.99 m2 Heart Rate: bpm BP: 133 / 78 mmHg Research Professional: Referring MD: Maria Luisa NASH Symptoms: afib rvr Study Quality: Adequate ECG Rhythm: Atrial Fibrillation Conclusions: - Normal left ventricular size and systolic function. There is moderately increased left ventricular wall thickness. The visually estimated ejection fraction is between 60-65%. - Normal right ventricular cavity size and systolic function. - The left atrium is severely dilated. - There is mild mitral valve regurgitation. - Moderately elevated right atrial pressure. Mild to moderate pulmonary hypertension is present. Findings Left Ventricle Normal left ventricular size and systolic function. There is moderately increased left ventricular wall thickness. The visually estimated ejection fraction is between 60-65%. There is no evidence of regional wall motion abnormalities. Diastolic function is indeterminate on the basis of available data. Right Ventricle Normal right ventricular cavity size and systolic function. Atria The left atrium is severely dilated. Aortic Valve There is a normal trileaflet aortic valve. There is no aortic valve stenosis. There is trace (trivial) aortic valve regurgitation. Mitral Valve There is moderate mitral annular calcification. There is mild mitral valve regurgitation. There is no mitral valve stenosis. Pulmonic Valve The pulmonic valve is likely normal. Tricuspid Valve Normal tricuspid valve structure. There is moderate tricuspid valve regurgitation. The right ventricular systolic pressure is 47 mmHg. Moderately elevated right atrial pressure. Mild to moderate pulmonary hypertension is present. Great Vessels All visible segments of the aorta are normal in size. Venous The inferior vena cava is normal in size and does not collapse with inspiration. Pericardium/Pleural There is no evidence of pericardial effusion. Prior Study Comparison Changes noted compared to prior study dated: 06/15/2022. Mild MR, mod elevated RA pressures, mild to mod pulm HTN. Measurements 2D Linear Measurements IVSd: 1.25 0.6-0.9/0.6-1.0 cm LVIDd: 3.90 3.9-5.3/4.2-5.9 cm LVIDd Index: 1.96 2.4-3.2/2.2-3.1 cm/m2 LVIDs: 2.82 2.0-3.6 cm LVPWd: 1.23 0.7-1.1 cm Ao Root: 3.20 2.1-3.5 cm LA Diam: 3.40 2.7-3.8/3.0-4.0 cm LAIDs Index: 1.71 1.5-2.3 cm/m2 LV Mass: 208.39 67-162/88-224 g LV Mass Index: 104.72 43-95/49-115 g/m2 LVOT Diam: 2.10 3.0+(-)1.3 cm 2D Systolic Function EF 4C: 62.70 >55% EF 2C: 68.00 >55% EF BiP: 65.90 >55% Mitral Valve MV Pk E: 1.38 MV Decel Time: 130.00 E'Lateral: 9.79 E'Medial: 7.40 E/E' Med: 18.60 E/E' Lat: 14.10 PHT: 38.00 MVA PHT: 5.79 Decel Castro: 10.63 Aortic Valve AoV Pk Ciro: 1.15 AoV Mn Ciro: 0.83 AoV VTI: 0.20 AoV Pk Grad: 5.00 Aov Mn Grad: 3.00 JOVITA Cont.VTI: 2.92 LVOT LVOT Pk Ciro: 0.90 LVOT Mn Ciro: 0.61 LVOT VTI: 0.17 LVOT Pk Grad: 3.00 LVOT Mn Grad: 2.00 LVOT Diam: 2.10 LVOT Area: 3.46 Diastolic Function MV Pk E: 1.38 E'Medial: 7.40 E/E' Med: 18.60 E' Laterial: 9.79 E/E' Lat: 14.10 Right Ventricle TAPSE (mm): 19.00 TVS' Ciro: 10.00 Tricuspid Valve TR Pk Ciro: 3.11 TR Pk Grad: 39.00 RA Press: 8.00 RVSP: 47.00 Great Vessels Aorta Ao Root-2D: 3.20 2.0-3.7 cm Ao Asc: 3.00 2.1-3.4 cm Pulmonary Valve PV Pk Ciro: 0.76 Peak PV Grad: 2.00 Updated in Other Vendor System with Status of Final Jean Anthony MD electronically signed on 06/30/2023 7:07:31 PM with status of Final
--- NOTE | 2023-06-30 17:05 | HO.WOUND ---
Wound Consult: Initial 88yr old female? admitted to [facility] on 06/29/23 - See progress notes and H&P for detailed history.? Wound consult placed for Left Medial Leg Wound POA.? Patient agreeable to assessment and photo documentation.? Patient reports she has had wound for sometime and has treated with her PCP but not the wound clinic - recommend she follow with the outpt wound clinic at time of Discharge. Recommend consult to dr. Lambert for vascular evaluation as well. Leg Left Medial Lower Leg Chronic Wound Etiology: ??Suspect Venous wound Present on Admission Wound Bed: crusted yellow drainage throughout - deep central area of light brown necrotic tissue noted. Drainage / Odor: crusted and moist yellow Edges: ? irregular [place] wound: red pink - marked erythema with marking skin pen - ? No Induration, Fluctuance noted Pain: Patient reports pain Goals of Treatment: ?Xeroform to allow crusting to soften and moist wound healing - foam dressing for moisture management Of note +PP however toes were blue and blanchable in the dependent position - when elevated in bed she quickly had improved coloring - recommend Dr. Lambert be consulted for vascular assessment. Recommendations: 1. Turn and Reposition every 2 hours and as needed for patient comfort.? Use pillows or wedges to support off loading positions. 2. Off Load all bony prominences with use of pillows and heel boots if needed.? Apply Preventative foams where needed. ? 3. Monitor for incontinence and moisture control, use barrier creams when needed for prevention and treatment. 4. Provide adequate and supplemental nutrition.? 5. Order or Continue low air loss mattress. 6. When applicable maintain blood glucose levels per Providers order. 7. Left Lower Medial Leg - Elevate lower legs - cleanse with NS, pat dry. Apply xeroform cover with foam dressing change daily. Recommend follow up out patient Wound Clinic at [address] [place] [address] and to call for an appointment at time of discharge. [phone].? Recommend Dr. Lambert Vascular Surgeon for outpatient follow up.? His office is located at [address] [place] [address] [id number], [place] [phone], call for an appointment at time of discharge [phone] Re-consult wound care Nurse for wound deterioration or wound changes.
[2023-06-30] MEDS: dilTIAZem HCL 50 MG/10 ML VIAL 15 MG IVPUSH (17:29)
[2023-06-30] MEDS: Warfarin Sodium 7.5 MG TABLET PO (17:29)
[2023-06-30] MEDS: Atorvastatin Calcium 10 MG TABLET PO (20:28)
[2023-06-30] MEDS: Metoprolol Succinate ER 50 MG TAB.ER.24H PO (20:28)
[2023-06-30] MEDS: vancomycin HCL 1,500 MG in 0.9 % Sodium Chloride 500 ML 333.33 MG IV (21:59)
[2023-07-01] VITALS (8 sets, daily range): BP systolic 120–156; BP diastolic 70–110; PULSE 80–125; RESP 17–18; TEMP 36.3–36.9; O2SAT 94–99
[2023-07-01 07:34] LABS: INTERNATIONAL NORM RATIO 2.4 (0.9-1.1); Prothrombin Time 28.7 SEC (11.1-13.3)
[2023-07-01 07:43] LABS: Anion Gap 16 (12-20); Blood Urea Nitrogen 17 mg/dL (9-16); Calcium 9.2 mg/dL (8.4-10.2); Carbon Dioxide 22 mmol/L (22-29); Chloride 107 mmol/L (96-108); Creatinine Clr Calc Pharmacy 58.6; Estimated Glomerular Filt Rate > 60; Glucose Random 90 mg/dL (60-115); Potassium 4.3 mmol/L (3.3-5.1); Sodium 141 mmol/L (135-145)
[2023-07-01] MEDS: lisinopriL 40 MG TABLET PO (08:15)
[2023-07-01] MEDS: Metoprolol Succinate ER 50 MG TAB.ER.24H 150 MG PO (08:16)
[2023-07-01] MEDS: hydroCHLOROthiazide 25 MG TABLET PO (08:16)
[2023-07-01] MEDS: Loratadine 10 MG TABLET PO (08:16)
[2023-07-01] MEDS: dilTIAZem HCL 50 MG/10 ML VIAL 20 MG IVPUSH (08:16)
[2023-07-01] MEDS: 0.9 % Sodium Chloride Flush 3 ML SYRINGE IVFLUSH ×3 (08:19→20:00)
--- NOTE | 2023-07-01 13:40 | P.PNIM_ITS ---
Subjective Subjective Date of Service: 07/01/23 Interval History: Seen in follow up for sepsis, uti, cellulitis Interval history: Reports feeling flushed with PND. New onset atrial flutter last night with rvr requiring iv rate control. Rate 130 this morning. No sob, lightheadedness, cp. Denies pain. Review of Systems Review of Systems: Yes all other systems are reviewed and are negative Physical Exam 2 Vital Signs: Vital Signs: Last Vital Signs Temp 97.8 F 07/01/23 11:50 Pulse 80 07/01/23 11:50 Resp 17 07/01/23 11:50 BP 120/70 07/01/23 11:50 Pulse Ox 95 07/01/23 11:50 O2 Del Method Room Air 07/01/23 11:50 BMI result Body Mass Index 33.9 Constitutional - Awake and Alert, No apparent distress Eyes - PERRLA, EOMI Cardiovascular - S1S2, RRR, No edema Respiratory - Normal lung expansion, Normal respiratory effort, No respiratory distress, CTA bilaterally Gastrointestinal - NT / ND; +BS; No rebound or guarding Extremities - no calf tenderness bilaterally, no swelling Skin - Warm/Dry. Left lower leg chronic medial wound crusted and yellow without induration but surrounding erythema within the skin marker border Neurological - Alert & oriented x3, CN II-XII in tact, 5/5 strength BUE and BLE Psychological - Appropriate affect Objective Data Active Medications Acetaminophen (Acetaminophen 325 Mg Tablet) 650 mg PO Q6H PRN PRN Reason: Pain, Mild (Pain Scale 1-3) Atorvastatin Calcium (Atorvastatin Calcium 10 Mg Tablet) 10 mg PO BEDTIME [facility] Last Admin: 06/30/23 20:28 Dose: 10 mg Documented By: LOVE Hydrochlorothiazide (Hydrochlorothiazide 25 Mg Tablet) 25 mg PO DAILY [facility]; Protocol Last Admin: 07/01/23 08:16 Dose: 25 mg Documented By: ROB Ceftriaxone Sodium 1 gm/ (Sodium Chloride) 50 mls @ 100 mls/hr IV Q24H [facility] Last Infusion: 06/30/23 22:47 Dose: Infused Documented By: LOVE Vancomycin HCl 1,500 mg/ (Sodium Chloride) 500 mls @ 333.333 mls/hr IV Q24H [facility] Last Infusion: 06/30/23 23:35 Dose: Infused Documented By: LOVE Ipratropium [place] (Ipratropium [place] Torrey 0.03 % 30 Ml [place]) 2 spray NOSTRIL-B DAILY [facility] Last Admin: 06/30/23 11:22 Dose: Not Given Documented By: ELBA Non-Admin Reason: Med Not Available Lisinopril (Lisinopril 40 Mg Tablet) 40 mg PO DAILY [facility]; Protocol Last Admin: 07/01/23 08:15 Dose: 40 mg Documented By: ROB Loratadine (Loratadine 10 Mg Tablet) 10 mg PO DAILY [facility] Last Admin: 07/01/23 08:16 Dose: 10 mg Documented By: ROB Metoprolol Succinate (Metoprolol Succinate Er 50 Mg Tab.Er.24h) 150 mg PO DAILY [facility]; Protocol Last Admin: 07/01/23 08:16 Dose: 150 mg Documented By: ROB Ondansetron HCl (Ondansetron Hcl 4 Mg/2 Ml Vial) 4 mg IVPUSH Q8H PRN PRN Reason: Nausea and Vomiting Pharmacy Consult (Consult Rx Vancomycin Dosing) 1 each MISCELLANE DAILY PRN PRN Reason: Consult order Senna (Sennosides 8.6 Mg Tablet) 17.2 mg PO BEDTIME PRN PRN Reason: Constipation Sodium Chloride (0.9 % Sodium Chloride Flush 3 Ml Syringe) 3 ml IVFLUSH QSHIFT [facility] Last Admin: 07/01/23 08:19 Dose: 3 ml Documented By: ROB Warfarin Sodium (Warfarin Sodium 5 Mg Tablet) 5 mg PO TuFr@1800 [facility] Warfarin Sodium (Warfarin Sodium 7.5 Mg Tablet) 7.5 mg PO SuMoWeThSa@1800 [facility] Last Admin: 06/30/23 17:29 Dose: 7.5 mg Documented By: ELBA Labs 06/30/23 05:52 07/01/23 07:00 Labs: Laboratory Results - last 24 hr 06/30/23 07/01/23 14:31 07:00 Hold Purple Top SEE NOTE PT 28.7 H INR 2.4 H Anion Gap 13 16 Estim Creat Clear Calc 42.8 58.6 Estimated GFR 50 > 60 Random Glucose 147 H 90 Calcium 9.0 9.2 Magnesium 1.8 TSH 1.79 Microbiology Microbiology Results: Microbiology 05/07/24 Unknown Urine Culture - Final Urine clean catch - Urine landaverde top Escherichia coli 06/29/23 16:22 Blood Culture - Preliminary Blood - Venous No growth after 24 hours. 06/29/23 16:00 Blood Culture - Preliminary Blood - Venous No growth after 24 hours. 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 Normal right ventricular cavity size and systolic function. Severely dilated left atrium, mild mitral valve regurgitation. Moderately elevated right atrial pressures with [id number] pulmonary hypertension -on Cardiology exam, possibly mild JVD and expiratory wheezing. Gently diurese with 20 mg Lasix daily -to monitor I&O -cardiology input appreciated -cardiac diet # acute cellulitis of the left lower extremity with chronic stage II non pressure ulcer of the medial left lower leg -no leukocytosis or purulent drainage -imaging negative for acute osseous abnormality -IV vancomycin and ceftriaxone -dressing recommendations per wound RN. Recommending outpt follow up with wound clinic and Dr. Lambert in vascular surgery -follow CBC, cultures -wound rn consult # acute UTI -UA with 2+ leukocytes, positive nitrites, positive urinary sediment, 4+ bacteria -IV ceftriaxone (initiated 06/28) -urine culture with E coli sensitive to ceftriaxone # sepsis -due to above -On admission- no leukocytosis but patient tachycardic and tachypneic. No lactic acidosis, end-organ damage. No severe sepsis/shock -tachycardia improving, no longer tachypneic, sepsis resolved # SVT- resolved -converted to sinus tach following adenosine 12mg x 2 and IV lopressor, now in aflutter as above -continue p.o. metoprolol -monitor on telemetry # PACs -continue metoprolol # chronic DVT left lower extremity -continue Coumadin, INR therapeutic at 2.8 -follow INR daily # CKD stage 3 -renal function baseline # COPD -no exacerbation, albuterol p.r.n. # hypertension -continue HCTZ, metoprolol, lisinopril DVT prophylaxis-Coumadin Full code Patient requires ongoing inpt stay for management of acute uti and cellulitis lle with sepsis requiring iv abx and close monitoring of vs, now with atrial flutter with rvr requiring IV rate and rhythm control as well as expert consultation and cardiac monitoring Quality Stroke Does the patient have a stroke diagnosis?: No VTE Prior VTE?: No VTE Risk Level:: Medical - moderate - high VTE Device Contraindication: Treatment Not Indicated VTE Drug Contraindication: N/A - Med Ordered
[2023-07-01] MEDS: Furosemide 20 MG/2 ML VIAL IVPUSH (14:26)
[2023-07-01] MEDS: Digoxin 0.5 MG/2 ML AMPUL 0.25 MG IVPUSH ×2 (14:26→20:00)
--- NOTE | 2023-07-01 15:05 | P.CONCA_ITS ---
History of Present Illness History of Present Illness Date of Service: 07/01/23 Chief complaint: uti, cellutitis, sepsis, atrial flutter Narrative: 88-year-old female who presented with cellulitis of the leg as well as urinary tract infection. She was improving and started having some palpitations and was noticed to have narrow complex tachycardia which was initially thought to be supraventricular tachycardia but with rate control we have noticed that she has atrial flutter. 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 She is relatively rate controlled right now with metoprolol and did not have any significant issues at the time of interview. No chest discomfort. She did have some shortness of breath and mild wheezing on examination which was new for her. Denying any orthopnea or PND. FOR[facility]LY [facility], LAT[facility] Past Medical History Medical History Stress bladder incontinence, female Environmental allergies COPD mixed type Warfarin anticoagulation History of deep venous thrombosis (DVT) of distal vein of left lower extremity Peripheral vascular disease Lipid disorder Osteoporosis Hypertension, essential Family History Family History Father HTN (hypertension) History of heart attack Mother HTN (hypertension) Breast cancer Maternal Grandfather No problems noted. Maternal Grandmother No problems noted. Paternal Grandfather No problems noted. Paternal Grandmother No problems noted. Sister No problems noted. Son No problems noted. Son No problems noted. Daughter No problems noted. Daughter No problems noted. Daughter No problems noted. Other Stress bladder incontinence, female Surgical History Surgical History History of cataract surgery Hx of vascular surgery History of colonoscopy History of breast biopsy Social History Social History Household Members: Family and Children Housing: House Are you a primary director of patient care to a significant other at home: No Do you presently have visiting nurse or other home services: No Alcohol intake: current Alcohol intake frequency: holidays/special occasions only Patient Tobacco Use Status: Never used Tobacco e-Cigarette/Vaping Use: Never Used Second Hand Smoke Exposure: No service: No Current occupational status: retired Cognitive needs: No Hearing needs: No Vision needs: Yes Meds Allergies Allergy/AdvReac Type Severity Reaction Status Date / Time enviromental Allergy Mild RHINITIS Uncoded 06/29/23 12:24 SEASONAL ALLERGIES Allergy Mild RUNNY NOSE Uncoded 06/29/23 12:24 Active Medications: Current Medications Acetaminophen (Acetaminophen 325 Mg Tablet) 650 mg PO Q6H PRN PRN Reason: Pain, Mild (Pain Scale 1-3) Atorvastatin Calcium (Atorvastatin Calcium 10 Mg Tablet) 10 mg PO BEDTIME [facility] Last Admin: 06/30/23 20:28 Dose: 10 mg Digoxin (Digoxin 0.5 Mg/2 Ml [place]) 0.25 mg IVPUSH Q6H [facility] Stop: 07/02/23 02:16 Last Admin: 07/01/23 14:26 Dose: 0.25 mg Furosemide (Furosemide 20 Mg/2 Ml Vial) 20 mg IVPUSH DAILY [facility]; Protocol Last Admin: 07/01/23 14:26 Dose: 20 mg Hydrochlorothiazide (Hydrochlorothiazide 25 Mg Tablet) 25 mg PO DAILY [facility]; Protocol Last Admin: 07/01/23 08:16 Dose: 25 mg Ceftriaxone Sodium 1 gm/ (Sodium Chloride) 50 mls @ 100 mls/hr IV Q24H [facility] Last Infusion: 06/30/23 22:47 Dose: Infused Vancomycin HCl 1,500 mg/ (Sodium Chloride) 500 mls @ 333.333 mls/hr IV Q24H [facility] Last Infusion: 06/30/23 23:35 Dose: Infused Ipratropium [place] (Ipratropium [place] 0.03 % 30 Ml [place]) 2 spray NOSTRIL-B DAILY [facility] Last Admin: 07/01/23 14:26 Dose: Not Given Lisinopril (Lisinopril 40 Mg Tablet) 40 mg PO DAILY [facility]; Protocol Last Admin: 07/01/23 08:15 Dose: 40 mg Loratadine (Loratadine 10 Mg Tablet) 10 mg PO DAILY [facility] Last Admin: 07/01/23 08:16 Dose: 10 mg Metoprolol Succinate (Metoprolol Succinate Er 50 Mg Tab.Er.24h) 150 mg PO DAILY [facility]; Protocol Last Admin: 07/01/23 08:16 Dose: 150 mg Ondansetron HCl (Ondansetron Hcl 4 Mg/2 Ml Vial) 4 mg IVPUSH Q8H PRN PRN Reason: Nausea and Vomiting Pharmacy Consult (Consult Rx Vancomycin Dosing) 1 each MISCELLANE DAILY PRN PRN Reason: Consult order Senna (Sennosides 8.6 Mg Tablet) 17.2 mg PO BEDTIME PRN PRN Reason: Constipation Sodium Chloride (0.9 % Sodium Chloride Flush 3 Ml Syringe) 3 ml IVFLUSH QSHIFT [facility] Last Admin: 07/01/23 08:19 Dose: 3 ml Warfarin Sodium (Warfarin Sodium 5 Mg Tablet) 5 mg PO TuFr@1800 [facility] Warfarin Sodium (Warfarin Sodium 7.5 Mg Tablet) 7.5 mg PO SuMoWeThSa@1800 [facility] Last Admin: 06/30/23 17:29 Dose: 7.5 mg Home Medications ?Medication ?Instructions ?Recorded ?Confirmed ?Last Taken ?Type fexofenadine 60 mg tablet (Rosemary 60 mg PO DAILY 08/18/22 06/29/23 06/29/23 History Allergy) ipratropium bromide 21 mcg (0.03 2 spray intranasal DAILY 06/29/23 06/29/23 06/29/23 History %) nasal spray warfarin 5 mg tablet 5 mg PO TUFR 06/29/23 06/29/23 06/29/23 History warfarin 5 mg tablet 7.5 mg PO SUMOWETHSA 06/29/23 06/29/23 06/28/23 History Physical Exam 2 Vital Signs: Vital Signs: Last Vital Signs Temp 97.8 F 07/01/23 11:50 Pulse 80 07/01/23 11:50 Resp 17 07/01/23 11:50 BP 121/77 07/01/23 14:26 Pulse Ox 95 07/01/23 11:50 O2 Del Method Room Air 07/01/23 11:50 BMI result Body Mass Index 33.9 GENERAL APPEARANCE: in no acute distress, pleasant. NECK: no carotid bruit, + jugular venous distention. SKIN: no suspicious lesions, warm and dry. HEART: no murmurs, regular rate and rhythm. LUNGS: Mild expiratory wheezes. ABDOMEN: soft, nontender. EXTREMITIES: no edema. PERIPHERAL PULSES: equal. NEUROLOGIC: No gross deficits, AAO X 3 Objective Labs and Meds 06/30/23 05:52 07/01/23 07:00 Lab results: Laboratory Results - last 24 hr 06/30/23 07/01/23 14:31 07:00 Hold Purple Top SEE NOTE PT 28.7 H INR 2.4 H Sodium 141 141 Potassium 4.4 4.3 Chloride 108 107 Carbon Dioxide 24 22 Anion Gap 13 16 BUN 20 H 17 H Creatinine 1.04 0.76 Estim Creat Clear Calc 42.8 58.6 Estimated GFR 50 > 60 Random Glucose 147 H 90 Calcium 9.0 9.2 Magnesium 1.8 TSH 1.79 Assessment and Plan (1) Acute UTI: Status: Acute (2) Atrial flutter: Status: Acute Plan Pleasant 88 year female presenting for urinary tract infection, cellulitis and developed atrial flutter. She has reasonable rate control with metoprolol. If rate control is difficult then would consider adding digoxin load of 250 mcg x 3 6 hours apart. Given the fact that she has mild JVD as well as wheezing would avoid Cardizem currently. Start 20 mg IV Lasix. Echocardiography has shown preserved LV function. She is on hydrochlorothiazide and I would avoid mixing hydrochlorothiazide and Lasix together due to electrolyte imbalance risk. Stop the hydrochlorothiazide. On Coumadin for anticoagulation. Strategy will be rate control for now unless she has difficult to control heart rate. Thank you for allowing me to participate in the care of your patient. Please feel free to contact me if you have any questions. Procedures Date of Service Date of Service: 07/01/23
[2023-07-01] MEDS: Warfarin Sodium 7.5 MG TABLET PO (18:21)
[2023-07-01] MEDS: Atorvastatin Calcium 10 MG TABLET PO (20:00)
[2023-07-01] MEDS: cefTRIAXone sodium 1 GM in 0.9 % Sodium Chloride 50 ML IV (21:53)
[2023-07-01] MEDS: vancomycin HCL 1,500 MG in 0.9 % Sodium Chloride 500 ML 333.33 MG IV (22:26)
[2023-07-02] VITALS (7 sets, daily range): BP systolic 122–156; BP diastolic 71–87; PULSE 75–113; RESP 17–20; TEMP 36.1–36.7; O2SAT 93–96
[2023-07-02] MEDS: Digoxin 0.5 MG/2 ML AMPUL 0.25 MG IVPUSH (02:24)
[2023-07-02 06:49] LABS: Anion Gap 13 (12-20); Blood Urea Nitrogen 20 mg/dL (9-16); Calcium 9.1 mg/dL (8.4-10.2); Carbon Dioxide 27 mmol/L (22-29); Chloride 105 mmol/L (96-108); Creatinine Clr Calc Pharmacy 51.2; Estimated Glomerular Filt Rate > 60; Glucose Random 95 mg/dL (60-115); Potassium 4.2 mmol/L (3.3-5.1); Sodium 141 mmol/L (135-145)
[2023-07-02 06:53] LABS: INTERNATIONAL NORM RATIO 2.3 (0.9-1.1); Prothrombin Time 28.5 SEC (11.1-13.3)
[2023-07-02] MEDS: lisinopriL 40 MG TABLET PO (09:31)
[2023-07-02] MEDS: Loratadine 10 MG TABLET PO (09:31)
[2023-07-02] MEDS: Spironolactone 25 MG TABLET PO (09:31)
[2023-07-02] MEDS: Metoprolol Succinate ER 50 MG TAB.ER.24H 150 MG PO (09:31)
[2023-07-02] MEDS: Furosemide 20 MG/2 ML VIAL IVPUSH (09:31)
[2023-07-02] MEDS: Ipratropium Bromide Nas 0.03 % 30 ML SPRAY 2 SPRAY NOSTRIL-B (09:32)
[2023-07-02] MEDS: 0.9 % Sodium Chloride Flush 3 ML SYRINGE IVFLUSH ×3 (09:32→22:33)
--- NOTE | 2023-07-02 11:24 | PM.PNCARD ---
Subjective Subjective Date of Service: 07/02/23 Interval history: Seen examined at bedside. She had tachycardia is moaning when she walked. Otherwise heart rates are better controlled. On IV diuretics currently. Not in congestive heart failure. Physical Exam Vital Signs: Last Vital Signs Temp 98.0 F 07/02/23 11:09 Pulse 92 07/02/23 11:09 Resp 20 07/02/23 11:09 BP 122/82 07/02/23 11:09 Pulse Ox 94 07/02/23 11:09 O2 Del Method Room Air 07/02/23 11:09 BMI result Body Mass Index 33.9 GENERAL APPEARANCE: in no acute distress, pleasant. NECK: no carotid bruit, no jugular venous distention. SKIN: no suspicious lesions, warm and dry. HEART: no murmurs, regular rate and rhythm. LUNGS: Clear to auscultation. ABDOMEN: soft, nontender. EXTREMITIES: no edema. PERIPHERAL PULSES: equal. NEUROLOGIC: No gross deficits, AAO X 3 Objective Labs and Meds 06/30/23 05:52 07/02/23 06:12 Lab results: Laboratory Results - last 24 hr 07/02/23 06:12 Hold Purple Top SEE NOTE PT 28.5 H INR 2.3 H Sodium 141 Potassium 4.2 Chloride 105 Carbon Dioxide 27 Anion Gap 13 BUN 20 H Creatinine 0.87 Estim Creat Clear Calc 51.2 Estimated GFR > 60 Random Glucose 95 Calcium 9.1 Progress Note: A&P Assessment and plan (1) Atrial flutter: Status: Acute Plan Pleasant 88 year female with atrial flutter in the setting of cellulitis and urinary tract infection. She is improving from infection point of view. Toprol dose was increased and she was loaded with digoxin. A combination of beta-bethany and digoxin usually works well with atrial flutter. Adding digoxin every other day. Thank you for allowing me to participate in the care of your patient. Please feel free to contact me if you have any questions. Time Spent With Patient Time: Total time managing care of this patient today ____ minutes. Progress Note: Quality Stroke Does the patient have a stroke diagnosis?: No Procedures Date of Service Date of Service: 07/02/23
--- NOTE | 2023-07-02 11:56 | P.PNIM_ITS ---
Subjective Subjective Date of Service: 07/02/23 Interval History: overall improved, tachy on ambulation Physical Exam 2 Vital Signs: Vital Signs: Last Vital Signs Temp 98.0 F 07/02/23 11:09 Pulse 92 07/02/23 11:09 Resp 20 07/02/23 11:09 BP 122/82 07/02/23 11:09 Pulse Ox 94 07/02/23 11:09 O2 Del Method Room Air 07/02/23 11:09 BMI result Body Mass Index 33.9 GENERAL APPEARANCE: in no acute distress, pleasant. NECK: no carotid bruit, no jugular venous distention. SKIN: no suspicious lesions, warm and dry. HEART: no murmurs, regular rate and rhythm. LUNGS: Clear to auscultation. ABDOMEN: soft, nontender. EXTREMITIES: no edema. PERIPHERAL PULSES: equal. NEUROLOGIC: No gross deficits, AAO X 3 Objective Data Active Medications Acetaminophen (Acetaminophen 325 Mg Tablet) 650 mg PO Q6H PRN PRN Reason: Pain, Mild (Pain Scale 1-3) Atorvastatin Calcium (Atorvastatin Calcium 10 Mg Tablet) 10 mg PO BEDTIME [facility] Last Admin: 07/01/23 20:00 Dose: 10 mg Documented By: LOVE Digoxin (Digoxin 0.125 Mg Tablet) 0.125 mg PO Q2D [facility] Furosemide (Furosemide 20 Mg/2 Ml Vial) 20 mg IVPUSH DAILY [facility]; Protocol Last Admin: 07/02/23 09:31 Dose: 20 mg Documented By: CARIN Ceftriaxone Sodium 1 gm/ (Sodium Chloride) 50 mls @ 100 mls/hr IV Q24H [facility] Last Infusion: 07/01/23 23:41 Dose: Infused Documented By: LOVE Vancomycin HCl 1,500 mg/ (Sodium Chloride) 500 mls @ 333.333 mls/hr IV Q24H [facility] Last Infusion: 07/01/23 23:59 Dose: Infused Documented By: LOVE Ipratropium [place] (Ipratropium [place] 0.03 % 30 Ml [place]) 2 spray NOSTRIL-B DAILY [facility] Last Admin: 07/02/23 09:32 Dose: 2 spray Documented By: CARIN Lisinopril (Lisinopril 40 Mg Tablet) 40 mg PO DAILY [facility]; Protocol Last Admin: 07/02/23 09:31 Dose: 40 mg Documented By: CARIN Loratadine (Loratadine 10 Mg Tablet) 10 mg PO DAILY [facility] Last Admin: 07/02/23 09:31 Dose: 10 mg Documented By: CARIN Metoprolol Succinate (Metoprolol Succinate Er 50 Mg Tab.Er.24h) 150 mg PO DAILY [facility]; Protocol Last Admin: 07/02/23 09:31 Dose: 150 mg Documented By: CARIN Ondansetron HCl (Ondansetron Hcl 4 Mg/2 Ml Vial) 4 mg IVPUSH Q8H PRN PRN Reason: Nausea and Vomiting Pharmacy Consult (Consult Rx Vancomycin Dosing) 1 each MISCELLANE DAILY PRN PRN Reason: Consult order Senna (Sennosides 8.6 Mg Tablet) 17.2 mg PO BEDTIME PRN PRN Reason: Constipation Sodium Chloride (0.9 % Sodium Chloride Flush 3 Ml Syringe) 3 ml IVFLUSH QSHIFT [facility] Last Admin: 07/02/23 09:32 Dose: 3 ml Documented By: CARIN Spironolactone (Spironolactone 25 Mg Tablet) 25 mg PO DAILY [facility]; Protocol Last Admin: 07/02/23 09:31 Dose: 25 mg Documented By: CARIN Warfarin Sodium (Warfarin Sodium 5 Mg Tablet) 5 mg PO TuFr@1800 [facility] Warfarin Sodium (Warfarin Sodium 7.5 Mg Tablet) 7.5 mg PO SuMoWeThSa@1800 [facility] Last Admin: 07/01/23 18:21 Dose: 7.5 mg Documented By: ROB Labs 06/30/23 05:52 07/02/23 06:12 Labs: Laboratory Results - last 24 hr 07/02/23 06:12 Hold Purple Top SEE NOTE PT 28.5 H INR 2.3 H Anion Gap 13 Estim Creat Clear Calc 51.2 Estimated GFR > 60 Random Glucose 95 Calcium 9.1 Microbiology Microbiology Results: Microbiology 06/29/23 16:22 Blood Culture - Preliminary Blood - Venous No growth after 48 hours. 06/29/23 16:00 Blood Culture - Preliminary Blood - Venous No growth after 48 hours. 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 Normal right ventricular cavity size and systolic function. Severely dilated left atrium, mild mitral valve regurgitation. Moderately elevated right atrial pressures with [id number] pulmonary hypertension Gently diurese with 20 mg Lasix daily -to monitor I&O -cardiology input appreciated -cardiac diet acute cellulitis of the left lower extremity with chronic stage II non pressure ulcer of the medial left lower leg -no leukocytosis or purulent drainage -imaging negative for acute osseous abnormality -IV vancomycin and ceftriaxone -dressing recommendations per wound RN. Recommending outpt follow up with wound clinic and Dr. Lambert in vascular surgery -follow CBC, cultures -wound rn following acute UTI -UA with 2+ leukocytes, positive nitrites, positive urinary sediment, 4+ bacteria -IV ceftriaxone (initiated 06/28) -urine culture with E coli sensitive to ceftriaxone sepsis -due to above -On admission- no leukocytosis but patient tachycardic and tachypneic. No lactic acidosis, end-organ damage. No severe sepsis/shock -tachycardia improving, no longer tachypneic, sepsis resolved # chronic DVT left lower extremity -continue Coumadin, INR therapeutic at 2.8 -follow INR daily # CKD stage 3 -renal function baseline # COPD -no exacerbation, albuterol p.r.n. # hypertension -continue HCTZ, metoprolol, lisinopril DVT prophylaxis-Coumadin Full code reason for continued hospitalization:monitor heart rate Quality Stroke Does the patient have a stroke diagnosis?: No VTE Prior VTE?: No VTE Risk Level:: Medical - moderate - high VTE Device Contraindication: Treatment Not Indicated VTE Drug Contraindication: N/A - Med Ordered
[2023-07-02] MEDS: Digoxin 0.125 MG TABLET PO (12:44)
--- NOTE | 2023-07-02 16:25 | MHC.CM.PN ---
EMR reviewed and per MD rounds, pt is not medically cleared for discharge due to ongoing monitoring of heart rate.
[2023-07-02] MEDS: Warfarin Sodium 5 MG TABLET PO (17:32)
[2023-07-02 20:53] LABS: Vancomycin Trough 15.6 mcg/mL (10.0-20.0)
[2023-07-02] MEDS: cefTRIAXone sodium 1 GM in 0.9 % Sodium Chloride 50 ML IV (22:33)
[2023-07-02] MEDS: Atorvastatin Calcium 10 MG TABLET PO (22:33)
[2023-07-02] MEDS: vancomycin HCL 1,500 MG in 0.9 % Sodium Chloride 500 ML 100 MG IV (23:39)
[2023-07-03 03:08] VITALS: BP 152/74; PULSE 89; RESP 20; TEMP 37.1; O2SAT 93
[2023-07-03 06:59] LABS: INTERNATIONAL NORM RATIO 2.2 (0.9-1.1); Prothrombin Time 26.7 SEC (11.1-13.3)
[2023-07-03 07:10] LABS: Creatinine Clr Calc Pharmacy 53.6; Estimated Glomerular Filt Rate > 60
[2023-07-03 07:11] VITALS: BP 185/89; PULSE 108; RESP 20; TEMP 36.6; O2SAT 96
[2023-07-03 08:00] VITALS: BP 150/80
[2023-07-03] MEDS: 0.9 % Sodium Chloride Flush 3 ML SYRINGE IVFLUSH (08:29)
[2023-07-03] MEDS: lisinopriL 40 MG TABLET PO (08:30)
[2023-07-03] MEDS: Metoprolol Succinate ER 50 MG TAB.ER.24H 150 MG PO (08:30)
[2023-07-03] MEDS: Loratadine 10 MG TABLET PO (08:30)
[2023-07-03] MEDS: Spironolactone 25 MG TABLET PO (08:30)
[2023-07-03] MEDS: Furosemide 20 MG/2 ML VIAL IVPUSH (08:31)
[2023-07-03] MEDS: Ipratropium Bromide Nas 0.03 % 30 ML SPRAY 2 SPRAY NOSTRIL-B (10:13)
[2023-07-03 10:32] VITALS: BP 123/68; PULSE 98; RESP 20; TEMP 36.1; O2SAT 94
--- NOTE | 2023-07-03 10:56 | PM.DS ---
DS: Providers Provider Date of Service: 07/03/23 Date of admission: 06/29/23 20:38 Primary care physician: Marvin Alexis MD Consults: 06/30/23 14:20 Consult to Cardiology Routine Consulting Provider: [facility] Reason for consultation: afib rvr DS: Diagnosis Discharge Diagnosis (1) Acute UTI: Status: Acute (2) Sepsis: Status: Acute (3) Cellulitis of left leg: Status: Acute (4) Supraventricular tachycardia: Status: Acute DS: Summary Hospital Course Hospital Course: from initial hpi: 88-year-old female with history of COPD, hypertension, peripheral vascular disease, 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 She states she has had a chronic ulceration in the medial aspect of the left lower leg for about 6 months. She was advised to see wound clinic but she decided against this. For the last few days, there has been increasing erythema, warmth and discomfort. No purulent drainage. Denies any fevers, chills. She also states that she felt ?off? this morning but is unable to elaborate on symptoms. She is also reporting increased urinary frequency over the last few days but denies any dysuria, hematuria, urgency, abdominal pain, nausea, vomiting, flank pain, dyspnea, lightheadedness, palpitations, or chest pain. Since arrival, has been persistently tachycardic with intermittent tachypnea. Heart rate has been elevated in the 130s with EKG showing SVT initially and given adenosine x2 and IV Lopressor. On exam, patient is in sinus tachycardia but heart rate remains in the 130s. Vitals otherwise stable. No hypotension or fevers. There is no leukocytosis. Hematology studies unremarkable. Renal function baseline, electrolyte levels normal. Troponin 11.9, BNP 219. INR 2.4. Urinalysis significant for 2+ leukocytes, positive nitrites, positive urinary sediment, 4+ bacteria. Negative for COVID-19, RSV, influenza. CXR shows pulmonary vascular congestion without edema but no focal infiltrates. X-ray of the left tibia/fibula negative for fracture dislocation or any bony erosion, soft tissue gas, or periosteal thickening suggestive of osteomyelitis. Venous duplex of the left lower extremity shows chronic mural thickening in the left femoral vein proximally similar to prior studies no acute DVT demonstrated. In the ED, given 12 mg adenosine x2, 5 mg Lopressor followed by 25 mg p.o. metoprolol. Given 2 L IV NS and IV Zosyn. Patient will be admitted for further management of acute cellulitis of the left lower extremity and UTI with sepsis. 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 She was treated with IV vancomycin ceftriaxone. Was seen by wound care recommended outpatient follow-up and local dressings. Cellulitis significantly improved and will be discharged on 5 more days of doxycycline. For acute UTI urine culture grew E coli sensitive to ceftriaxone, she completed treatment. Course complicated by new onset atrial flutter with rapid ventricular response. She was treated with multiple doses of IV diltiazem and rate became better controlled, her metoprolol was increased from 100 mg daily to 150 mg daily. She was loaded with digoxin and started on maintenance 0.125 mg Q 2 days. Echo showed normal EF with moderately increased LV wall thickness and severely dilated left atrium as well as pulmonary hypertension. For acute on chronic diastolic CHF she was diuresed with IV Lasix and is now euvolemic. For chronic DVT she was continued on Coumadin. For CKD 3 she remained stable. For COPD she remained stable. For hypertension she was continued on metoprolol, lisinopril. Patient is feeling better will be discharged home. Time Attestation Discharge Coordination Time (in mins): 35 Quality: Safe Use of Opioids Does Pt have an Active Cancer Diagnosis on the Problem List?: No Quality: Stroke Does the patient have a stroke diagnosis?: No Physical Exam Vital Signs: Vital Signs: Last Vital Signs Temp 96.9 F 07/03/23 10:32 Pulse 98 07/03/23 10:32 Resp 20 07/03/23 10:32 BP 123/68 07/03/23 10:32 Pulse Ox 94 07/03/23 10:32 O2 Del Method Room Air 07/03/23 10:32 BMI result Body Mass Index 33.9 GENERAL APPEARANCE: in no acute distress, pleasant. NECK: no carotid bruit, no jugular venous distention. SKIN: no suspicious lesions, warm and dry. HEART: no murmurs, regular rate and rhythm. LUNGS: Clear to auscultation. ABDOMEN: soft, nontender. EXTREMITIES: no edema. PERIPHERAL PULSES: equal. NEUROLOGIC: No gross deficits, AAO X 3 DS: Data Data Completed and Pending Labs on day of discharge: Laboratory Results - last 24 hr 07/02/23 07/03/23 20:26 06:34 Hold Purple Top SEE NOTE PT 26.7 H INR 2.2 H Creatinine 0.83 Estim Creat Clear Calc 53.6 Estimated GFR > 60 Vancomycin Trough 15.6 Preliminary micro results at discharge 06/29/23 16:22 Blood Culture - Preliminary Blood - Venous No growth after 48 hours. 06/29/23 16:00 Blood Culture - Preliminary Blood - Venous No growth after 48 hours. Discharge Plan Discharge Anticipated Discharge Date/Time: 07/03/23 10:52 Patient Disposition: Home, Self-Care Discharge Diagnosis: afib, uti, cellulitis Referrals: Marvin Alexis MD [Primary Care Provider] - 1 Week Discharge Medications: New metoprolol succinate 50 mg Tablet Extended Release 24 Hr 150 mg PO DAILY Qty: 90 0RF Protocol: Hold for SBP/HR < HOLD for SBP < : 90 HOLD for HR < : 60 spironolactone 25 mg Tablet 25 mg PO DAILY Qty: 90 0RF Protocol: Hold for SBP< HOLD for SBP < : 90 digoxin 125 mcg (0.125 mg) Tablet 0.125 mg PO Q2D Qty: 90 0RF doxycycline hyclate 100 mg tablet 100 mg PO BID Qty: 10 0RF Continued (DME) diaper,brief,-noe,disp Misc See Rx Instructions .Route Qty: 100 0RF Rx Instructions: As directed change 3 times a day Size Large lisinopril 40 mg tablet 40 mg PO DAILY Qty: 90 0RF hydrochlorothiazide 25 mg tablet 25 mg PO DAILY 90 Days Qty: 90 0RF simvastatin 20 mg tablet 20 mg PO BEDTIME 90 Days Qty: 90 0RF warfarin 5 mg tablet 5 mg PO warfarin 5 mg tablet 7.5 mg PO SUMOWE Protocol: Dose Management Condition: Wednesday (Week One) Dose/Route: 7.5 mg Instruction: 1.5 x 5 mg tablets Condition: Wednesday Dose/Route: 7.5 mg Instruction: 1.5 x 5 mg tablets Condition: Wednesday Dose/Route: 5 mg Instruction: 1 x 5 mg tablet Condition: Wednesday Dose/Route: 7.5 mg Instruction: 1.5 x 5 mg tablets Condition: Dose/Route: 7.5 mg Instruction: 1.5 x 5 mg tablets Condition: Wednesday Dose/Route: 5 mg Instruction: 1 x 5 mg tablet Condition: Wednesday Dose/Route: 7.5 mg Instruction: 1.5 x 5 mg tablets Condition: Wednesday (Week Two) Dose/Route: 7.5 mg Instruction: 1.5 x 5 mg tablets Condition: Wednesday Dose/Route: 7.5 mg Instruction: 1.5 x 5 mg tablets Condition: Wednesday Dose/Route: 5 mg Instruction: 1 x 5 mg tablet Condition: Wednesday Dose/Route: 7.5 mg Instruction: 1.5 x 5 mg tablets Condition: Dose/Route: 7.5 mg Instruction: 1.5 x 5 mg tablets Condition: Wednesday Dose/Route: 5 mg Instruction: 1 x 5 mg tablet Condition: Wednesday Dose/Route: 7.5 mg Instruction: 1.5 x 5 mg tablets Protocol Text: Adjustment Start Date: Wednesday06/29/23 INR Value: 2.5 INR Date: 06/29/23 Recheck Date: 07/29/23 ipratropium bromide 21 mcg (0.03 %) spray,non-aerosol 2 spray intranasal DAILY Rx Instructions: administer into each nostril fexofenadine [Rosemary Allergy] 60 mg tablet 60 mg PO DAILY Discontinued metoprolol succinate 100 mg tablet extended release 24 hr 100 mg PO DAILY Qty: 90 2RF Discharge Orders: Discharge Order (Routine); Ordered 07/03/23 Ordered By: Shane Huston Diet: Advance to usual diet Activity on Discharge: As tolerated Stand Alone Forms: Patient Portal Discharge page Print Language: Telugu Care Plan Goals: recovery Health Concerns: afib, uti, cellulitis Plan of Treatment: med changes as noted 5 more days doxy follow up with wound care and cardio Assessment: see above
--- NOTE | 2023-07-03 11:01 | PM.PNCARD ---
Subjective Subjective Date of Service: 07/03/23 Interval history: Seen and examined at bedside. Rates well controlled at rest but with ambulation she gets transient tachycardia which improves. Physical Exam Vital Signs: Last Vital Signs Temp 96.9 F 07/03/23 10:32 Pulse 98 07/03/23 10:32 Resp 20 07/03/23 10:32 BP 123/68 07/03/23 10:32 Pulse Ox 94 07/03/23 10:32 O2 Del Method Room Air 07/03/23 10:32 BMI result Body Mass Index 33.9 GENERAL APPEARANCE: in no acute distress, pleasant. NECK: no carotid bruit, no jugular venous distention. SKIN: no suspicious lesions, warm and dry. HEART: no murmurs, regular rate and rhythm. LUNGS: Clear to auscultation. ABDOMEN: soft, nontender. EXTREMITIES: no edema. PERIPHERAL PULSES: equal. NEUROLOGIC: No gross deficits, AAO X 3 Objective Labs and Meds 06/30/23 05:52 07/03/23 06:34 Lab results: Laboratory Results - last 24 hr 07/02/23 07/03/23 20:26 06:34 Hold Purple Top SEE NOTE PT 26.7 H INR 2.2 H Creatinine 0.83 Estim Creat Clear Calc 53.6 Estimated GFR > 60 Vancomycin Trough 15.6 Progress Note: A&P Assessment and plan (1) Atrial flutter: Status: Acute Plan Pleasant 88 year female with atrial flutter in the setting of cellulitis and urinary tract infection. She is improving from infection point of view. Toprol dose was increased and she was loaded with digoxin. A combination of beta-bethany and digoxin usually works well with atrial flutter. Adding digoxin every other day. Overall, better rate control. Can DC and will arrange Holter x 7 days and f/u in office with Dr Ennis. Thank you for allowing me to participate in the care of your patient. Please feel free to contact me if you have any questions. Time Spent With Patient Time: Total time managing care of this patient today ____ minutes. Progress Note: Quality Stroke Does the patient have a stroke diagnosis?: No Procedures Date of Service Date of Service: 07/03/23
--- NOTE | 2023-07-03 12:36 | MHC.CM.PN ---
PT WILL DC HOME TODAY WITH NO SERVICES VIA PRIVATE TRANSPORT
== END 2023-07-03 15:26 | disposition home or self-care (01) | DRG 602 ==
LOC: HO.ED 20:36 → HO.EDOVER 21:11 → HO.IMC 06-30 07:25
PROVIDERS: Admitting Provider Physician Assistant; Emergency Provider Emergency Medicine; PCP Internal Medicine; Visit Provider Internal Medicine
DX: L03.116 Cellulitis of left lower limb (principal); I50.33 Acute on chronic diastolic (congestive) heart failure; I13.0 Hypertensive heart and chronic kidney disease with heart failure and stage 1 through stage 4 chronic kidney disease, or unspecified chronic kidney disease; N39.0 Urinary tract infection, site not specified; L97.829 Non-pressure chronic ulcer of other part of left lower leg with unspecified severity; I47.10 Supraventricular tachycardia, unspecified; I48.92 Unspecified atrial flutter; I82.512 Chronic embolism and thrombosis of left femoral vein; I49.1 Atrial premature depolarization; E78.5 Hyperlipidemia, unspecified; N18.30 Chronic kidney disease, stage 3 unspecified; J44.9 Chronic obstructive pulmonary disease, unspecified; B96.20 Unspecified Escherichia coli [E. coli] as the cause of diseases classified elsewhere; Z86.711 Personal history of pulmonary embolism; Z20.822 Contact with and (suspected) exposure to COVID-19; Z79.01 Long term (current) use of anticoagulants; Z79.899 Other long term (current) drug therapy
CPT/HCPCS: 0241U; 36415; 71045; 73590; 80048; 80076; 80202; 81001; 82565; 83605; 83690; 83735; 83880; 84443; 84484; 85025; 85610; 85730; 87040; 87086; 87088; 87186; 93005; 93306; 93971; 99212; 99285; J0153; J0696; J1160; J1940; J2543; J3370; J3371

== ENCOUNTER → 2023-06-29 11:44 | Outpatient (BNV) | payer MEDICARE, SELFPAY | PROVIDERS: PCP Internal Medicine; Visit Provider Internal Medicine Cardiovascular Disease | DX: I47.10 Supraventricular tachycardia, unspecified (principal) | CPT/HCPCS: 93010 ==

== ENCOUNTER 2023-06-29 20:38 | Outpatient (BNV) | payer MEDICARE, SELFPAY | END 2023-06-30 12:01 | PROVIDERS: Admitting Provider Physician Assistant; Emergency Provider Emergency Medicine; PCP Internal Medicine; Visit Provider Internal Medicine Cardiovascular Disease | DX: I47.10 Supraventricular tachycardia, unspecified (principal); I49.3 Ventricular premature depolarization; I48.91 Unspecified atrial fibrillation; I34.0 Nonrheumatic mitral (valve) insufficiency; I34.81 Nonrheumatic mitral (valve) annulus calcification | CPT/HCPCS: 93010; 93306 ==

== ENCOUNTER → 2023-06-29 20:38 | Outpatient (BNV) | payer MEDICARE, SELFPAY | PROVIDERS: Admitting Provider Physician Assistant; Emergency Provider Emergency Medicine; PCP Internal Medicine; Visit Provider Physician Assistant | DX: N39.0 Urinary tract infection, site not specified (principal); A41.9 Sepsis, unspecified organism; L03.116 Cellulitis of left lower limb; I47.10 Supraventricular tachycardia, unspecified | CPT/HCPCS: 99223; 99232; 99239; 99499 ==

== ENCOUNTER → 2023-06-29 20:38 | Outpatient (BNV) | payer MEDICARE, SELFPAY | PROVIDERS: Admitting Provider Physician Assistant; Emergency Provider Emergency Medicine; PCP Internal Medicine; Visit Provider Internal Medicine Cardiovascular Disease | DX: I48.92 Unspecified atrial flutter (principal) | CPT/HCPCS: 99223; 99232 ==

== ENCOUNTER → 2023-07-09 12:17 | Outpatient (BNVA) | payer MEDICARE, SELFPAY | PROVIDERS: PCP Internal Medicine; Visit Provider Internal Medicine ==

== ENCOUNTER 2023-07-21 12:47 | Outpatient (AMB) | payer MEDICARE, SELFPAY ==
--- NOTE | 2023-07-21 12:48 | A.OFFPC_ITS ---
Vital Signs 07/21/23 12:55 Height 5 ft 5 in Weight 203 lb BMI 33.8 BP 128/80 Blood Pressure Location Rt brachial Position Sitting Pulse 112 H Pulse Source Pulse Oximeter Pulse Oximetry (%) 98 Oxygen Delivery Method Room Air Intake Visit Reasons: 9 month follow up Allergies enviromental Allergy (Mild, Uncoded 07/21/23 12:56) RHINITIS SEASONAL ALLERGIES Allergy (Mild, Uncoded 07/21/23 12:56) RUNNY NOSE Medication List - Last Reconciled 07/21/23 by Marvin Alexis MD diaper,brief,infant-noe,disp As directed change 3 times a day Size Large digoxin 0.125 mg PO Q2D fexofenadine (Rosemary Allergy) 60 mg PO DAILY hydrochlorothiazide 25 mg PO DAILY 90 days ipratropium bromide 2 sprays intranasal DAILY lisinopril 40 mg PO DAILY metoprolol succinate ER 150 mg See Protocol PO DAILY simvastatin 20 mg PO BEDTIME 90 days spironolactone 25 mg See Protocol PO DAILY warfarin 5 mg See Protocol PO TUFR warfarin 7.5 mg See Protocol PO SUMOWETHSA Tobacco use date assessed: 07/21/23 Fall risk assessment: No Falls in past year Last assessed Fall Risk: 07/21/23 Dental Screening Dental Screen Date: 04/21/23 HPI 9 month follow up HPI Details Patient is 88-year-old female came in today for her regular follow-up visit.? left leg wound still not healed, patient is going to wound clinic for management Patient have peripheral vascular disease She has chronic urine incontinence, we were able to get her diapers t.i.d. Patient is saying that she is also due until December but in December she would rather have pull-ups. We will address that at her next visit in November She is going in for Holter monitor and then cardiology visit next month Dr. Ennis patient has supraventricular cardiac arrhythmia Labs done recently reviewed with the patient Ipratropium nasal spray has helped patient her nasal dripping is better She is on a chronic warfarin treatment for recurrent DVTs.? Coumadin clinic is monitoring her INR.? She is taking simvastatin 20 mg for lipid control.? I would recommend diet control as well Allergies : taking Rosemary OTC Hypertension: Blood pressure is stable today, patient is on lisinopril 40 mg and metoprolol 100 mg along with hydrochlorothiazide 25 mg, COPD: Breathing is stable GERD: Stable Hypertensive nephropathy: GFR is in 50s BMI continued to be elevated patient is trying to lose weight. Follow-up November Medical History Stress bladder incontinence, female Environmental allergies COPD mixed type Warfarin anticoagulation History of deep venous thrombosis (DVT) of distal vein of left lower extremity Peripheral vascular disease Lipid disorder Osteoporosis Hypertension, essential Surgical History History of cataract surgery Hx of vascular surgery History of colonoscopy History of breast biopsy Family History Father HTN (hypertension) History of heart attack Mother HTN (hypertension) Breast cancer Maternal Grandfather No problems noted. Maternal Grandmother No problems noted. Paternal Grandfather No problems noted. Paternal Grandmother No problems noted. Sister No problems noted. Son No problems noted. Son No problems noted. Daughter No problems noted. Daughter No problems noted. Daughter No problems noted. Other Stress bladder incontinence, female Social History Household Members: Family and Children Housing: House Are you a primary nurse behavioral health care to a significant other at home: No Do you presently have visiting nurse or other home services: No Alcohol intake: current Alcohol intake frequency: holidays/special occasions only Patient Tobacco Use Status: Never used Tobacco e-Cigarette/Vaping Use: Never Used Second Hand Smoke Exposure: No service: No Current occupational status: retired Cognitive needs: No Hearing needs: No Vision needs: Yes Questionnaire Thrive Questionnaire Date Thrive assessed: 06/30/23 AUDIT C Alcohol Use Questionnaire (AUDIT-C) 1. How often do you have a drink containing alcohol?: Monthly or less 2. How many drinks containing alcohol do you have on a typical day when you are drinking?: 1 or 2 3. How often do you have six or more drinks on one occasion?: Never Total Score: 1 MAREN-7 AMB Questionnaire MAREN-7 Date MAREN - 7 assessed: 04/21/23 Feeling nervous, anxious, or on edge: 1 = Several days Not being able to stop or control worryin = Not at all Worrying too much about different things: 1 = Several days Trouble relaxin = Not at all Being so restless that it is hard to sit still: 0 = Not at all Becoming easily annoyed or irritable: 1 = Several days Feeling afraid as if something awful might happen: 0 = Not at all Total MAREN-7 score (0-4 normal; 5-9 mild; 10-14 moderate; 15-21 severe): 3 Source: Developed by Drs. Kameron Gilliam, Marcelina Nash, Justin Dallas and colleagues, with an educational rambo from [employer]. Review of Systems Const Denies chills and Denies fever(s) ENT Denies epistaxis and Denies nasal discharge Card Denies chest pain Resp Denies chest congestion, Denies cough and Denies hemoptysis GI Denies diarrhea and Denies nausea Skin/Breast Denies rash Neuro Reports no additional complaints Psych Reports no additional complaints Endo Reports no additional complaints Physical exam (Primary Care) Vital Signs: Last Vital Signs Pulse 112 H 07/21/23 12:55 BP 128/80 07/21/23 12:55 Pulse Ox 98 07/21/23 12:55 Oxygen Delivery Method Room Air 07/21/23 12:55 BMI result Body Mass Index 33.8 Tobacco/Smoking Status: Tobacco use Status Tobacco use date assessed 07/21/23 07/21/23 13:00 Patient Tobacco Use Status Never used Tobacco 07/21/23 12:48 e-Cigarette/Vaping Use Never Used 07/21/23 12:48 Thrive Assessment: Date of Thrive Assessment Date Thrive assessed 06/30/23 07/21/23 12:48 Const General: cooperative, comfortable and no acute distress Orientation/consciousness: patient oriented x3 HENMT Head: Yes normocephalic Eyes General: appearance normal, both eyes and all related structures Neck Neck: Yes supple Resp Effort & Inspection: normal respiratory effort, no cough and no stridor Cardio Other: Irregular rhythm Heart sounds: S1 normal heart sound present and S2 normal heart sound present Skin General skin exam: turgor normal Neuro General: patient oriented x3, tone normal and moves all extremities Extrem Other: Chronic stasis dermatitis left leg, wound is covered with a Band-Aid lower part of leg just above the ankle anterior aspect Right lower extremity: no edema Left lower extremity: no edema Assessment and Plan Assessment & Plan (1) Hypertension, essential: Code(s): I10 - Essential (primary) hypertension (2) Cardiac arrhythmia: Code(s): I49.9 - Cardiac arrhythmia, unspecified Qualifiers: Arrhythmia type: premature depolarization Premature depolarization type: atrial Qualified Code(s): I49.1 - Atrial premature depolarization (3) COPD mixed type: Code(s): J44.9 - Chronic obstructive pulmonary disease, unspecified (4) Peripheral vascular disease: Code(s): I73.9 - Peripheral vascular disease, unspecified (5) Lipid disorder: Code(s): E78.9 - Disorder of lipoprotein metabolism, unspecified (6) Warfarin anticoagulation: Code(s): Z79.01 - nursing home (current) use of anticoagulants (7) Environmental allergies: Code(s): Z91.09 - Other allergy status, other than to drugs and biological substances (8) Nephropathy: Code(s): N28.9 - Disorder of kidney and ureter, unspecified (9) Obesity due to excess calories: Code(s): E66.09 - Other obesity due to excess calories Qualifiers: Obesity classification: adult class 1 (BMI 30 - 34.9) Serious obesity comorbidity presence: without serious comorbidity Body mass index: BMI 34.0- 34.9 Qualified Code(s): E66.09 - Other obesity due to excess calories; Z68.34 - Body mass index [BMI] 34.0-34.9, adult (10) Chronic GERD: Code(s): K21.9 - Gastro-esophageal reflux disease without esophagitis Plan Patient is 88-year-old female came in today for her regular follow-up visit.? left leg wound still not healed, patient is going to wound clinic for management Patient have peripheral vascular disease She has chronic urine incontinence, we were able to get her diapers t.i.d. Patient is saying that she is also due until December but in December she would rather have pull-ups. We will address that at her next visit in November She is going in for Holter monitor and then cardiology visit next month Dr. Ennis patient has supraventricular cardiac arrhythmia Labs done recently reviewed with the patient Ipratropium nasal spray has helped patient her nasal dripping is better She is on a chronic warfarin treatment for recurrent DVTs.? Coumadin clinic is monitoring her INR.? She is taking simvastatin 20 mg for lipid control.? I would recommend diet control as well Allergies : taking Rosemary OTC Hypertension: Blood pressure is stable today, patient is on lisinopril 40 mg and metoprolol 100 mg along with hydrochlorothiazide 25 mg, COPD: Breathing is stable GERD: Stable Hypertensive nephropathy: GFR is in 50s BMI continued to be elevated patient is trying to lose weight. Follow-up November Coding Level of Care Code Est Pt Level 4 (68807) Complex EM visit Add On G2211 Diagnoses Hypertension, essential I10 Atrial premature depolarization I49.1 Arrhythmia type: premature depolarization Premature depolarization type: atrial COPD mixed type J44.9 Peripheral vascular disease I73.9 Lipid disorder E78.9 Warfarin anticoagulation Z79.01 Environmental allergies Z91.09 Nephropathy N28.9 Class 1 obesity due to excess calories without serious comorbidity with body mass index (BMI) of 34.0 to 34.9 in adult E66.09; Z68.34 Obesity classification: adult class 1 (BMI 30 - 34.9) Serious obesity comorbidity presence: without serious comorbidity Body mass index: BMI 34.0-34.9 Chronic GERD K21.9
[2023-07-21 12:55] VITALS: BP 128/80; PULSE 112; O2SAT 98; BMI 33.8
== END 2023-07-21 14:10 | disposition home or self-care (01) ==
PROVIDERS: PCP Internal Medicine; Visit Provider Internal Medicine
DX: I10 Essential (primary) hypertension (principal); I49.1 Atrial premature depolarization; J44.9 Chronic obstructive pulmonary disease, unspecified; I73.9 Peripheral vascular disease, unspecified; E78.9 Disorder of lipoprotein metabolism, unspecified; Z79.01 Long term (current) use of anticoagulants; Z91.09 Other allergy status, other than to drugs and biological substances; N28.9 Disorder of kidney and ureter, unspecified; E66.09 Other obesity due to excess calories; Z68.34 Body mass index [BMI] 34.0-34.9, adult; K21.9 Gastro-esophageal reflux disease without esophagitis
CPT/HCPCS: 99214; G2211

== ENCOUNTER → 2023-07-26 12:56 | Outpatient (REF) | payer MEDICARE, SELFPAY ==
--- NOTE | 2023-07-26 12:59 | HM_ITS ---
Conclusion: 1. Patient was monitored for total period of 7 days 2. Baseline was atrial fibrillation with average heart of 87 beats per minute with adequate rate control without significant pauses 3. Frequent wide complex is noted suggestive of either aberrant conduction or PVCs with total burden of 25.3% 4. Patient marked 12 events correlating with atrial fibrillation with PVCs MTDD
[2023-07-26 14:49] LABS: Prothrombin Time 64.5 SEC (11.1-13.3)
[2023-07-26 14:50] LABS: INTERNATIONAL NORM RATIO 5.3 (0.9-1.1)
== END ==
LOC: HO.CARD 12:56
PROVIDERS: Internal Medicine; PCP Internal Medicine; Visit Provider Internal Medicine Cardiovascular Disease
DX: I48.92 Unspecified atrial flutter (principal); I49.3 Ventricular premature depolarization; I47.10 Supraventricular tachycardia, unspecified; Z79.01 Long term (current) use of anticoagulants
CPT/HCPCS: 36415; 85610; 93242; 99212

== ENCOUNTER → 2023-07-26 12:59 | Outpatient (BNV) | payer MEDICARE, SELFPAY | PROVIDERS: PCP Internal Medicine; Visit Provider Internal Medicine Cardiovascular Disease | DX: I48.91 Unspecified atrial fibrillation (principal) | CPT/HCPCS: 93244 ==

== ENCOUNTER 2023-07-26 13:15 | Outpatient (AMB) | payer MEDICARE, SELFPAY ==
[2023-07-26 14:19] LABS: Prothrombin Time Whole Bld POC 69.7 sec (11.1-13.5); ~PT, ~INR - Anti Coag Clinic 5.8 (0.9-1.1)
--- NOTE | 2023-07-26 15:14 | MHC.OFFVISCO ---
Intake Intake Visit Reasons: Anticoagulation Allergies enviromental Allergy (Mild, Uncoded 07/21/23 12:56) RHINITIS SEASONAL ALLERGIES Allergy (Mild, Uncoded 07/21/23 12:56) RUNNY NOSE Medication List - Last Reconciled 07/26/23 by Florence Rao RN diaper,brief,-noe,disp As directed change 3 times a day Size Large digoxin 0.125 mg PO Q2D fexofenadine (Rosemary Allergy) 60 mg PO DAILY hydrochlorothiazide 25 mg PO DAILY 90 days ipratropium bromide 2 sprays intranasal DAILY lisinopril 40 mg PO DAILY metoprolol succinate ER 150 mg See Protocol PO DAILY simvastatin 20 mg PO BEDTIME 90 days spironolactone 25 mg See Protocol PO DAILY warfarin 5 mg See Protocol PO TUFR warfarin 7.5 mg See Protocol PO SUMOWETHSA Nursing Note Pt to [facility] with use of cane. [facility] INR 5.8. Stat lab draw 5.3?out of therapeutic range of 2-3 Medications and supplements reviewed: no changes Patient status: pt states she feels better after her hospitalization for cellulitis of left lower extremity, d/c'd from hospital on 07/03/23 and on that day, INR was 2.2. Pt called [facility] on 07/08 to say she had been on Doxycycline and completed course on 07/08/23. She was a no show for her appt on 07/16/23. Today is her first appt since being hospitalized. Diet: usual diet for pt Denies any signs and symptoms of bleeding or clotting or unusual bruising Bleeding, bruising, clotting discussed. Pt aware that her blood is thin and she is at risk for bleeding, to watch for dark colored stool or blood in her urine etc, or if she hits her head, she should come to ER for CT scan of head to R/O bleed. Nutritional guidance given: to have a serving of greens today and tomorrow and to avoid the foods that raise the INR. Food list discussed. Dose: Hold today's dose of 7.5mg, then take 5 mg 6/4 and 5 mg (7.5mg) on 6 F/U INR Date : 3 days?? Patient verbalizing understanding of instructions given. Dr Marvin Alexis's office called. Reported critical INR to [facility] DREW with dosing plan and date of retest. 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
== END 2023-07-26 15:33 | disposition home or self-care (01) ==
LOC: HO.ACS 13:15
PROVIDERS: PCP Internal Medicine; Visit Provider Internal Medicine
DX: Z79.01 Long term (current) use of anticoagulants (principal)

== ENCOUNTER 2023-07-26 14:10 | Outpatient (REF) | payer MEDICARE, SELFPAY | END 2023-07-26 14:11 | disposition home or self-care (01) | LOC: HO.LAB 14:10 | PROVIDERS: Visit Provider Internal Medicine | DX: Z13.89 Encounter for screening for other disorder (principal) ==

== ENCOUNTER 2023-07-29 12:34 | Outpatient (RCR) | payer MEDICARE, SELFPAY | END 2023-10-15 09:56 | disposition home or self-care (01) | LOC: HO.WCC 12:34 | PROVIDERS: PCP Internal Medicine; Visit Provider Surgery | DX: I70.248 Atherosclerosis of native arteries of left leg with ulceration of other part of lower leg (principal); L97.822 Non-pressure chronic ulcer of other part of left lower leg with fat layer exposed; I87.301 Chronic venous hypertension (idiopathic) without complications of right lower extremity; I82.519 Chronic embolism and thrombosis of unspecified femoral vein; I48.91 Unspecified atrial fibrillation; Z79.01 Long term (current) use of anticoagulants; Z79.899 Other long term (current) drug therapy | CPT/HCPCS: 11042; 29580; 85610; 97597; 99211; 99212 ==

== ENCOUNTER → 2023-08-12 13:54 | Outpatient (BNVA) | payer MEDICARE, SELFPAY | PROVIDERS: PCP Internal Medicine; Visit Provider Internal Medicine | DX: I26.99 Other pulmonary embolism without acute cor pulmonale (principal); Z79.01 Long term (current) use of anticoagulants; Z51.81 Encounter for therapeutic drug level monitoring | CPT/HCPCS: 85610; 99211 ==

== ENCOUNTER 2023-08-16 14:07 | Outpatient (AMB) | payer MEDICARE, SELFPAY ==
[2023-08-16 14:10] VITALS: BP 132/84; PULSE 72; BMI 33.4
--- NOTE | 2023-08-16 14:10 | A.OFFVIS_ITS ---
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: No Allergies enviromental Allergy (Mild, Uncoded 08/12/23 13:59) RHINITIS SEASONAL ALLERGIES Allergy (Mild, Uncoded 08/12/23 13:59) RUNNY NOSE Medication List - Last Reconciled 08/16/23 by Jacky Ennis MD diaper,brief,-noe,disp As directed change 3 times a day Size Large digoxin 0.125 mg PO Q2D fexofenadine (Rosemary Allergy) 60 mg PO DAILY hydrochlorothiazide 25 mg PO DAILY 90 days ipratropium bromide 2 sprays intranasal DAILY lisinopril 40 mg PO DAILY metoprolol succinate ER 150 mg See Protocol PO DAILY simvastatin 20 mg PO BEDTIME 90 days spironolactone 25 mg See Protocol PO DAILY warfarin 5 mg See Protocol PO TUFR warfarin 7.5 mg See Protocol PO SUMOWETHSA HPI Comments Details: Diane comes for follow-up after recent hospitalization for UTI at which time she developed tachycardia subsequently diagnose atrial flutter. She had a Holter monitor for rate control evaluation which showed persistent atrial fibrillation with adequate rate control. She has no cardiac symptoms at current time. Denies any worsening shortness of breath, orthopnea, PND, leg edema. Denies any lightheadedness, syncope. Currently on warfarin therapy for anticoagulation and tolerating well. This is for DVT. She has chronic ulcer on her left leg which is currently being treated. She denies any prolonged palpitation irregular heartbeat. COUNT INCLUDES THE [facility] Medical History Stress bladder incontinence, female Environmental allergies COPD mixed type Warfarin anticoagulation History of deep venous thrombosis (DVT) of distal vein of left lower extremity Peripheral vascular disease Lipid disorder Osteoporosis Hypertension, essential Surgical History History of cataract surgery Hx of vascular surgery History of colonoscopy History of breast biopsy Family History Father HTN (hypertension) History of heart attack Mother HTN (hypertension) Breast cancer Maternal Grandfather No problems noted. Maternal Grandmother No problems noted. Paternal Grandfather No problems noted. Paternal Grandmother No problems noted. Sister No problems noted. Son No problems noted. Son No problems noted. Daughter No problems noted. Daughter No problems noted. Daughter No problems noted. Other Stress bladder incontinence, female Social History Household Members: Family and Children Housing: House Are you a primary wound care nurse to a significant other at home: No Do you presently have visiting nurse or other home services: No Alcohol intake: current Alcohol intake frequency: holidays/special occasions only Patient Tobacco Use Status: Never used Tobacco e-Cigarette/Vaping Use: Never Used Second Hand Smoke Exposure: No service: No Current occupational status: retired Cognitive needs: No Hearing needs: No Vision needs: Yes Review of Systems Const Denies chills, Denies fatigue, Denies fever(s), Denies frequent falls, Denies weakness, Denies weight gain and Denies weight loss ENT Denies dizziness Card Denies chest pain, Denies leg edema, Denies lightheadedness, Denies palpitation s, Denies dyspnea, Denies dyspnea on exertion, Denies orthopnea and Denies other (loss of consciousness) Resp Denies cough, Denies dyspnea and Denies dyspnea on exertion GI Denies hematochezia and Denies change in stool character Musc Denies abnormal gait, Denies muscle weakness, Denies numbness, Denies radiating pain into limb and Denies tingling Neuro Denies Abnormal speech present, Denies abnormal gait, Denies dizziness, Denies frequent falls, Denies numbness, Denies tingling and Denies weakness Endo Denies fatigue and Denies palpitations Physical Exam Vital Signs: Last Vital Signs Pulse 72 08/16/23 14:10 BP 132/84 08/16/23 14:10 BMI result Body Mass Index 33.4 Const General: cooperative, comfortable, no acute distress, alert, awake and well groomed Nutritional Appearance: obese Orientation/consciousness: patient oriented x3 Limitations: no limitations HEENT Head: Yes normocephalic and Yes atraumatic Neck Neck: Yes trachea midline, Yes supple and Yes no JVD Resp Effort & Inspection: normal respiratory effort Auscultation: clear to auscultation bilaterally Cardio Jugular venous distension: no JVD Palpation: normal PMI Rhythm: abnormal rhythm irregularly irregular Heart sounds: S1 normal heart sound present, S2 normal heart sound present, no click, no gallops, no murmurs and no rubs GI Auscultation: normal bowel sounds Skin General skin exam: no rashes or lesions noted Neuro General: patient oriented x3 and no focal motor deficits Speech: No Abnormal speech present Extrem General: Yes no clubbing, cyanosis or edema Office Procedures EKG Details: EKG shows atrial flutter with controlled ventricular rate with variable conduction with PVCs/aberrantly conducted complex with low-voltage QRS [id number], Complete Assessment & Plan Assessment & Plan (1) Atrial flutter: Code(s): I48.92 - Unspecified atrial flutter Category: Medical Plan: Persistent atrial flutter, new onset since last June, without any new obvious symptoms. His chronic persistent atrial flutter. Currently on dual rate control with digoxin as well as metoprolol therapy. Tolerating therapy well. No symptoms related to it. Continue rate control approach. Digoxin assay every 6 months. She would full oral anticoagulation, currently on warfarin therapy. Maintain target INR between 2 and 3. Being followed by [facility]. We discussed about lack of symptoms and management of atrial flutter in general and given her age as well as lack of symptoms will pursue rate control approach at this point in time. Signs and symptoms of heart failure were discussed. (2) Hypertension, essential: Code(s): I10 - Essential (primary) hypertension Category: Medical Plan: Hypertension which is currently well optimized. Continue current therapy. Importance of good blood pressure control was discussed. Target goal blood pressure less than 130/84. Advised to monitor blood pressure at home maintain a log. Low-salt diet was discussed. Will follow up in the clinic in 6 months time, sooner p.r.n.. Orders: Orders Digoxin Today I48.20 - Chronic atrial fibrillation, unspecified Coding Level of Care Code Est Pt Level 4 (19076) Diagnoses Atrial flutter I48.92 Hypertension, essential I10 CPT Codes EKG - CPT: 21097-[id number], Complete ([id number])
== END 2023-08-16 14:37 | disposition home or self-care (01) ==
PROVIDERS: PCP Internal Medicine; Visit Provider Internal Medicine Cardiovascular Disease
DX: I48.92 Unspecified atrial flutter (principal); I10 Essential (primary) hypertension
CPT/HCPCS: 93010; 99214

== ENCOUNTER 2023-08-16 14:07 | Outpatient (REF) | payer MEDICARE, SELFPAY ==
[2023-08-16 16:13] LABS: Digoxin 0.5 ng/mL (0.8-2.0)
== END 2023-08-16 14:08 | disposition home or self-care (01) ==
LOC: HO.LAB 14:07
PROVIDERS: PCP Internal Medicine; Visit Provider Internal Medicine Cardiovascular Disease
DX: I48.92 Unspecified atrial flutter (principal); I48.20 Chronic atrial fibrillation, unspecified; I10 Essential (primary) hypertension; Z79.899 Other long term (current) drug therapy
CPT/HCPCS: 36415; 80162; 93005; 99212

== ENCOUNTER 2023-08-19 14:10 | Outpatient (AMB) | payer MEDICARE, SELFPAY ==
[2023-08-19 14:31] LABS: Prothrombin Time Whole Bld POC 40.3 sec (11.1-13.5); ~PT, ~INR - Anti Coag Clinic 3.4 (0.9-1.1)
--- NOTE | 2023-08-19 14:32 | MHC.OFFVISCO ---
Intake Intake Visit Reasons: Anticoagulation Allergies enviromental Allergy (Mild, Uncoded 08/12/23 13:59) RHINITIS SEASONAL ALLERGIES Allergy (Mild, Uncoded 08/12/23 13:59) RUNNY NOSE Nursing Note INR 3.4?out of therapeutic range of 2-3 Medications and supplements reviewed Patient status: feels well Medications or supplements: no changes Diet: usual diet for pt Denies any signs and symptoms of bleeding or clotting or unusual bruising Bleeding, bruising, clotting discussed Nutritional guidance given: to have a serving of greens today. Pt states she will have spinach today. Dose: decrease today's dose to 5mg (7.5mg), then resume usual dose of 7.5mg X 5 days and 5mg X 2 days F/U INR Date : 1 week?? Patient verbalizing understanding of instructions given. Anti-Coag Initial Assessment Social Hx Patient Tobacco Use Status: Never used Tobacco alcohol intake: current Alcohol intake frequency: holidays/special occasions only Coding Level of Care Code Est Patient Level 1 Diagnoses Current use of anticoagulant therapy Z79.01 Results AMB INR Fingerstick AMB INR Fingerstick 3.4 Last Edit by Florence Rao RN on 08/19/23 14:28 interface delay Assessment & Plan Assessment & Plan (1) Current use of anticoagulant therapy: Code(s): Z79.01 - FDC (current) use of anticoagulants Category: Medical
== END 2023-08-19 14:43 | disposition home or self-care (01) ==
LOC: HO.ACS 14:10
PROVIDERS: PCP Internal Medicine; Visit Provider Internal Medicine
DX: Z79.01 Long term (current) use of anticoagulants (principal)

== ENCOUNTER → 2023-08-19 14:10 | Outpatient (BNVA) | payer MEDICARE, SELFPAY | PROVIDERS: PCP Internal Medicine; Visit Provider Internal Medicine | DX: I26.99 Other pulmonary embolism without acute cor pulmonale (principal); Z79.01 Long term (current) use of anticoagulants; Z51.81 Encounter for therapeutic drug level monitoring | CPT/HCPCS: 85610; 99211 ==

== ENCOUNTER 2023-08-25 14:28 | Outpatient (AMB) | payer MEDICARE, SELFPAY ==
[2023-08-25 14:46] LABS: Prothrombin Time Whole Bld POC 43.7 sec (11.1-13.5); ~PT, ~INR - Anti Coag Clinic 3.6 (0.9-1.1)
--- NOTE | 2023-08-25 14:52 | MHC.OFFVISCO ---
Intake Intake Visit Reasons: Anticoagulation Allergies enviromental Allergy (Mild, Uncoded 08/12/23 13:59) RHINITIS SEASONAL ALLERGIES Allergy (Mild, Uncoded 08/12/23 13:59) RUNNY NOSE Medication List - Last Reconciled 08/25/23 by Josefa Hogan RN diaper,brief,-noe,disp As directed change 3 times a day Size Large digoxin 0.125 mg PO Q2D fexofenadine (Rosemary Allergy) 60 mg PO DAILY hydrochlorothiazide 25 mg PO DAILY 90 days ipratropium bromide 2 sprays intranasal DAILY lisinopril 40 mg PO DAILY metoprolol succinate ER 150 mg See Protocol PO DAILY simvastatin 20 mg PO BEDTIME 90 days spironolactone 25 mg See Protocol PO DAILY warfarin 5 mg See Protocol PO TUFR warfarin 7.5 mg See Protocol PO SUMOWETHSA Nursing Note NO CP,SOB,DIET/MED CHANGES,FALLS OR SX OF BLEEDING. HOLD WARFARIN TODAY THEN REDUCE WEEKLY DOSE AND FOLLOW-UP IN 0 DAYS. GOOD UNDERSTANDING OF DOSING INSTR. 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
== END 2023-08-25 14:54 | disposition home or self-care (01) ==
LOC: HO.ACS 14:28
PROVIDERS: PCP Internal Medicine; Visit Provider Internal Medicine
DX: Z79.01 Long term (current) use of anticoagulants (principal)

== ENCOUNTER → 2023-08-25 14:28 | Outpatient (BNVA) | payer MEDICARE, SELFPAY | PROVIDERS: PCP Internal Medicine; Visit Provider Internal Medicine | DX: I26.99 Other pulmonary embolism without acute cor pulmonale (principal); Z51.81 Encounter for therapeutic drug level monitoring; Z79.01 Long term (current) use of anticoagulants | CPT/HCPCS: 85610; 99211 ==

== ENCOUNTER 2023-09-06 11:44 | Outpatient (AMB) | payer MEDICARE, SELFPAY ==
[2023-09-06 11:51] LABS: ~PT, ~INR - Anti Coag Clinic 3.8 (0.9-1.1)
--- NOTE | 2023-09-06 12:01 | MHC.OFFVISCO ---
Intake Intake Visit Reasons: Anticoagulation Allergies enviromental Allergy (Mild, Uncoded 09/06/23 11:45) RHINITIS SEASONAL ALLERGIES Allergy (Mild, Uncoded 09/06/23 11:45) RUNNY NOSE Medication List - Last Reconciled 09/06/23 by Florence Rao RN diaper,brief,infant-noe,disp As directed change 3 times a day Size Large digoxin 0.125 mg PO Q2D fexofenadine (Rosemary Allergy) 60 mg PO DAILY hydrochlorothiazide 25 mg PO DAILY 90 days ipratropium bromide 2 sprays intranasal DAILY lisinopril 40 mg PO DAILY metoprolol succinate ER 150 mg See Protocol PO DAILY simvastatin 20 mg PO BEDTIME 90 days spironolactone 25 mg See Protocol PO DAILY warfarin 5 mg See Protocol PO TUFR Nursing Note INR 3.8?out of therapeutic range of 2-3 Medications and supplements reviewed Patient status: well Medications or supplements: no changes Diet: usual diet for pt but has had an increase in summer fruits like watermelon Denies any signs and symptoms of bleeding or clotting or unusual bruising Bleeding, bruising, clotting discussed Nutritional guidance given: to have a serving of greens today Dose: decrease today's dose to 2.5mg (5mg) and then 7.5mg X 4 days and 5mg X 3 days F/U INR Date : 2 weeks?? Patient verbalizing understanding of instructions given. Anti-Coag Initial Assessment Social Hx Patient Tobacco Use Status: Never used Tobacco alcohol intake: current Alcohol intake frequency: holidays/special occasions only Coding Level of Care Code Est Patient Level 1 Diagnoses Current use of anticoagulant therapy Z79.01 Assessment & Plan Assessment & Plan (1) Current use of anticoagulant therapy: Code(s): Z79.01 - snf (current) use of anticoagulants Category: Medical
== END 2023-09-06 12:06 | disposition home or self-care (01) ==
LOC: HO.ACS 11:44
PROVIDERS: PCP Internal Medicine; Visit Provider Internal Medicine
DX: Z79.01 Long term (current) use of anticoagulants (principal)

== ENCOUNTER → 2023-09-06 11:44 | Outpatient (BNVA) | payer MEDICARE, SELFPAY | PROVIDERS: PCP Internal Medicine; Visit Provider Internal Medicine | DX: I26.99 Other pulmonary embolism without acute cor pulmonale (principal); Z79.01 Long term (current) use of anticoagulants; Z51.81 Encounter for therapeutic drug level monitoring | CPT/HCPCS: 85610; 99211 ==

== ENCOUNTER 2023-09-20 11:27 | Outpatient (AMB) | payer MEDICARE, SELFPAY ==
[2023-09-20 11:57] LABS: Prothrombin Time Whole Bld POC 44.7 sec (11.1-13.5); ~PT, ~INR - Anti Coag Clinic 3.7 (0.9-1.1)
--- NOTE | 2023-09-20 12:28 | MHC.OFFVISCO ---
Intake Intake Visit Reasons: Anticoagulation Allergies enviromental Allergy (Mild, Uncoded 09/20/23 11:52) RHINITIS SEASONAL ALLERGIES Allergy (Mild, Uncoded 09/20/23 11:52) RUNNY NOSE Medication List - Last Reconciled 09/20/23 by Josefa Hogan RN diaper,brief,-noe,disp As directed change 3 times a day Size Large digoxin 0.125 mg PO Q2D fexofenadine (Rosemary Allergy) 60 mg PO DAILY hydrochlorothiazide 25 mg PO DAILY 90 days ipratropium bromide 2 sprays intranasal DAILY lisinopril 40 mg PO DAILY metoprolol succinate ER 150 mg See Protocol PO DAILY simvastatin 20 mg PO BEDTIME 90 days spironolactone 25 mg See Protocol PO DAILY warfarin 5 mg See Protocol PO TUFR Nursing Note NO CP,SOB,DIET/MED CHANGES,FALLS OR SX OF BLEEDING. HOLD WARFARIN TODAY THEN REDUCE WEEKLY DOSE SLIGHTLY AND FOLLOW-UP IN 2 WEEKS. GOOD UNDERSANDING OF DOSING INSTR. 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
== END 2023-09-20 12:30 | disposition home or self-care (01) ==
LOC: HO.ACS 11:27
PROVIDERS: PCP Internal Medicine; Visit Provider Internal Medicine
DX: Z79.01 Long term (current) use of anticoagulants (principal)

== ENCOUNTER → 2023-09-20 11:27 | Outpatient (BNVA) | payer MEDICARE, SELFPAY | PROVIDERS: PCP Internal Medicine; Visit Provider Internal Medicine | DX: I26.99 Other pulmonary embolism without acute cor pulmonale (principal); Z79.01 Long term (current) use of anticoagulants; Z51.81 Encounter for therapeutic drug level monitoring | CPT/HCPCS: 85610; 99211 ==

== ENCOUNTER 2023-10-08 10:48 | Outpatient (AMB) | payer MEDICARE, SELFPAY ==
[2023-10-08 10:55] LABS: Prothrombin Time Whole Bld POC 42.4 sec (11.1-13.5); ~PT, ~INR - Anti Coag Clinic 3.5 (0.9-1.1)
--- NOTE | 2023-10-08 11:09 | MHC.OFFVISCO ---
Intake Intake Visit Reasons: Anticoagulation Allergies enviromental Allergy (Mild, Uncoded 10/08/23 10:49) RHINITIS SEASONAL ALLERGIES Allergy (Mild, Uncoded 10/08/23 10:49) RUNNY NOSE Medication List - Last Reconciled 10/08/23 by Josefa Hogan RN diaper,brief,-noe,disp As directed change 3 times a day Size Large digoxin 0.125 mg PO Q2D fexofenadine (Rosemary Allergy) 60 mg PO DAILY hydrochlorothiazide 25 mg PO DAILY 90 days ipratropium bromide 2 sprays intranasal DAILY lisinopril 40 mg PO DAILY metoprolol succinate ER 150 mg See Protocol PO DAILY simvastatin 20 mg PO BEDTIME 90 days spironolactone 25 mg See Protocol PO DAILY warfarin 5 mg See Protocol PO TUFR Nursing Note NO CP,SOB,DIET/MED CHANGES,FALLS OR SX OF BLEEDING. REDUCE DOSE TO 2.5MGM TODAY THEN RESUME PRESENT DOSING, AND FOLLOW-UP ON 10/19 WILL ADD MORE GREENS TO DIET GOOD UNDERSTANDINH OF DOSING INSTR. 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
== END 2023-10-08 11:15 | disposition home or self-care (01) ==
LOC: HO.ACS 10:48
PROVIDERS: PCP Internal Medicine; Visit Provider Internal Medicine
DX: Z79.01 Long term (current) use of anticoagulants (principal)

== ENCOUNTER → 2023-10-08 10:48 | Outpatient (BNVA) | payer MEDICARE, SELFPAY | PROVIDERS: PCP Internal Medicine; Visit Provider Internal Medicine | DX: I26.99 Other pulmonary embolism without acute cor pulmonale (principal); Z79.01 Long term (current) use of anticoagulants; Z51.81 Encounter for therapeutic drug level monitoring | CPT/HCPCS: 85610; 99211 ==

== ENCOUNTER 2023-10-22 11:34 | Outpatient (AMB) | payer MEDICARE, SELFPAY ==
[2023-10-22 11:47] LABS: Prothrombin Time Whole Bld POC 27.2 sec (11.1-13.5); ~PT, ~INR - Anti Coag Clinic 2.3 (0.9-1.1)
--- NOTE | 2023-10-22 11:58 | MHC.OFFVISCO ---
Intake Intake Visit Reasons: Anticoagulation Allergies enviromental Allergy (Mild, Uncoded 10/22/23 11:42) RHINITIS SEASONAL ALLERGIES Allergy (Mild, Uncoded 10/22/23 11:42) RUNNY NOSE Medication List - Last Reconciled 10/22/23 by Florence Rao RN diaper,brief,-noe,disp As directed change 3 times a day Size Large digoxin 0.125 mg PO Q2D fexofenadine (Rosemary Allergy) 60 mg PO DAILY hydrochlorothiazide 25 mg PO DAILY 90 days ipratropium bromide 2 sprays intranasal DAILY lisinopril 40 mg PO DAILY metoprolol succinate ER 150 mg See Protocol PO DAILY simvastatin 20 mg PO BEDTIME 90 days spironolactone 25 mg See Protocol PO DAILY warfarin 5 mg See Protocol PO TUFR Nursing Note Pt to ACS with use of cane INR: 2.3 in therapeutic range of 2-3 Medications and supplements reviewed No changes in health, diet, medications, or supplements, Denies any signs and symptoms of bleeding or bruising or clotting. Bleeding, bruising, clotting discussed Nutritional guidance given Dose: 5mg X 4 days and 7.5mg X 3 days F/U INR: 2 weeks Patient verbalizes understanding of instructions given Anti-Coag Initial Assessment Social Hx Patient Tobacco Use Status: Never used Tobacco alcohol intake: current Alcohol intake frequency: holidays/special occasions only Coding Level of Care Code Est Patient Level 1 Diagnoses Current use of anticoagulant therapy Z79.01 Results AMB INR Fingerstick AMB INR Fingerstick 2.3 Last Edit by Florence Rao RN on 10/22/23 11:57 interface delay Assessment & Plan Assessment & Plan (1) Current use of anticoagulant therapy: Code(s): 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
== END 2023-10-22 12:00 | disposition home or self-care (01) ==
LOC: HO.ACS 11:34
PROVIDERS: PCP Internal Medicine; Visit Provider Internal Medicine
DX: Z79.01 Long term (current) use of anticoagulants (principal)

== ENCOUNTER → 2023-10-22 11:34 | Outpatient (BNVA) | payer MEDICARE, SELFPAY | PROVIDERS: PCP Internal Medicine; Visit Provider Internal Medicine | DX: I26.99 Other pulmonary embolism without acute cor pulmonale (principal); Z79.01 Long term (current) use of anticoagulants; Z51.81 Encounter for therapeutic drug level monitoring | CPT/HCPCS: 85610; 99211 ==

== ENCOUNTER 2023-11-05 11:12 | Outpatient (AMB) | payer MEDICARE, SELFPAY ==
[2023-11-05 11:35] LABS: Prothrombin Time Whole Bld POC 29.6 sec (11.1-13.5); ~PT, ~INR - Anti Coag Clinic 2.5 (0.9-1.1)
--- NOTE | 2023-11-05 11:39 | MHC.OFFVISCO ---
Intake Intake Visit Reasons: Anticoagulation Allergies enviromental Allergy (Mild, Uncoded 11/05/23 11:29) RHINITIS SEASONAL ALLERGIES Allergy (Mild, Uncoded 11/05/23 11:29) RUNNY NOSE Medication List - Last Reconciled 11/05/23 by Florence Rao, RN diaper,brief,-noe,disp As directed change 3 times a day Size Large digoxin 0.125 mg PO Q2D fexofenadine (Rosemary Allergy) 60 mg PO DAILY hydrochlorothiazide 25 mg PO DAILY 90 days ipratropium bromide 2 sprays intranasal DAILY lisinopril 40 mg PO DAILY metoprolol succinate ER 150 mg See Protocol PO DAILY simvastatin 20 mg PO BEDTIME 90 days spironolactone 25 mg See Protocol PO DAILY warfarin 5 mg See Protocol PO TUFR Nursing Note INR: 2.5 in therapeutic range Medications and supplements reviewed No changes in health, diet, medications, or supplements, Denies any signs and symptoms of bleeding or bruising or clotting. 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
== END 2023-11-05 11:41 | disposition home or self-care (01) ==
LOC: HO.ACS 11:12
PROVIDERS: PCP Internal Medicine; Visit Provider Internal Medicine
DX: Z79.01 Long term (current) use of anticoagulants (principal)

== ENCOUNTER → 2023-11-05 11:12 | Outpatient (BNVA) | payer MEDICARE, SELFPAY | PROVIDERS: PCP Internal Medicine; Visit Provider Internal Medicine | DX: I26.99 Other pulmonary embolism without acute cor pulmonale (principal); Z79.01 Long term (current) use of anticoagulants; Z51.81 Encounter for therapeutic drug level monitoring | CPT/HCPCS: 85610; 99211 ==

== ENCOUNTER → 2023-11-19 15:23 | Outpatient (BNVA) | payer MEDICARE, SELFPAY | PROVIDERS: PCP Internal Medicine; Visit Provider Internal Medicine ==

== ENCOUNTER 2023-12-16 11:29 | Outpatient (AMB) | payer MEDICARE, SELFPAY ==
[2023-12-16 11:41] LABS: Prothrombin Time Whole Bld POC 35.4 sec (11.1-13.5); ~PT, ~INR - Anti Coag Clinic 2.9 (0.9-1.1)
--- NOTE | 2023-12-16 11:50 | MHC.OFFVISCO ---
Intake Intake Visit Reasons: Anticoagulation Allergies enviromental Allergy (Mild, Uncoded 12/16/23 11:35) RHINITIS SEASONAL ALLERGIES Allergy (Mild, Uncoded 12/16/23 11:35) RUNNY NOSE Medication List - Last Reconciled 12/16/23 by Gricel Green RN diaper,brief,infant-noe,disp As directed change 3 times a day Size Large digoxin 0.125 mg PO Q2D fexofenadine (Rosemary Allergy) 60 mg PO DAILY hydrochlorothiazide 25 mg PO DAILY 90 days ipratropium bromide 2 sprays intranasal DAILY lisinopril 40 mg PO DAILY metoprolol succinate ER 150 mg See Protocol PO DAILY simvastatin 20 mg PO BEDTIME 90 days spironolactone 25 mg See Protocol PO DAILY warfarin 5 mg See Protocol PO TUFR Nursing Note INR: 2.9 in therapeutic range Medications and supplements reviewed Recovering from URI from the end of October -states it really made her tiered and not feel quite right - but much better now Denies any signs and symptoms of bleeding or bruising or clotting. Bleeding, bruising, clotting discussed Nutritional guidance given - greens today and weekly Dose: usual dose 7.5mg mwf/ 5mg x 4 days F/U INR: 1 month Patient verbalizes understanding of instructions given Anti-Coag Initial Assessment Social Hx Patient Tobacco Use Status: Never used Tobacco alcohol intake: current Alcohol intake frequency: holidays/special occasions only Coding Level of Care Code Est Patient Level 1 Diagnoses Current use of anticoagulant therapy Z79.01 Results AMB INR Fingerstick AMB INR Fingerstick 2.9 Last Edit by Gricel Green RN on 12/16/23 11:44 manual meter Assessment & Plan Assessment & Plan (1) Current use of anticoagulant therapy: Code(s): Z79.01 - 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
== END 2023-12-16 11:52 | disposition home or self-care (01) ==
LOC: HO.ACS 11:29
PROVIDERS: PCP Internal Medicine; Visit Provider Internal Medicine
DX: Z79.01 Long term (current) use of anticoagulants (principal)

== ENCOUNTER → 2023-12-16 11:29 | Outpatient (BNVA) | payer MEDICARE, SELFPAY | PROVIDERS: PCP Internal Medicine; Visit Provider Internal Medicine | DX: I26.99 Other pulmonary embolism without acute cor pulmonale (principal); Z79.01 Long term (current) use of anticoagulants; Z51.81 Encounter for therapeutic drug level monitoring | CPT/HCPCS: 85610; 99211 ==

== ENCOUNTER 2023-12-21 11:03 | Outpatient (REF) | payer MEDICARE, SELFPAY ==
[2023-12-21 13:23] LABS: MANUAL DIFF FLAG NO
[2023-12-21 13:43] LABS: Basophils Percent Auto 0.7 % (0-2); Eosinophils Absolute Auto 0.3 X10*3/uL (0.0-0.4); Eosinophils Percent Auto 4.7 % (0-4); Hematocrit 45.3 % (37.0-47.0); Hemoglobin 14.6 g/dl (12.0-16.0); Imm Gran Abs Auto 0.02 X10*3/uL (0.00-0.03); Imm Gran Pct Auto 0.3 % (0.0-0.4); Lymphocytes Absolute Auto 1.2 X10*3/uL (1.2-4.9); Lymphocytes Percent Auto 20.8 % (20-40); Mean Corpuscular HGB Conc 32.2 g/dl (31.0-35.0); Mean Corpuscular Hemoglobin 31.4 pg (27.0-33.0); Mean Corpuscular Volume 97.4 fL (80.0-98.0); Monocytes Absolute Auto 0.6 X10*3/uL (0.1-1.2); Monocytes Percent Auto 9.9 % (2-11); Neutrophils Absolute Auto 3.8 x10*3/uL (2.0-8.3); Neutrophils Percent Auto 63.6 % (45-73); Platelet Count 201 X10*3/uL (160-400); Red Blood Count 4.65 X10*6/uL (4.20-5.50); Red Cell Distribution Width 13.3 % (11.0-16.0)
[2023-12-21 14:04] LABS: Alanine Aminotransferase 28 U/L (0-31); Albumin Level 4.1 g/dL (3.5-5.0); Alkaline Phosphatase 73 U/L (39-117); Anion Gap 13 (12-20); Aspartate Amino Transferase 31 U/L (5-31); Bilirubin Total 0.6 mg/dL (0.0-1.0); Blood Urea Nitrogen 25 mg/dL (9-16); Calcium 9.7 mg/dL (8.4-10.2); Carbon Dioxide 25 mmol/L (22-29); Chloride 107 mmol/L (96-108); Estimated Glomerular Filt Rate 40; Glucose Random 102 mg/dL (60-115); Potassium 5.3 mmol/L (3.3-5.1); Sodium 140 mmol/L (135-145); Total Protein 7.4 g/dL (6.5-8.0)
[2023-12-24 01:03] LABS: LDL Cholesterol Direct 65 mg/dL (<100)
== END 2023-12-21 11:04 | disposition home or self-care (01) ==
LOC: HO.HMGCLDS 11:03
PROVIDERS: PCP Internal Medicine; Visit Provider Internal Medicine
DX: Z00.01 Encounter for general adult medical examination with abnormal findings (principal); I48.92 Unspecified atrial flutter; K21.9 Gastro-esophageal reflux disease without esophagitis; E66.09 Other obesity due to excess calories; Z68.34 Body mass index [BMI] 34.0-34.9, adult; N28.9 Disorder of kidney and ureter, unspecified; J44.9 Chronic obstructive pulmonary disease, unspecified; E78.9 Disorder of lipoprotein metabolism, unspecified; I10 Essential (primary) hypertension; Z79.01 Long term (current) use of anticoagulants; Z86.711 Personal history of pulmonary embolism
CPT/HCPCS: 36415; 80053; 83721; 85025; 96127; 99397

== ENCOUNTER 2023-12-21 11:03 | Outpatient (AMB) | payer MEDICARE, SELFPAY ==
[2023-12-21 11:09] VITALS: BP 132/80; PULSE 70; O2SAT 95; BMI 33.0
--- NOTE | 2023-12-21 11:09 | A.OFFPC_ITS ---
Vital Signs 3 12/21/23 11:09 Height 5 ft 5 in Weight 198 lb 6 oz BMI 33.0 BP 132/80 Blood Pressure Location Rt brachial Position Sitting Pulse 70 Pulse Source Pulse Oximeter Pulse Oximetry (%) 95 Oxygen Delivery Method Room Air Intake Visit Reasons: Annual PE Over due Allergies enviromental Allergy (Mild, Uncoded 12/16/23 11:35) RHINITIS SEASONAL ALLERGIES Allergy (Mild, Uncoded 12/16/23 11:35) RUNNY NOSE Medication List - Last Reconciled 12/21/23 by Marvin Alexis MD diaper,brief,infant-noe,disp As directed change 3 times a day Size Large digoxin 0.125 mg PO Q2D fexofenadine (Rosemary Allergy) 60 mg PO DAILY hydrochlorothiazide 25 mg PO DAILY 90 days ipratropium bromide 2 sprays intranasal DAILY lisinopril 40 mg PO DAILY metoprolol succinate ER 150 mg See Protocol PO DAILY simvastatin 20 mg PO BEDTIME 90 days spironolactone 25 mg See Protocol PO DAILY warfarin 5 mg See Protocol PO TUFR Tobacco use date assessed: 12/21/23 Fall risk assessment: No Falls in past year Last assessed Fall Risk: 12/21/23 Dental Screening Dental Screen Date: 12/21/23 Did you have a dental visit in the last 12 months?: No Did you have a dental problem in the last 6 months where you did not have access to dental care?: No Was dental information given to patient?: No HPI Annual PE Over due 2 HPI0 Details Patient is 88-year-old female came in today for her physical exam appointment On examination patient was found to have a large right lower quadrant abdominal hernia which has been there for a while And it is causing no pain Patient does not want to address that at this time She is no longer having mammograms Left leg wound has healed She has chronic urine incontinence, we were able to get her diapers t.i.d. She is wearing pull-ups Patient was seeing Dr. Ennis for supraventricular arrhythmia Which is stable and she is no longer seeing him Due for labs Ipratropium nasal spray has helped patient her nasal dripping is better She is on a chronic warfarin treatment for recurrent DVTs.? Coumadin clinic is monitoring her INR.? She is taking simvastatin 20 mg for lipid control.? I would recommend diet control as well Allergies : taking Rosemary OTC Hypertension: Blood pressure is stable today, patient is on lisinopril 40 mg and metoprolol 100 mg along with hydrochlorothiazide 25 mg, COPD: Breathing is stable , however for the past 6 weeks patient have irritated cough and sometimes spit out phlegm She does not want to use any inhalers, patient says that she does not feel sick or any shortness a breath GERD: Stable Hypertensive nephropathy: GFR is in 50s BMI continued to be elevated patient is trying to lose weight. Follow-up March Medical History Stress bladder incontinence, female Environmental allergies COPD mixed type Warfarin anticoagulation History of deep venous thrombosis (DVT) of distal vein of left lower extremity Peripheral vascular disease Lipid disorder Osteoporosis Hypertension, essential Surgical History History of cataract surgery Hx of vascular surgery History of colonoscopy History of breast biopsy Family History Father HTN (hypertension) History of heart attack Mother HTN (hypertension) Breast cancer Maternal Grandfather No problems noted. Maternal Grandmother No problems noted. Paternal Grandfather No problems noted. Paternal Grandmother No problems noted. Sister No problems noted. Son No problems noted. Son No problems noted. Daughter No problems noted. Daughter No problems noted. Daughter No problems noted. Other Stress bladder incontinence, female Social History Household Members: Family and Children Housing: House Are you a primary auto care center manager to a significant other at home: No Do you presently have visiting nurse or other home services: No Alcohol intake: current Alcohol intake frequency: holidays/special occasions only Patient Tobacco Use Status: Never used Tobacco e-Cigarette/Vaping Use: Never Used Second Hand Smoke Exposure: No service: No Current occupational status: retired Cognitive needs: No Hearing needs: No Vision needs: Yes Questionnaire PHQ-9 Over the last 2 weeks, how often have you been bothered by any of the following problems? 1. Little interest or pleasure in doing things: not at all 2. Feeling down, depressed, or hopeless: not at all 3. Trouble falling or staying asleep, or sleeping too much: not at all 4. Feeling tired or having little energy: not at all 5. Poor appetite or overeating: not at all 6. Feeling bad about yourself - or that you are a failure or have let yourself or your family down: not at all 7. Trouble concentrating on things, such as reading the newspaper or watching television: not at all 8. Moving or speaking so slowly that other people could have noticed. Or the opposite - being so fidgety or restless that you have been moving around a lot more than usual: not at all 9. Thoughts that you would be better off or of hurting yourself in some way: not at all Total score: 0 Depression Screening Interpretation: Negative Depression Screening Done: Yes 43216 - PHQ-9 Billing: Yes Source: Developed by Drs. Kameron Gilliam, Marcelina Nash, Justin Dallas and colleagues, with an educational rambo from [employer]. Thrive Questionnaire Date Thrive assessed: 12/21/23 I am a: Patient What is your living situation today?: I have a steady place to live Within the past 12 months, did the food you bought not last and you didn't have the money to get more?: Never true Within the past 12 months, did you worry whether your food would run out before you got money to buy more?: Never true Do you have trouble paying for medicines?: No Do you have trouble getting transportation to medical appointments?: No Do you have trouble paying your heating and electricity bill?: Yes Do you have trouble taking care of your child, family member or friend?: No Do you have trouble with day-to-day activities such as bathing, preparing meals, shopping, managing finances, etc.?: No Are you currently unemployed and looking for a job?: No Are you interested in more education?: No Please select the resources that you would like help with: Utilities Currently or been in a relationship where the following occur: No concerns reported THRIVE Score: 1 AUDIT C Alcohol Use Questionnaire (AUDIT-C) 1. How often do you have a drink containing alcohol?: Monthly or less 2. How many drinks containing alcohol do you have on a typical day when you are drinking?: 1 or 2 3. How often do you have six or more drinks on one occasion?: Never Total Score: 1 Score Reviewed/Action Taken: Yes MAREN-7 AMB Questionnaire MAREN-7 Date MAREN - 7 assessed: 12/21/23 Feeling nervous, anxious, or on edge: 0 = Not at all Not being able to stop or control worryin = Not at all Worrying too much about different things: 1 = Several days Trouble relaxin = Not at all Being so restless that it is hard to sit still: 0 = Not at all Becoming easily annoyed or irritable: 0 = Not at all Feeling afraid as if something awful might happen: 0 = Not at all Total MAREN-7 score (0-4 normal; 5-9 mild; 10-14 moderate; 15-21 severe): 1 Source: Developed by Drs. Kameron Gilliam, Marcelina Nash, Justin Dallas and colleagues, with an educational rambo from [employer]. MAREN-7 Assessment Billing MAREN-7 Assessment Tool: MAREN-7 Assessment 73339 Review of Systems Const Denies chills, Denies fever(s) and Denies headache(s) ENT Denies headache(s), Denies nasal discharge, Denies nasal obstruction, Denies odynophagia and Denies sinus pain Card Denies chest pain at rest and Denies chest pain with activity Resp Denies hemoptysis GI Denies diarrhea, Denies odynophagia, Denies vomiting and Denies hematemesis Reports as per HPI Skin/Breast Reports as per HPI Neuro Denies Neuro-related abnormal movements, Denies Abnormal speech present and Denies headache(s) Psych Denies mood swings and Denies paranoia Endo Reports as per HPI Catrachito/Lymph Reports as per HPI Aller/Immun Reports as per HPI Physical exam (Primary Care) Vital Signs: Last Vital Signs Pulse 70 12/21/23 11:09 BP 132/80 12/21/23 11:09 Pulse Ox 95 12/21/23 11:09 Oxygen Delivery Method Room Air 12/21/23 11:09 BMI result Body Mass Index 33.0 Tobacco/Smoking Status: Tobacco use Status Tobacco use date assessed 12/21/23 12/21/23 11:12 Patient Tobacco Use Status Never used Tobacco 12/21/23 11:12 e-Cigarette/Vaping Use Never Used 12/21/23 11:12 PHQ-9: PHQ-9 Score PHQ-9: Total score 0 12/21/23 11:12 Depression Screening Interpretation: Negative Thrive Assessment: Date of Thrive Assessment Date Thrive assessed 12/21/23 12/21/23 11:12 Currently or been in a relationship where the following occur: No concerns reported Const General: cooperative, comfortable and no acute distress Orientation/consciousness: patient oriented x3 HENMT Head: Yes normocephalic and Yes atraumatic Eyes General: appearance normal, both eyes and all related structures Pupils: Equal, round and reactive pupils present EOM: EOMs intact bilaterally Neck Neck: Yes supple and No lymphadenopathy Thyroid: Thyroid normal Lymphatic: no lymphadenopathy noted Chest Breast/axilla palpation: normal palpation of the breasts Resp Effort & Inspection: normal respiratory effort and able to speak in complete sentences Auscultation: clear to auscultation bilaterally Cardio Heart sounds: S1 normal heart sound present and S2 normal heart sound present GI Palpation (GI): Soft to palpation and nontender Auscultation: normal bowel sounds Abdomen image: 2 1. Large abdominal wall hernia, no pain, reducible General: Yes no CVA tenderness Back/Spine/Pelvis Back: no CVA tenderness Skin General skin exam: elasticity normal and turgor normal Neuro General: patient oriented x3 Cranial nerves: Yes Equal, round and reactive pupils present Speech: No Abnormal speech present Coordination: Romberg test negative Extrem General: Yes normal exam except as noted and No edema Coding Level of Care Code Est Pt Level 4 (41007) Est Pt Prev Care >65y(50770) Diagnoses Encounter for general adult medical examination with abnormal findings Z00.01 Abdominal wall hernia K43.9 Hypertension, essential I10 Typical atrial flutter I48.3 Atrial flutter type: typical COPD mixed type J44.9 Lipid disorder E78.9 Nephropathy N28.9 Chronic GERD K21.9 Personal history of pulmonary embolism Z86.711 Current use of anticoagulant therapy Z79.01 Class 1 obesity due to excess calories without serious comorbidity with body mass index (BMI) of 34.0 to 34.9 in adult E66.09; Z68.34 Body mass index: BMI 34.0-34.9 Obesity classification: adult class 1 (BMI 30 - 34.9) Serious obesity comorbidity presence: without serious comorbidity Use of cane as ambulatory aid Z99.89 Additional Codes MAREN-7 Assessment Billing - MAREN-7 Assessment Tool: MAREN-7 Assessment 46147 ([id number]) Assessment & Plan Assessment & Plan (1) Encounter for general adult medical examination with abnormal findings: Code(s): Z00.01 - Encounter for general adult medical examination with abnormal findings Category: Medical (2) Abdominal wall hernia: Code(s): K43.9 - Ventral hernia without obstruction or gangrene Category: Medical (3) Hypertension, essential: Code(s): I10 - Essential (primary) hypertension Category: Medical (4) Atrial flutter: Code(s): I48.92 - Unspecified atrial flutter Category: Medical Qualifiers: Atrial flutter type: typical Qualified Code(s): I48.3 - Typical atrial flutter (5) COPD mixed type: Code(s): J44.9 - Chronic obstructive pulmonary disease, unspecified Category: Medical (6) Lipid disorder: Code(s): E78.9 - Disorder of lipoprotein metabolism, unspecified Category: Medical (7) Nephropathy: Code(s): N28.9 - Disorder of kidney and ureter, unspecified Category: Medical (8) Chronic GERD: Code(s): K21.9 - Gastro-esophageal reflux disease without esophagitis Category: Medical (9) Personal history of pulmonary embolism: Code(s): Z86.711 - Personal history of pulmonary embolism Category: Medical (10) Current use of anticoagulant therapy: Code(s): Z79.01 - predatory animal exterminator (current) use of anticoagulants Category: Medical (11) Obesity due to excess calories: Code(s): E66.09 - Other obesity due to excess calories Category: Medical Qualifiers: Body mass index: BMI 34.0-34.9 Obesity classification: adult class 1 (BMI 30 - 34.9) Serious obesity comorbidity presence: without serious comorbidity Qualified Code(s): E66.09 - Other obesity due to excess calories; Z68.34 - Body mass index [BMI] 34.0-34.9, adult (12) Use of cane as ambulatory aid: Code(s): Z99.89 - Dependence on other enabling machines and devices Category: Medical Plan Patient is 88-year-old female came in today for her physical exam appointment On examination patient was found to have a large right lower quadrant abdominal hernia which has been there for a while And it is causing no pain Patient does not want to address that at this time She is no longer having mammograms Left leg wound has healed She has chronic urine incontinence, we were able to get her diapers t.i.d. She is wearing pull-ups Patient was seeing Dr. Ennis for supraventricular arrhythmia Which is stable and she is no longer seeing him Due for labs Ipratropium nasal spray has helped patient her nasal dripping is better She is on a chronic warfarin treatment for recurrent DVTs.? Coumadin clinic is monitoring her INR.? She is taking simvastatin 20 mg for lipid control.? I would recommend diet control as well Allergies : taking Rosemary OTC Hypertension: Blood pressure is stable today, patient is on lisinopril 40 mg and metoprolol 100 mg along with hydrochlorothiazide 25 mg, COPD: Breathing is stable , however for the past 6 weeks patient have irritated cough and sometimes spit out phlegm She does not want to use any inhalers, patient says that she does not feel sick or any shortness a breath GERD: Stable Hypertensive nephropathy: GFR is in 50s BMI continued to be elevated patient is trying to lose weight. Follow-up March Orders: Orders 2 Comprehensive Met. Panel Today E66.09 - Other obesity due to excess calories, E78.9 - Disorder of lipoprotein metabolism, unspecified, I10 - Essential (primary) hypertension, I48.92 - Unspecified atrial flutter, J44.9 - Chronic obstructive pulmonary disease, unspecified, K21.9 - Gastro-esophageal reflux disease without esophagitis, N28.9 - Disorder of kidney and ureter, unspecified, Z00.01 - Encounter for general adult medical examination with abnormal findings, Z68.34 - Body mass index [BMI] 34.0-34.9, adult, Z79.01 - predatory animal exterminator (current) use of anticoagulants, Z86.711 - Personal history of pulmonary embolism LDL Cholesterol Direct Today E66.09 - Other obesity due to excess calories, E78.9 - Disorder of lipoprotein metabolism, unspecified, I10 - Essential (primary) hypertension, I48.92 - Unspecified atrial flutter, J44.9 - Chronic obstructive pulmonary disease, unspecified, K21.9 - Gastro-esophageal reflux disease without esophagitis, N28.9 - Disorder of kidney and ureter, unspecified, Z00.01 - Encounter for general adult medical examination with abnormal findings, Z68.34 - Body mass index [BMI] 34.0-34.9, adult, Z79.01 - snf (current) use of anticoagulants, Z86.711 - Personal history of pulmonary embolism Complete Blood Count Auto Diff Today E66.09 - Other obesity due to excess calories, E78.9 - Disorder of lipoprotein metabolism, unspecified, I10 - Essential (primary) hypertension, I48.92 - Unspecified atrial flutter, J44.9 - Chronic obstructive pulmonary disease, unspecified, K21.9 - Gastro-esophageal reflux disease without esophagitis, N28.9 - Disorder of kidney and ureter, unspecified, Z00.01 - Encounter for general adult medical examination with abnormal findings, Z68.34 - Body mass index [BMI] 34.0-34.9, adult, Z79.01 - predatory animal exterminator (current) use of anticoagulants, Z86.711 - Personal history of pulmonary embolism
== END 2023-12-21 11:35 | disposition home or self-care (01) ==
LOC: HO.HMCC 11:04
PROVIDERS: PCP Internal Medicine; Visit Provider Internal Medicine
DX: Z00.01 Encounter for general adult medical examination with abnormal findings (principal); K43.9 Ventral hernia without obstruction or gangrene; I48.3 Typical atrial flutter; J44.9 Chronic obstructive pulmonary disease, unspecified; I10 Essential (primary) hypertension; E78.9 Disorder of lipoprotein metabolism, unspecified; N28.9 Disorder of kidney and ureter, unspecified; K21.9 Gastro-esophageal reflux disease without esophagitis; Z86.711 Personal history of pulmonary embolism; Z79.01 Long term (current) use of anticoagulants; E66.09 Other obesity due to excess calories; Z68.34 Body mass index [BMI] 34.0-34.9, adult

== ENCOUNTER 2024-01-13 11:27 | Outpatient (AMB) | payer MEDICARE, SELFPAY ==
[2024-01-13 11:41] LABS: Prothrombin Time Whole Bld POC 38.7 sec (11.1-13.5); ~PT, ~INR - Anti Coag Clinic 3.2 (0.9-1.1)
--- NOTE | 2024-01-13 11:42 | MHC.OFFVISCO ---
Intake Intake Visit Reasons: Anticoagulation Allergies enviromental Allergy (Mild, Uncoded 01/13/24 11:30) RHINITIS SEASONAL ALLERGIES Allergy (Mild, Uncoded 01/13/24 11:30) RUNNY NOSE Medication List - Last Reconciled 01/13/24 by Gricel Green RN diaper,brief,infant-noe,disp As directed change 3 times a day Size Large digoxin 0.125 mg PO Q2D fexofenadine (Rosemary Allergy) 60 mg PO DAILY hydrochlorothiazide 25 mg PO DAILY 90 days ipratropium bromide 2 sprays intranasal DAILY lisinopril 40 mg PO DAILY metoprolol succinate ER 150 mg See Protocol PO DAILY simvastatin 20 mg PO BEDTIME 90 days spironolactone 25 mg See Protocol PO DAILY warfarin 5 mg See Protocol PO TUFR Nursing Note INR: 3.2 ALMOST therapeutic range Medications and supplements reviewed May have had less greens over the past few weeks and more of the Fall Foods, food list given with review and she will have greens today Denies any signs and symptoms of bleeding or bruising or clotting. Bleeding, bruising, clotting discussed Nutritional guidance given Dose: 7.5MG X 3 DAYS/ 5MG X 4 DAYS F/U INR: 1 MONTH Patient verbalizes understanding of instructions given Anti-Coag Initial Assessment Social Hx Patient Tobacco Use Status: Never used Tobacco alcohol intake: current Alcohol intake frequency: holidays/special occasions only Questionnaires HAS-BLED Does the patient had uncontrolled Hypertension?: No Does the patient have renal disease?: No Does the patient have liver disease?: No Does the patient have a history of stroke?: No Has the patient had major bleeding or predisposition to bleeding?: No Does the patient have labile INRs?: No Is the patient over 65 years of age?: Yes Is the patient on medications that gives them a predisposition to bleeding?: Yes Does the patient use alcohol?: No HAS-BLED Score: 2 CHADSVASC Age: 75 or over Gender: Female Does the patient have a history of CHF?: No Does the patient have a history of Hypertension?: Yes Does the patient have a history of Stroke/TIA/Thromboembolism?: Yes Does the patient have a history of Vascular Disease (prior PR, PAD or aortic plaque)?: Yes (PVD AND CHOLESTEROL, VARICOSE VEINS ) Does the patient have a history of Diabetes?: No CHADS VACS Score: 7 Rubi Prediction Score Rsk VTE Active Cancer: No Previous VTE, excluding superficial vein thrombosis: Yes Reduced mobility: No 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 ) With-in last month Trauma and/or Surgery: No Elderly 70 year or older: Yes Heart and/or Respiratory Failure: No Acute Myocardial infarction and/or Ischemic Stroke: No Acute Infection and/or Rheumatologic Disorder: No Obesity (BMI 30 or greater): Yes Ongoing Hormonal Treatment: No Score: 8 Rubi Score less than 4; Low Risk of VTE Rubi Score 4 or greater; High Risk of VTE Coding Level of Care Code Est Patient Level 1 Diagnoses Current use of anticoagulant therapy Z79.01 Results AMB INR Fingerstick AMB INR Fingerstick 3.2 Last Edit by Gricel Green RN on 01/13/24 11:38 manual entry Assessment & Plan Assessment & Plan (1) Current use of anticoagulant therapy: Code(s): Z79.01 - salvage determiner (current) use of anticoagulants Category: Medical
== END 2024-01-13 11:49 | disposition home or self-care (01) ==
LOC: HO.ACS 11:27
PROVIDERS: PCP Internal Medicine; Visit Provider Internal Medicine
DX: Z79.01 Long term (current) use of anticoagulants (principal)

== ENCOUNTER → 2024-01-13 11:27 | Outpatient (BNVA) | payer MEDICARE, SELFPAY | PROVIDERS: PCP Internal Medicine; Visit Provider Internal Medicine | DX: I26.99 Other pulmonary embolism without acute cor pulmonale (principal); Z79.01 Long term (current) use of anticoagulants; Z51.81 Encounter for therapeutic drug level monitoring | CPT/HCPCS: 85610; 99211 ==

== ENCOUNTER 2024-02-18 11:08 | Outpatient (AMB) | payer MEDICARE, SELFPAY ==
--- NOTE | 2024-02-18 11:41 | MHC.OFFVISCO ---
Intake Intake Visit Reasons: Anticoagulation Allergies enviromental Allergy (Mild, Uncoded 02/18/24 11:38) RHINITIS SEASONAL ALLERGIES Allergy (Mild, Uncoded 02/18/24 11:38) RUNNY NOSE Medication List - Last Reconciled 02/18/24 by Florence Moran RN diaper,brief,-noe,disp As directed change 3 times a day Size Large digoxin 0.125 mg PO Q2D fexofenadine (Rosemary Allergy) 60 mg PO DAILY hydrochlorothiazide 25 mg PO DAILY 90 days ipratropium bromide 2 sprays intranasal DAILY lisinopril 40 mg PO DAILY metoprolol succinate ER 150 mg See Protocol PO DAILY simvastatin 20 mg PO BEDTIME 90 days spironolactone 25 mg See Protocol PO DAILY warfarin 5 mg See Protocol PO TUFR Nursing Note Amb to ACS using cane, feeling well Medications and supplements reviewed No changes in health, diet, medications, or supplements, Denies any signs and symptoms of bleeding, bruising, or clotting. Bleeding, bruising, clotting discussed INR: 2.4 in therapeutic range Dose: continue usual dosing 7.5mg x 3 days and 5mg x 4 days Nutritional guidance given:balance greens and reds in diet F/U INR: 1 month Patient verbalizes understanding of instructions given Anti-Coag Initial Assessment Social Hx Patient Tobacco Use Status: Never used Tobacco alcohol intake: current Alcohol intake frequency: holidays/special occasions only Coding Level of Care Code Est Patient Level 1 Diagnoses Current use of anticoagulant therapy Z79.01 Time Spent (min) 15 Assessment & Plan Assessment & Plan (1) Current use of anticoagulant therapy: Code(s): Z79.01 - buttermaker (current) use of anticoagulants Category: Medical
[2024-02-18 11:47] LABS: Prothrombin Time Whole Bld POC 28.6 sec (11.1-13.5); ~PT, ~INR - Anti Coag Clinic 2.4 (0.9-1.1)
== END 2024-02-18 11:52 | disposition home or self-care (01) ==
LOC: HO.ACS 11:09
PROVIDERS: PCP Internal Medicine; Visit Provider Internal Medicine
DX: Z79.01 Long term (current) use of anticoagulants (principal)

== ENCOUNTER → 2024-02-18 11:08 | Outpatient (BNVA) | payer MEDICARE, SELFPAY | PROVIDERS: PCP Internal Medicine; Visit Provider Internal Medicine | DX: I26.99 Other pulmonary embolism without acute cor pulmonale (principal); Z79.01 Long term (current) use of anticoagulants; Z51.81 Encounter for therapeutic drug level monitoring | CPT/HCPCS: 85610; 99211 ==

== ENCOUNTER 2024-03-21 11:29 | Outpatient (AMB) | payer MEDICARE, SELFPAY ==
[2024-03-21 11:55] LABS: Prothrombin Time Whole Bld POC 25.6 sec (11.1-13.5); ~PT, ~INR - Anti Coag Clinic 2.1 (0.9-1.1)
--- NOTE | 2024-03-21 11:57 | MHC.OFFVISCO ---
Intake Intake Visit Reasons: Anticoagulation Allergies enviromental Allergy (Mild, Uncoded 03/21/24 11:49) RHINITIS SEASONAL ALLERGIES Allergy (Mild, Uncoded 03/21/24 11:49) RUNNY NOSE Medication List - Last Reconciled 03/21/24 by Florence Moran RN diaper,brief,-noe,disp As directed change 3 times a day Size Large digoxin 0.125 mg PO Q2D fexofenadine (Rosemary Allergy) 60 mg PO DAILY hydrochlorothiazide 25 mg PO DAILY 90 days ipratropium bromide 2 sprays intranasal DAILY lisinopril 40 mg PO DAILY metoprolol succinate ER 150 mg See Protocol PO DAILY simvastatin 20 mg PO BEDTIME 90 days spironolactone 25 mg See Protocol PO DAILY warfarin 5 mg See Protocol PO TUFR Nursing Note Amb to ACS using walker feeling well Medications and supplements reviewed No changes in health, diet, medications, or supplements, Denies any signs and symptoms of bleeding,bruising, or clotting. Bleeding, bruising, clotting discussed INR: 2.1 in therapeutic range Dose: continue usual dosing 7.5mg x 3 days and 5mg x 4 days Nutritional guidance given- eat balanced diet and be consistent, sts she might of had more broccoli this week than usual F/U INR: 4 weeks Patient verbalizes understanding of instructions given Anti-Coag Initial Assessment Social Hx Patient Tobacco Use Status: Never used Tobacco alcohol intake: current Alcohol intake frequency: holidays/special occasions only Coding Level of Care Code Est Patient Level 1 Diagnoses Current use of anticoagulant therapy Z79.01 Time Spent (min) 15 Results AMB INR Fingerstick AMB INR Fingerstick 2.1 Last Edit by Florence Moran RN on 03/21/24 11:56 interface delay Assessment & Plan Assessment & Plan (1) Current use of anticoagulant therapy: Code(s): Z79.01 - computer terminal operator (current) use of anticoagulants Category: Medical
== END 2024-03-21 12:03 | disposition home or self-care (01) ==
LOC: HO.ACS 11:29
PROVIDERS: PCP Internal Medicine; Visit Provider Internal Medicine
DX: Z79.01 Long term (current) use of anticoagulants (principal)

== ENCOUNTER → 2024-03-21 11:29 | Outpatient (BNVA) | payer MEDICARE, SELFPAY | PROVIDERS: PCP Internal Medicine; Visit Provider Internal Medicine | DX: I26.99 Other pulmonary embolism without acute cor pulmonale (principal); Z79.01 Long term (current) use of anticoagulants; Z51.81 Encounter for therapeutic drug level monitoring | CPT/HCPCS: 85610; 99211 ==

== ENCOUNTER 2024-03-28 11:10 | Outpatient (REF) | payer MEDICARE, SELFPAY ==
[2024-03-28 13:54] LABS: Alanine Aminotransferase 32 U/L (0-31); Albumin Level 3.9 g/dL (3.5-5.0); Alkaline Phosphatase 85 U/L (39-117); Anion Gap 17 (12-20); Aspartate Amino Transferase 32 U/L (5-31); Bilirubin Total 0.8 mg/dL (0.0-1.0); Blood Urea Nitrogen 25 mg/dL (9-16); Calcium 8.9 mg/dL (8.4-10.2); Carbon Dioxide 25 mmol/L (22-29); Chloride 105 mmol/L (96-108); Estimated Glomerular Filt Rate 50; Glucose Random 109 mg/dL (60-115); Potassium 4.6 mmol/L (3.3-5.1); Sodium 142 mmol/L (135-145); Total Protein 7.4 g/dL (6.5-8.0)
[2024-03-28 14:14] LABS: Digoxin < 0.2 ng/mL (0.8-2.0)
== END 2024-03-28 11:11 | disposition home or self-care (01) ==
LOC: HO.HMGCLDS 11:10
PROVIDERS: PCP Internal Medicine; Visit Provider Internal Medicine
DX: I49.1 Atrial premature depolarization (principal); E87.5 Hyperkalemia; I10 Essential (primary) hypertension; E78.9 Disorder of lipoprotein metabolism, unspecified; I73.9 Peripheral vascular disease, unspecified; J44.9 Chronic obstructive pulmonary disease, unspecified; N28.9 Disorder of kidney and ureter, unspecified; E66.09 Other obesity due to excess calories; Z68.34 Body mass index [BMI] 34.0-34.9, adult; K21.9 Gastro-esophageal reflux disease without esophagitis; I48.91 Unspecified atrial fibrillation; K40.90 Unilateral inguinal hernia, without obstruction or gangrene, not specified as recurrent; R32 Unspecified urinary incontinence; Z86.718 Personal history of other venous thrombosis and embolism; Z79.01 Long term (current) use of anticoagulants; Z79.899 Other long term (current) drug therapy; Z91.09 Other allergy status, other than to drugs and biological substances
CPT/HCPCS: 36415; 80053; 80162; 96127; 99212

== ENCOUNTER 2024-03-28 11:10 | Outpatient (AMB) | payer MEDICARE, SELFPAY ==
[2024-03-28 11:15] VITALS: BP 150/82; PULSE 136; O2SAT 92; BMI 30.7
--- NOTE | 2024-03-28 11:15 | MHC.PC.OV ---
Vital Signs 03/28/24 11:15 Height 5 ft 5 in Weight 184 lb 6 oz BMI 30.7 BP 150/82 H Blood Pressure Location Rt brachial Position Sitting Pulse 136 H Pulse Source Pulse Oximeter Pulse Oximetry (%) 92 Oxygen Delivery Method Room Air Intake Visit Reasons: 4 months f/up Allergies enviromental Allergy (Mild, Uncoded 03/21/24 11:49) RHINITIS SEASONAL ALLERGIES Allergy (Mild, Uncoded 03/21/24 11:49) RUNNY NOSE Medication List - Last Reconciled 03/28/24 by Marvin Alexis MD diaper,brief,infant-noe,disp As directed change 3 times a day Size Large digoxin 0.125 mg PO Q2D fexofenadine (Rosemary Allergy) 60 mg PO DAILY hydrochlorothiazide 25 mg PO DAILY 90 days ipratropium bromide 2 sprays intranasal DAILY lisinopril 40 mg PO DAILY metoprolol succinate ER 150 mg See Protocol PO DAILY simvastatin 20 mg PO BEDTIME 90 days spironolactone 25 mg See Protocol PO DAILY warfarin 5 mg See Protocol PO TUFR Tobacco use date assessed: 03/28/24 Fall risk assessment: No Falls in past year Last assessed Fall Risk: 03/28/24 Dental Screening Dental Screen Date: 03/28/24 Did you have a dental visit in the last 12 months?: Yes Did you have a dental problem in the last 6 months where you did not have access to dental care?: No Was dental information given to patient?: Patient has dentist HPI 4 months f/up HPI Details Patient is 88-year-old female came in today for regular follow-up appointment - Atrial Fibrillation: Managed with metoprolol and digoxin. Noted increased heart rate today, typically manifests irregular rhythms. - Essential Hypertension: Current medication includes lisinopril and hydrochlorothiazide. Blood pressure reading today was at 150 mmHg, higher than previous normal readings. - Inguinal Hernia: Occasionally causes discomfort with physical activity, for which supportive measures have been recommended. Labs done in November reviewed, I see that her potassium was slightly elevated We need to repeat labs again today. Left leg wound has healed She has chronic urine incontinence, we were able to get her diapers t.i.d. She is wearing pull-ups Patient was seeing Dr. Ennis for cardiac arrhythmia and has appointment coming up of this month Ipratropium nasal spray has helped patient her nasal dripping is better She is on a chronic warfarin treatment for recurrent DVTs.? Coumadin clinic is monitoring her INR.? She is taking simvastatin 20 mg for lipid control.? I would recommend diet control as well Allergies : taking Rosemary OTC COPD: Breathing is stable GERD: Stable Hypertensive nephropathy: GFR is in 50s BMI continued to be elevated patient is trying to lose weight. Patient instructions - Continue taking your prescribed medications, including simvastatin, metoprolol, lisinopril, hydrochlorothiazide, and digoxin. - Attend your upcoming cardiology appointment on the of this month for further cardiovascular evaluation. - Perform follow-up lab work today to reassess potassium levels and digoxin levels. - Utilize a supportive belt for the hernia during physical activities to alleviate discomfort. - Monitor your symptoms and contact us if you experience worsening conditions, particularly concerning your heart rate or blood pressure. Follow-up 4 months Review of Systems - Cardiovascular: Reports irregular heartbeat. - Respiratory: Denies any current cough. - Ear, Nose, Throat: Reports nasal congestion and sneezing. - Gastrointestinal: Denies abdominal pain but acknowledges hernia-related pressure and discomfort. - General: No fever no chills - Neurological: No headaches no dizziness - Ear nose throat: No sore throat no hearing difficulty no ear pain - Endocrine: No polyuria polydipsia no heat intolerance - Genitourinary: No dysuria , no blood in urine Physical Exam General: No acute distress HEENT: Congestion noted, sneezing reported Neck: Supple Respiratory system: Able to talk in full sentences, no audible wheeze cardiovascular: Atrial fibrillation present, heart rate 100, S1-S2 Gastrointestinal: No pain, no chest pains, hernia with discomfort upon exertion Extremities: No new findings OBSTETRICS SPECIALIST: Alert awake oriented x3 motor sensory intact Skin: Normal turgor [facility] Medical History Stress bladder incontinence, female Environmental allergies COPD mixed type Warfarin anticoagulation History of deep venous thrombosis (DVT) of distal vein of left lower extremity Peripheral vascular disease Lipid disorder Osteoporosis Hypertension, essential Surgical History History of cataract surgery Hx of vascular surgery History of colonoscopy History of breast biopsy Family History Father HTN (hypertension) History of heart attack Mother HTN (hypertension) Breast cancer Maternal Grandfather No problems noted. Maternal Grandmother No problems noted. Paternal Grandfather No problems noted. Paternal Grandmother No problems noted. Sister No problems noted. Son No problems noted. Son No problems noted. Daughter No problems noted. Daughter No problems noted. Daughter No problems noted. Other Stress bladder incontinence, female Social History Household Members: Family and Children Housing: House Are you a primary point of care specialist to a significant other at home: No Do you presently have visiting nurse or other home services: No Alcohol intake: current Alcohol intake frequency: holidays/special occasions only Patient Tobacco Use Status: Never used Tobacco e-Cigarette/Vaping Use: Never Used Second Hand Smoke Exposure: No service: No Current occupational status: retired Cognitive needs: No Hearing needs: No Vision needs: Yes Questionnaire PHQ-9 Over the last 2 weeks, how often have you been bothered by any of the following problems? 1. Little interest or pleasure in doing things: not at all 2. Feeling down, depressed, or hopeless: not at all 3. Trouble falling or staying asleep, or sleeping too much: not at all 4. Feeling tired or having little energy: not at all 5. Poor appetite or overeating: not at all 6. Feeling bad about yourself - or that you are a failure or have let yourself or your family down: not at all 7. Trouble concentrating on things, such as reading the newspaper or watching television: not at all 8. Moving or speaking so slowly that other people could have noticed. Or the opposite - being so fidgety or restless that you have been moving around a lot more than usual: not at all 9. Thoughts that you would be better off or of hurting yourself in some way: not at all Total score: 0 Depression Screening Interpretation: Negative Depression Screening Done: Yes 02222 - PHQ-9 Billing: Yes Source: Developed by Drs. Kameron Gilliam, Marcelina Nash, Justin Dallas and colleagues, with an educational rambo from [employer]. Thrive Questionnaire Date Thrive assessed: 03/28/24 I am a: Patient What is your living situation today?: I have a steady place to live Within the past 12 months, did the food you bought not last and you didn't have the money to get more?: Never true Within the past 12 months, did you worry whether your food would run out before you got money to buy more?: Never true Do you have trouble paying for medicines?: No Do you have trouble getting transportation to medical appointments?: No Do you have trouble paying your heating and electricity bill?: Yes Do you have trouble taking care of your child, family member or friend?: No Do you have trouble with day-to-day activities such as bathing, preparing meals, shopping, managing finances, etc.?: No Are you currently unemployed and looking for a job?: No Are you interested in more education?: No Please select the resources that you would like help with: Utilities Currently or been in a relationship where the following occur: No concerns reported THRIVE Score: 1 AUDIT C Alcohol Use Questionnaire (AUDIT-C) 1. How often do you have a drink containing alcohol?: Monthly or less 2. How many drinks containing alcohol do you have on a typical day when you are drinking?: 1 or 2 3. How often do you have six or more drinks on one occasion?: Never Total Score: 1 Score Reviewed/Action Taken: Yes MAREN-7 AMB Questionnaire MAREN-7 Date MAREN - 7 assessed: 03/28/24 Feeling nervous, anxious, or on edge: 0 = Not at all Not being able to stop or control worryin = Not at all Worrying too much about different things: 1 = Several days Trouble relaxin = Not at all Being so restless that it is hard to sit still: 0 = Not at all Becoming easily annoyed or irritable: 0 = Not at all Feeling afraid as if something awful might happen: 0 = Not at all Total MAREN-7 score (0-4 normal; 5-9 mild; 10-14 moderate; 15-21 severe): 1 Source: Developed by Drs. Kameron Gilliam, Marcelina Nash, Justin Dallas and colleagues, with an educational rambo from [employer]. MAREN-7 Assessment Billing MAREN-7 Assessment Tool: MAREN-7 Assessment 61232 Physical exam (Primary Care) Vital Signs: Last Vital Signs Pulse 136 H 03/28/24 11:15 BP 150/82 H 03/28/24 11:15 Pulse Ox 92 03/28/24 11:15 Oxygen Delivery Method Room Air 03/28/24 11:15 BMI result Body Mass Index 30.7 Tobacco/Smoking Status: Tobacco use Status Tobacco use date assessed 03/28/24 03/28/24 11:17 Patient Tobacco Use Status Never used Tobacco 03/28/24 11:17 e-Cigarette/Vaping Use Never Used 03/28/24 11:17 PHQ-9: PHQ-9 Score PHQ-9: Total score 0 03/28/24 11:24 Depression Screening Interpretation: Negative Thrive Assessment: Date of Thrive Assessment Date Thrive assessed 03/28/24 03/28/24 11:24 Currently or been in a relationship where the following occur: No concerns reported Coding Level of Care Code Est Pt Level 4 (14351) Complex EM visit Add On G2211 Diagnoses Atrial premature depolarization I49.1 Arrhythmia type: premature depolarization Premature depolarization type: atrial Serum potassium elevated E87.5 Hypertension, essential I10 Lipid disorder E78.9 Peripheral vascular disease I73.9 Warfarin anticoagulation Z79.01 COPD mixed type J44.9 Environmental allergies Z91.09 Nephropathy N28.9 Class 1 obesity due to excess calories without serious comorbidity with body mass index (BMI) of 34.0 to 34.9 in adult E66.09; Z68.34 Body mass index: BMI 34.0-34.9 Obesity classification: adult class 1 (BMI 30 - 34.9) Serious obesity comorbidity presence: without serious comorbidity Chronic GERD K21.9 Additional Codes MAREN-7 Assessment Billing - MAREN-7 Assessment Tool: MAREN-7 Assessment [id number] ([id number]) PHQ-9 - 66887 - PHQ-9 Billing: Yes ([id number]) Assessment & Plan Assessment & Plan (1) Cardiac arrhythmia: Code(s): I49.9 - Cardiac arrhythmia, unspecified Category: Medical Qualifiers: Arrhythmia type: premature depolarization Premature depolarization type: atrial Qualified Code(s): I49.1 - Atrial premature depolarization (2) Serum potassium elevated: Code(s): E87.5 - Hyperkalemia Category: Medical (3) Hypertension, essential: Code(s): I10 - Essential (primary) hypertension Category: Medical (4) Lipid disorder: Code(s): E78.9 - Disorder of lipoprotein metabolism, unspecified Category: Medical (5) Peripheral vascular disease: Code(s): I73.9 - Peripheral vascular disease, unspecified Category: Medical (6) Warfarin anticoagulation: Code(s): Z79.01 - nursing home (current) use of anticoagulants Category: Medical (7) COPD mixed type: Code(s): J44.9 - Chronic obstructive pulmonary disease, unspecified Category: Medical (8) Environmental allergies: Code(s): Z91.09 - Other allergy status, other than to drugs and biological substances Category: Medical (9) Nephropathy: Code(s): N28.9 - Disorder of kidney and ureter, unspecified Category: Medical (10) Obesity due to excess calories: Code(s): E66.09 - Other obesity due to excess calories Category: Medical Qualifiers: Body mass index: BMI 34.0-34.9 Obesity classification: adult class 1 (BMI 30 - 34.9) Serious obesity comorbidity presence: without serious comorbidity Qualified Code(s): E66.09 - Other obesity due to excess calories; Z68.34 - Body mass index [BMI] 34.0-34.9, adult (11) Chronic GERD: Code(s): K21.9 - Gastro-esophageal reflux disease without esophagitis Category: Medical Plan Patient is 88-year-old female came in today for regular follow-up appointment - Atrial Fibrillation: Managed with metoprolol and digoxin. Noted increased heart rate today, typically manifests irregular rhythms. - Essential Hypertension: Current medication includes lisinopril and hydrochlorothiazide. Blood pressure reading today was at 150 mmHg, higher than previous normal readings. - Inguinal Hernia: Occasionally causes discomfort with physical activity, for which supportive measures have been recommended. Labs done in November reviewed, I see that her potassium was slightly elevated We need to repeat labs again today. Left leg wound has healed She has chronic urine incontinence, we were able to get her diapers t.i.d. She is wearing pull-ups Patient was seeing Dr. Ennis for cardiac arrhythmia and has appointment coming up of this month Ipratropium nasal spray has helped patient her nasal dripping is better She is on a chronic warfarin treatment for recurrent DVTs.? Coumadin clinic is monitoring her INR.? She is taking simvastatin 20 mg for lipid control.? I would recommend diet control as well Allergies : taking Rosemary OTC COPD: Breathing is stable GERD: Stable Hypertensive nephropathy: GFR is in 50s BMI continued to be elevated patient is trying to lose weight. Patient instructions - Continue taking your prescribed medications, including simvastatin, metoprolol, lisinopril, hydrochlorothiazide, and digoxin. - Attend your upcoming cardiology appointment on the of this month for further cardiovascular evaluation. - Perform follow-up lab work today to reassess potassium levels and digoxin levels. - Utilize a supportive belt for the hernia during physical activities to alleviate discomfort. - Monitor your symptoms and contact us if you experience worsening conditions, particularly concerning your heart rate or blood pressure. Follow-up 4 months Orders: Orders Comprehensive Met. Panel Today E66.09 - Other obesity due to excess calories, E78.9 - Disorder of lipoprotein metabolism, unspecified, E87.5 - Hyperkalemia, I10 - Essential (primary) hypertension, I49.1 - Atrial premature depolarization, I73.9 - Peripheral vascular disease, unspecified, J44.9 - Chronic obstructive pulmonary disease, unspecified, K21.9 - Gastro-esophageal reflux disease without esophagitis, N28.9 - Disorder of kidney and ureter, unspecified, Z68.34 - Body mass index [BMI] 34.0-34.9, adult, Z79.01 - nursing home (current) use of anticoagulants, Z91.09 - Other allergy status, other than to drugs and biological substances Digoxin Today I49.1 - Atrial premature depolarization
== END 2024-03-28 11:54 | disposition home or self-care (01) ==
PROVIDERS: PCP Internal Medicine; Visit Provider Internal Medicine
DX: I73.9 Peripheral vascular disease, unspecified (principal); J44.9 Chronic obstructive pulmonary disease, unspecified; E66.09 Other obesity due to excess calories; Z68.34 Body mass index [BMI] 34.0-34.9, adult; I49.1 Atrial premature depolarization; E87.5 Hyperkalemia; I10 Essential (primary) hypertension; E78.9 Disorder of lipoprotein metabolism, unspecified; Z79.01 Long term (current) use of anticoagulants; Z91.09 Other allergy status, other than to drugs and biological substances; N28.9 Disorder of kidney and ureter, unspecified; K21.9 Gastro-esophageal reflux disease without esophagitis

== ENCOUNTER 2024-04-24 11:21 | Outpatient (AMB) | payer MEDICARE, SELFPAY ==
[2024-04-24 11:37] LABS: ~PT, ~INR - Anti Coag Clinic 1.8 (0.9-1.1)
--- NOTE | 2024-04-24 11:46 | MHC.OFFVISCO ---
Intake Intake Visit Reasons: Anticoagulation Allergies enviromental Allergy (Mild, Uncoded 04/24/24 11:32) RHINITIS SEASONAL ALLERGIES Allergy (Mild, Uncoded 04/24/24 11:32) RUNNY NOSE Medication List - Last Reconciled 04/24/24 by Gricel Green RN diaper,brief,infant-noe,disp As directed change 3 times a day Size Large digoxin 0.125 mg PO Q2D fexofenadine (Rosemary Allergy) 60 mg PO DAILY hydrochlorothiazide 25 mg PO DAILY 90 days ipratropium bromide 2 sprays intranasal DAILY lisinopril 40 mg PO DAILY metoprolol succinate ER 150 mg See Protocol PO DAILY simvastatin 20 mg PO BEDTIME 90 days spironolactone 25 mg See Protocol PO DAILY warfarin 7.5 mg (1.5 x 5 mg) PO DAILY Nursing Note INR 1.8 out of therapeutic range Medications and supplements reviewed Patient status: missed a dose few days ago Medications or supplements: states no changes Diet: good Denies any signs and symptoms of bleeding or clotting or unusual bruising Bleeding, bruising, clotting discussed Nutritional guidance given: no greens today or tomorrow Dose: booster dose x 1 day 7.5mg x 4days this week then 7.5mg x 3 days/ 5mg x 4 days F/U INR Date : 2 weeks ?? Patient verbalizing understanding of instructions given. 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
== END 2024-04-24 11:48 | disposition home or self-care (01) ==
LOC: HO.ACS 11:21
PROVIDERS: PCP Internal Medicine; Visit Provider Internal Medicine
DX: Z79.01 Long term (current) use of anticoagulants (principal)

== ENCOUNTER → 2024-04-24 11:21 | Outpatient (BNVA) | payer MEDICARE, SELFPAY | PROVIDERS: PCP Internal Medicine; Visit Provider Internal Medicine | DX: I26.99 Other pulmonary embolism without acute cor pulmonale (principal); Z79.01 Long term (current) use of anticoagulants; Z51.81 Encounter for therapeutic drug level monitoring | CPT/HCPCS: 85610; 99211 ==

== ENCOUNTER 2024-05-09 11:25 | Outpatient (AMB) | payer MEDICARE, SELFPAY ==
--- NOTE | 2024-05-09 11:31 | MHC.OFFVISCO ---
Intake Intake Visit Reasons: Anticoagulation Allergies enviromental Allergy (Mild, Uncoded 05/09/24 11:27) RHINITIS SEASONAL ALLERGIES Allergy (Mild, Uncoded 05/09/24 11:27) RUNNY NOSE Medication List - Last Reconciled 05/09/24 by Kait Mina RN diaper,brief,-noe,disp As directed change 3 times a day Size Large digoxin 0.125 mg PO Q2D fexofenadine (Rosemary Allergy) 60 mg PO DAILY hydrochlorothiazide 25 mg PO DAILY 90 days ipratropium bromide 2 sprays intranasal DAILY lisinopril 40 mg PO DAILY metoprolol succinate ER 150 mg See Protocol PO DAILY simvastatin 20 mg PO BEDTIME 90 days spironolactone 25 mg See Protocol PO DAILY warfarin 7.5 mg See Protocol PO DAILY Nursing Note INR: 2.4- in therapeutic range of 2-3 Medications and supplements reviewed- no changes No changes in health, diet, medications, or supplements, Denies any signs and symptoms of bleeding or bruising or clotting. Bleeding, bruising, clotting discussed Nutritional guidance given Dose: 7.5mg x 3, 5mg x 4 F/U INR: pt req 4 weeks Patient verbalizes understanding of instructions given Anti-Coag Initial Assessment Social Hx Patient Tobacco Use Status: Never used Tobacco alcohol intake: current Alcohol intake frequency: holidays/special occasions only Coding Level of Care Code Est Patient Level 1 Diagnoses Current use of anticoagulant therapy Z79.01 Results AMB INR Fingerstick AMB INR Fingerstick 2.4 Last Edit by Kait Mina RN on 05/09/24 11:32 interface delay Assessment & Plan Assessment & Plan (1) Current use of anticoagulant therapy: Code(s): 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
[2024-05-09 11:32] LABS: Prothrombin Time Whole Bld POC 28.4 sec (11.1-13.5); ~PT, ~INR - Anti Coag Clinic 2.4 (0.9-1.1)
== END 2024-05-09 11:48 | disposition home or self-care (01) ==
LOC: HO.ACS 11:26
PROVIDERS: PCP Internal Medicine; Visit Provider Internal Medicine
DX: Z79.01 Long term (current) use of anticoagulants (principal)

== ENCOUNTER → 2024-05-09 11:25 | Outpatient (BNVA) | payer MEDICARE, SELFPAY | PROVIDERS: PCP Internal Medicine; Visit Provider Internal Medicine | DX: I26.99 Other pulmonary embolism without acute cor pulmonale (principal); Z79.01 Long term (current) use of anticoagulants; Z51.81 Encounter for therapeutic drug level monitoring | CPT/HCPCS: 85610; 99211 ==

== ENCOUNTER 2024-06-13 11:31 | Outpatient (AMB) | payer MEDICARE, SELFPAY ==
[2024-06-13 11:39] LABS: Prothrombin Time Whole Bld POC 24.9 sec (11.1-13.5); ~PT, ~INR - Anti Coag Clinic 2.1 (0.9-1.1)
--- NOTE | 2024-06-13 11:40 | MHC.OFFVISCO ---
Intake Intake Visit Reasons: Anticoagulation Allergies enviromental Allergy (Mild, Uncoded 06/13/24 11:34) RHINITIS SEASONAL ALLERGIES Allergy (Mild, Uncoded 06/13/24 11:34) RUNNY NOSE Medication List - Last Reconciled 06/13/24 by Florence Rao RN diaper,brief,-noe,disp As directed change 3 times a day Size Large digoxin 0.125 mg PO Q2D fexofenadine (Rosemary Allergy) 60 mg PO DAILY hydrochlorothiazide 25 mg PO DAILY 90 days ipratropium bromide 2 sprays intranasal DAILY lisinopril 40 mg PO DAILY metoprolol succinate ER 150 mg See Protocol PO DAILY simvastatin 20 mg PO BEDTIME 90 days spironolactone 25 mg See Protocol PO DAILY warfarin 7.5 mg See Protocol PO DAILY Nursing Note INR: 2.1 in therapeutic range of 2-3 Medications and supplements reviewed No changes in health, diet, medications, or supplements, Denies any signs and symptoms of bleeding or bruising or clotting. Bleeding, bruising, clotting discussed Nutritional guidance given to avoid greens today only Dose: 5mg X 4 days and 7.5mg X 3 days (M/W/F) F/U INR: 4 weeks Patient verbalizes understanding of instructions given Anti-Coag Initial Assessment Social Hx Patient Tobacco Use Status: Never used Tobacco alcohol intake: current Alcohol intake frequency: holidays/special occasions only Coding Level of Care Code Est Patient Level 1 Diagnoses Current use of anticoagulant therapy Z79.01 Results AMB INR Fingerstick AMB INR Fingerstick 2.1 Last Edit by Florence Rao RN on 06/13/24 11:38 interface delay Assessment & Plan Assessment & Plan (1) Current use of anticoagulant therapy: Code(s): 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
== END 2024-06-13 13:30 | disposition home or self-care (01) ==
LOC: HO.ACS 11:31
PROVIDERS: PCP Internal Medicine; Visit Provider Internal Medicine Medical Oncology
DX: Z79.01 Long term (current) use of anticoagulants (principal)

== ENCOUNTER → 2024-06-13 11:31 | Outpatient (BNVA) | payer MEDICARE, SELFPAY | PROVIDERS: PCP Internal Medicine; Visit Provider Internal Medicine Medical Oncology | DX: I26.99 Other pulmonary embolism without acute cor pulmonale (principal); Z79.01 Long term (current) use of anticoagulants; Z51.81 Encounter for therapeutic drug level monitoring | CPT/HCPCS: 85610; 99211 ==

== ENCOUNTER 2024-07-21 11:04 | Outpatient (AMB) | payer MEDICARE, SELFPAY ==
[2024-07-21 11:25] LABS: Prothrombin Time Whole Bld POC 25.8 sec (11.1-13.5); ~PT, ~INR - Anti Coag Clinic 2.2 (0.9-1.1)
--- NOTE | 2024-07-21 11:28 | MHC.OFFVISCO ---
Intake Intake Visit Reasons: Anticoagulation Allergies enviromental Allergy (Mild, Uncoded 07/21/24 11:19) RHINITIS SEASONAL ALLERGIES Allergy (Mild, Uncoded 07/21/24 11:19) RUNNY NOSE Medication List - Last Reconciled 07/21/24 by Gricel Green RN diaper,brief,infant-noe,disp As directed change 3 times a day Size Large digoxin 0.125 mg PO Q2D fexofenadine (Rosemary Allergy) 60 mg PO DAILY hydrochlorothiazide 25 mg PO DAILY 90 days ipratropium bromide 2 sprays intranasal DAILY lisinopril 40 mg PO DAILY metoprolol succinate ER 150 mg See Protocol PO DAILY simvastatin 20 mg PO BEDTIME 90 days spironolactone 25 mg See Protocol PO DAILY warfarin 7.5 mg See Protocol PO DAILY Nursing Note INR: 2.2 in therapeutic range Medications and supplements reviewed No changes in health, diet, medications, or supplements, Denies any signs and symptoms of bleeding or bruising or clotting. 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
== END 2024-07-21 11:30 | disposition home or self-care (01) ==
LOC: HO.ACS 11:04
PROVIDERS: PCP Internal Medicine; Visit Provider Internal Medicine Medical Oncology
DX: Z79.01 Long term (current) use of anticoagulants (principal)

== ENCOUNTER → 2024-07-21 11:04 | Outpatient (BNVA) | payer MEDICARE, SELFPAY | PROVIDERS: PCP Internal Medicine; Visit Provider Internal Medicine Medical Oncology | DX: I26.99 Other pulmonary embolism without acute cor pulmonale (principal); Z79.01 Long term (current) use of anticoagulants; Z51.81 Encounter for therapeutic drug level monitoring | CPT/HCPCS: 85610; 99211 ==

== ENCOUNTER 2024-07-25 11:13 | Outpatient (AMB) | payer MEDICARE, SELFPAY ==
[2024-07-25 11:15] VITALS: BP 138/88; PULSE 99; TEMP 36.6; O2SAT 97; BMI 32.5
--- NOTE | 2024-07-25 11:15 | MHC.PC.OV ---
Vital Signs 07/25/24 11:15 Height 5 ft 5 in Weight 195 lb 6 oz BMI 32.5 BP 138/88 Blood Pressure Location Rt brachial Position Sitting Pulse 99 Pulse Source Pulse Oximeter Temp 97.8 F Temp Source Oral Pulse Oximetry (%) 97 Oxygen Delivery Method Room Air Intake Visit Reasons: 4 months f/up Allergies enviromental Allergy (Mild, Uncoded 07/25/24 11:15) RHINITIS SEASONAL ALLERGIES Allergy (Mild, Uncoded 07/25/24 11:15) RUNNY NOSE Medication List - Last Reconciled 07/25/24 by Marvin Alexis MD diaper,brief,infant-noe,disp As directed change 3 times a day Size Large digoxin 0.125 mg PO Q2D fexofenadine (Rosemary Allergy) 60 mg PO DAILY hydrochlorothiazide 25 mg PO DAILY 90 days ipratropium bromide 2 sprays intranasal DAILY lisinopril 40 mg PO DAILY metoprolol succinate ER 150 mg See Protocol PO DAILY simvastatin 20 mg PO BEDTIME 90 days spironolactone 25 mg See Protocol PO DAILY warfarin 7.5 mg See Protocol PO DAILY Tobacco use date assessed: 07/25/24 Fall risk assessment: No Falls in past year Last assessed Fall Risk: 07/25/24 Dental Screening Dental Screen Date: 07/25/24 Did you have a dental visit in the last 12 months?: Yes Did you have a dental problem in the last 6 months where you did not have access to dental care?: No Was dental information given to patient?: Patient has dentist HPI 4 months f/up HPI Details History - The patient is an 89-year-old female presenting with abdominal symptoms related to a hernia. Right abdominal wall - The patient reports occasional episodes of bloating and a sensation of gas being trapped, which occur sporadically. - These abdominal symptoms are not described as severe and are currently tolerable by the patient. - The patient has not sought surgical consultation or treatment regarding the hernia but expresses some concern over the symptoms. - Previous laboratory tests in March indicated stable kidney function and the absence of anemia. - Blood pressure during this visit was 138 mm Hg systolic. Medical History: - Chronic Kidney Disease - Essential Hypertension - Arrhythmia - Hyperlipidemia - right abdominal wall hernia - obesity Medications: - Digoxin for arrhythmia - Rosemary for allergies - Hydrochlorothiazide for hypertension - Lisinopril for hypertension - Metoprolol for hypertension and arrhythmia - Simvastatin for hyperlipidemia - Spironolactone for hypertension - Warfarin for anticoagulation Diagnostic Results: - Labs (March): - Normal electrolyte levels - Stable kidney function, with noted fluctuations previously - Complete Blood Count (CBC) normal, with no signs of anemia Problem List - Abdominal Hernia - Essential Hypertension - Chronic Kidney Disease (CKD) - Arrhythmia - Hyperlipidemia - obesity - allergies - cardiac arrhythmia - chronic warfarin use Patient Instructions - Monitor abdominal symptoms and report increased frequency or severity. - Complete blood tests at the end of the month, ideally fasting and on the same day as the Warfarin Clinic visit. - Continue current medication regimen. - Consider a supportive band for managing hernia-related discomfort. Review of Systems - General: No fever no chills - Neurological: No headaches no dizziness - Ear nose throat: No sore throat no hearing difficulty no ear pain - Cardiovascular: No syncope, no chest pain, no palpitations - Gastrointestinal: No nausea vomiting or diarrhea - Endocrine: No polyuria polydipsia no heat intolerance - Genitourinary: No dysuria , no blood in urine Physical Exam General: No acute distress HEENT: No acute findings Neck: Supple Respiratory system: Able to talk in full sentences, no audible wheeze Cardiovascular: S1-S2 irregular Gastrointestinal: No pain, occasional bloating and gas reported Extremities: No new findings 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 Maternal Grandmother No problems noted. Paternal Grandfather No problems noted. Paternal Grandmother No problems noted. Sister No problems noted. Son No problems noted. Son No problems noted. Daughter No problems noted. Daughter No problems noted. Daughter No problems noted. Other Stress bladder incontinence, female Social History Household Members: Family and Children Housing: House Are you a primary family day carer to a significant other at home: No Do you presently have visiting nurse or other home services: No Alcohol intake: current Alcohol intake frequency: holidays/special occasions only Patient Tobacco Use Status: Never used Tobacco e-Cigarette/Vaping Use: Never Used Second Hand Smoke Exposure: No service: No Current occupational status: retired Cognitive needs: No Hearing needs: No Vision needs: Yes Questionnaire PHQ-9 Over the last 2 weeks, how often have you been bothered by any of the following problems? 1. Little interest or pleasure in doing things: not at all 2. Feeling down, depressed, or hopeless: not at all 3. Trouble falling or staying asleep, or sleeping too much: not at all 4. Feeling tired or having little energy: not at all 5. Poor appetite or overeating: not at all 6. Feeling bad about yourself - or that you are a failure or have let yourself or your family down: not at all 7. Trouble concentrating on things, such as reading the newspaper or watching television: not at all 8. Moving or speaking so slowly that other people could have noticed. Or the opposite - being so fidgety or restless that you have been moving around a lot more than usual: not at all 9. Thoughts that you would be better off or of hurting yourself in some way: not at all Total score: 0 Depression Screening Interpretation: Negative Depression Screening Done: Yes 44781 - PHQ-9 Billing: Yes Source: Developed by Drs. Kameron Gilliam, Marcelina Nash, Justin Dallas and colleagues, with an educational rambo from [employer]. Thrive Questionnaire Date Thrive assessed: 07/25/24 I am a: Patient What is your living situation today?: I have a steady place to live Within the past 12 months, did the food you bought not last and you didn't have the money to get more?: Never true Within the past 12 months, did you worry whether your food would run out before you got money to buy more?: Never true Do you have trouble paying for medicines?: No Do you have trouble getting transportation to medical appointments?: No Do you have trouble paying your heating and electricity bill?: Yes Do you have trouble taking care of your child, family member or friend?: No Do you have trouble with day-to-day activities such as bathing, preparing meals, shopping, managing finances, etc.?: No Are you currently unemployed and looking for a job?: No Are you interested in more education?: No Please select the resources that you would like help with: Utilities Currently or been in a relationship where the following occur: No concerns reported THRIVE Score: 1 AUDIT C Alcohol Use Questionnaire (AUDIT-C) 1. How often do you have a drink containing alcohol?: Monthly or less 2. How many drinks containing alcohol do you have on a typical day when you are drinking?: 1 or 2 3. How often do you have six or more drinks on one occasion?: Never Total Score: 1 Score Reviewed/Action Taken: Yes MAREN-7 AMB Questionnaire MAREN-7 Date MAREN - 7 assessed: 07/25/24 Feeling nervous, anxious, or on edge: 0 = Not at all Not being able to stop or control worryin = Not at all Worrying too much about different things: 1 = Several days Trouble relaxin = Not at all Being so restless that it is hard to sit still: 0 = Not at all Becoming easily annoyed or irritable: 0 = Not at all Feeling afraid as if something awful might happen: 0 = Not at all Total MAREN-7 score (0-4 normal; 5-9 mild; 10-14 moderate; 15-21 severe): 1 Source: Developed by Drs. Kameron Gilliam, Marcelina Nash, Justin Dallas and colleagues, with an educational rambo from [employer]. MAREN-7 Assessment Billing MAREN-7 Assessment Tool: MAREN-7 Assessment 89133 Physical exam (Primary Care) Vital Signs: Last Vital Signs Temp 97.8 F 07/25/24 11:15 Pulse 99 07/25/24 11:15 BP 138/88 07/25/24 11:15 Pulse Ox 97 07/25/24 11:15 Oxygen Delivery Method Room Air 07/25/24 11:15 BMI result Body Mass Index 32.5 Tobacco/Smoking Status: Tobacco use Status Tobacco use date assessed 07/25/24 07/25/24 11:20 Patient Tobacco Use Status Never used Tobacco 07/25/24 11:20 e-Cigarette/Vaping Use Never Used 07/25/24 11:20 PHQ-9: PHQ-9 Score PHQ-9: Total score 0 07/25/24 11:38 Depression Screening Interpretation: Negative Thrive Assessment: Date of Thrive Assessment Date Thrive assessed 07/25/24 07/25/24 11:20 Currently or been in a relationship where the following occur: No concerns reported Coding Level of Care Code Est Pt Level 5 (61910) Complex EM visit Add On G2211 Diagnoses Hypertension, essential I10 Abdominal wall hernia K43.9 Supraventricular tachycardia I47.10 Nephropathy N28.9 Lipid disorder E78.9 Environmental allergies Z91.09 COPD mixed type J44.9 Warfarin anticoagulation Z79.01 Use of cane as ambulatory aid Z99.89 Additional Codes MAREN-7 Assessment Billing - MAREN-7 Assessment Tool: MAREN-7 Assessment 25338 ([id number]) PHQ-9 - 55807 - PHQ-9 Billing: Yes ([id number]) Time Spent (min) 41 Assessment & Plan Assessment & Plan (1) Hypertension, essential: Code(s): I10 - Essential (primary) hypertension Category: Medical (2) Abdominal wall hernia: Code(s): K43.9 - Ventral hernia without obstruction or gangrene Category: Medical (3) Supraventricular tachycardia: Code(s): I47.10 - Supraventricular tachycardia, unspecified Category: Medical (4) Nephropathy: Code(s): N28.9 - Disorder of kidney and ureter, unspecified Category: Medical (5) Lipid disorder: Code(s): E78.9 - Disorder of lipoprotein metabolism, unspecified Category: Medical (6) Environmental allergies: Code(s): Z91.09 - Other allergy status, other than to drugs and biological substances Category: Medical (7) COPD mixed type: Code(s): J44.9 - Chronic obstructive pulmonary disease, unspecified Category: Medical (8) Warfarin anticoagulation: Code(s): Z79.01 - [facility] (current) use of anticoagulants Category: Medical (9) Use of cane as ambulatory aid: Code(s): Z99.89 - Dependence on other enabling machines and devices Category: Medical Plan History - The patient is an 89-year-old female presenting with abdominal symptoms related to a hernia. Right abdominal wall - The patient reports occasional episodes of bloating and a sensation of gas being trapped, which occur sporadically. - These abdominal symptoms are not described as severe and are currently tolerable by the patient. - The patient has not sought surgical consultation or treatment regarding the hernia but expresses some concern over the symptoms. - Previous laboratory tests in March indicated stable kidney function and the absence of anemia. - Blood pressure during this visit was 138 mm Hg systolic. Medical History: - Chronic Kidney Disease - Essential Hypertension - Arrhythmia - Hyperlipidemia - right abdominal wall hernia - obesity Medications: - Digoxin for arrhythmia - Rosemary for allergies - Hydrochlorothiazide for hypertension - Lisinopril for hypertension - Metoprolol for hypertension and arrhythmia - Simvastatin for hyperlipidemia - Spironolactone for hypertension - Warfarin for anticoagulation Diagnostic Results: - Labs (March): - Normal electrolyte levels - Stable kidney function, with noted fluctuations previously - Complete Blood Count (CBC) normal, with no signs of anemia Problem List - Abdominal Hernia - Essential Hypertension - Chronic Kidney Disease (CKD) - Arrhythmia - Hyperlipidemia - obesity - allergies - cardiac arrhythmia - chronic warfarin use - nephropathy Patient Instructions - Monitor abdominal symptoms and report increased frequency or severity. - Complete blood tests at the end of the month, ideally fasting and on the same day as the Warfarin Clinic visit. - Continue current medication regimen. - Consider a supportive band for managing hernia-related discomfort. 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, Z91.09 - Other allergy status, other than to drugs and biological substances, Z99.89 - Dependence on other enabling machines and devices Lipid Panel Today E78.9 - Disorder of lipoprotein metabolism, unspecified, I10 - Essential (primary) hypertension, I47.10 - Supraventricular tachycardia, unspecified, I49.1 - Atrial premature depolarization, J44.9 - Chronic obstructive pulmonary disease, unspecified, K43.9 - Ventral hernia without obstruction or gangrene, N28.9 - Disorder of kidney and ureter, unspecified, 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, Z91.09 - Other allergy status, other than to drugs and biological substances, Z99.89 - Dependence on other enabling machines and devices TSH reflex Free T4 Today E78.9 - Disorder of lipoprotein metabolism, unspecified, I10 - Essential (primary) hypertension, I47.10 - Supraventricular tachycardia, unspecified, I49.1 - Atrial premature depolarization, J44.9 - Chronic obstructive pulmonary disease, unspecified, K43.9 - Ventral hernia without obstruction or gangrene, N28.9 - Disorder of kidney and ureter, unspecified, 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
== END 2024-07-25 12:02 | disposition home or self-care (01) ==
LOC: HO.HMCC 11:14
PROVIDERS: PCP Internal Medicine; Visit Provider Internal Medicine
DX: I10 Essential (primary) hypertension (principal); J44.9 Chronic obstructive pulmonary disease, unspecified; K43.9 Ventral hernia without obstruction or gangrene; I47.10 Supraventricular tachycardia, unspecified; N28.9 Disorder of kidney and ureter, unspecified; E78.9 Disorder of lipoprotein metabolism, unspecified; Z91.09 Other allergy status, other than to drugs and biological substances; Z79.01 Long term (current) use of anticoagulants; Z99.89 Dependence on other enabling machines and devices

== ENCOUNTER → 2024-07-25 11:13 | Outpatient (BNVA) | payer MEDICARE, SELFPAY | PROVIDERS: PCP Internal Medicine; Visit Provider Internal Medicine | DX: I10 Essential (primary) hypertension (principal); K43.9 Ventral hernia without obstruction or gangrene; I47.10 Supraventricular tachycardia, unspecified; N28.9 Disorder of kidney and ureter, unspecified; E78.9 Disorder of lipoprotein metabolism, unspecified; J44.9 Chronic obstructive pulmonary disease, unspecified; Z91.09 Other allergy status, other than to drugs and biological substances; Z79.01 Long term (current) use of anticoagulants; Z99.89 Dependence on other enabling machines and devices | CPT/HCPCS: 96127; 99212 ==

== ENCOUNTER 2024-08-22 11:08 | Outpatient (REF) | payer MEDICARE, SELFPAY ==
[2024-08-22 11:47] LABS: MANUAL DIFF FLAG NO
[2024-08-22 12:02] LABS: Hematocrit 43.5 % (37.0-47.0); Hemoglobin 14.2 g/dl (12.0-16.0); Imm Gran Abs Auto 0.02 X10*3/uL (0.00-0.03); Imm Gran Pct Auto 0.4 % (0.0-0.4); Lymphocytes Absolute Auto 1.5 X10*3/uL (1.2-4.9); Mean Corpuscular HGB Conc 32.6 g/dl (31.0-35.0); Mean Corpuscular Hemoglobin 30.9 pg (27.0-33.0); Mean Corpuscular Volume 94.8 fL (80.0-98.0); NRBC Abs Auto 0.000 X10*3/uL (0.0-0.012); NRBC Pct Auto 0.0 /100WBC (0.0-0.2); Platelet Count 200 X10*3/uL (160-400); Red Blood Count 4.59 X10*6/uL (4.20-5.50); White Blood Count 5.6 X10*3/uL (4.8-10.8)
[2024-08-22 12:37] LABS: Alanine Aminotransferase 23 U/L (0-31); Albumin Level 4.2 g/dL (3.5-5.0); Alkaline Phosphatase 78 U/L (39-117); Anion Gap 13 (12-20); Aspartate Amino Transferase 28 U/L (5-31); Blood Urea Nitrogen 36 mg/dL (9-16); Calcium 9.8 mg/dL (8.4-10.2); Carbon Dioxide 29 mmol/L (22-29); Chloride 106 mmol/L (96-108); Cholesterol 159 mg/dL (<200); Estimated Glomerular Filt Rate 38; HDL Cholesterol 54 mg/dL (>40); Potassium 5.6 mmol/L (3.3-5.1); Sodium 142 mmol/L (135-145); Total Protein 7.2 g/dL (6.5-8.0); Triglycerides 80 mg/dL (<150)
== END 2024-08-22 11:09 | disposition home or self-care (01) ==
LOC: HO.LAB 11:08
PROVIDERS: Absent Provider Internal Medicine; PCP Internal Medicine; Visit Provider Internal Medicine Medical Oncology
DX: N28.9 Disorder of kidney and ureter, unspecified (principal); I47.10 Supraventricular tachycardia, unspecified; J44.9 Chronic obstructive pulmonary disease, unspecified; E78.9 Disorder of lipoprotein metabolism, unspecified; I10 Essential (primary) hypertension; I49.1 Atrial premature depolarization; K43.9 Ventral hernia without obstruction or gangrene; Z79.01 Long term (current) use of anticoagulants; Z99.89 Dependence on other enabling machines and devices; Z91.09 Other allergy status, other than to drugs and biological substances
CPT/HCPCS: 36415; 80053; 80061; 84443; 85025; 85610; 99211

== ENCOUNTER 2024-08-22 11:08 | Outpatient (AMB) | payer MEDICARE, SELFPAY ==
--- NOTE | 2024-08-22 11:18 | MHC.OFFVISCO ---
Intake Intake Visit Reasons: Anticoagulation Allergies enviromental Allergy (Mild, Uncoded 08/22/24 11:14) RHINITIS SEASONAL ALLERGIES Allergy (Mild, Uncoded 08/22/24 11:14) RUNNY NOSE Medication List - Last Reconciled 08/22/24 by Kait Mina RN diaper,brief,infant-noe,disp As directed change 3 times a day Size Large digoxin 0.125 mg PO Q2D fexofenadine (Rosemary Allergy) 60 mg PO DAILY hydrochlorothiazide 25 mg PO DAILY 90 days ipratropium bromide 2 sprays intranasal DAILY lisinopril 40 mg PO DAILY metoprolol succinate ER 150 mg (3 x 50 mg) PO DAILY simvastatin 20 mg PO BEDTIME 90 days spironolactone 25 mg See Protocol PO DAILY warfarin 7.5 mg See Protocol PO DAILY Nursing Note INR: 2.1- in therapeutic range of 2-3 Medications and supplements reviewed- no changes No changes in health, diet, medications, or supplements, Denies any signs and symptoms of bleeding or bruising or clotting. 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
[2024-08-22 11:19] LABS: Prothrombin Time Whole Bld POC 25.1 sec (11.1-13.5); ~PT, ~INR - Anti Coag Clinic 2.1 (0.9-1.1)
--- OUTSIDE RECORDS SUMMARY | 2024-08-22 12:23 | XMS_ITS | Patient Health Record ---
Author Organization [facility] Address [address] [place] [id number] Care Team Providers Care Family Day Care Worker Name Role Phone Reuben SOLORZANO, Asma Primary Care Provider Kameron Greenberg Unavailable [phone] PIPPA MURRIETA Unavailable Unavailable Reason For Referral No Information Medications Medication SIG (Take, Route, Frequency, Duration) Notes Start Date End Date Status coumadin 5 mg 1-2 tablets Oral onc e a day Active Omeprazole 20 MG 1 capsule Orally twi ce a day Active Fluticasone Propionate (Inhal) 50 MCG/BLIST 1 puff Inhalation Twice a day Active Lisinopril 40 MG 1 tablet Orally Once a day Active Simvastatin 20 MG 1 tablet in the even ing Orally Once a day Active Metoprolol Succinate ER 100 MG 1 tablet Orally Once a day Active Iron 325 (65 Fe) MG 1 tablet Orally Once a day Active Furosemide 20 MG 1 tablet Orally Once a day Active Problems Problem Type SNOMED Code ICD Code Onset Dates Problem Status W/U Status Risk Notes Problem [id number] Iron deficiency anemia, unspecified iron deficiency anemia type (D50.9) Active confirmed Plan Of Treatment No Information Insurance Providers Payer Name Payer Address Payer Phone Subscriber Number Group Number Insured Name Patient Relationship to Insured Coverage Start Date Coverage End Date [facility] [address] [place] Dean [phone] [id number] DOUGIE LUCIO Self - patient is the insured Medical (General) History Medical History History ICD Code Colonoscopy 08/12/[address] Klein --hyperplastic polyp osteopenia HTN Denies MT,DM,CVA,renal disease COPD Hospitalized in 08/2013 with anemia with a Hgb of 5.4--needed 3 units of blood--was on ASA--colonoscopy was normal--the EGD showed small gastric ulcers and gastritis-bx neg for H. pylori--Hgb 14.2 and Ferritin 46 in 12/2013 Hyperlipidemia Pulmonary embolus in 2010--was on Coumad in DVT in left leg--started Coumadin for th at approx. 2014 hx of sinus allergies Surgical History Surgery Date(Month/Year) Breast biopsy-benign
== END 2024-08-22 11:23 | disposition home or self-care (01) ==
LOC: HO.ACS 11:08
PROVIDERS: PCP Internal Medicine; Visit Provider Internal Medicine Medical Oncology
DX: Z79.01 Long term (current) use of anticoagulants (principal)

== ENCOUNTER 2024-08-23 13:08 | Outpatient (REF) | payer MEDICARE, SELFPAY ==
--- OUTSIDE RECORDS SUMMARY | 2024-08-23 13:45 | XMS_ITS | Patient Health Record ---
Author Organization [facility] Address [address] [place] [id number] Care Team Providers Care Clinical Data Associate Name Role Phone Reuben SOLORZANO, Asma Primary Care Provider Kameron Greenberg Unavailable [phone] PIPPA MURRIETA Unavailable Unavailable Reason For Referral [...] Problem Status W/U Status Risk Notes Problem [id number] Iron deficiency anemia, unspecified iron deficiency anemia type (D50.9) Active confirmed Plan Of Treatment No Information Insurance Providers Payer Name Payer Address Payer Phone Subscriber Number Group Number Insured Name Patient Relationship to Insured Coverage Start Date Coverage End Date [employer] [address] [place] Dean [phone] [id number] DOUGIE LUCIO Self - patient is the insured Medical (General) History Medical History History ICD Code Colonoscopy 08/12/[address] Klein --hyperplastic polyp osteopenia HTN Denies [place],DM,CVA,renal disease COPD Hospitalized in 08/2013 with anemia [...]
[2024-08-23 16:23] LABS: Anion Gap 14 (12-20); Carbon Dioxide 26 mmol/L (22-29); Chloride 106 mmol/L (96-108); Potassium 5.0 mmol/L (3.3-5.1); Sodium 141 mmol/L (135-145)
== END 2024-08-23 13:09 | disposition home or self-care (01) ==
LOC: HO.HMGCLDS 13:08
PROVIDERS: PCP Internal Medicine; Visit Provider Internal Medicine
DX: E87.5 Hyperkalemia (principal)
CPT/HCPCS: 36415; 80051

== ENCOUNTER 2024-12-26 12:40 | Outpatient (REF) | payer MEDICARE, SELFPAY ==
[2024-12-26 16:10] LABS: MANUAL DIFF FLAG NO
[2024-12-26 16:15] LABS: Hematocrit 46.9 % (37.0-47.0); Hemoglobin 14.9 g/dl (12.0-16.0); Imm Gran Abs Auto 0.02 X10*3/uL (0.00-0.03); Imm Gran Pct Auto 0.4 % (0.0-0.4); Lymphocytes Absolute Auto 1.5 X10*3/uL (1.2-4.9); Mean Corpuscular HGB Conc 31.8 g/dl (31.0-35.0); Mean Corpuscular Hemoglobin 30.6 pg (27.0-33.0); Mean Corpuscular Volume 96.3 fL (80.0-98.0); NRBC Abs Auto 0.000 X10*3/uL (0.0-0.012); NRBC Pct Auto 0.0 /100WBC (0.0-0.2); Platelet Count 211 X10*3/uL (160-400); Red Blood Count 4.87 X10*6/uL (4.20-5.50); White Blood Count 5.7 X10*3/uL (4.8-10.8)
[2024-12-26 16:21] LABS: INTERNATIONAL NORM RATIO 1.8 (0.9-1.1); Prothrombin Time 20.4 SEC (10.9-12.4)
[2024-12-26 16:37] LABS: Alanine Aminotransferase 29 U/L (0-31); Albumin Level 4.2 g/dL (3.5-5.0); Alkaline Phosphatase 86 U/L (39-117); Anion Gap 14 (12-20); Aspartate Amino Transferase 33 U/L (5-31); Blood Urea Nitrogen 32 mg/dL (9-16); Calcium 9.6 mg/dL (8.4-10.2); Carbon Dioxide 26 mmol/L (22-29); Chloride 104 mmol/L (96-108); Estimated Glomerular Filt Rate 44; Potassium 4.4 mmol/L (3.3-5.1); Sodium 140 mmol/L (135-145); Total Protein 7.3 g/dL (6.5-8.0)
[2024-12-26 16:43] LABS: Digoxin 0.4 ng/mL (0.8-2.0)
== END 2024-12-26 12:41 | disposition home or self-care (01) ==
LOC: HO.HMGCLDS 12:40
PROVIDERS: PCP Internal Medicine; Visit Provider Internal Medicine
DX: Z00.01 Encounter for general adult medical examination with abnormal findings (principal); I48.3 Typical atrial flutter; I49.9 Cardiac arrhythmia, unspecified; I10 Essential (primary) hypertension; R32 Unspecified urinary incontinence; I49.1 Atrial premature depolarization; R00.0 Tachycardia, unspecified; E78.9 Disorder of lipoprotein metabolism, unspecified; E66.09 Other obesity due to excess calories; K21.9 Gastro-esophageal reflux disease without esophagitis; N28.9 Disorder of kidney and ureter, unspecified; J44.9 Chronic obstructive pulmonary disease, unspecified; Z79.01 Long term (current) use of anticoagulants; Z68.33 Body mass index [BMI] 33.0-33.9, adult
CPT/HCPCS: 36415; 80053; 80162; 84443; 85025; 85610; 96127; 99397

== ENCOUNTER 2024-12-26 12:40 | Outpatient (AMB) | payer MEDICARE, SELFPAY ==
[2024-12-26 12:43] VITALS: BP 134/84; PULSE 145; TEMP 36.7; O2SAT 94; BMI 33.3
--- NOTE | 2024-12-26 12:43 | MHC.PC.OV ---
Vital Signs 12/26/24 12:43 Height 5 ft 5 in Weight 200 lb BMI 33.3 BP 134/84 Blood Pressure Location Lt brachial Position Sitting Pulse 145 H Pulse Source Pulse Oximeter Temp 98.0 F Temp Source Oral Pulse Oximetry (%) 94 Intake Visit Reasons: Annual PE Allergies enviromental Allergy (Mild, Uncoded 12/26/24 12:44) RHINITIS SEASONAL ALLERGIES Allergy (Mild, Uncoded 12/26/24 12:44) RUNNY NOSE Medication List - Last Reconciled 12/26/24 by Marvin Alexis MD diaper,brief,infant-noe,disp As directed change 3 times a day Size Large digoxin 0.125 mg PO Q2D fexofenadine (Rosemary Allergy) 60 mg PO DAILY hydrochlorothiazide 25 mg PO DAILY 90 days ipratropium bromide 2 sprays intranasal DAILY lisinopril 40 mg PO DAILY metoprolol succinate ER 150 mg (3 x 50 mg) PO DAILY simvastatin 20 mg PO BEDTIME 90 days warfarin 7.5 mg See Protocol PO DAILY Tobacco use date assessed: 07/25/24 Fall risk assessment: No Falls in past year Last assessed Fall Risk: 12/26/24 Dental Screening Dental Screen Date: 07/25/24 Did you have a dental visit in the last 12 months?: Yes Did you have a dental problem in the last 6 months where you did not have access to dental care?: No Was dental information given to patient?: Patient has dentist HPI Annual PE HPI Details History of Present Illness The patient is an 89-year-old female presenting for a physical examination. Cardiac Arrhythmia: - The patient has a history of PACs and PVCs, causing an irregular heart rhythm. - She takes digoxin every other day for this condition. - A digoxin level checked in March was low. Renal Function: - The patient's kidney function has been declining. - Labs in August showed a potassium level of 5.0, which is borderline normal. - The patient is not currently followed by a asphalt dauber. Hypertension: - The patient's reported medications for hypertension include hydrochlorothiazide, lisinopril 40 mg, and metoprolol 150 mg. - She has missed her lisinopril doses for the past two days due to a pharmacy issue. Urinary Incontinence: - The patient reports a long-standing history of urinary incontinence and wears a diaper. Medical History: - Cardiac arrhythmia with PACs and PVCs - Declining renal function - Hypertension - Urinary incontinence - Allergies Social History: - The patient reports being in the house all the time. Health Maintenance - The patient declines further mammograms, with her last one performed in 2021. - The patient declined a referral to a element winding machine tender for a skin cancer screening. - The patient declined an influenza vaccine but was advised to get a senior dose from a pharmacy if she changes her mind. [place] [facility] - The patient attends a Coumadin Clinic for INR monitoring. Medications - Digoxin, taken every other day - Rosemary, for allergies, not taken regularly - Hydrochlorothiazide - Lisinopril 40 mg - Metoprolol 150 mg - Simvastatin 20 mg - Warfarin 7.5 mg - Nasal spray - Discontinued: Spironolactone Patient Instructions - Go to the lab to have your blood drawn today. - Go to the emergency room immediately if you start to feel lightheaded or dizzy. your HR is high today, since you are asymptomatic we will continue to monitor it , how ever your Dignoxin level needed to be checked and dose adjusted once level is available - If you change your mind about the flu shot, be sure to get the senior dose, which is available at most pharmacies. f/u 3-4 M Review of Systems - General: No fever no chills - Neurological: No headaches no dizziness - Ear nose throat: No sore throat no hearing difficulty no ear pain - Cardiovascular: No syncope, no chest pain - Gastrointestinal: No nausea vomiting or diarrhea - Skin: No new complaints Physical Exam General: Cooperative, healthy appearing, comfortable, no acute distress Orientation: Patient oriented x3 Head: Normal to inspection Ears: Within normal limit visually Nose: Normal external nose present Face and sinus: Normal facial exam Eyes: Appearance normal, extraocular movement intact pupils reactive Neck: Normal visual inspection and supple Respiratory: Normal respiratory effort and able to speak in complete sentences. Clear to auscultation, no stridor Cardiovascular: Irregular rhythm GI: Normal to inspection. Soft to palpation and nontender Skin: Turgor normal, no acute findings Neuro: Patient oriented x3, motor intact, unstable with eyes closed Extremities: Normal to inspection, able to lift both arms above head with some soreness , Knees with full ROM . [facility] Medical History Stress bladder incontinence, female Environmental allergies COPD mixed type Warfarin anticoagulation History of deep venous thrombosis (DVT) of distal vein of left lower extremity Peripheral vascular disease Lipid disorder Osteoporosis Hypertension, essential Surgical History History of cataract surgery Hx of vascular surgery History of colonoscopy History of breast biopsy Family History Father HTN (hypertension) History of heart attack Mother HTN (hypertension) Breast cancer Maternal Grandfather No problems noted. Maternal Grandmother No problems noted. Paternal Grandfather No problems noted. Paternal Grandmother No problems noted. Sister No problems noted. Son No problems noted. Son No problems noted. Daughter No problems noted. Daughter No problems noted. Daughter No problems noted. Other Stress bladder incontinence, female Social History Household Members: Family and Children Housing: House Are you a primary health care legal assistant to a significant other at home: No Do you presently have visiting nurse or other home services: No Alcohol intake: current Alcohol intake frequency: holidays/special occasions only Patient Tobacco Use Status: Never used Tobacco e-Cigarette/Vaping Use: Never Used Second Hand Smoke Exposure: No service: No Current occupational status: retired Cognitive needs: No Hearing needs: No Vision needs: Yes Questionnaire PHQ-9 Over the last 2 weeks, how often have you been bothered by any of the following problems? 1. Little interest or pleasure in doing things: not at all 2. Feeling down, depressed, or hopeless: not at all 3. Trouble falling or staying asleep, or sleeping too much: not at all 4. Feeling tired or having little energy: not at all 5. Poor appetite or overeating: not at all 6. Feeling bad about yourself - or that you are a failure or have let yourself or your family down: not at all 7. Trouble concentrating on things, such as reading the newspaper or watching television: not at all 8. Moving or speaking so slowly that other people could have noticed. Or the opposite - being so fidgety or restless that you have been moving around a lot more than usual: not at all 9. Thoughts that you would be better off or of hurting yourself in some way: not at all Total score: 0 Depression Screening Interpretation: Negative Depression Screening Done: Yes 48129 - PHQ-9 Billing: Yes Source: Developed by Drs. Kameron Gilliam, Marcelina Nash, Justin Dallas and colleagues, with an educational rambo from [employer]. Thrive Questionnaire Date Thrive assessed: 07/25/24 I am a: Patient What is your living situation today?: I have a steady place to live Within the past 12 months, did the food you bought not last and you didn't have the money to get more?: Never true Within the past 12 months, did you worry whether your food would run out before you got money to buy more?: Never true Do you have trouble paying for medicines?: No Do you have trouble getting transportation to medical appointments?: No Do you have trouble paying your heating and electricity bill?: Yes Do you have trouble taking care of your child, family member or friend?: No Do you have trouble with day-to-day activities such as bathing, preparing meals, shopping, managing finances, etc.?: No Are you currently unemployed and looking for a job?: No Are you interested in more education?: No Please select the resources that you would like help with: Utilities Currently or been in a relationship where the following occur: No concerns reported THRIVE Score: 1 AUDIT C Alcohol Use Questionnaire (AUDIT-C) 1. How often do you have a drink containing alcohol?: Monthly or less 2. How many drinks containing alcohol do you have on a typical day when you are drinking?: 1 or 2 3. How often do you have six or more drinks on one occasion?: Never Total Score: 1 Score Reviewed/Action Taken: Yes MAREN-7 AMB Questionnaire MAREN-7 Date MAREN - 7 assessed: 07/25/24 Feeling nervous, anxious, or on edge: 0 = Not at all Not being able to stop or control worryin = Not at all Worrying too much about different things: 1 = Several days Trouble relaxin = Not at all Being so restless that it is hard to sit still: 0 = Not at all Becoming easily annoyed or irritable: 0 = Not at all Feeling afraid as if something awful might happen: 0 = Not at all Total MAREN-7 score (0-4 normal; 5-9 mild; 10-14 moderate; 15-21 severe): 1 Source: Developed by Drs. Kameron Gilliam, Marcelina Nash, Justin Dallas and colleagues, with an educational rambo from [employer]. MAREN-7 Assessment Billing MAREN-7 Assessment Tool: MAREN-7 Assessment 54493 Physical exam (Primary Care) Vital Signs: Last Vital Signs Temp 98.0 F 12/26/24 12:43 Pulse 145 H 12/26/24 12:43 BP 134/84 12/26/24 12:43 Pulse Ox 94 12/26/24 12:43 BMI result Body Mass Index 33.3 Tobacco/Smoking Status: Tobacco use Status Tobacco use date assessed 07/25/24 12/26/24 12:45 Patient Tobacco Use Status Never used Tobacco 12/26/24 12:45 e-Cigarette/Vaping Use Never Used 12/26/24 12:45 PHQ-9: PHQ-9 Score PHQ-9: Total score 0 12/26/24 15:00 Depression Screening Interpretation: Negative Thrive Assessment: Date of Thrive Assessment Date Thrive assessed 07/25/24 12/26/24 12:45 Currently or been in a relationship where the following occur: No concerns reported Coding Level of Care Code Est Pt Level 4 (07399) Est Pt Prev Care >65y(22470) Diagnoses Atrial premature depolarization I49.1 Arrhythmia type: premature depolarization Premature depolarization type: atrial Encounter for general adult medical examination with abnormal findings Z00.01 Hypertension, essential I10 Sinus tachycardia R00.0 Lipid disorder E78.9 Warfarin anticoagulation Z79.01 Class 1 obesity due to excess calories without serious comorbidity with body mass index (BMI) of 34.0 to 34.9 in adult E66.09; Z68.34 Body mass index: BMI 34.0-34.9 Obesity classification: adult class 1 (BMI 30 - 34.9) Serious obesity comorbidity presence: without serious comorbidity Chronic GERD K21.9 Nephropathy N28.9 COPD mixed type J44.9 Additional Codes MAREN-7 Assessment Billing - MAREN-7 Assessment Tool: MAREN-7 Assessment 59523 ([id number]) PHQ-9 - 95190 - PHQ-9 Billing: Yes ([id number]) Assessment & Plan Assessment & Plan (1) Cardiac arrhythmia: Code(s): I49.9 - Cardiac arrhythmia, unspecified Category: Medical Qualifiers: Arrhythmia type: premature depolarization Premature depolarization type: atrial Qualified Code(s): I49.1 - Atrial premature depolarization (2) Encounter for general adult medical examination with abnormal findings: Code(s): Z00.01 - Encounter for general adult medical examination with abnormal findings Category: Medical (3) Hypertension, essential: Code(s): I10 - Essential (primary) hypertension Category: Medical (4) Sinus tachycardia: Code(s): R00.0 - Tachycardia, unspecified Category: Medical (5) Lipid disorder: Code(s): E78.9 - Disorder of lipoprotein metabolism, unspecified Category: Medical (6) Warfarin anticoagulation: Code(s): Z79.01 - correction (current) use of anticoagulants Category: Medical (7) Obesity due to excess calories: Code(s): E66.09 - Other obesity due to excess calories Category: Medical Qualifiers: Body mass index: BMI 34.0-34.9 Obesity classification: adult class 1 (BMI 30 - 34.9) Serious obesity comorbidity presence: without serious comorbidity Qualified Code(s): E66.09 - Other obesity due to excess calories; Z68.34 - Body mass index [BMI] 34.0-34.9, adult (8) Chronic GERD: Code(s): K21.9 - Gastro-esophageal reflux disease without esophagitis Category: Medical (9) Nephropathy: Code(s): N28.9 - Disorder of kidney and ureter, unspecified Category: Medical (10) COPD mixed type: Code(s): J44.9 - Chronic obstructive pulmonary disease, unspecified Category: Medical Plan Cardiac Arrhythmia: - The patient has a history of PACs and PVCs, causing an irregular heart rhythm. - She takes digoxin every other day for this condition. - A digoxin level checked in March was low. Renal Function: - The patient's kidney function has been declining. - Labs in August showed a potassium level of 5.0, which is borderline normal. - The patient is not currently followed by a asphalt dauber. Hypertension: - The patient's reported medications for hypertension include hydrochlorothiazide, lisinopril 40 mg, and metoprolol 150 mg. - She has missed her lisinopril doses for the past two days due to a pharmacy issue. Urinary Incontinence: - The patient reports a long-standing history of urinary incontinence and wears a diaper. Medical History: - Cardiac arrhythmia with PACs and PVCs - Declining renal function - Hypertension - Urinary incontinence - Allergies Social History: - The patient reports being in the house all the time. Health Maintenance - The patient declines further mammograms, with her last one performed in 2021. - The patient declined a referral to a element winding machine tender for a skin cancer screening. - The patient declined an influenza vaccine but was advised to get a senior dose from a pharmacy if she changes her mind. [place] [facility] - The patient attends a Coumadin Clinic for INR monitoring. Medications - Digoxin, taken every other day - Rosemary, for allergies, not taken regularly - Hydrochlorothiazide - Lisinopril 40 mg - Metoprolol 150 mg - Simvastatin 20 mg - Warfarin 7.5 mg - Nasal spray - Discontinued: Spironolactone Patient Instructions - Go to the lab to have your blood drawn today. - Go to the emergency room immediately if you start to feel lightheaded or dizzy. your HR is high today, since you are asymptomatic we will continue to monitor it , how ever your Dignoxin level needed to be checked and dose adjusted once level is available - If you change your mind about the flu shot, be sure to get the senior dose, which is available at most pharmacies. f/u 3-4 M . Orders: Orders Comprehensive Met. Panel Today E66.09 - Other obesity due to excess calories, E78.9 - Disorder of lipoprotein metabolism, unspecified, I10 - Essential (primary) hypertension, I49.1 - Atrial premature depolarization, J44.9 - Chronic obstructive pulmonary disease, unspecified, K21.9 - Gastro-esophageal reflux disease without esophagitis, N28.9 - Disorder of kidney and ureter, unspecified, R00.0 - Tachycardia, unspecified, Z68.34 - Body mass index [BMI] 34.0-34.9, adult, Z79.01 - correction (current) use of anticoagulants Complete Blood Count Auto Diff Today E66.09 - Other obesity due to excess calories, E78.9 - Disorder of lipoprotein metabolism, unspecified, I10 - Essential (primary) hypertension, I49.1 - Atrial premature depolarization, J44.9 - Chronic obstructive pulmonary disease, unspecified, K21.9 - Gastro-esophageal reflux disease without esophagitis, N28.9 - Disorder of kidney and ureter, unspecified, R00.0 - Tachycardia, unspecified, Z68.34 - Body mass index [BMI] 34.0-34.9, adult, Z79.01 - buttermaker helper (current) use of anticoagulants Digoxin Today I48.3 - Typical atrial flutter TSH reflex Free T4 Today E66.09 - Other obesity due to excess calories, E78.9 - Disorder of lipoprotein metabolism, unspecified, I10 - Essential (primary) hypertension, I49.1 - Atrial premature depolarization, J44.9 - Chronic obstructive pulmonary disease, unspecified, K21.9 - Gastro-esophageal reflux disease without esophagitis, N28.9 - Disorder of kidney and ureter, unspecified, R00.0 - Tachycardia, unspecified, Z68.34 - Body mass index [BMI] 34.0-34.9, adult, Z79.01 - correction (current) use of anticoagulants Prothrombin Time INR Today Z79.01 - buttermaker helper (current) use of anticoagulants
--- OUTSIDE RECORDS SUMMARY | 2024-12-26 15:22 | XMS_ITS | Patient Health Record ---
Author Organization [facility] Address [address] [place] [id number] Care Team Providers Care Paymaster Of Purses Name Role Phone Reuben SOLORZANO, Asma Primary Care Provider Kameron Greenberg Unavailable [phone] PIPPA MURRIETA Unavailable Unavailable Reason For Referral [...] Problem Status W/U Status Risk Notes Problem Iron deficiency anemia ([id number]) Iron deficiency anemia, unspecified iron deficiency anemia type (D50.9) Active confirmed Plan Of Treatment No Information Insurance Providers Payer Name Payer Address Payer Phone Subscriber Number Group Number Insured Name Patient Relationship to Insured Coverage Start Date Coverage End Date [facility] [address] [place] [phone] [id number] DOUGIE LUCIO Self - patient is the [...]
== END 2024-12-26 13:10 | disposition home or self-care (01) ==
LOC: HO.HMCC 12:40
PROVIDERS: PCP Internal Medicine; Visit Provider Internal Medicine
DX: Z00.01 Encounter for general adult medical examination with abnormal findings (principal); I49.1 Atrial premature depolarization; I10 Essential (primary) hypertension; J44.9 Chronic obstructive pulmonary disease, unspecified; R00.0 Tachycardia, unspecified; E78.9 Disorder of lipoprotein metabolism, unspecified; Z79.01 Long term (current) use of anticoagulants; E66.09 Other obesity due to excess calories; Z68.34 Body mass index [BMI] 34.0-34.9, adult; K21.9 Gastro-esophageal reflux disease without esophagitis; N28.9 Disorder of kidney and ureter, unspecified

== ENCOUNTER 2025-01-09 13:27 | Outpatient (AMB) | payer MEDICARE, SELFPAY ==
[2025-01-09 13:35] LABS: Prothrombin Time Whole Bld POC 24.6 sec (11.1-13.5); ~PT, ~INR - Anti Coag Clinic 2.0 (0.9-1.1)
--- NOTE | 2025-01-09 13:43 | MHC.OFFVISCO ---
Intake Intake Visit Reasons: Anticoagulation Allergies enviromental Allergy (Mild, Uncoded 01/09/25 13:28) RHINITIS SEASONAL ALLERGIES Allergy (Mild, Uncoded 01/09/25 13:28) RUNNY NOSE Medication List - Last Reconciled 01/09/25 by Gricel Green RN diaper,brief,infant-noe,disp As directed change 3 times a day Size Large digoxin 0.125 mg PO DAILY fexofenadine (Rosemary Allergy) 60 mg PO DAILY hydrochlorothiazide 25 mg PO DAILY 90 days ipratropium bromide 2 sprays intranasal DAILY lisinopril 40 mg PO DAILY metoprolol succinate ER 150 mg (3 x 50 mg) PO DAILY simvastatin 20 mg PO BEDTIME 90 days warfarin 7.5 mg See Protocol PO DAILY Nursing Note INR: 2.0 in therapeutic range Medications and supplements reviewed No changes in health, diet, medications, or supplements, Denies any signs and symptoms of bleeding or bruising or clotting. Bleeding, bruising, clotting discussed Nutritional guidance given Dose: 7.5MG MWF/ 5MG X 4 DAYS F/U INR: 1 MONTH Patient verbalizes understanding of instructions given Anti-Coag Initial Assessment Social Hx Patient Tobacco Use Status: Never used Tobacco alcohol intake: current Alcohol intake frequency: holidays/special occasions only Coding Level of Care Code Est Patient Level 1 Diagnoses Current use of anticoagulant therapy Z79.01 Results AMB INR Fingerstick AMB INR Fingerstick 2.0 Last Edit by Gricel Green RN on 01/09/25 13:36 MANUAL ENTRY Assessment & Plan Assessment & Plan (1) Current use of anticoagulant therapy: Code(s): Z79.01 - terminal clerk (current) use of anticoagulants Category: Medical Medications: New [MULTIVITAMIN] PO DAILY
--- OUTSIDE RECORDS SUMMARY | 2025-01-10 06:26 | XMS_ITS | Patient Health Record ---
Author Organization [facility] Address [address] [place] [address] Care Team Providers Care University Demonstrator Name Role Phone Reuben SOLORZANO, Asma Primary Care Provider Kameron Greenberg Unavailable [phone] PIPPA MURRIETA Unavailable Unavailable Reason For Referral No Information Medications Medication SIG (Take, Route, Frequency, Duration) Notes Start Date End Date Status coumadin 5 mg tablet 1-2 tablets Oral on ce a day Active Omeprazole 20 MG Capsule Delayed Release 1 capsule Orally twice a day Active Fluticasone Propionate (Inhal) 50 MCG/BLIST Aerosol Powder Breath Activated 1 puff Inhalation Twice a day Active Lisinopril 40 MG Tablet 1 tablet Orally Once a day Active Simvastatin 20 MG Tablet 1 tablet in the evening Orally Once a day Active Metoprolol Succinate ER 100 MG Tablet Extended Release 24 Hour 1 tablet Orally Once a day Active Iron 325 (65 Fe) MG Tablet 1 tablet Oral ly Once a day Active Furosemide 20 MG Tablet 1 tablet Orally Once a day Active Social History Social History Additional Details Category Social Info Options Details Miscellaneous: Marital status: Occupation: retired Section Notes: Nonsmoker; no sig alcohol Nonsmoker; no sig alcohol Problems Problem Type SNOMED Code ICD Code Onset Dates Problem Status W/U Status Risk Notes Problem Iron deficiency anemia ([id number]) Iron deficiency anemia, unspecified iron deficiency anemia type (D50.9) Active confirmed Plan Of Treatment No Information Insurance Providers Payer Name Payer Address Payer Phone Subscriber Number Group Number Insured Name Patient Relationship to Insured Coverage Start Date Coverage End Date [facility] [address] [place] [phone] [id number] DOUGIE LUCIO Self - patient is the insured Medical (General) History Medical History History ICD Code Colonoscopy 08/12/[address] Klein --hyperplastic polyp osteopenia HTN Denies [place],DM,CVA,renal disease COPD Hospitalized in 08/2013 with anemia with a Hgb of 5.4--needed 3 units of blood--was on ASA--colonoscopy was normal--the EGD showed small gastric ulcers and gastritis-bx neg for H. pylori--Hgb 14.2 and Ferritin 46 in 12/2013 Hyperlipidemia Pulmonary embolus in 2010--was on Coumad in DVT in left leg--started Coumadin for th at approx. 2015 hx of sinus allergies Surgical History Surgery Date(Month/Year) Breast biopsy-benign
== END 2025-01-09 13:45 | disposition home or self-care (01) ==
LOC: HO.ACS 13:27
PROVIDERS: PCP Internal Medicine; Visit Provider Internal Medicine Medical Oncology
DX: Z79.01 Long term (current) use of anticoagulants (principal)

== ENCOUNTER → 2025-01-09 13:27 | Outpatient (BNVA) | payer MEDICARE, SELFPAY | PROVIDERS: PCP Internal Medicine; Visit Provider Internal Medicine Medical Oncology | DX: Z79.01 Long term (current) use of anticoagulants (principal) | CPT/HCPCS: 85610; 99211 ==

== ENCOUNTER 2025-01-12 09:01 | Outpatient (REF) | payer MEDICARE, SELFPAY ==
[2025-01-12 14:57] LABS: Digoxin 0.6 ng/mL (0.8-2.0)
== END 2025-01-12 09:02 | disposition home or self-care (01) ==
LOC: HO.HMGCLDS 09:01
PROVIDERS: PCP Internal Medicine; Visit Provider Internal Medicine
DX: I49.1 Atrial premature depolarization (principal); I48.91 Unspecified atrial fibrillation; E87.5 Hyperkalemia; N18.9 Chronic kidney disease, unspecified; Z79.01 Long term (current) use of anticoagulants
CPT/HCPCS: 36415; 80162; 99212

== ENCOUNTER 2025-01-12 09:01 | Outpatient (AMB) | payer MEDICARE, SELFPAY ==
[2025-01-12 09:08] VITALS: BP 138/84; PULSE 92; O2SAT 97; BMI 33.4
--- NOTE | 2025-01-12 09:08 | MHC.PC.OV ---
Vital Signs 01/12/25 09:08 Height 5 ft 5 in Weight 201 lb BMI 33.4 BP 138/84 Blood Pressure Location Lt brachial Position Sitting Pulse 92 Pulse Source Pulse Oximeter Pulse Oximetry (%) 97 Oxygen Delivery Method Room Air Intake Visit Reasons: 2 weeks lab reviews Allergies enviromental Allergy (Mild, Uncoded 01/12/25 09:12) RHINITIS SEASONAL ALLERGIES Allergy (Mild, Uncoded 01/12/25 09:12) RUNNY NOSE Medication List - Last Reconciled 01/12/25 by Marvin Alexis MD diaper,brief,-noe,disp As directed change 3 times a day Size Large digoxin 0.125 mg PO DAILY fexofenadine (Rosemary Allergy) 60 mg PO DAILY hydrochlorothiazide 25 mg PO DAILY 90 days ipratropium bromide 2 sprays intranasal DAILY lisinopril 40 mg PO DAILY metoprolol succinate ER 150 mg (3 x 50 mg) PO DAILY [MULTIVITAMIN PO DAILY] simvastatin 20 mg PO BEDTIME 90 days warfarin 7.5 mg See Protocol PO DAILY Tobacco use date assessed: 07/25/24 Fall risk assessment: No Falls in past year Last assessed Fall Risk: 01/12/25 Dental Screening Dental Screen Date: 07/25/24 HPI HPI Comments History of Present Illness Details History of Present Illness The patient is an 89 year old individual presenting for a follow-up to review blood test results. Atrial Fibrillation: - The patient has atrial fibrillation and had a high heart rate of 145 bpm at the last visit. - A previous digoxin level was subtherapeutic at 0.4, with the target being above 0.8. - The patient's digoxin dosing was changed from every other day to every day for the past couple of weeks. Hyperkalemia: - The patient's potassium level was previously slightly high. - A repeat lab test showed a normal potassium level of 4.4. Chronic Kidney Disease: - The patient sees a digital marketing assistant for kidney-related issues. Medical History: - Atrial fibrillation - History of hyperkalemia - Kidney disease, under care of a digital marketing assistant [facility] Medical History Stress bladder incontinence, female Environmental allergies COPD mixed type Warfarin anticoagulation History of deep venous thrombosis (DVT) of distal vein of left lower extremity Peripheral vascular disease Lipid disorder Osteoporosis Hypertension, essential Surgical History History of cataract surgery Hx of vascular surgery History of colonoscopy History of breast biopsy Family History Father HTN (hypertension) History of heart attack Mother HTN (hypertension) Breast cancer Maternal Grandfather No problems noted. Maternal Grandmother No problems noted. Paternal Grandfather No problems noted. Paternal Grandmother No problems noted. Sister No problems noted. Son No problems noted. Son No problems noted. Daughter No problems noted. Daughter No problems noted. Daughter No problems noted. Other Stress bladder incontinence, female Social History Household Members: Family and Children Housing: House Are you a primary child adolescent care to a significant other at home: No Do you presently have visiting nurse or other home services: No Alcohol intake: current Alcohol intake frequency: holidays/special occasions only Patient Tobacco Use Status: Never used Tobacco e-Cigarette/Vaping Use: Never Used Second Hand Smoke Exposure: No service: No Current occupational status: retired Cognitive needs: No Hearing needs: No Vision needs: Yes Questionnaire Thrive Questionnaire Date Thrive assessed: 03/28/24 I am a: Patient What is your living situation today?: I have a steady place to live Within the past 12 months, did the food you bought not last and you didn't have the money to get more?: Never true Within the past 12 months, did you worry whether your food would run out before you got money to buy more?: Never true Do you have trouble paying for medicines?: No Do you have trouble getting transportation to medical appointments?: No Do you have trouble paying your heating and electricity bill?: Yes Do you have trouble taking care of your child, family member or friend?: No Do you have trouble with day-to-day activities such as bathing, preparing meals, shopping, managing finances, etc.?: No Are you currently unemployed and looking for a job?: No Are you interested in more education?: No Please select the resources that you would like help with: Utilities Currently or been in a relationship where the following occur: No concerns reported THRIVE Score: 1 MAREN-7 AMB Questionnaire MAREN-7 Date MAREN - 7 assessed: 07/25/24 Source: Developed by Drs. Kameron Gilliam, Marcelina Nash, Justin Dallas and colleagues, with an educational rambo from [employer]. Review of Systems Narrative Review of Systems - General: No fever no chills - Neurological: No headaches no dizziness - Ear nose throat: No sore throat no hearing difficulty no ear pain - Cardiovascular: No syncope, no chest pain, no palpitations - Gastrointestinal: No nausea vomiting or diarrhea Physical exam (Primary Care) Vital Signs: Last Vital Signs Pulse 92 01/12/25 09:08 BP 138/84 01/12/25 09:08 Pulse Ox 97 01/12/25 09:08 Oxygen Delivery Method Room Air 01/12/25 09:08 BMI result Body Mass Index 33.4 Tobacco/Smoking Status: Tobacco use Status Tobacco use date assessed 07/25/24 01/12/25 09:08 Patient Tobacco Use Status Never used Tobacco 01/12/25 09:08 e-Cigarette/Vaping Use Never Used 01/12/25 09:08 Thrive Assessment: Date of Thrive Assessment Date Thrive assessed 03/28/24 01/12/25 09:08 Currently or been in a relationship where the following occur: No concerns reported Narrative Physical Exam General: No acute distress HEENT: No acute findings Neck: Supple Respiratory system: Able to talk in full sentences, no audible wheeze Cardiovascular: S1-S2 ireg ireg Gastrointestinal: No pain Extremities: No new findings 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: Alert awake oriented x3 motor intact Skin: Normal turgor Coding Level of Care Code Est Pt Level 3 (00705) Diagnoses Atrial premature depolarization I49.1 Arrhythmia type: premature depolarization Premature depolarization type: atrial Warfarin anticoagulation Z79.01 Nephropathy N28.9 Assessment & Plan Assessment & Plan (1) Cardiac arrhythmia: Code(s): I49.9 - Cardiac arrhythmia, unspecified Category: Medical Qualifiers: Arrhythmia type: premature depolarization Premature depolarization type: atrial Qualified Code(s): I49.1 - Atrial premature depolarization (2) Warfarin anticoagulation: Code(s): Z79.01 - USP (current) use of anticoagulants Category: Medical (3) Nephropathy: Code(s): N28.9 - Disorder of kidney and ureter, unspecified Category: Medical Plan Problem List - Atrial fibrillation - Hyperkalemia, resolved Plan - An order will be placed for the patient to have a digoxin level drawn today to assess the impact of the recent dose adjustment. - Will call the patient with the lab results once they are available. - Advised the patient to hydrate well, drink some water or lemonade, and rest, as the patient reports feeling a little off.
--- OUTSIDE RECORDS SUMMARY | 2025-01-12 09:19 | XMS_ITS | Patient Health Record ---
Author Organization [facility] Address [address] [place] [address] Care Team Providers Care Manager Trust Name Role Phone Reuben SOLORZANO, Asma Primary Care Provider Kameron Greenberg Unavailable [phone] PIPPA MURRIETA Unavailable Unavailable Reason For Referral [...] Status Risk Notes Problem Iron deficiency anemia ([id number]) Iron deficiency anemia, unspecified iron deficiency anemia type (D50.9) Active confirmed Plan Of Treatment No Information Insurance Providers Payer Name Payer Address Payer Phone Subscriber Number Group Number Insured Name Patient Relationship to Insured Coverage Start Date Coverage End Date [facility] [address] [place] [phone] [id number] DOUGIE LUCIO Self - patient is the insured Medical (General) History Medical History History ICD Code Colonoscopy 08/12/[address] Klein --hyperplastic polyp osteopenia HTN Denies RI,DM,CVA,renal disease COPD Hospitalized in 08/2013 with anemia [...]
== END 2025-01-12 09:30 | disposition home or self-care (01) ==
LOC: HO.HMCC 09:01
PROVIDERS: PCP Internal Medicine; Visit Provider Internal Medicine
DX: I49.1 Atrial premature depolarization (principal); Z79.01 Long term (current) use of anticoagulants; N28.9 Disorder of kidney and ureter, unspecified